=== PATIENT | male | born 1980 | race Caucasian/White ===

== ENCOUNTER 2016-03-01 11:26 | Emergency (ER) | payer OTHER ==
[~2016-03-01] VITALS: Ht 170.2 cm; Wt 68.0 kg
--- NOTE | 2016-03-01 11:38 | ED GI ---
General Chief Complaint: Abdominal/GI Problems Stated Complaint: VOMITING/HEART BURN/HEADACHE Source of Information: Patient Exam Limitations: No Limitations History of Present Illness Time Seen By Provider: 11:37 Initial Comments To ER with a one-week history of nausea vomiting heartburn headache and diarrhea. No fevers or chills. History of migraines and this feels similar. All symptoms present x1 week except cough which has been present x3 weeks. Timing/Duration: 1 Week Severity/Quality: Moderate Location: Generalized Abdomen Radiation: No Radiation Activities at Onset: None Associated Symptoms: Nausea/Vomiting Allergies and Home Medications Allergies Coded Allergies: prochlorperazine (Verified Allergy, Intermediate, 03/01/16) Home Medications Azithromycin 250 Mg Tablet #6 250 MG PO UD TAKE 2 TABLETS ON DAY ONE THEN TAKE 1 TABLET DAILY FOR FOUR MORE DAYS Prescribed by: JUAN MANUEL HAN on 03/01/16 1229 Omeprazole 40 Mg Capsule.dr #30 40 MG PO DAILY Prescribed by: JUAN MANUEL HAN on 03/01/16 1219 Sucralfate 1 Gm Tablet #40 1 GM PO QID Prescribed by: JUAN MANUEL HAN on 03/01/16 1219 Review of Systems Constitutional: see HPI EENTM: No Symptoms Reported Respiratory: No Symptoms Reported Cardiovascular: No Symptoms Reported Gastrointestinal: See HPI Abdominal Pain Genitourinary: No Symptoms Reported Musculoskeletal: no symptoms reported Skin: no symptoms reported Psychiatric/Neurological: No Symptoms Reported Endocrine: No Symptoms Reported Hematologic/Lymphatic: No Symptoms Reported Past Pcdhozi-Bycfwr-Hvfvbd Hx Patient Social History Alcohol Use: Denies Use Recreational Drug Use: Yes (WEED) Smoking Status: Current Everyday Smoker Type Used: Cigarettes Recent Foreign Travel: No Contact w/Someone Who Travel: No Recent Hopitalizations: No Physical Abuse Screen: No Sexual Abuse: No Immunizations Up To Date Date of Pneumonia Vaccine: Nov 10, 2015 Seasonal Allergies Seasonal Allergies: No Respiratory Hx Respiratory Disorders: Yes Respiratory Disorders: Asthma, COPD Cardiovascular Hx Cardiac Disorders: No Neurological Hx Neurological Disorders: Yes Neurological Disorders: Headaches /Migraines Reproductive System Hx Reproductive Disorders: No Sexually Transmitted Disease: No HIV/AIDS: No Genitourinary Hx Genitourinary Disorders: No Gastrointestinal Hx Gastrointestinal Disorders: Yes Gastrointestinal Disorders: Ulcer Musculoskeletal Hx Musculoskeletal Disorders: No Endocrine Hx Endocrine Disorders: No HEENT HX ENT Disorders: No Cancer Hx Cancer: No Psychosocial Behavioral Health Disorders: ADD/ADHD, Anxiety, PTSD, Depression Integumentary HX Skin/Integumentary Disorder: No Blood Transfusions Hx Blood Disorders: No Adverse Reaction to a Blood Tr: No Physical Exam Vital Signs VS - Last 72 Hours, by Label 03/01/16 03/01/16 11:29 12:56 Temp 98.9 Pulse 90 97 Resp 18 18 B/P 143/116 Pulse Ox 96 98 O2 Delivery Room Air Room Air Capillary Refill : General Appearance: WD/WN no apparent distress HEENT: PERRL/EOMI normal ENT inspection TMs normal Neck: non-tender full range of motion Respiratory: lungs clear normal breath sounds no respiratory distress no accessory muscle use Cardiovascular: regular rate, rhythm no murmur Gastrointestinal: normal bowel sounds soft tenderness (epigastric) Extremities: normal range of motion non-tender normal inspection Neurologic/Psychiatric: alert normal mood/affect oriented x 3 Skin: normal color warm/dry Progress/Results/Core Measures Results/Orders Lab Results Laboratory Tests Test 03/01/16 11:44 03/01/16 11:45 Range/Units Alanine Aminotransferase (ALT/SGPT) 17 0-55 U/L Albumin 4.2 3.2-4.5 G/DL Alkaline Phosphatase 86 40-136 U/L Anion Gap 12 5-14 MMOL/L Aspartate Amino Transf (AST/SGOT) 16 5-34 U/L BUN/Creatinine Ratio 19 Basophils # (Auto) 0.0 0.0-0.1 10^3/uL Basophils (%) (Auto) 0 0-10 % Blood Urea Nitrogen 19 H 7-18 MG/DL Calcium Level 10.2 H 8.5-10.1 MG/DL Carbon Dioxide Level 26 21-32 MMOL/L Chloride Level 103 98-107 MMOL/L Creatinine 0.99 0.60-1.30 MG/DL Eosinophils # (Auto) 0.4 H 0.0-0.3 10^3/uL Eosinophils (%) (Auto) 4 0-10 % Estimat Glomerular Filtration Rate > 60 Glucose Level 102 70-105 MG/DL Hematocrit 43 40-54 % Hemoglobin 15.2 13.3-17.7 G/DL Lipase 24 8-78 U/L Lymphocytes # (Auto) 1.9 1.0-4.0 X 10^3 Lymphocytes (%) (Auto) 22 12-44 % Mean Corpuscular Hemoglobin 33 25-34 PG Mean Corpuscular Hemoglobin Concent 35 32-36 G/DL Mean Corpuscular Volume 93 80-99 FL Mean Platelet Volume 9.7 7.4-10.4 FL Monocytes # (Auto) 0.8 0.0-1.0 X 10^3 Monocytes (%) (Auto) 9 0-12 % Neutrophils # (Auto) 5.6 1.8-7.8 X 10^3 Neutrophils (%) (Auto) 65 42-75 % Platelet Count 288 130-400 10^3/uL Potassium Level 4.0 3.6-5.0 MMOL/L Red Blood Count 4.68 4.35-5.85 10^6/uL Red Cell Distribution Width 12.5 10.0-14.5 % Sodium Level 141 135-145 MMOL/L Total Bilirubin 0.3 0.1-1.0 MG/DL Total Protein 6.9 6.4-8.2 G/DL White Blood Count 8.7 4.3-11.0 10^3/uL Urine Bacteria NEGATIVE /HPF Urine Bilirubin NEGATIVE NEGATIVE Urine Casts NONE /LPF Urine Clarity CLEAR Urine Color YELLOW Urine Crystals NONE /LPF Urine Culture Indicated NO Urine Glucose (UA) NEGATIVE NEGATIVE Urine Ketones NEGATIVE NEGATIVE Urine Leukocyte Esterase 1+ H NEGATIVE Urine Mucus NEGATIVE /LPF Urine Nitrite NEGATIVE NEGATIVE Urine Protein NEGATIVE NEGATIVE Urine RBC NONE /HPF Urine RBC (Auto) 1+ H NEGATIVE Urine Specific [place] 1.010 L 1.016-1.022 Urine Urobilinogen NORMAL NORMAL MG/DL Urine WBC NONE /HPF Urine pH 8 5-9 JUAN MANUEL Ng PIPELINES SUPERINTENDENT Cbc With Automated Diff (03/01/16 11:36) Comprehensive Metabolic Panel (03/01/16 11:36) Lipase (03/01/16 11:36) Ua Culture If Indicated (03/01/16 11:36) Ondansetron Injection (Zofran Injectio (03/01/16 11:45) Antacid Suspension (Mylanta Suspension (03/01/16 11:45) Lidocaine 2% Viscous 15 Ml (Xylocaine Vi (03/01/16 11:45) Ns Iv 1000 Ml (Sodium Chloride 0.9%) (03/01/16 12:15) Fentanyl Injection (Sublimaze Injection (03/01/16 12:15) Ketorolac Injection (Toradol Injection) (03/01/16 12:15) Medications Given in ED Current Medications Medications Dose Ordered Sig/Catracho Route Start Time Stop Time Status Last Admin Dose Admin Al Hydrox/Mg Hydrox/Simethicone 30 ml ONCE ONCE PO 03/01/16 11:45 03/01/16 11:46 DC 03/01/16 11:49 30 ML Fentanyl Citrate 75 mcg ONCE ONCE IVP 03/01/16 12:15 03/01/16 12:16 DC 03/01/16 12:25 75 MCG Ketorolac Tromethamine 30 mg ONCE ONCE IVP 03/01/16 12:15 03/01/16 12:16 DC 03/01/16 12:25 30 MG Lidocaine HCl 15 ml ONCE ONCE PO 03/01/16 11:45 03/01/16 11:46 DC 03/01/16 11:49 15 ML Ondansetron HCl 8 mg ONCE ONCE IVP 03/01/16 11:45 03/01/16 11:46 DC 03/01/16 11:49 8 MG Vital Signs/I&O Vital Sign - Last 12Hours 03/01/16 03/01/16 11:29 12:56 Temp 98.9 Pulse 90 97 Resp 18 18 B/P 143/116 Pulse Ox 96 98 O2 Delivery Room Air Room Air Departure Impression Impression: Primary Impression: GERD (gastroesophageal reflux disease) Qualified Code: K21.0 - Gastro-esophageal reflux disease with esophagitis Additional Impression: Viral syndrome Disposition: 01 HOME, SELF-CARE Condition: Stable Departure-Patient Inst. Decision time for Depature: 12:18 Referrals: NO,LOCAL PHYSICIAN (PCP/Family) Primary Care Physician Patient Instructions: Acid Reflux (Gastroesophageal Reflux Disease), Adult (DC) Add. Discharge Instructions: 1. Acid reducers as directed 2. Follow up with your regular doctor next week All discharge instructions reviewed with patient and/or family. Voiced understanding. Scripts Azithromycin 250 Mg [id number] Mg PO UD #6 TAB TAKE 2 TABLETS ON DAY ONE THEN TAKE 1 TABLET DAILY FOR FOUR MORE DAYS Prov:JUAN MANUEL HAN APRN 03/01/16 Sucralfate (Carafate)1 Gm Tablet1 Gm PO QID #40 TAB Prov:JUAN MANUEL HAN PIPELINES SUPERINTENDENT 03/01/16 Omeprazole 40 Mg Capsule.dr40 Mg PO DAILY #30 CAP Prov:JUAN MANUEL HAN APRN 03/01/16 Work/School Note: Work Release Form Date Seen in the Emergency Department: Mar 02, 2016 Return to Work: Mar 01, 2016 JUAN MANUEL HAN APRN Mar 01, 2016 11:37
[2016-03-01] MEDS ORDERED: ANTACID SUSP 30 ML UDC (MYLANTA) PO ONE (11:45)
[2016-03-01] MEDS ORDERED: ONDANSETRON 4 MG/2 ML (SDV) Z0FRAN IVP ONE (11:45)
[2016-03-01] MEDS ORDERED: LIDOCAINE 2% VISCOUS 15 ML UDC PO ONE (11:45)
[2016-03-01 11:51] LABS: BASOPHILS % (AUTO) 0 % (0-10); EOSINOPHILS # (AUTO) 0.4 10^3/uL (0.0-0.3); EOSINOPHILS % (AUTO) 4 % (0-10); LYMPHOCYTES # (AUTO) 1.9 X 10^3 (1.0-4.0); LYMPHOCYTES % (AUTO) 22 % (12-44); MEAN CORPUSCULAR HEMOGLOBIN 33 PG (25-34); MEAN CORPUSCULAR HGB CONC 35 G/DL (32-36); MEAN CORPUSCULAR VOLUME 93 FL (80-99); MEAN PLATELET VOLUME 9.7 FL (7.4-10.4); MONOCYTES # (AUTO) 0.8 X 10^3 (0.0-1.0); MONOCYTES % (AUTO) 9 % (0-12); NEUTROPHILS # (AUTO) 5.6 X 10^3 (1.8-7.8); NEUTROPHILS % (AUTO) 65 % (42-75); PLATELET COUNT 288 10^3/uL (130-400); RED BLOOD COUNT 4.68 10^6/uL (4.35-5.85); RED CELL DISTRIBUTION WIDTH 12.5 % (10.0-14.5); WHITE BLOOD COUNT 8.7 10^3/uL (4.3-11.0)
[2016-03-01 11:52] LABS: BILIRUBIN,URINE NEGATIVE (NEGATIVE); KETONES,URINE NEGATIVE (NEGATIVE); LEUKOCYTE ESTERASE ,URINE 1+ (NEGATIVE); NITRITE,URINE NEGATIVE (NEGATIVE); PH,URINE 8 (5-9); PROTEIN,URINE NEGATIVE (NEGATIVE); UROBILINOGEN,URINE NORMAL (NORMAL)
[2016-03-01 12:10] LABS: ALANINE AMINOTRANSFERASE 17 U/L (0-55); ALBUMIN 4.2 G/DL (3.2-4.5); ANION GAP 12 MMOL/L (5-14); ASPARTATE AMINO TRANSFERASE 16 U/L (5-34); BILIRUBIN,TOTAL 0.3 MG/DL (0.1-1.0); BLOOD UREA NITROGEN 19 MG/DL (7-18); BUN/CREATININE RATIO 19; CALCIUM 10.2 MG/DL (8.5-10.1); CARBON DIOXIDE 26 MMOL/L (21-32); CHLORIDE 103 MMOL/L (98-107); CREATININE SERUM 0.99 MG/DL (0.60-1.30); GFR ESTIMATED > 60; GLUCOSE 102 MG/DL (70-105); LIPASE 24 U/L (8-78); SODIUM 141 MMOL/L (135-145); TOTAL PROTEIN 6.9 G/DL (6.4-8.2)
[2016-03-01] MEDS ORDERED: KETOROLAC 30 MG/ML VIAL IVP ONE (12:15)
[2016-03-01] MEDS ORDERED: fentaNYL INJECTION 100 MCG/2 ML AMP IVP ONE (12:15)
[2016-03-01] MEDS ORDERED: NS IV 1000 ML 1,000 ML IV SCH (12:15)
[2016-03-01] MEDS ORDERED: SUCR1TAB36 PO (12:19)
[2016-03-01] MEDS ORDERED: OMEP40CA36 PO (12:19)
[2016-03-01] MEDS ORDERED: AZIT250T5 PO (12:29)
[2016-03-01 12:56] VITALS: BP 121/57
== END 2016-03-01 12:56 | disposition home or self-care (01) ==
LOC: ER 11:29
DX: K21.9 Gastro-esophageal reflux disease without esophagitis (principal); B34.9 Viral infection, unspecified; J44.9 Chronic obstructive pulmonary disease, unspecified; R19.7 Diarrhea, unspecified; F17.210 Nicotine dependence, cigarettes, uncomplicated
CPT/HCPCS: 36415; 80053; 81000; 83690; 85025; 96374; 96375

== ENCOUNTER 2016-10-14 13:59 | Emergency (ER) | payer MEDICAID, OTHER ==
[~2016-10-14] VITALS: Ht 170.2 cm; Wt 68.0 kg
[~2016-10-14 13:59] MED LIST: AZIT250T12 PO; OMEP40CA36 PO; SUCR1TAB36 PO
[2016-10-14] MEDS ORDERED: HYDR-757 PO (14:18)
[2016-10-14] MEDS ORDERED: AMOX500C2 PO (14:18)
[2016-10-14] MEDS ORDERED: NAPR500T PO (14:18)
--- NOTE | 2016-10-14 14:18 | ED EENT ---
History of Present Illness General Chief Complaint: Dental Problems/Pain Stated Complaint: BROKEN TOOTH/FACE SWELLING Nursing Triage Note: patient reports dental pain on R upper side. patient reports tooth broke off yesterday. states isn't able to get into dentist until next month Source: patient Exam Limitations: no limitations History of Present Illness Time seen by provider: 14:15 Initial Comments Patient has pain to his only remaining maxillary tooth. This began last night when he was eating a steak that broke off. Timing/Duration: abrupt Severity: moderate Location: mouth Associated Symptoms: denies symptoms Allergies and Home Medications Allergies Coded Allergies: prochlorperazine (Verified Allergy, Intermediate, 03/01/16) Home Medications Azithromycin 250 Mg Tablet, 250 MG PO UD, #6 TAKE 2 TABLETS ON DAY ONE THEN TAKE 1 TABLET DAILY FOR FOUR MORE DAYS Prescribed by: JUAN MANUEL HAN on 03/01/16 1229 Omeprazole 40 Mg Capsule.dr, 40 MG PO DAILY, #30 Prescribed by: JUAN MANUEL HAN on 03/01/16 1219 Sucralfate 1 Gm Tablet, 1 GM PO QID, #40 Prescribed by: JUAN MANUEL HAN on 03/01/16 1219 Review of Systems Constitutional: see HPI Eyes: No Symptoms Reported Ears: No Symptoms Reported Nose: no symptoms reported Mouth: see HPI Throat: no symptoms reported Respiratory: no symptoms reported Cardiovascular: no symptoms reported Musculoskeletal: no symptoms reported Past Zxjgdim-Lgnxbk-Ftcfmf Hx Patient Social History Alcohol Use: Denies Use Recreational Drug Use: No Smoking Status: Current Everyday Smoker Type Used: Cigarettes Recent Foreign Travel: No Contact w/Someone Who Travel: No Recent Infectious Disease Expo: No Recent Hopitalizations: No Immunizations Up To Date Date of Pneumonia Vaccine: Nov 10, 2015 Seasonal Allergies Seasonal Allergies: No Surgeries History of Surgeries: No Respiratory History of Respiratory Disorde: Yes Respiratory Disorders: Asthma, COPD Cardiovascular History of Cardiac Disorders: No Neurological History of Neurological Disord: Yes Neurological Disorders: Headaches /Migraines Reproductive System Hx Reproductive Disorders: No Sexually Transmitted Disease: No HIV/AIDS: No Gastrointestinal History of Gastrointestinal Di: Yes Gastrointestinal Disorders: Ulcer Musculoskeletal History of Musculoskeletal Dis: No Endocrine History of Endocrine Disorders: No Cancer History of Cancer: No Psychosocial Behavioral Health Disorders: ADD/ADHD, Anxiety, PTSD, Depression Integumentary History of Skin or Integumenta: No Blood Transfusions History of Blood Disorders: No Adverse Reaction to a Blood Tr: No Physical Exam Vital Signs Vital Sign - Last 12Hours 10/14/16 14:10 Temp 98.2 Pulse 68 Resp 18 B/P (MAP) 101/54 Pulse Ox 96 General Appearance: WD/WN, no apparent distress Eyes: bilateral eye normal inspection, bilateral eye PERRL, bilateral eye EOMI Ears: bilateral ear auricle normal, bilateral ear canal normal, bilateral ear TM normal Nose: normal inspection, active bleeding Mouth/Throat: normal mouth inspection, pharynx normal, other (patient has had all teeth removed except for this particular tooth which is now carious and broken but there is no fluctuance to the buccal mucosa or the hard palate to suggest a drainable abscess.) Respiratory: normal breath sounds, no respiratory distress, no accessory muscle use Gastrointestinal: normal bowel sounds, non tender, soft Neurologic/Psychiatric: alert, normal mood/affect, oriented x 3 Skin: normal color, warm/dry Progress/Results/Core Measures Results/Orders Vital Signs/I&O Vital Sign - Last 12Hours 10/14/16 14:10 Temp 98.2 Pulse 68 Resp 18 B/P (MAP) 101/54 Pulse Ox 96 Blood Pressure Mean: 70 Departure Impression Impression: Primary Impression: Dental caries Disposition: 01 HOME, SELF-CARE Condition: Stable Departure-Patient Inst. Decision time for Depature: 14:17 Referrals: SHELBIE YEAGER MD (PCP/Family) Primary Care Physician Patient Instructions: Fractured Tooth (DC) Add. Discharge Instructions: 1. Return to ER for any concerns 2. See your doctor next week 3. All discharge instructions reviewed with patient and/or family. Voiced understanding. Scripts Naproxen (Naprosyn) 500 Mg Tablet 500 MG PO BID Y for PAIN-MILD TO MODERATE, #30 TAB Prov: JUAN MANUEL HAN APRN 10/14/16 Hydrocodone/Acetaminophen ([place] 5-325 Tablet) 1 Each Tablet 1 EACH PO Q4H, #10 TAB Do not fill unless the amoxicillin was also filled Prov: JUAN MANUEL HAN APRN 10/14/16 Amoxicillin (Amoxicillin) 500 Mg Capsule 500 MG PO TID, #21 CAP Prov: JUAN MANUEL HAN APRN 10/14/16 JUAN MANUEL HAN APRN Oct 14, 2016 14:18
[2016-10-14 14:23] VITALS: BP 101/54
[2016-12-08] MEDS ORDERED: HYDR-757 PO (18:06)
== END 2016-10-14 14:21 | disposition home or self-care (01) ==
LOC: EDUNIT# 13:59 → ER 14:01
DX: K02.9 Dental caries, unspecified (principal); J44.9 Chronic obstructive pulmonary disease, unspecified; G43.909 Migraine, unspecified, not intractable, without status migrainosus; F90.9 Attention-deficit hyperactivity disorder, unspecified type; F41.9 Anxiety disorder, unspecified; F32.9 Major depressive disorder, single episode, unspecified; F43.10 Post-traumatic stress disorder, unspecified; F17.210 Nicotine dependence, cigarettes, uncomplicated
CPT/HCPCS: 99282

== ENCOUNTER 2016-10-27 22:48 | Emergency (ER) | payer MEDICAID, OTHER ==
[~2016-10-27] VITALS: Ht 170.2 cm; Wt 68.0 kg
[~2016-10-27 22:48] MED LIST changes: +AMOX500C2 PO; -AZIT250T12 PO; +AZIT250T5 PO; +HYDR-757 PO; +NAPR500T PO
--- OUTSIDE RECORDS SUMMARY | 2016-10-27 22:53 | XMS REPORT ---
Author Author MARIAH ANDERSEN [facility] Address [address] [place] [address] Care Team Providers Care Community Integration Specialist Name Role Phone MARIAH ANDERSEN Unavailable PROBLEMS Type Condition ICD9-CM Code [id number] Code Onset Dates Condition Status SNOMED Code Problem Migraine without aura and without status migrainosus, not intractable G43.009 Active 399124682 Problem Dental examination Z01.20 Active 512125651 Problem Fibromyalgia M79.7 Active 326141176 Problem Major depressive disorder, single episode, unspecified F32.9 Active 94383244 Problem Essential hypertension I10 Active 09218656 Problem Anxiety F41.9 Active 47396466 Problem Primary insomnia F51.01 Active 3224906 ALLERGIES Substance Reaction Event Type Date Status Compazine hives Drug Allergy Mar, Active sea food anaphylaxis Non Drug Allergy Mar, Active SOCIAL HISTORY No smoking Hx information available PLAN OF CARE VITAL SIGNS MEDICATIONS Unknown Medications RESULTS No Results PROCEDURES No Known procedures IMMUNIZATIONS No Known Immunizations
[2016-10-27] MEDS ORDERED: PROP60TA17 (23:12)
[2016-10-27] MEDS ORDERED: PARO20TA5 (23:12)
[2016-10-27] MEDS ORDERED: CYCL10TA9 (23:12)
[2016-10-27] MEDS ORDERED: QUET200T57 (23:12)
[2016-10-27] MEDS ORDERED: KETOROLAC 60 MG/2 ML VIAL IM ONE ×2 (23:14→23:30)
[2016-10-27] MEDS ORDERED: MELO15TA14 PO (23:26)
--- NOTE | 2016-10-27 23:27 | ED Back Pain ---
General Chief Complaint: Back Problems Stated Complaint: BACK PAIN Nursing Triage Note: PT TO ED 6 W/ C/O MIDDLE BACK PAIN ET "STINGING" ONSET THIS AFTERNOON WHILE PULLING ON THE CORD TO HIS LAWNMOWER. DENIES ANY RADIATION OF PAIN DOWN EITHER LEG, NO LOSS OF BOWEL OR BLADDER. DOES REPORT HE IS ON DISABILITY FOR ANXIETY Nursing Sepsis Screen: No Definite Risk Source of Information: Patient, Old Records History of Present Illness Time Seen by Provider: 23:05 Initial Comments PT STATES HE WAS PULLING THE CORD ON A LAWNMOWER TODAY AND FELT A "STINGING" IN HIS LOWER BACK--NO FALL OR DIRECT TRAUMA. OCCURRED AT HOME AROUND 1400 STATES HE "CAN'T GET COMFORTABLE" TOOK IBUPROFEN X 1 TONIGHT-NO RELIEF. NO RADIATION OF PAIN NO PARESTHESIAS OR MOTOR DEFICITS NO BOWEL OR BLADDER FUNCTION ABNORMALITIES CLAIMS NO PRIOR PROBLEMS OR INJURIES TO HIS BACK PT ALSO CLAIMS NO CHRONIC PAIN ISSUES CLAIMS HE HAS NOT SEEN ANY ONE AT ANY FACILITY SINCE HE LAST SAW DR. YEAGER OVER A MONTH AGO FOR ROUTINE EXAM--STATES HE SEES HER EVERY 2 MONTHS PT WAS SEEN HERE 10/14/16 FOR C/O DENTAL PAIN TO LITERALLY THE ONLY TOOTH HE STILL HAS --ALL OTHER TEETH ARE GONE PT RECEIVED RX FOR HYDROCODONE #10 AND NAPROXEN, IN ADDITION TO AMOXIL PER MED RECONCILIATION, PT ALSO ROUTINELY FILLS RX'S FOR FLEXERIL 10 MG #60 EVERY MONTH--LAST FILLED 10/20/16 PT HAS ALSO BEEN PRESCRIBED GABAPENTIN--LAST FILLED #120 ON 08/04/16 ADDITIONALLY, PT FILLED RX FOR IBUPROFEN 800 MG #90 ON 10/16/16 BY LEAH MATHEWS AT [facility] STATES HE IS ON DISABILITY FOR ANXIETY AND THE ONLY MEDICATIONS HE TAKES ARE FOR THIS Other Comments PCP: [facility], DR. YEAGER Allergies and Home Medications Allergies Coded Allergies: prochlorperazine (Verified Allergy, Intermediate, 03/01/16) Home Medications Cyclobenzaprine HCl 10 Mg Tablet, (Reported) Hydrocodone/Acetaminophen 1 Each Tablet, 1 EACH PO Q4H, #10 Do not fill unless the amoxicillin was also filled Prescribed by: JUAN MANUEL HAN on 10/14/16 1418 Meloxicam 15 Mg Tablet, 15 MG PO DAILY, #10 Prescribed by: SAURABH MARTIN on 10/27/16 2326 Naproxen 500 Mg Tablet, 500 MG PO BID PRN for PAIN-MILD TO MODERATE, #30 Prescribed by: JUAN MANUEL HAN on 10/14/16 1418 Omeprazole 40 Mg Capsule.dr, 40 MG PO DAILY, #30 Prescribed by: JUAN MANUEL HAN on 03/01/16 1219 Paroxetine HCl 20 Mg Tablet, (Reported) Propranolol HCl 60 Mg Tablet, (Reported) Quetiapine Fumarate 200 Mg Tablet, (Reported) Sucralfate 1 Gm Tablet, 1 GM PO QID, #40 Prescribed by: JUAN MANUEL HAN on 03/01/16 1219 Constitutional: no symptoms reported Respiratory: no symptoms reported Cardiovascular: no symptoms reported Gastrointestinal: no symptoms reported Musculoskeletal: see HPI, back pain Skin: no symptoms reported Psychiatric/Neurological: No Symptoms Reported Past Zbopnbq-Demkuf-Jnazuj Hx Patient Social History Alcohol Use: Past History (STATES HE USED TO DRINK "WHEN YOUNGER" BUT NO LONGER DRINKS) Recreational Drug Use: Yes (THC) Smoking Status: Current Everyday Smoker (2 PPD) Type Used: Cigarettes Recent Foreign Travel: No Contact w/Someone Who Travel: No Recent Infectious Disease Expo: No Recent Hopitalizations: No Physical Abuse: No Sexual Abuse: No Mistreated: No Fear: No Immunizations Up To Date Date of Pneumonia Vaccine: Nov 10, 2015 Seasonal Allergies Seasonal Allergies: No Surgeries History of Surgeries: No Respiratory History of Respiratory Disorde: Yes Respiratory Disorders: Asthma, COPD Cardiovascular History of Cardiac Disorders: No Neurological History of Neurological Disord: Yes Neurological Disorders: Headaches /Migraines Reproductive System Hx Reproductive Disorders: No Sexually Transmitted Disease: No HIV/AIDS: No Genitourinary History of Genitourinary Disor: No Gastrointestinal History of Gastrointestinal Di: Yes Gastrointestinal Disorders: Ulcer Musculoskeletal History of Musculoskeletal Dis: No Endocrine History of Endocrine Disorders: No HEENT History of HEENT Disorders: Yes (MULTIPLE MISSING TEETH, DENTAL ISSUES) Cancer History of Cancer: No Psychosocial History of Psychiatric Problem: Yes Behavioral Health Disorders: ADD/ADHD, Anxiety, PTSD, Bipolar, Depression Suicide Risk Score: 0 Integumentary History of Skin or Integumenta: No Blood Transfusions History of Blood Disorders: No Adverse Reaction to a Blood Tr: No Physical Exam Vital Signs Vital Sign - Last 12Hours 10/27/16 22:52 Temp 98.1 Pulse 85 Resp 18 B/P (MAP) 126/72 Pulse Ox 99 O2 Delivery Room Air Capillary Refill : Less Than 3 Seconds General Appearance: No Apparent Distress, Thin, Other (PT LAYING FLAT AND COMPLETELY OUTSTRETCHED, WITH LEGS CROSSED AT ANKLES AND HANDS FOLDED ON ABDOMEN. EYES CLOSED AND SMILING. DOES NOT APPEAR TO BE IN ANY DISCOMFORT WHATSOEVER. ) Neck: Full Range of Motion, Normal Inspection, Non Tender, Supple Cardiovascular: Regular Rate, Rhythm, No Edema, No JVD, No Murmur, Normal Peripheral Pulses Respiratory: Normal Breath Sounds, No Accessory Muscle Use, No Respiratory Distress Peripheral Pulses: 2+ Dorsalis Pedis (R), 2+ Left Dors-Pedis (L) Gastrointestinal: Normal Bowel Sounds, No Organomegaly, No Pulsatile Mass, Non Tender, Soft Back: No CVA Tenderness, No Vertebral Tenderness, Other (MOVES VERY SLOWLY AND DRAMATICALLY ON EXAM, POINTS TO MID AND LOWER LUMBAR AREA SITE OF PAIN BUT IS NON-TENDER TO PALPATION. DTR'S INTACT. NEGATIVE STRAIGHT LEG RAISING BILATERALLY. ) Extremity: Normal Capillary Refill, Normal Inspection, Normal Range of Motion, Non Tender, No Calf Tenderness, No Pedal Edema Neurologic/Psychiatric: Alert, Oriented x3, No Motor/Sensory Deficits, Normal Mood/Affect, communications administrator II-XII Norm as Tested Skin: Normal Color, Warm/Dry, Tattoos/Piercings (TATTOOS) Progress/Results/Core Measures Results/Orders My Orders Orders - SAURABH MARTIN DO Ketorolac Injection (Toradol Injection) (10/27/16 23:30) Ketorolac Injection (Toradol Injection) (10/27/16 23:14) Medications Given in ED Current Medications Medications Dose Ordered Sig/Catracho Route Start Time Stop Time Status Last Admin Dose Admin Ketorolac Tromethamine 60 mg ONCE ONCE IM 10/27/16 23:30 10/27/16 23:31 DC 10/27/16 23:27 60 MG Vital Signs/I&O Vital Sign - Last 12Hours 10/27/16 22:52 Temp 98.1 Pulse 85 Resp 18 B/P (MAP) 126/72 Pulse Ox 99 O2 Delivery Room Air Blood Pressure Mean: 90 Progress Note : Progress Note AT DISMISSAL, PT WALKS AND MOVES QUICKLY AND UPRIGHT WITHOUT ANY DIFFICULTY Departure Impression Impression: Primary Impression: Low back pain Disposition: 01 HOME, SELF-CARE Condition: Stable Departure-Patient Inst. Referrals: SHELBIE YEAGER MD (PCP/Family) Primary Care Physician Patient Instructions: Low Back Pain (DC) Add. Discharge Instructions: ALTERNATE ICE AND HEAT TO SORE AREA AT 20 MINUTE INTERVALS FOLLOW UP WITH [facility] IN 3-4 DAYS IF NO BETTER All discharge instructions reviewed with patient and/or family. Voiced understanding. SAURABH MARTIN DO Oct 27, 2016 23:27
[2016-10-27 23:35] VITALS: BP 128/71
== END 2016-10-27 23:35 | disposition home or self-care (01) ==
LOC: EDUNIT# 22:48 → ER 22:49
DX: M54.5 Low back pain (principal); J44.9 Chronic obstructive pulmonary disease, unspecified; G43.909 Migraine, unspecified, not intractable, without status migrainosus; F90.9 Attention-deficit hyperactivity disorder, unspecified type; F41.9 Anxiety disorder, unspecified; F31.9 Bipolar disorder, unspecified; F43.10 Post-traumatic stress disorder, unspecified; F12.10 Cannabis abuse, uncomplicated; F17.210 Nicotine dependence, cigarettes, uncomplicated; Z87.19 Personal history of other diseases of the digestive system; X50.0XXA Overexertion from strenuous movement or load, initial encounter
CPT/HCPCS: 99284

== ENCOUNTER 2016-11-12 15:16 | Emergency (ER) | payer MEDICAID ==
[~2016-11-12] VITALS: Ht 170.2 cm; Wt 68.0 kg
[~2016-11-12 15:16] MED LIST changes: +CYCL10TA9; +MELO15TA14 PO; +PARO20TA5; +PROP60TA17; +QUET200T57
[2016-11-12] MEDS ORDERED: IBUP-1780 (16:50)
--- NOTE | 2016-11-12 16:59 | ED Back Pain ---
General Chief Complaint: Back Problems Stated Complaint: LOWER BACK PAIN Nursing Triage Note: ARRIVED VIA AMB WITH COMPLAINTS OF MIDDLE LOW BACK PAIN X3 DAYS AFTER LIFTING AN DISABLED PT. Nursing Sepsis Screen: No Definite Risk Source of Information: Patient Exam Limitations: No Limitations History of Present Illness Time Seen by Provider: 16:59 Initial Comments 35-year-old male patient presents to the emergency department complains of low to middle back pain beginning 3 days ago. States he was lifting a disabled friend and felt sudden onset low back pain. Patient was seen here in the emergency department by Dr. Armendariz on 10/27/16 for similar complaints after pulling on a cord of a lawnmower. Patient reports taking his Flexeril and 800 mg ibuprofen without improvement in symptoms. Reports using ice and heat without improvement in symptoms. Patient is scheduled to see Dr. Yeager on December 06 for routine follow-up. Denies any bowel or bladder incontinence. Timing/Duration: 2-3 Days, Constant Pain/Injury Location: Back Radiation: Other (denies radiation down the lower extremities) Modifying Factors: Worse With Movement, Worse With Pain Medication (no improvement with Flexeril and ibuprofen) Associated Symptoms: muscle spasms, No fever, No weakness, No numbness in legs/ feet, No tingling in legs/feet, No sensory/motor loss, lower back pain, No loss of bladder control, No loss of bowel control Allergies and Home Medications Allergies Coded Allergies: prochlorperazine (Verified Allergy, Intermediate, 03/01/16) Home Medications Cyclobenzaprine HCl 10 Mg Tablet, (Reported) Ibuprofen 800 Mg Tablet, (Reported) Omeprazole 40 Mg Capsule., 40 MG PO DAILY, #30 Prescribed by: JUAN MANUEL HAN on 03/01/16 1219 Paroxetine HCl 20 Mg Tablet, (Reported) Prednisone 20 Mg Tab, 40 MG PO DAILY, #10 Ref 0 Prescribed by: YONIS BURNETT on 11/12/161816 Propranolol HCl 60 Mg Tablet, (Reported) Tramadol HCl 50 Mg Tablet, 50 MG PO Q6H PRN for pain, #6 Ref 0 Prescribed by: YONIS BURNETT on 11/12/161816 Constitutional: No chills, No dizziness, No fever, No malaise EENTM: no symptoms reported Respiratory: No cough, No short of breath Cardiovascular: No chest pain, No palpitations Gastrointestinal: No abdominal pain, No constipation, No diarrhea, No melena, No nausea, No vomiting Genitourinary: No decreased output, No discharge, No dysuria, No frequency, No hematuria, No pain Musculoskeletal: see HPI, back pain, No joint pain, No neck pain Skin: no symptoms reported Psychiatric/Neurological: Denies Headache, Denies Numbness, Denies Paresthesia , Denies Tingling, Denies Weakness All Other Systems Reviewed Negative Unless Noted: Yes (Negative excepted noted.) Past Gdfpliy-Nmdnyj-Tphywv Hx Patient Social History Alcohol Use: Denies Use Recreational Drug Use: No Smoking Status: Current Everyday Smoker Type Used: Cigarettes Recent Foreign Travel: No Contact w/Someone Who Travel: No Recent Infectious Disease Expo: No Recent Hopitalizations: No Physical Abuse: No Sexual Abuse: No Immunizations Up To Date Date of Pneumonia Vaccine: Nov 10, 2015 Seasonal Allergies Seasonal Allergies: No Surgeries History of Surgeries: No Respiratory History of Respiratory Disorde: Yes Respiratory Disorders: Asthma, COPD Cardiovascular History of Cardiac Disorders: No Neurological History of Neurological Disord: Yes Neurological Disorders: Headaches /Migraines Reproductive System Hx Reproductive Disorders: No Sexually Transmitted Disease: No HIV/AIDS: No Genitourinary History of Genitourinary Disor: No Gastrointestinal History of Gastrointestinal Di: Yes Gastrointestinal Disorders: Ulcer Musculoskeletal History of Musculoskeletal Dis: No Endocrine History of Endocrine Disorders: No HEENT History of HEENT Disorders: Yes (MULTIPLE MISSING TEETH, DENTAL ISSUES) Cancer History of Cancer: No Did You Recieve Any Treatments: No Psychosocial History of Psychiatric Problem: Yes Behavioral Health Disorders: ADD/ADHD, Anxiety, PTSD, Bipolar, Depression Suicide Risk Score: 0 Integumentary History of Skin or Integumenta: No Blood Transfusions History of Blood Disorders: No Adverse Reaction to a Blood Tr: No Reviewed Nursing Assessment Reviewed/Agree w Nursing PMH: Yes Family Medical History Significant Family History: No Pertinent Family Hx Physical Exam Vital Signs Vital Sign - Last 12Hours 11/12/16 16:35 Temp 98.0 Pulse 66 Resp 18 B/P (MAP) 133/87 Pulse Ox 98 Capillary Refill : Less Than 3 Seconds General Appearance: No Apparent Distress, WD/WN HEENT: PERRL/EOMI, Pharynx Normal Neck: Full Range of Motion, Normal Inspection, Non Tender, Supple Cardiovascular: Regular Rate, Rhythm, No Edema, No Murmur, Normal Peripheral Pulses Respiratory: Lungs Clear, Normal Breath Sounds, No Accessory Muscle Use, No Respiratory Distress Peripheral Pulses: 2+ Dorsalis Pedis (R), 2+ Left Dors-Pedis (L), 2+ Radial Pulses (R), 2+ Radial Pulses (L) Gastrointestinal: Normal Bowel Sounds, No Organomegaly, Non Tender, Soft, No Distended Back: Normal Inspection, No Vertebral Tenderness, No Decreased Range of Motion , Other (very mild bilateral lower paraspinous muscle tenderness noted. Patient is noted to sit up from the lying position without difficulty. ) Extremity: Normal Capillary Refill, Normal Inspection, Normal Range of Motion, Non Tender, No Calf Tenderness, No Pedal Edema, Pelvis Stable Neurologic/Psychiatric: Alert, Oriented x3, No Motor/Sensory Deficits, Normal Mood/Affect Skin: Normal Color, Warm/Dry Progress/Results/Core Measures Results/Orders My Orders Orders - YONIS BURNETT Lumbar Spine - 2-3 Views (11/12/16 17:19) Hydrocodone/Apap 5/325 Tablet (Lortab 5 (11/12/16 17:19) Vital Signs/I&O Vital Sign - Last 12Hours 11/12/16 11/12/16 16:35 18:32 Temp 98.0 Pulse 66 66 Resp 18 18 B/P (MAP) 133/87 Pulse Ox 98 98 Blood Pressure Mean: 102 Diagnostic Imaging Diagonstic Imaging: Xray Plain Films/CT/US/NM/MRI: other (lumbar spine) Comments FINDINGS: Lumbar spinal curvature and alignment are within normal limits. 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 There is no evidence of an acute fracture. No malalignment is seen. IMPRESSION: No radiographic evidence of acute lumbar spinal abnormality. Dictated on workstation # [id number] Reviewed: Reviewed by Me (radiology report reviewed by me) Departure Communication (Admissions) Progress Notes Diagnostic findings discussed with the patient. Patient reports feeling better with medications given in the emergency department. Plan for discharge to home. Patient was noted to ambulate from the emergency department without difficulty. Impression Impression: Primary Impression: Strain of lumbar paraspinous muscle Qualified Codes: S39.012A - Strain of muscle, fascia and tendon of lower back , initial encounter Disposition: HOME, SELF-CARE Condition: Improved Departure-Patient Inst. Decision time for Depature: 18:12 Referrals: SHELBIE YEAGER MD (PCP/Family) Primary Care Physician Patient Instructions: Lumbar Muscle Strain (DC) Add. Discharge Instructions: All discharge instructions reviewed with patient and/or family. Voiced understanding. Medications as instructed. Continue cyclobenzaprine as instructed by your primary care provider. No lifting, pushing, pulling, twisting, bending, or climbing for 7 days. Increase activity as tolerated. Heating pads or packs as needed for pain. Consider seeing a massage therapist or chiropractor. Follow-up with Dr. Yeager as previously scheduled December 06 or sooner if needed. Return to the emergency department for worsened symptoms, bowel incontinence, bladder incontinence, numbness of the genitals, or any other concerns. Scripts Tramadol HCl (Tramadol HCl) 50 Mg Tablet 50 MG PO Q6H Y for pain, #6 TAB 0 Refills Prov: YONIS BURNETT 11/12/16 Prednisone (Prednisone) 20 Mg Tab 40 MG PO DAILY, #10 TAB 0 Refills Prov: YONIS BURNETT 11/12/16 YONIS BURNETT Nov 12, 2016 16:59
[2016-11-12] MEDS ORDERED: HYDROcodone/APAP 5 MG/325 MG (LORTAB) TAB PO STA (17:19)
--- NOTE | 2016-11-12 17:55 | Diagnostic Imaging Report ---
INDICATION: Back pain. AP and lateral views of the lumbar spine are obtained. There is no previous study available at this time for comparison. FINDINGS: Lumbar spinal curvature and alignment are within normal limits. 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 There is no evidence of an acute fracture. No malalignment is seen. IMPRESSION: No radiographic evidence of acute lumbar spinal abnormality. Dictated by: Dictated on workstation # [id number]
[2016-11-12] MEDS ORDERED: TRAM50TA2 PO (18:17)
[2016-11-12] MEDS ORDERED: PRD20T PO (18:17)
[2016-11-12 18:32] VITALS: BP 133/98
== END 2016-11-12 18:32 | disposition home or self-care (01) ==
LOC: EDUNIT# 15:16 → ER 15:18
DX: S39.012A Strain of muscle, fascia and tendon of lower back, initial encounter (principal); J44.9 Chronic obstructive pulmonary disease, unspecified; G43.909 Migraine, unspecified, not intractable, without status migrainosus; F90.9 Attention-deficit hyperactivity disorder, unspecified type; F41.9 Anxiety disorder, unspecified; F31.9 Bipolar disorder, unspecified; F43.10 Post-traumatic stress disorder, unspecified; F17.210 Nicotine dependence, cigarettes, uncomplicated; Z87.19 Personal history of other diseases of the digestive system; X50.0XXA Overexertion from strenuous movement or load, initial encounter
CPT/HCPCS: 72100; 99283

== ENCOUNTER 2016-11-15 01:14 | Emergency (ER) | payer MEDICAID ==
[~2016-11-15] VITALS: Ht 170.2 cm; Wt 68.0 kg
[~2016-11-15 01:14] MED LIST changes: +IBUP-1780; +PRD20T PO; +TRAM50TA2 PO
[2016-11-15] MEDS ORDERED: SUMA25TA4 (01:32)
[2016-11-15] MEDS ORDERED: HYDROcodone/APAP 7.5 MG/325 MG (LORTAB, LORCET PLUS) TABLET PO STA (02:00)
--- NOTE | 2016-11-15 02:06 | ED Back Pain ---
General Chief Complaint: Back Problems Stated Complaint: BACK PAIN-INJURY 6 DAYS AGO Nursing Triage Note: continued chronic back pain, no new injury Nursing Sepsis Screen: No Definite Risk Source of Information: Patient Exam Limitations: No Limitations History of Present Illness Time Seen by Provider: 01:53 Initial Comments Here with report of persistent back pain. Patient was seen the other day for the same and prescribed medications which she is taken. He is out of the tramadol. States that didn't really work. Denies reinjury. Denies numbness or tingling between his legs. Denies bowel or bladder incontinence. Denies weakness of the legs. Pain mostly on the left and radiates to the right. Timing/Duration: 1 Week Severity: Moderate Pain/Injury Location: Back Radiation: Buttocks Method of Injury: Other (lifting) Modifying Factors: Improves With Movement Associated Symptoms: muscle spasms, No weakness, No numbness in legs/feet, No tingling in legs/feet, No sensory/motor loss, lower back pain, No loss of bladder control, No loss of bowel control Allergies and Home Medications Allergies Coded Allergies: prochlorperazine (Verified Allergy, Intermediate, 03/01/16) Home Medications Cyclobenzaprine HCl 10 Mg Tablet, (Reported) Ibuprofen 800 Mg Tablet, (Reported) Omeprazole 40 Mg Capsule.dr, 40 MG PO DAILY, #30 Prescribed by: JUAN MANUEL HAN on 03/01/16 1219 Prednisone 20 Mg Tab, 40 MG PO DAILY, #10 Ref 0 Prescribed by: YONIS BURNETT on 11/12/161816 Propranolol HCl 60 Mg Tablet, (Reported) Sumatriptan Succinate 25 Mg Tablet, (Reported) Tramadol HCl 50 Mg Tablet, 50 MG PO Q6H PRN for pain, #6 Ref 0 Prescribed by: YONIS BURNETT on 11/12/161816 Constitutional: see HPI, No chills, No fever Respiratory: no symptoms reported Cardiovascular: no symptoms reported Gastrointestinal: no symptoms reported Musculoskeletal: see HPI Psychiatric/Neurological: See HPI Past Ispfsus-Sqpirg-Mzgcjz Hx Patient Social History Alcohol Use: Denies Use Recreational Drug Use: No Smoking Status: Current Everyday Smoker Type Used: Cigarettes 2nd Hand Smoke Exposure: Yes Recent Foreign Travel: No Contact w/Someone Who Travel: No Recent Infectious Disease Expo: No Recent Hopitalizations: No Immunizations Up To Date Date of Pneumonia Vaccine: Nov 10, 2015 Seasonal Allergies Seasonal Allergies: No Surgeries History of Surgeries: No Respiratory History of Respiratory Disorde: Yes Respiratory Disorders: Asthma, COPD Cardiovascular History of Cardiac Disorders: No Neurological History of Neurological Disord: Yes Neurological Disorders: Headaches /Migraines Reproductive System Hx Reproductive Disorders: No Sexually Transmitted Disease: No HIV/AIDS: No Genitourinary History of Genitourinary Disor: No Gastrointestinal History of Gastrointestinal Di: Yes Gastrointestinal Disorders: Ulcer Musculoskeletal History of Musculoskeletal Dis: No Endocrine History of Endocrine Disorders: No HEENT History of HEENT Disorders: Yes (MULTIPLE MISSING TEETH, DENTAL ISSUES) Cancer History of Cancer: No Did You Recieve Any Treatments: No Psychosocial History of Psychiatric Problem: Yes Behavioral Health Disorders: ADD/ADHD, Anxiety, PTSD, Bipolar, Depression Integumentary History of Skin or Integumenta: No Blood Transfusions History of Blood Disorders: No Adverse Reaction to a Blood Tr: No Reviewed Nursing Assessment Reviewed/Agree w Nursing PMH: Yes Family Medical History Significant Family History: No Pertinent Family Hx Physical Exam Vital Signs Vital Sign - Last 12Hours 11/15/16 01:32 Temp 97.2 Pulse 76 Resp 16 B/P (MAP) 133/72 Pulse Ox 96 O2 Delivery Room Air Capillary Refill : Less Than 3 Seconds General Appearance: WD/WN, Mild Distress Cardiovascular: Regular Rate, Rhythm, No Murmur Gastrointestinal: Non Tender, Soft Back: Muscle Spasm, No Vertebral Tenderness, Other (paraspinous tenderness of the low lumbar area left greater than right) Neurologic/Psychiatric: Alert, Oriented x3, No Motor/Sensory Deficits, Other ( able to walk to the bathroom without difficulty.) Skin: Normal Color, Warm/Dry Progress/Results/Core Measures Results/Orders My Orders Orders - INDIA GUY MD Hydrocodone/Apap 7.5/325 Tab (Lortab 7. (11/15/16 02:00) Vital Signs/I&O Vital Sign - Last 12Hours 11/15/16 01:32 Temp 97.2 Pulse 76 Resp 16 B/P (MAP) 133/72 Pulse Ox 96 O2 Delivery Room Air Blood Pressure Mean: 92 Progress Note : Progress Note Seen and evaluated. Reviewed previous visit and CT results. Hydrocodone 7.5 one tab by mouth given. Discharged home with return precautions. Patient verbalize understanding instructions and agreement with plan. Given small prescription for hydrocodone. Instructed that he needs to follow up with his doctor. Departure Impression Impression: Primary Impression: Lumbar radiculopathy Additional Impression: Back strain Qualified Codes: S39.012D - Strain of muscle, fascia and tendon of lower back , subsequent encounter Disposition: HOME, SELF-CARE Condition: Stable Departure-Patient Inst. Decision time for Depature: 02:05 Referrals: SHELBIE YEAGER MD (PCP/Family) Primary Care Physician Patient Instructions: Low Back Pain (DC), Muscle Strain (DC) Add. Discharge Instructions: All discharge instructions reviewed with patient and/or family. Voiced understanding. Take medications as directed. Follow up with your Dr. in one to 2 days for recheck. Return for worse pain, weakness, numbness between her legs, difficulty with walking or going to the bathroom or other concerns as needed. Scripts Hydrocodone/Acetaminophen (Hydrocodon -Acetaminophen 5-325) 1 Each Tablet 1 EACH PO Q4H Y for PAIN-MODERATE, #5 TAB 0 Refills Prov: INDIA GUY MD 11/15/16 INDIA GUY MD Nov 15, 2016 02:06
[2016-11-15] MEDS ORDERED: HYDR-3812 PO (02:07)
[2016-11-15 02:13] VITALS: BP 133/72
== END 2016-11-15 02:12 | disposition home or self-care (01) ==
LOC: EDUNIT# 01:14 → ER 01:16
DX: S39.012D Strain of muscle, fascia and tendon of lower back, subsequent encounter (principal); M54.16 Radiculopathy, lumbar region; J44.9 Chronic obstructive pulmonary disease, unspecified; G43.909 Migraine, unspecified, not intractable, without status migrainosus; F90.9 Attention-deficit hyperactivity disorder, unspecified type; F41.9 Anxiety disorder, unspecified; F31.9 Bipolar disorder, unspecified; F43.10 Post-traumatic stress disorder, unspecified; F17.210 Nicotine dependence, cigarettes, uncomplicated; Z87.19 Personal history of other diseases of the digestive system; X50.0XXD Overexertion from strenuous movement or load, subsequent encounter
CPT/HCPCS: 99283

== ENCOUNTER 2017-04-13 04:24 | Emergency (ER) | payer MEDICAID ==
[~2017-04-13] VITALS: Ht 170.2 cm; Wt 68.0 kg
[~2017-04-13 04:24] MED LIST changes: +ACHD5005 PO; +AZIT250T12 PO; -AZIT250T5 PO; +NAPR-1071 PO; -NAPR500T PO; +SUMA25TA4
[2017-04-13] MEDS ORDERED: AMOXICILLIN 500 MG (POLYMOX) CAP PO STA (05:16)
[2017-04-13] MEDS ORDERED: HYDROcodone/APAP 7.5 MG/325 MG (LORTAB, LORCET PLUS) TABLET PO STA (05:16)
[2017-04-13] MEDS ORDERED: TRAM50TA2 PO (05:22)
[2017-04-13] MEDS ORDERED: AMOX500C2 PO (05:22)
--- NOTE | 2017-04-13 05:22 | ED EENT ---
History of Present Illness General Chief Complaint: Dental Problems/Pain Stated Complaint: PAIN FROM BROKE TOOTH Nursing Triage Note: PT TO ED 10 W/ C/O DENTAL PAIN R/T BROKEN TOOTH. STATES HE "NEEDS TO GET INTO THE DENTIST" Source: patient Exam Limitations: no limitations History of Present Illness Date Seen by Provider: Apr 13, 2017 Time Seen by Provider: 05:08 Initial Comments Here with complaint of broken tooth in the top front right maxillary region. Working on trying to get into the dentist. Tried ibuprofen and that has not helped. Concerned about infection around that tooth which is reasonable. Has very poor dentition overall. Similar complaint for the same October 2016. Timing/Duration: abrupt Severity: moderate Location: dental Prearrival Treatment: over the counter meds Associated Symptoms: No cough, No facial pain/swelling, No fever, No sore throat, tooth pain Allergies and Home Medications Allergies Coded Allergies: prochlorperazine (Verified Allergy, Intermediate, 03/01/16) Home Medications Hydrocodone Bit/Acetaminophen 1 Each Tablet, 1 EACH PO Q4H PRN for PAIN-MODERATE Prescribed by: INDIA GUY on 11/15/16 0207 Hydrocodone/Acetaminophen 1 Each Tablet, 1 EACH PO Q4H Prescribed by: JUAN MANUEL HAN on 12/08/16 180 Omeprazole 40 Mg Capsule.dr, 40 MG PO DAILY Prescribed by: JUAN MANUEL HAN on 03/01/16 1219 Prednisone 20 Mg Tab, 40 MG PO DAILY Prescribed by: YONIS BURNETT on 11/12/161816 Tramadol HCl 50 Mg Tablet, 50 MG PO Q6H PRN for pain Prescribed by: YONIS BURNETT on 11/12/161816 Patient Home Medication List Home Medication List Reviewed: Yes Review of Systems Constitutional: see HPI, No chills, No fever Ears: No Symptoms Reported Nose: no symptoms reported Mouth: see HPI, pain, denies swelling Throat: no symptoms reported Respiratory: no symptoms reported Cardiovascular: no symptoms reported Skin: no symptoms reported Past Kalbrrn-Vkenvn-Guhrhm Hx Patient Social History Alcohol Use: Denies Use Recreational Drug Use: Yes Drug of Choice: MARIJUANA Smoking Status: Current Everyday Smoker Type Used: Cigarettes 2nd Hand Smoke Exposure: Yes Recent Foreign Travel: No Contact w/Someone Who Travel: No Recent Infectious Disease Expo: No Recent Hopitalizations: No Physical Abuse: No Sexual Abuse: No Mistreated: No Fear: No Immunizations Up To Date Date of Pneumonia Vaccine: Nov 10, 2015 Seasonal Allergies Seasonal Allergies: No Surgeries History of Surgeries: No Respiratory History of Respiratory Disorde: Yes Respiratory Disorders: Asthma, COPD Cardiovascular History of Cardiac Disorders: No Neurological History of Neurological Disord: Yes Neurological Disorders: Headaches /Migraines Reproductive System Hx Reproductive Disorders: No Sexually Transmitted Disease: No HIV/AIDS: No Genitourinary History of Genitourinary Disor: No Gastrointestinal History of Gastrointestinal Di: Yes Gastrointestinal Disorders: Ulcer Musculoskeletal History of Musculoskeletal Dis: No Endocrine History of Endocrine Disorders: No HEENT History of HEENT Disorders: Yes (MULTIPLE MISSING TEETH, DENTAL ISSUES) Cancer History of Cancer: No Did You Recieve Any Treatments: No Psychosocial History of Psychiatric Problem: Yes Behavioral Health Disorders: ADD/ADHD, Anxiety, PTSD, Bipolar, Depression Suicide Risk Score: 0 Integumentary History of Skin or Integumenta: No Blood Transfusions History of Blood Disorders: No Adverse Reaction to a Blood Tr: No Reviewed Nursing Assessment Reviewed/Agree w Nursing PMH: Yes Family Medical History Significant Family History: No Pertinent Family Hx Physical Exam Vital Signs Vital Signs - First Documented 04/13/17 04:34 Temp 97.4 Pulse 120 Resp 20 B/P (MAP) 124/83 (97) Pulse Ox 97 O2 Delivery Room Air General Appearance: WD/WN, no apparent distress Mouth/Throat: pharynx normal, dental tenderness (top frontal right only remaining tooth with significant Dental carry. No significant surrounding erythema to suggest abscess.) Neck: full range of motion, supple Cardiovascular: regular rate, rhythm, no murmur Respiratory: lungs clear, normal breath sounds Neurologic/Psychiatric: alert, oriented x 3 Skin: normal color, warm/dry Progress/Results/Core Measures Results/Orders Vital Signs/I&O Vital Sign - Last 12Hours 04/13/17 04:34 Temp 97.4 Pulse 120 Resp 20 B/P (MAP) 124/83 (97) Pulse Ox 97 O2 Delivery Room Air Blood Pressure Mean: 97 Progress Note : Progress Note Seen and evaluated. We did discuss that this is similar complaints in October and he really needs to follow up with a dentist. Patient verbalize understanding and intent to comply. We will give hydrocodone 7.5 325 one tab by mouth now as well as amoxicillin 1000 mg by mouth and prescribed tramadol outpatient. He'll continue outpatient ibuprofen. Discharged home with return precautions. Patient and family verbalize understanding instructions and agreement with plan. Departure Impression Impression: Primary Impression: Dental caries Disposition: 01 HOME, SELF-CARE Condition: Improved Departure-Patient Inst. Decision time for Depature: 05:21 Referrals: SHELBIE YEAGER MD (PCP/Family) Primary Care Physician Patient Instructions: Dental Pain (DC) Add. Discharge Instructions: All discharge instructions reviewed with patient and/or family. Voiced understanding. Take medications as directed. You may continue ibuprofen 800 mg every 8 hours as needed for pain as well. You may take Tylenol 1000 mg every 8 hours as needed for pain. Continue to brush teeth and you may rinse mouth with salt water 2 or 3 times daily. Follow-up with a dentist GABY. Return for worse pain , swelling, weakness, breathing problems or other concerns as needed. Scripts Tramadol HCl (Tramadol HCl) 50 Mg Tablet 50 MG PO Q6H Y for PAIN, #20 TAB 0 Refills Prov: INDIA GUY MD 04/13/17 Amoxicillin (Amoxicillin) 500 Mg Capsule 500 MG PO TID, #21 CAP 0 Refills Prov: INDIA GUY MD 04/13/17 INDIA GUY MD Apr 13, 2017 05:22
[2017-04-13 05:29] VITALS: BP 125/79
== END 2017-04-13 05:29 | disposition home or self-care (01) ==
LOC: EDUNIT# 04:24 → ER 04:26
DX: K02.9 Dental caries, unspecified (principal); K03.81 Cracked tooth; J44.9 Chronic obstructive pulmonary disease, unspecified; G43.909 Migraine, unspecified, not intractable, without status migrainosus; F90.9 Attention-deficit hyperactivity disorder, unspecified type; F41.9 Anxiety disorder, unspecified; F31.9 Bipolar disorder, unspecified; F03.90 Unspecified dementia, unspecified severity, without behavioral disturbance, psychotic disturbance, mood disturbance, and anxiety; F12.10 Cannabis abuse, uncomplicated; F17.210 Nicotine dependence, cigarettes, uncomplicated; Z79.52 Long term (current) use of systemic steroids; Z87.19 Personal history of other diseases of the digestive system; Z88.8 Allergy status to other drugs, medicaments and biological substances
CPT/HCPCS: 99283

== ENCOUNTER 2017-07-29 04:18 | Emergency (ER) | payer MEDICAID ==
[~2017-07-29] VITALS: Ht 170.2 cm; Wt 68.0 kg
[~2017-07-29 04:18] MED LIST changes: +ALBU2.5V4; +BUSP15TA60; +CLON0.5T3; +CYCL5TAB PO; +GABA-486; +QUET400T12
[2017-07-29] MEDS ORDERED: LACTATED RINGERS 1,000 ML IV ONE (04:35)
[2017-07-29] MEDS ORDERED: KETOROLAC 30 MG/ML VIAL IVP STA (04:35)
--- OUTSIDE RECORDS SUMMARY | 2017-07-29 04:46 | XMS REPORT ---
Author Author FREIDA ROBISON [facility] Address [address] [place] [address] Care Team Providers Care De Icer Finisher Name Role Phone FREIDA ROBISON Unavailable PROBLEMS Type Condition ICD9-CM Code LQS15-YV Code Onset Dates Condition Status SNOMED Code Problem Essential hypertension I10 Active 17750304 Problem Primary insomnia F51.01 Active 6335590 Problem Major depressive disorder, single episode, unspecified F32.9 Active 40884076 Problem Migraine without aura and without status migrainosus, not intractable G43.009 Active 160119988 Problem Chronic post-traumatic stress disorder (PTSD) after combat F43.12 Active 260769176 Problem Asthma without acute exacerbation J45.909 Active 299565796 Problem Fibromyalgia M79.7 Active 553630701 Problem Anxiety F41.9 Active 76501090 Problem COPD with exacerbation J44.1 Active 418206046 Problem Other chronic pain G89.29 Active 82849281 ALLERGIES Substance Reaction Event Type Date Status Compazine hives Drug Allergy Oct, Active sea food anaphylaxis Non Drug Allergy Oct, Active ENCOUNTERS Encounter Location Date Diagnosis [facility] [id number], [place] [address] May, [facility] [id number] [address] May, Anxiety F41.9 [facility] [id number], [place] [address] May, [facility] [id number] [address] May, Acute pain of right shoulder M25.511 and Muscle strain of right shoulder, initial encounter S46.911A [facility] [address], [place] [address] May, [facility] [address] [place] [address] May, [facility] [id number] [place] [address] 30[address] Apr, Anxiety F41.9 and Asthma without acute exacerbation J45.909 [facility] [id number] [place] [address]057[address] 8783 Apr, [facility] [id number] [place] [address]183[address] 1706 Mar, Anxiety F41.9 and Major depressive disorder, single episode , unspecified F32.9 [facility] [id number] [place] [address]1826- 2377 Mar, Anxiety F41.9 [place] [id number] [place] [address] 71497- 2750 Mar, [facility] [id number] [place] [address] 09867- 7155 Mar, [facility] [id number] [place] [address] 67231- 5784 Mar, Chronic post-traumatic stress disorder (PTSD) after combat F43.12 ; Major depressive disorder, single episode, unspecified F32.9 ; Anxiety F41.9 and Primary insomnia F51.01 [facility] [id number] [place] [address] 15289- 9276 Feb, Anxiety F41.9 and Major depressive disorder, single episode , unspecified F32.9 [place] [id number] [place] [address] 84055- 1423 Feb, Primary insomnia F51.01 and Anxiety F41.9 [facility] [address] [place] [address] 6[address]12- 2010 Feb, [facility] [address] [place] [address] Feb, Wheezes R06.2 and COPD with exacerbation J44.1 [place] [address] [address] Feb, [facility] [address] [address] Jan, [place] [address] [address] Dec, [place] [address] [address] Dec, [place] [address] [address] 9435 Dec, Dislocation of right shoulder joint, subsequent encounter S43.004D [place] [address] [address]59 Nov, [place] [address] [address] 6656 Nov, Lumbosacral neuritis M54.17 [facility] [address] [address] 28 Oct, 2016 Other chronic pain G89.29 and Pain in right shoulder M25.511 [place] [address] [address] 18 Oct, 2016 Essential hypertension I10 [place] [address] 9[address]05- 8188 11 Oct, 2016 [place] [address] [address]47- [address] 07 Oct, 2016 Closed fracture of tooth, initial encounter S02.5XXA and Dental caries K02.9 [place] [address] 81583- 8094 07 Oct, 2016 Dental examination Z01.20 [place] [address] 20658- 58[address] Oct, Migraine with aura and without status migrainosus, not intractable G43.109 [facility] [id number] [place] [address] 34386- 0880 Oct, [facility] [id number] [place] [address] 99718- 8411 Sep, Fibromyalgia M79.7 [facility] [id number] [place] [address] 87355- 5436 Sep, Essential hypertension I10 and Anxiety disorder, unspecified F41.9 [place] [id number] [place] [address] 49899[address] 78[address] Aug, Anxiety disorder, unspecified F41.9 [place] [id number] [place] [address] 86436- 7914 Aug, Anxiety disorder, unspecified F41.9 and Essential hypertension I10 [place] [id number] [place] [address] 51475- 6304 Jul, Fibromyalgia M79.7 [place] [id number] [place] [address] 72951- 2889 Jul, Fibromyalgia M79.7 [place] [id number] [place] [address] 17858- 0085 June, Fibromyalgia M79.7 and Anxiety F41.9 [place] [id number] [place] [address] 86742- 2629 June, [place] [id number] [place] [address] 18169- 7933 June, Primary insomnia F51.01 [place] [id number] [place] [address] 23015- 6399 May, Migraine without aura and without status migrainosus, not intractable G43.009 ; Primary insomnia F51.01 ; Bronchitis J40 ; Anxiety disorder, unspecified F41.9 and Major depressive disorder, single episode, unspecified F32.9 [facility] [id number], [place] [address] May, [facility] [address] [place] [address]46 [address]39 May, Migraine with aura and without status migrainosus, not intractable G43.109 [facility] [address] [place] [address] 70415- 4669 May, Essential hypertension I10 [facility] [id number] [place] [address] 11968- 9138 Apr, Essential hypertension I10 ; Migraine without aura and without status migrainosus, not intractable G43.009 ; Anxiety disorder, unspecified F41.9 and Major depressive disorder, single episode, unspecified F32.9 [facility] [address], [place] [address] Mar, [facility] [address] [place] [id number] Feb, Dental examination Z01.20 IMMUNIZATIONS No Known Immunizations SOCIAL HISTORY Never Assessed REASON FOR VISIT Right shoulder pain is popping out at night, numbness down to fingers- has an old injury JStrasserRN PLAN OF CARE Activity Details Follow Up prn Reason: VITAL SIGNS Height 66.5 in 2016-11-06 Weight 128.6 lbs 2016-11-06 Temperature 98.2 degrees Fahrenheit 2016-11-06 Heart Rate 72 bpm 2016-11-06 Respiratory Rate 18 2016-11-06 BMI 20.44 kg/m2 2016-11-06 Blood pressure systolic 120 mmHg 2016-11-06 Blood pressure diastolic 80 mmHg 2016-11-06 MEDICATIONS Medication Instructions Dosage Frequency Start Date End Date Duration Status Ibuprofen 800 MG Orally Three times a day 1 tablet with food or milk 8h Oct, Nov, 30 day(s) Active Propranolol HCl 60 mg Orally Twice a day 1 tablet 12h Active BusPIRone HCl 10 MG Orally TID PRN 1.5 tablets May, Active Paxil 20 mg Orally 2 times a day 1 tablet 12h 30 Active Albuterol Sulfate (2.5 MG/3ML) 0.083% Inhalation every 6 hrs 3 ml 6h May Active Gabapentin 100 mg Orally twice daily 2 capsules June, Active Ventolin HFA 108 (90 Base) MCG/ACT Inhalation 4 times a day 2 puffs as needed 6h Active Omeprazole 40 mg Orally 2 times a day 1 capsule 12h Active Seroquel 200 mg Orally Once a day 1 tablet 24h 30 days Active Imitrex 25 MG Orally Twice a day (MAX 2 DAILY) 1 tablet as needed at onset of headache and then 1 more tab 2 hours later if no improvement Apr, Active Cyclobenzaprine HCl 10 mg Orally 2 times a day 1 tablet as needed 12h 30 Active RESULTS Name Result Date Reference Range Xray : Shoulder, Right 2 view (IN HOUSE) 2016-11-06 PROCEDURES Procedure Date Ordered Result Body Site X-RAY EXAM OF SHOULDER Nov 06, 2016 INSTRUCTIONS MEDICATIONS ADMINISTERED No Known Medications MEDICAL (GENERAL) HISTORY Type Description Date Medical History Hypertension Medical History Asthma Medical History depression Medical History anxiety Medical History Migraines Medical History insomnia Surgical History right shoulder surgery 2017 Hospitalization History migraines 2016 Hospitalization History ulcer 2010
--- OUTSIDE RECORDS SUMMARY | 2017-07-29 04:46 | XMS REPORT ---
Author Author SHELBIE YEAGER Organization [facility] Address [address] [place] [address] Care Team Providers Care Seo Coordinator Name Role Phone SHELBIE YEAGER Unavailable PROBLEMS Type Condition ICD9-CM Code NMM00-QG Code Onset Dates Condition Status SNOMED Code Problem Essential hypertension I10 Active 80139322 Problem Primary insomnia F51.01 Active 1477109 Problem Major depressive disorder, single episode, unspecified F32.9 Active 54665392 Problem Migraine without aura and without status migrainosus, not intractable G43.009 Active 230937465 Problem Chronic post-traumatic stress disorder (PTSD) after combat F43.12 Active 678706955 Problem Asthma without acute exacerbation J45.909 Active 004297950 Problem Fibromyalgia M79.7 Active 850528186 Problem Anxiety F41.9 Active 57120882 Problem COPD with exacerbation J44.1 Active 127311333 Problem Other chronic pain G89.29 Active 70684797 ALLERGIES No Information ENCOUNTERS Encounter Location Date Diagnosis [facility] [id number] [place] [address] 13593- 1424 June, [facility] [id number] [place] [address] 33509- 9367 June, [facility] [id number] [place] [address] 80605- 3518 June, Anxiety F41.9 [facility] [id number] [place] [address] 17106- 4386 May, [facility] [id number] [place] [address] 48174- 0357 May, Anxiety F41.9 [facility] [id number] [place] [address] 32159- 2495 May, [facility] [address] [place] [address] 77805 [address] May, Acute pain of right shoulder M25.511 and Muscle strain of right shoulder, initial encounter S46.911A [facility] [id number] [place] [address] 26262- 3581 May, [facility] [id number] [place] [address] 99094- 6967 May, [facility] [id number] [place] [address] 87356- 5439 Apr, Anxiety F41.9 and Asthma without acute exacerbation J45.909 [place] [id number] [place] [address] 31281- 7507 Apr, [facility] [id number] [place] [address] 69370- 4092 Mar, Anxiety F41.9 and Major depressive disorder, single episode , unspecified F32.9 [place] [id number] [place] [address] 72941- 6998 Mar, Anxiety F41.9 [place] [id number] [place] [address] 80928- 4241 Mar, [place] [id number] [place] [address] 51650- 6353 Mar, [place] [id number] [place] [address] 73773- 0581 Mar, Chronic post-traumatic stress disorder (PTSD) after combat F43.12 ; Major depressive disorder, single episode, unspecified F32.9 ; Anxiety F41.9 and Primary insomnia F51.01 [facility] [address] [place] [address] 58988- 9057 Feb, Anxiety F41.9 and Major depressive disorder, single episode , unspecified F32.9 [place] [id number] [place] [address] 14842- 0802 Feb, Primary insomnia F51.01 and Anxiety F41.9 [place] [address] [address]84- 6742 Feb, [facility] [address] [address] Feb, Wheezes R06.2 and COPD with exacerbation J44.1 [place] [address] 63966- 5373 Feb, [facility] [address] [address]253- 3022 Jan, [place] [address] [address]1940- 2412 Dec, [place] [address] 67434- 4545 Dec, [place] [address] [address] Dec, Dislocation of right shoulder joint, subsequent encounter S43.004D [place] [address] 12564- 7901 Nov, [place] [address] 30698- 3548 Nov, Lumbosacral neuritis M54.17 [facility] [id number] [place] [address] 28969 -4183 28 Oct, 2016 Other chronic pain G89.29 and Pain in right shoulder M25.511 [place] [address] 95716- 8243 18 Oct, 2016 Essential hypertension I10 [place] [address] 71093- 6418 11 Oct, 2016 [facility] [address] 75221- 5174 07 Oct, 2016 Closed fracture of tooth, initial encounter S02.5XXA and Dental caries K02.9 [facility] [address] 58668- 5420 07 Oct, 2016 Dental examination Z01.20 [place] [address] 9[address]22- 3800 Oct, Migraine with aura and without status migrainosus, not intractable G43.109 [place] [address] 36772- 3643 Oct, [place] [address] 22565- 4858 Sep, Fibromyalgia M79.7 [place] [address] 08703- 7503 Sep, Essential hypertension I10 and Anxiety disorder, unspecified F41.9 [place] [address] 18284- 1180 Aug, Anxiety disorder, unspecified F41.9 [place] [address] 28350- 6662 Aug, Anxiety disorder, unspecified F41.9 and Essential hypertension I10 [place] [address] 67854- 5450 Jul, Fibromyalgia M79.7 [place] [address] 88063- 3211 Jul, Fibromyalgia M79.7 [place] [address] 18466- 4183 June, Fibromyalgia M79.7 and Anxiety F41.9 [place] [address] 17332- 9621 June, [place] [address] 65815- 3430 June, Primary insomnia F51.01 [place] [address] [address] 14 May, 2016 Migraine without aura and without status migrainosus, not intractable G43.009 ; Primary insomnia F51.01 ; Bronchitis J40 ; Anxiety disorder, unspecified F41.9 and Major depressive disorder, single episode, unspecified F32.9 [facility] [id number] [place] [address] 08466- 1524 13 May, 2016 [facility] [id number] [place] [address] 93884 -7164 12 May, 2016 Migraine with aura and without status migrainosus, not intractable G43.109 [facility] [id number] [place] [address] 58891- 6336 05 May, 2016 Essential hypertension I10 [facility] [id number] [place] [address] 83594- 5972 Apr, Essential hypertension I10 ; Migraine without aura and without status migrainosus, not intractable G43.009 ; Anxiety disorder, unspecified F41.9 and Major depressive disorder, single episode, unspecified F32.9 [facility] [id number] [place] [address] 16238- 2659 07 Mar, 2016 [facility] [address] [place] [id number] Feb, Dental examination Z01.20 IMMUNIZATIONS No Known Immunizations SOCIAL HISTORY Never Assessed REASON FOR VISIT Requests return call PLAN OF CARE VITAL SIGNS MEDICATIONS Unknown Medications RESULTS No Results PROCEDURES No Known procedures INSTRUCTIONS MEDICATIONS ADMINISTERED No Known Medications MEDICAL (GENERAL) HISTORY Type Description Date Medical History Hypertension Medical History Asthma Medical History depression Medical History anxiety Medical History Migraines Medical History insomnia Surgical History right shoulder surgery 2017 Hospitalization History migraines 2016 Hospitalization History ulcer 2010
--- OUTSIDE RECORDS SUMMARY | 2017-07-29 04:46 | XMS REPORT ---
Author Author SHELBIE YEAGER Organization [facility] Address [address] [place] [address] Care Team Providers Care Truss Maker Name Role Phone SHELBIE YEAGER Unavailable PROBLEMS Type Condition ICD9-CM Code BHN27-TE Code Onset Dates Condition Status SNOMED Code Problem Essential hypertension I10 Active 18981919 Problem Primary insomnia F51.01 Active 2587415 Problem Major depressive disorder, single episode, unspecified F32.9 Active 83064284 Problem Migraine without aura and without status migrainosus, not intractable G43.009 Active 895497223 Problem Chronic post-traumatic stress disorder (PTSD) after combat F43.12 Active 417816557 Problem Asthma without acute exacerbation J45.909 Active 596589108 Problem Fibromyalgia M79.7 Active 589661695 Problem Anxiety F41.9 Active 22249942 Problem COPD with exacerbation J44.1 Active 591502584 Problem Other chronic pain G89.29 Active 62949800 ALLERGIES Substance Reaction Event Type Date Status Compazine hives Drug Allergy Dec, Active sea food anaphylaxis Non Drug Allergy Dec, Active ENCOUNTERS Encounter Location Date Diagnosis [facility] [address] [address] June, [facility] [address] [place] [address] 97813- 0774 June, Anxiety F41.9 [facility] [address] [address] May, [facility] [id number] [place] [address]31- 1993 May, Anxiety F41.9 [facility] [address], [place] [address] May, [facility] [id number] [place] [address] 22753 -5913 May, Acute pain of right shoulder M25.511 and Muscle strain of right shoulder, initial encounter S46.911A [facility] [id number] [place] [address] 45683- 6528 May, [facility] [id number] [place] [address] 32594- 7974 May, [facility] [id number] [place] [address] 98516- 1361 Apr, Anxiety F41.9 and Asthma without acute exacerbation J45.909 [facility] [id number] [place] [address] 96314- 1345 Apr, [facility] [id number] [place] [address] 12115- 7021 Mar, Anxiety F41.9 and Major depressive disorder, single episode , unspecified F32.9 [facility] [id number] [place] [address] 21950- 5522 Mar, Anxiety F41.9 [facility] [id number] [place] [address] 04727- 0133 Mar, [facility] [id number] [place] [address] 10117- 0682 Mar, [facility] [facility] [id number] [place] [address] 88571- 9383 Mar, Chronic post-traumatic stress disorder (PTSD) after combat F43.12 ; Major depressive disorder, single episode, unspecified F32.9 ; Anxiety F41.9 and Primary insomnia F51.01 [facility] [facility] [id number] [place] [address] 54300- 4425 Feb, Anxiety F41.9 and Major depressive disorder, single episode , unspecified F32.9 [facility] [id number] [place] [address] 36891- 2329 Feb, Primary insomnia F51.01 and Anxiety F41.9 [facility] [address] [address] Feb, [facility] [address] [address] Feb, Wheezes R06.2 and COPD with exacerbation J44.1 [place] [address] 19543- 0[address] Feb, [facility] [address] [address]- 86[address] Jan, [place] [address] 33727- 3660 Dec, [facility] [address] 26224- 5547 Dec, [facility] [address] 55035- 3964 Dec, Dislocation of right shoulder joint, subsequent encounter S43.004D [facility] [address] 02625- 5836 Nov, [facility] [address] 24359- 8999 Nov, Lumbosacral neuritis M54.[address] [facility] [address] 12058 [address] 28 Oct, 2016 Other chronic pain G89.29 and Pain in right shoulder M25.511 [facility] [address] 73572- 7037 18 Oct, 2016 Essential hypertension I10 [facility] [facility] [address] 83964- 7256 11 Oct, 2016 [facility] [address] 58740- 1433 07 Oct, 2016 Closed fracture of tooth, initial encounter S02.5XXA and Dental caries K02.9 [facility] [id number] [place] [address] 00452- 8183 07 Oct, 2016 Dental examination Z01.20 [facility] [id number] [place] [address] 10077- 0021 Oct, Migraine with aura and without status migrainosus, not intractable G43.109 [facility] [address] 80594- 2057 Oct, [facility] [address] 39082- 2643 Sep, Fibromyalgia M79.7 [facility] [facility] [address] 30127- 1795 Sep, Essential hypertension I10 and Anxiety disorder, unspecified F41.9 [facility] [address] 64877- 0572 Aug, Anxiety disorder, unspecified F41.9 [facility] [place] [id number] [place] [address] 74652- 8561 Aug, Anxiety disorder, unspecified F41.9 and Essential hypertension I10 [facility] [place] [id number] [place] [address] 94101- 7230 Jul, Fibromyalgia M79.7 [facility] [place] [id number] [place] [address] 79273- 5169 Jul, Fibromyalgia M79.7 [facility] [place] [id number] [place] [address] 03903- 8969 June, Fibromyalgia M79.7 and Anxiety F41.9 [facility] [address] 67163- 8185 June, [facility] [place] [id number] [place] [address] 86267- 1637 June, Primary insomnia F51.01 [facility] [address] [place] [address] 14 May, 2016 Migraine without aura and without status migrainosus, not intractable G43.009 ; Primary insomnia F51.01 ; Bronchitis J40 ; Anxiety disorder, unspecified F41.9 and Major depressive disorder, single episode, unspecified F32.9 [facility] [id number] [place] [address] 58164- 7533 13 May, [address] [facility] [id number] [place] [address] 48806 -5941 12 May, 2016 Migraine with aura and without status migrainosus, not intractable G43.109 [facility] [address] 76733- 1723 05 May, 2016 Essential hypertension I10 [facility] [address] 95489- 7664 Apr, Essential hypertension I10 ; Migraine without aura and without status migrainosus, not intractable G43.009 ; Anxiety disorder, unspecified F41.9 and Major depressive disorder, single episode, unspecified F32.9 [facility] [id number] [place] [address] 62193- 1827 Mar, [facility] [address] [id number] Feb, Dental examination Z01.20 IMMUNIZATIONS No Known Immunizations SOCIAL HISTORY Never Assessed REASON FOR VISIT ER--[facility], -Right shoulder dislocation. Needing referral to ortho, - Needing MRI PLAN OF CARE Activity Details Follow Up prn Reason: VITAL SIGNS Height 66.5 in 2016-12-11 Weight 129.9 lbs 2016-12-11 Temperature 98.1 degrees Fahrenheit 2016-12-11 Heart Rate 84 bpm 2016-12-11 Respiratory Rate 20 2016-12-11 BMI 20.65 kg/m2 2016-12-11 Blood pressure systolic 100 mmHg 2016-12-11 Blood pressure diastolic 70 mmHg 2016-12-11 MEDICATIONS Medication Instructions Dosage Frequency Start Date End Date Duration Status Cyclobenzaprine HCl 10 mg Orally 2 times a day 1 tablet as needed 12h 30 Active Seroquel 200 mg Orally Once a day 1 tablet 24h 30 days Active Propranolol HCl 60 mg Orally Twice a day 1 tablet 12h Active [place] 5-325 MG Orally every 8 hrs 1 tablet as needed 8h Dec, Dec, 14 days Active ibuprofen Active Ventolin HFA 108 (90 Base) MCG/ACT Inhalation 4 times a day 2 puffs as needed 6h Active BusPIRone HCl 10 MG Orally TID PRN 1.5 tablets May, Active Gabapentin 100 mg Orally twice daily 2 capsules 30 Active Omeprazole 40 mg Orally 2 times a day 1 capsule 12h Active Albuterol Sulfate (2.5 MG/3ML) 0.083% Inhalation every 6 hrs 3 ml 6h May Active [place] 5-325 MG Orally every 6 hrs 1 tablet as needed 6h Nov, Active Paxil 20 mg Orally 2 times a day 1 tablet 12h 30 Active RESULTS No Results PROCEDURES No Known procedures INSTRUCTIONS MEDICATIONS ADMINISTERED No Known Medications MEDICAL (GENERAL) HISTORY Type Description Date Medical History Hypertension Medical History Asthma Medical History depression Medical History anxiety Medical History Migraines Medical History insomnia Surgical History right shoulder surgery 2017 Hospitalization History migraines 2016 Hospitalization History ulcer 2010
--- OUTSIDE RECORDS SUMMARY | 2017-07-29 04:47 | XMS REPORT ---
Author Author SHELBIE YEAGER Organization [facility] Address [address] [place] [address] Care Team Providers Care Fire Claims Adjuster Name Role Phone SHELBIE YEAGER Unavailable PROBLEMS Type Condition ICD9-CM Code [id number] Code Onset Dates Condition Status SNOMED Code Problem Essential hypertension I10 Active 19527412 Problem Primary insomnia F51.01 Active 5941760 Problem Major depressive disorder, single episode, unspecified F32.9 Active 88891174 Problem Migraine without aura and without status migrainosus, not intractable G43.009 Active 152205744 Problem Chronic post-traumatic stress disorder (PTSD) after combat F43.12 Active 191417354 Problem Asthma without acute exacerbation J45.909 Active 692519994 Problem Fibromyalgia M79.7 Active 737748839 Problem Anxiety F41.9 Active 92240123 Problem COPD with exacerbation J44.1 Active 375491709 Problem Other chronic pain G89.29 Active 10775766 ALLERGIES No Information ENCOUNTERS Encounter Location Date Diagnosis [facility] [address] [address] Jul, [facility] [address] 8[address]- 9552 Jul, [facility] [id number] [place] [address] 34586- 8004 Jul, [facility] [address] 88821- 7142 Jul, Anxiety F41.9 [facility] [address] 48750 -7[address] 05 Jul, 2017 Chest congestion R09.89 ; Coughing R05 and Wheezes R06.2 [facility] [address] 24175- 1902 Jul, Major depressive disorder, single episode, unspecified F32.9 and Anxiety F41.9 [facility] [id number] [place] [address] 37962- 2796 June, Neuropathic pain M79.2 and Right elbow pain M25.521 [facility] [id number] [place] [address] 92255- 6994 June, [facility] [id number] [place] [address] 62229- 4617 June, Anxiety F41.9 [facility] [address] 23684- 5085 June, [facility] [id number] [place] [address] 37769- 1954 May, [facility] [id number] [place] [address] 12725- 3884 May, Anxiety F41.9 [facility] [id number] [place] [address] 94424- 8560 May, [facility] [id number] [place] [address] 01897 -9283 May, Acute pain of right shoulder M25.511 and Muscle strain of right shoulder, initial encounter S46.911A [facility] [id number] [place] [address] 44985- 1333 May, [facility] [id number] [place] [address] 06189- 3001 May, [facility] [id number] [place] [address] 41842- 5017 Apr, Anxiety F41.9 and Asthma without acute exacerbation J45.909 [facility] [id number] [place] [address] 71005- 9108 Apr, [facility] [id number] [place] [address] 17654- 8548 Mar, Anxiety F41.9 and Major depressive disorder, single episode , unspecified F32.9 [facility] [id number] [place] [address] 48674- 8094 27 Mar, 2017 Anxiety F41.9 [facility] [id number] [place] [address] 22954- 1563 16 Mar, 2017 [facility] [id number] [place] [address] 55508- 5938 14 Mar, 2017 Major depressive disorder, single episode, unspecified F32.9 ; Anxiety F41.9 and Chronic post-traumatic stress disorder (PTSD) after combat F43.12 [facility] [id number] [place] [address] 25872- 4117 06 Mar, 2017 Chronic post-traumatic stress disorder (PTSD) after combat F43.12 ; Major depressive disorder, single episode, unspecified F32.9 ; Anxiety F41.9 and Primary insomnia F51.01 [facility] [id number] [place] [address] 95421- 6001 Feb, Anxiety F41.9 and Major depressive disorder, single episode , unspecified F32.9 [facility] [id number] [place] [address] 37598- 5438 Feb, Primary insomnia F51.01 and Anxiety F41.9 [facility] [id number] [place] [address] 20445- 8412 Feb, [facility] [address] [place] [address] 74169 -6370 Feb, Wheezes R06.2 and COPD with exacerbation J44.1 [facility] [id number] [place] [address] 65554- 5900 Feb, [facility] [id number] [place] [address] 21922- 2796 Jan, [facility] [address] [place] [address]- 8348 Dec, [facility] [address] 34864- 4737 Dec, [facility] [address] 50686- 1136 Dec, Dislocation of right shoulder joint, subsequent encounter S43.004D [facility] [address] 99614- 1717 Nov, [facility] [address] 56672- 5489 Nov, Lumbosacral neuritis M54.17 [facility] [address] 61239 -0840 Oct, Other chronic pain G89.29 and Pain in right shoulder M25.511 [place] [address] 98996- 9351 18 Oct, 2016 Essential hypertension I10 [facility] [address] 96433- 3411 Oct, [facility] [address] 47714- 1199 Oct, Closed fracture of tooth, initial encounter S02.5XXA and Dental caries K02.9 [facility] [place] [address] 41372- 4682 07 Oct, 2016 Dental examination Z01.20 [facility] [place] [address] 62733- 3941 Oct, Migraine with aura and without status migrainosus, not intractable G43.109 [facility] [place] [address] 61041- 1606 Oct, [place] [address] 54166- 6078 Sep, Fibromyalgia M79.7 [facility] [place] [id number] [place] [address] 98693- 1114 Sep, Essential hypertension I10 and Anxiety disorder, unspecified F41.9 [facility] [place] [id number] [place] [address] 60558- 9331 Aug, Anxiety disorder, unspecified F41.9 [facility] [address] 09848- 9186 Aug, Anxiety disorder, unspecified F41.9 and Essential hypertension I10 [place] [place] [id number] [place] [address] 89725- 8112 Jul, Fibromyalgia M79.7 [facility] [address] 07998- 2726 Jul, Fibromyalgia M79.7 [place] [address] 58520- 8355 June, Fibromyalgia M79.7 and Anxiety F41.9 [place] [id number] [place] [address] 00951- 8749 June, [facility] [place] [address] 18758- 3425 June, Primary insomnia F51.01 [place] [id number] [place] [address] 96175- 9405 May, Migraine without aura and without status migrainosus, not intractable G43.009 ; Primary insomnia F51.01 ; Bronchitis J40 ; Anxiety disorder, unspecified F41.9 and Major depressive disorder, single episode, unspecified F32.9 [facility] [id number] [place] [address] 33992- 3208 May, [facility] [id number] [place] [address] 26235 -6237 May, Migraine with aura and without status migrainosus, not intractable G43.109 [facility] [address] 74979- 6847 May, Essential hypertension I10 [facility] [address] [facility] [id number] [place] [address]- 2546 Apr, Essential hypertension I10 ; Migraine without aura and without status migrainosus, not intractable G43.009 ; Anxiety disorder, unspecified F41.9 and Major depressive disorder, single episode, unspecified F32.9 [facility] [address] [facility] [id number] [place] [address]- 2546 Mar, [facility] [address] [facility] [id number] [place] [id number] Feb, Dental examination Z01.20 IMMUNIZATIONS No Known Immunizations SOCIAL HISTORY Never Assessed REASON FOR VISIT Rx PLAN OF CARE VITAL SIGNS MEDICATIONS Medication Instructions Dosage Frequency Start Date End Date Duration Status Gabapentin 100 mg Orally twice daily 2 capsules 90 days Active RESULTS No Results PROCEDURES No Known procedures INSTRUCTIONS MEDICATIONS ADMINISTERED No Known Medications MEDICAL (GENERAL) HISTORY Type Description Date Medical History Hypertension Medical History Asthma Medical History depression Medical History anxiety Medical History Migraines Medical History insomnia Surgical History right shoulder surgery 2017 Hospitalization History migraines 2016 Hospitalization History ulcer 2010
--- OUTSIDE RECORDS SUMMARY | 2017-07-29 04:47 | XMS REPORT ---
Author Author MIKIE BARAJAS [facility] Address [address] [place] [address] Care Team Providers Care Spice Miller Name Role Phone MIKIE BARAJAS Unavailable PROBLEMS Type Condition ICD9-CM Code [id number] Code Onset Dates Condition Status SNOMED Code Problem Migraine without aura and without status migrainosus, not intractable G43.009 Active 491971042 Problem Major depressive disorder, single episode, unspecified F32.9 Active 59316770 Problem Essential hypertension I10 Active 00409129 Problem Asthma without acute exacerbation J45.909 Active 790333875 Problem COPD with exacerbation J44.1 Active 269059880 Problem Anxiety F41.9 Active 51277405 Problem Primary insomnia F51.01 Active 5150196 Problem Other chronic pain G89.29 Active 21874601 Problem Fibromyalgia M79.7 Active 216235060 ALLERGIES No Information ENCOUNTERS Encounter Location Date Diagnosis [facility] [id number] [place] [address] 06562- 1895 May, [facility] [id number] [place] [address] 19102- 0905 May, [facility] [id number] [place] [address] 77648- 9778 May, Anxiety F41.9 [facility] [id number] [place] [address] 86210- 7529 May, [facility] [id number] [place] [address] 65244 -3241 May, Acute pain of right shoulder M25.511 and Muscle strain of right shoulder, initial encounter S46.911A [facility] [id number] [place] [address] 80734- 9245 May, [facility] [id number] [place] [address] 41736- 5433 May, [facility] [address] 13389- 7688 Apr, Anxiety F41.9 and Asthma without acute exacerbation J45.909 [facility] [address] 51593- 9320 Apr, [facility] [address] 39399- 5016 Mar, Anxiety F41.9 and Major depressive disorder, single episode , unspecified F32.9 [place] [address] 81593- 4416 Mar, Anxiety F41.9 [place] [address] 15453- 3407 Mar, [facility] [address] 17788- 3257 Mar, [facility] [id number] [place] [address] 76553- 4562 Mar, [facility] [id number] [place] [address] 66115- 4468 Feb, Anxiety F41.9 and Major depressive disorder, single episode , unspecified F32.9 [place] [id number] [place] [address] 57322- 8198 Feb, Primary insomnia F51.01 and Anxiety F41.9 [facility] [id number] [place] [address] 72019- 3351 Feb, [facility] [id number] [place] [address] 55305 -1187 Feb, Wheezes R06.2 and COPD with exacerbation J44.1 [facility] [address] 50518- 9650 Feb, [facility] [id number] [place] [address] 96761- 2905 Jan, [facility] [address] 46106- 6086 Dec, [facility] [address] 98107- 5536 Dec, [facility] [address] 20849- 0109 Dec, Dislocation of right shoulder joint, subsequent encounter S43.004D [place] [address] 92478- 3792 Nov, [place] [address] 85641- 0441 Nov, Lumbosacral neuritis M54.17 [facility] [address] 45581 -8190 Oct, Other chronic pain G89.29 and Pain in right shoulder M25.511 [place] [address] 10594- 7770 18 Oct, 2016 Essential hypertension I10 [place] [address] 13933- 3085 11 Oct, 2016 [place] [address] 87445- 3646 Oct, Closed fracture of tooth, initial encounter S02.5XXA and Dental caries K02.9 [place] [address] 11964- 9881 Oct, Dental examination Z01.20 [place] [address] 50895- 9877 Oct, Migraine with aura and without status migrainosus, not intractable G43.109 [place] [address] 79500- 8658 Oct, [facility] [id number] [place] [address] 87214- 3034 Sep, Fibromyalgia M79.7 [facility] [id number] [place] [address] 17784- 7217 Sep, Essential hypertension I10 and Anxiety disorder, unspecified F41.9 [place] [address] 42952- 2811 Aug, Anxiety disorder, unspecified F41.9 [place] [id number] [place] [address] 36954- 9835 Aug, Anxiety disorder, unspecified F41.9 and Essential hypertension I10 [place] [id number] [place] [address] 68963- 5593 Jul, Fibromyalgia M79.7 [place] [address] 16146- 7178 Jul, Fibromyalgia M79.7 [place] [address] 50608- 1540 June, Fibromyalgia M79.7 and Anxiety F41.9 [place] [id number] [place] [address] 17827- 2617 June, [place] [id number] [place] [address] 81643- 7519 June, Primary insomnia F51.01 [facility] [id number] [place] [address] 73895- 5646 14 May, 2016 Migraine without aura and without status migrainosus, not intractable G43.009 ; Primary insomnia F51.01 ; Bronchitis J40 ; Anxiety disorder, unspecified F41.9 and Major depressive disorder, single episode, unspecified F32.9 [facility] [id number] [place] [address] 97171- 0318 May, [facility] [id number] [place] [address] 63091 -2546 May, Migraine with aura and without status migrainosus, not intractable G43.109 [facility] [id number] [address]46 05 May, 2016 Essential hypertension I10 [facility] [id number] [address] 2546 Apr, Essential hypertension I10 ; Migraine without aura and without status migrainosus, not intractable G43.009 ; Anxiety disorder, unspecified F41.9 and Major depressive disorder, single episode, unspecified F32.9 [facility] [id number] [address]246 Mar, [facility] [id number] [id number] Feb, Dental examination Z01.20 IMMUNIZATIONS No Known Immunizations SOCIAL HISTORY Never Assessed REASON FOR VISIT referal from fam. mitchell. PLAN OF CARE Activity Details Follow Up 2 - 3 Days Reason:TE maxillary VITAL SIGNS MEDICATIONS Unknown Medications RESULTS No Results PROCEDURES Procedure Date Ordered Result Body Site SCREENING OF A PATIENT Oct 16, 2016 Billing Notes on claim Oct 16, 2016 INSTRUCTIONS MEDICATIONS ADMINISTERED No Known Medications MEDICAL (GENERAL) HISTORY Type Description Date Medical History Hypertension Medical History Asthma Medical History depression Medical History anxiety Medical History Migraines Medical History insomnia Surgical History right shoulder surgery 2017 Hospitalization History migraines 2016 Hospitalization History ulcer 2010
--- OUTSIDE RECORDS SUMMARY | 2017-07-29 04:48 | XMS REPORT ---
Author Author SHELBIE YEAGER Organization [facility] Address [address] [place] [address] Care Team Providers Care Grips Name Role Phone SHELBIE YEAGER Unavailable PROBLEMS Type Condition ICD9-CM Code [id number] Code Onset Dates Condition Status SNOMED Code Problem Essential hypertension I10 Active 32504534 Problem Primary insomnia F51.01 Active 5395853 Problem Major depressive disorder, single episode, unspecified F32.9 Active 23675299 Problem Migraine without aura and without status migrainosus, not intractable G43.009 Active 068174978 Problem Chronic post-traumatic stress disorder (PTSD) after combat F43.12 Active 415588588 Problem Asthma without acute exacerbation J45.909 Active 805867102 Problem Fibromyalgia M79.7 Active 288931689 Problem Anxiety F41.9 Active 57897514 Problem COPD with exacerbation J44.1 Active 518206644 Problem Other chronic pain G89.29 Active 40542084 ALLERGIES No Information ENCOUNTERS Encounter Location Date Diagnosis [facility] [id number] [place] [address] 33553- 8944 June, [facility] [id number] [place] [address] 82176- 0219 June, Anxiety F41.9 [facility] [id number] [place] [address] 36060- 1080 23 May, 2017 [facility] [id number] [place] [address] 00641- 2448 May, Anxiety F41.9 [facility] [id number] [place] [address] 11865- 0785 16 May, 2017 [facility] [id number] [place] [address] 54938 -9253 11 May, 2017 Acute pain of right shoulder M25.511 and Muscle strain of right shoulder, initial encounter S46.911A [facility] [address], [place] [address]- 3179 May, [facility] [id number] [place] [address] 85078- 6566 May, [facility] [id number] [place] [address] 39567- 9771 Apr, Anxiety F41.9 and Asthma without acute exacerbation J45.909 [facility] [address] [place] [address] 29710- 1805 Apr, [facility] [id number] [place] [address] 08255- 0142 Mar, Anxiety F41.9 and Major depressive disorder, single episode , unspecified F32.9 [facility] [id number] [place] [address] 40128- 9472 Mar, Anxiety F41.9 [facility] [id number] [place] [address] 40475- 1312 Mar, [facility] [id number] [place] [address] 30693- 7925 Mar, [facility] [address] [place] [address] 67949- 1607 Mar, Chronic post-traumatic stress disorder (PTSD) after combat F43.12 ; Major depressive disorder, single episode, unspecified F32.9 ; Anxiety F41.9 and Primary insomnia F51.01 [facility] [address] [place] [address] 93402- 0230 Feb, Anxiety F41.9 and Major depressive disorder, single episode , unspecified F32.9 [facility] [address] [place] [address] 36783- 9228 Feb, Primary insomnia F51.01 and Anxiety F41.9 [facility] [id number] [place] [address] 03863- 3245 Feb, [facility] [id number] [place] [address] 19598 -4510 Feb, Wheezes R06.2 and COPD with exacerbation J44.1 [facility] [address] 98374- 4423 Feb, [facility] [address] 57641- 3853 Jan, [facility] [address] 37440- 3241 Dec, [place] [address] 25649- 8886 Dec, [place] [address] 10544- 2058 Dec, Dislocation of right shoulder joint, subsequent encounter S43.004D [facility] [id number] [place] [address] 43744- 4729 Nov, [place] [address] 83264- 8902 Nov, Lumbosacral neuritis M54.17 [facility] [id number] [place] [address] 28780 -9368 28 Oct, 2016 Other chronic pain G89.29 and Pain in right shoulder M25.511 [facility] [id number] [place] [address] 60620- 3674 18 Oct, 2016 Essential hypertension I10 [place] [address] 02502- 0878 11 Oct, 2016 [facility] [id number] [place] [address] 21285- 0091 07 Oct, 2016 Closed fracture of tooth, initial encounter S02.5XXA and Dental caries K02.9 [place] [address] [place] [address]- 8215 07 Oct, 2016 Dental examination Z01.20 [facility] [address] 53988- 6445 Oct, Migraine with aura and without status migrainosus, not intractable G43.109 [facility] [address] 19122- 2306 Oct, [facility] [address] 07991- 6418 Sep, Fibromyalgia M79.7 [facility] [address] 67638- 2917 Sep, Essential hypertension I10 and Anxiety disorder, unspecified F41.9 [address] [address] 36386- 3764 Aug, Anxiety disorder, unspecified F41.9 [address] [address] 54065- 4196 Aug, Anxiety disorder, unspecified F41.9 and Essential hypertension I10 [address] [address] 48800- 6403 Jul, Fibromyalgia M79.7 [facility] [address] 92352- 2530 Jul, Fibromyalgia M79.7 [facility] [address] 92660- 5607 June, Fibromyalgia M79.7 and Anxiety F41.9 [facility] [address] 11766- 1981 June, [facility] [address] 12627- 3283 June, Primary insomnia F51.01 [facility] [id number] [place] [address] 01502- 8363 May, Migraine without aura and without status migrainosus, not intractable G43.009 ; Primary insomnia F51.01 ; Bronchitis J40 ; Anxiety disorder, unspecified F41.9 and Major depressive disorder, single episode, unspecified F32.9 [facility] [address] [address]- 7913 May, [facility] [address] [place] [address] 54100 -4608 May, Migraine with aura and without status migrainosus, not intractable G43.109 [facility] [id number] [place] [address] 57528- 7696 May, Essential hypertension I10 [facility] [id number] [place] [address] 40256- 7380 Apr, Essential hypertension I10 ; Migraine without aura and without status migrainosus, not intractable G43.009 ; Anxiety disorder, unspecified F41.9 and Major depressive disorder, single episode, unspecified F32.9 [facility] [address] [address]- 9190 Mar, [facility] [address] [place] [address] [phone] Feb, Dental examination Z01.20 IMMUNIZATIONS No Known [...]
--- NOTE | 2017-07-29 04:49 | ED GU-Male ---
General Chief Complaint: Back Problems Stated Complaint: POSS KIDNEY STONE,RT SIDE Nursing Triage Note: RIGHT FLANK PAIN Source: patient Exam Limitations: no limitations History of Present Illness Date Seen by Provider: Jul 29, 2017 Time Seen by Provider: 04:30 Initial Comments PT ARRIVES VIA POV C/O SEVERE RIGHT FLANK PAIN, RADIATING TO RIGHT MID ABDOMEN, SINCE YESTERDAY AFTERNOON HAS HISTORY OF KIDNEY STONES AND THIS FEELS THE SAME NO NAUSEA/VOMITING NO PROBLEMS URINATING, BUT URINE HAS BEEN DARK NO FEVER TOOK IBUPROFEN 800 MG EARLIER TONIGHT, NO RELIEF. PCP: DR. YEAGER Allergies and Home Medications Allergies Coded Allergies: prochlorperazine (Verified Allergy, Intermediate, 03/01/16) Home Medications Quetiapine Fumarate 400 Mg Tablet, HS, (Reported) Patient Home Medication List Home Medication List Reviewed: Yes Review of Systems Constitutional: no symptoms reported Respiratory: no symptoms reported Cardiovascular: no symptoms reported Gastrointestinal: see HPI, abdominal pain; No nausea, No vomiting Genitourinary: see HPI Musculoskeletal: see HPI, back pain Skin: no symptoms reported Psychiatric/Neurological: No Symptoms Reported Endocrine: No Symptoms Reported Hematologic/Lymphatic: No Symptoms Reported Past Hutsceu-Ionksm-Kdrjha Hx Patient Social History Alcohol Use: Past History (HISTORY OF ABUSE, NONE X 15 YEARS, PER PT ON ) Recreational Drug Use: Yes (THC) Drug of Choice: CANNIBUS Smoking Status: Current Everyday Smoker (2 PPD) Type Used: Cigarettes (2 PPD) 2nd Hand Smoke Exposure: Yes Recent Foreign Travel: No Contact w/Someone Who Travel: No Recent Infectious Disease Expo: No Recent Hopitalizations: No Immunizations Up To Date Date of Pneumonia Vaccine: Nov 10, 2015 Seasonal Allergies Seasonal Allergies: No Past Medical History Surgeries: Yes (RIGHT SHOULDER SCOPE) Orthopedic Respiratory: Yes Asthma, Pneumonia, COPD Cardiac: No Neurological: Yes Headaches /Migraines Reproductive Disorders: No Sexually Transmitted Disease: No HIV/AIDS: No Genitourinary: Yes Kidney Stones Gastrointestinal: Yes Gastroesophageal Reflux, Ulcer Musculoskeletal: No Endocrine: No HEENT: Yes Cancer: No Did You Recieve Any Treatments: No Psychosocial: Yes ADD/ADHD, Anxiety, PTSD, Bipolar, Depression Integumentary: No Blood Disorders: No Adverse Reaction/Blood Tranf: No Family Medical History No Pertinent Family Hx Physical Exam Vital Signs Vital Signs - First Documented 07/29/17 04:25 Temp 96.1 Pulse 93 Resp 20 B/P (MAP) 102/75 (84) Pulse Ox 96 O2 Delivery Room Air Capillary Refill : Less Than 3 Seconds General Appearance: WD/WN, no apparent distress, other (DIRTY, MALODOROUS, COVERED IN ANIMAL HAIR. HOLDING RIGHT FLANK) HEENT: PERRL/EOMI, other (POOR DENTITION, MULTPLE MISSING TEETH, EXTENSIVE DECAY) Cardiovascular: regular rate, rhythm, no murmur Respiratory: normal breath sounds, no respiratory distress Gastrointestinal: normal bowel sounds, soft, no organomegaly, no pulsatile mass Back: CVA tenderness (R) Extremities: normal inspection, no pedal edema, no calf tenderness Neurologic/Psychiatric: [employer] II-XII nml as tested, no motor/sensory deficits, alert, normal mood/affect, oriented x 3 Skin: normal color, warm/dry Progress/Results/Core Measures Suspected Sepsis Recent Fever Within 48 Hours: No Infection Criteria Present: None New/Unexplained Altered Menta: No Sepsis Screen: No Definite Risk SIRS Temperature:96.1 Pulse: 93 Respiratory Rate: 20 Laboratory Tests 07/29/17 04:46: White Blood Count 7.6 Blood Pressure 102 /75 Mean: 84 Laboratory Tests 07/29/17 04:46: Creatinine 0.85, Platelet Count 265, Total Bilirubin 0.3 Results/Orders Lab Results Laboratory Tests Test 07/29/17 04:30 07/29/17 04:46 Range/Units Urine Color ELISABETH H Urine Clarity VERY CLOUDY H Urine pH 7 5-9 Urine Specific [place] 1.010 L 1.016-1.022 Urine Protein 1+ H NEGATIVE Urine Glucose (UA) NEGATIVE NEGATIVE Urine Ketones NEGATIVE NEGATIVE Urine Nitrite NEGATIVE NEGATIVE Urine Bilirubin NEGATIVE NEGATIVE Urine Urobilinogen 1 NORMAL MG/DL Urine Leukocyte Esterase 1+ H NEGATIVE Urine RBC (Auto) NEGATIVE NEGATIVE Urine RBC NONE /HPF Urine WBC NONE /HPF Urine Squamous Epithelial Cells RARE /HPF Urine Crystals PRESENT H /LPF Urine Amorphous Sediment LARGE JOSH URATES H /LPF Urine Bacteria NEGATIVE /HPF Urine Casts NONE /LPF Urine Mucus SMALL H /LPF Urine Culture Indicated NO Urine Opiates Screen NEGATIVE NEGATIVE Urine Oxycodone Screen NEGATIVE NEGATIVE Urine Methadone Screen NEGATIVE NEGATIVE Urine Propoxyphene Screen NEGATIVE NEGATIVE Urine Barbiturates Screen NEGATIVE NEGATIVE Ur Tricyclic Antidepressants Screen POSITIVE H NEGATIVE Urine Phencyclidine Screen NEGATIVE NEGATIVE Urine Amphetamines Screen NEGATIVE NEGATIVE Urine Methamphetamines Screen NEGATIVE NEGATIVE Urine Benzodiazepines Screen NEGATIVE NEGATIVE Urine Cocaine Screen NEGATIVE NEGATIVE Urine Cannabinoids Screen POSITIVE H NEGATIVE White Blood Count 7.6 4.3-11.0 10^3/uL Red Blood Count 4.34 L 4.35-5.85 10^6/uL Hemoglobin 14.5 13.3-17.7 G/DL Hematocrit 41 40-54 % Mean Corpuscular Volume 94 80-99 FL Mean Corpuscular Hemoglobin 33 25-34 PG Mean Corpuscular Hemoglobin Concent 36 32-36 G/DL Red Cell Distribution Width 12.2 10.0-14.5 % Platelet Count 265 130-400 10^3/uL Mean Platelet Volume 9.0 7.4-10.4 FL Neutrophils (%) (Auto) 53 42-75 % Lymphocytes (%) (Auto) 31 12-44 % Monocytes (%) (Auto) 10 0-12 % Eosinophils (%) (Auto) 6 0-10 % Basophils (%) (Auto) 0 0-10 % Neutrophils # (Auto) 4.0 1.8-7.8 X 10^3 Lymphocytes # (Auto) 2.4 1.0-4.0 X 10^3 Monocytes # (Auto) 0.7 0.0-1.0 X 10^3 Eosinophils # (Auto) 0.5 H 0.0-0.3 10^3/uL Basophils # (Auto) 0.0 0.0-0.1 10^3/uL Sodium Level 141 135-145 MMOL/L Potassium Level 4.0 3.6-5.0 MMOL/L Chloride Level 105 98-107 MMOL/L Carbon Dioxide Level 25 21-32 MMOL/L Anion Gap 11 5-14 MMOL/L Blood Urea Nitrogen 12 7-18 MG/DL Creatinine 0.85 0.60-1.30 MG/DL Estimat Glomerular Filtration Rate > 60 BUN/Creatinine Ratio 14 Glucose Level 103 70-105 MG/DL Calcium Level 9.0 8.5-10.1 MG/DL Total Bilirubin 0.3 0.1-1.0 MG/DL Aspartate Amino Transf (AST/SGOT) 13 5-34 U/L Alanine Aminotransferase (ALT/SGPT) 11 0-55 U/L Alkaline Phosphatase 73 40-136 U/L Total Protein 6.3 L 6.4-8.2 GM/DL Albumin 3.9 3.2-4.5 GM/DL Amylase Level 52 25-125 U/L Lipase 22 8-78 U/L My Orders Orders - SAURABH MARTIN DO Ct Abd/Pelvis Wo(Kidney Stone) (07/29/17 04:35) Amylase (07/29/17 04:35) Cbc With Automated Diff (07/29/17 04:35) Comprehensive Metabolic Panel (07/29/17 04:35) Lipase (07/29/17 04:35) Ua Culture If Indicated (07/29/17 04:35) Acute Abd Series (07/29/17 04:35) Saline Lock/Iv-Start (07/29/17 04:35) Ketorolac Injection (Toradol Injection) (07/29/17 04:35) Saline Lock/Iv-Start (07/29/17 04:35) Lactated Ringers (Lr 1000 Ml Iv Solution (07/29/17 04:35) Drug Screen Stat (Urine) (07/29/17 05:27) Medications Given in ED Current Medications Medications Dose Ordered Sig/Catracho Route Start Time Stop Time Status Last Admin Dose Admin Lactated Ringer's 1,000 ml @ 0 mls/hr Q0M ONCE IV 07/29/17 04:35 07/29/17 04:38 DC 07/29/17 04:46 0 MLS/HR Vital Signs/I&O 07/29/17 07/29/17 04:25 04:46 Temp 96.1 96.1 Pulse 93 Resp 20 B/P (MAP) 102/75 (84) Pulse Ox 96 O2 Delivery Room Air Capillary Refill : Less Than 3 Seconds Blood Pressure Mean: 84 Progress Note : Progress Note PAIN EASED AT DISMISSAL Diagnostic Imaging Comments ACUTE ABDOMEN XRAYS--CONSTIPATION/FECAL LOADING, PENDING RADIOLOGIST REVIEW CT ABDOMEN/PELVIS--NO ACUTE PROCESS, PER [facility] VIA FAX @ [id number] Reviewed: Reviewed by Me Departure Impression Primary Impression: Right flank pain Additional Impression: Constipation Disposition: 01 HOME, SELF-CARE Condition: Stable Departure-Patient Inst. Referrals: SHELBIE YEAGER MD (PCP/Family) Primary Care Physician Patient Instructions: Constipation, Adult (DC), Flank Pain (DC), High Fiber Diet Add. Discharge Instructions: INCREASE YOUR WATER AND FIBER INTAKE TAKE [place] DAILY FOLLOW UP WITH YOUR DR IN 2-3 DAYS IF NO BETTER All discharge instructions reviewed with patient and/or family. Voiced understanding. SAURABH MARTIN DO Jul 29, 2017 04:49
--- OUTSIDE RECORDS SUMMARY | 2017-07-29 04:49 | XMS REPORT ---
Author Author BISI KILO Organization [facility] Address [address] [place] [address] Care Team Providers Care Automobile Upholsterer Name Role Phone MATHEWSKILO Gee Unavailable PROBLEMS Type Condition ICD9-CM Code OLP24-QV Code Onset Dates Condition Status SNOMED Code Problem Essential hypertension I10 Active 30604191 Problem Primary insomnia F51.01 Active 5385507 Problem Major depressive disorder, single episode, unspecified F32.9 Active 60745971 Problem Migraine without aura and without status migrainosus, not intractable G43.009 Active 465503325 Problem Chronic post-traumatic stress disorder (PTSD) after combat F43.12 Active 570362951 Problem Asthma without acute exacerbation J45.909 Active 517701558 Problem Fibromyalgia M79.7 Active 288824444 Problem Anxiety F41.9 Active 20007779 Problem COPD with exacerbation J44.1 Active 805217759 Problem Other chronic pain G89.29 Active 97832777 ALLERGIES Substance Reaction Event Type Date Status Compazine hives Drug Allergy Oct, Active sea food anaphylaxis Non Drug Allergy Oct, Active ENCOUNTERS Encounter Location Date Diagnosis [facility] [address] [id number], [place] [address] June, [facility] [id number] [place] [address] 97646- 2241 May, [facility] [address] [facility] [id number] [address] May, Anxiety F41.9 [facility] [id number], [place] [address] May, [facility] [id number], [place] [address] May, Acute pain of right shoulder M25.511 and Muscle strain of right shoulder, initial encounter S46.911A [facility] [address], [place] [address] May, [facility] [id number] [place] [address] 36676- 8191 May, [facility] [address] [place] [address] 02789- 2295 Apr, Anxiety F41.9 and Asthma without acute exacerbation J45.909 [facility] [id number] [place] [address] 60546- 8972 Apr, [facility] [id number] [place] [address] 22725- 3013 Mar, Anxiety F41.9 and Major depressive disorder, single episode , unspecified F32.9 [place] [id number] [place] [address] 93661- 5282 Mar, Anxiety F41.9 [facility] [address] [place] [address] 89530- 4793 Mar, [facility] [id number] [place] [address] 66061- 3276 Mar, [facility] [address] [place] [address] 86183- 2917 Mar, Chronic post-traumatic stress disorder (PTSD) after combat F43.12 ; Major depressive disorder, single episode, unspecified F32.9 ; Anxiety F41.9 and Primary insomnia F51.01 [facility] [address] [place] [address] 41162- 7138 Feb, Anxiety F41.9 and Major depressive disorder, single episode , unspecified F32.9 [facility] [address] [place] [address] 16627- 8931 Feb, Primary insomnia F51.01 and Anxiety F41.9 [facility] [id number] [place] [address] 12790- 7131 Feb, [facility] [address] [place] [address] 07111 -2804 Feb, Wheezes R06.2 and COPD with exacerbation J44.1 [facility] [id number] [place] [address] 32992- 6207 Feb, [facility] [id number] [place] [address] 82371- 6015 Jan, [facility] [id number] [place] [address] 94918- 8524 Dec, [place] [id number] [place] [address] 78991- 4069 Dec, [place] [id number] [place] [address] 57742- 1909 Dec, Dislocation of right shoulder joint, subsequent encounter S43.004D [facility] [id number] [place] [address] 07080- 4078 Nov, [facility] [id number] [place] [address] 25913- 8383 Nov, Lumbosacral neuritis M54.17 [facility] [id number] [place] [address] 39778 -3486 28 Oct, 2016 Other chronic pain G89.29 and Pain in right shoulder M25.511 [place] [id number] [place] [address] 33825- 9184 18 Oct, 2016 Essential hypertension I10 [facility] [id number] [place] [address] 14308- 8713 11 Oct, 2016 [place] [address] 14024- 0478 07 Oct, 2016 Closed fracture of tooth, initial encounter S02.5XXA and Dental caries K02.9 [facility] [id number] [place] [address] 53741- 0516 07 Oct, 2016 Dental examination Z01.20 [facility] [id number] [place] [address] 01661- 1166 Oct, Migraine with aura and without status migrainosus, not intractable G43.109 [facility] [id number] [place] [address] 09524- 2036 Oct, [facility] [address] 05402- 5362 Sep, Fibromyalgia M79.7 [facility] [id number] [place] [address] 93817- 3537 Sep, Essential hypertension I10 and Anxiety disorder, unspecified F41.9 [facility] [id number] [place] [address] 87511- 5665 Aug, Anxiety disorder, unspecified F41.9 [place] [address] 71172- 6193 Aug, Anxiety disorder, unspecified F41.9 and Essential hypertension I10 [place] [id number] [place] [address] 88505- 2704 Jul, Fibromyalgia M79.7 [facility] [id number] [place] [address] 22342- 0991 Jul, Fibromyalgia M79.7 [facility] [id number] [place] [address] 99119- 7064 June, Fibromyalgia M79.7 and Anxiety F41.9 [facility] [id number] [place] [address] 42259- 9050 June, [facility] [id number] [place] [address] 96433- 2231 June, Primary insomnia F51.01 [facility] [id number] [place] [address] 39812- 9735 May, Migraine without aura and without status migrainosus, not intractable G43.009 ; Primary insomnia F51.01 ; Bronchitis J40 ; Anxiety disorder, unspecified F41.9 and Major depressive disorder, single episode, unspecified F32.9 [facility] [address] [place] [address] 61142- 1853 May, [facility] [address] [place] [address] 29460 -3083 May, Migraine with aura and without status migrainosus, not intractable G43.109 [facility] [id number] [place] [address] 98082- 9182 May, Essential hypertension I10 [facility] [address] 31412- 4794 Apr, Essential hypertension I10 ; Migraine without aura and without status migrainosus, not intractable G43.009 ; Anxiety disorder, unspecified F41.9 and Major depressive disorder, single episode, unspecified F32.9 [facility] [address] [place] [address] 68814- 0324 Mar, [facility] [id number] [place] [address] [id number] Feb, Dental examination Z01.20 IMMUNIZATIONS No Known Immunizations SOCIAL HISTORY Never Assessed REASON FOR VISIT mouth pain on right side x3 days-, pt. states a tooth broke off, pt. states he called dentist but they cannot get him in till end of month---CRymatt,TORIE PLAN OF CARE Activity Details Follow Up prn Reason: VITAL SIGNS Height 66.5 in 2016-10-16 Weight 128.0 lbs 2016-10-16 Temperature 99.7 degrees Fahrenheit 2016-10-16 Heart Rate 94 bpm 2016-10-16 Respiratory Rate 20 2016-10-16 BMI 20.35 kg/m2 2016-10-16 Blood pressure systolic 131 mmHg 2016-10-16 Blood pressure diastolic 80 mmHg 2016-10-16 MEDICATIONS Medication Instructions Dosage Frequency Start Date End Date Duration Status Skkcuxaqdv-NQTA-Wgsajeop 50-325-40 MG Orally every 4 hrs 1 tablet as needed 4h May, Active Ibuprofen 800 MG Orally Three times a day 1 tablet with food or milk 8h Oct, Nov, 30 day(s) Active Imitrex 25 MG Orally Twice a day 2 tablet as needed 12h 15 Apr, 2016 Active Albuterol Sulfate (2.5 MG/3ML) 0.083% Inhalation every 6 hrs 3 ml 6h May Active Gabapentin 100 mg Orally twice daily 2 capsules June, Active Paxil 20 mg Orally 2 times a day 1 tablet 12h Active Omeprazole 40 mg Orally 2 times a day 1 capsule 12h Active Cyclobenzaprine HCl 10 mg Orally 2 times a day 1 tablet as needed 12h 30 Active Seroquel 200 mg Orally Once a day 1 tablet 24h 30 days Active BusPIRone HCl 10 MG Orally TID PRN 1.5 tablets May, Active Clindamycin HCl 300 MG Orally every 8 hrs 1 capsule 8h Oct,Oct 07 days Active Ventolin HFA 108 (90 Base) MCG/ACT Inhalation 4 times a day 2 puffs as needed 6h Active Propranolol HCl 60 mg Orally Twice a day 1 tablet 12h Active RESULTS No Results PROCEDURES No Known procedures INSTRUCTIONS MEDICATIONS ADMINISTERED No Known Medications MEDICAL (GENERAL) HISTORY Type Description Date Medical History Hypertension Medical History Asthma Medical History depression Medical History anxiety Medical History Migraines Medical History insomnia Surgical History right shoulder surgery 2017 Hospitalization History migraines 2016 Hospitalization History ulcer 2010
--- OUTSIDE RECORDS SUMMARY | 2017-07-29 04:49 | XMS REPORT ---
Author Author SHELBIE YEAGER Organization [facility] Address [address] [place] [address] Care Team Providers Care Saddle And Side Wire Stitcher Name Role Phone SHELBIE YEAGER Unavailable PROBLEMS Type Condition ICD9-CM Code LYE47-NG Code Onset Dates Condition Status SNOMED Code Problem Essential hypertension I10 Active 03413113 Problem Primary insomnia F51.01 Active 4717893 Problem Major depressive disorder, single episode, unspecified F32.9 Active 84332909 Problem Migraine without aura and without status migrainosus, not intractable G43.009 Active 497792753 Problem Chronic post-traumatic stress disorder (PTSD) after combat F43.12 Active 678971598 Problem Asthma without acute exacerbation J45.909 Active 479861332 Problem Fibromyalgia M79.7 Active 755151479 Problem Anxiety F41.9 Active 08722107 Problem COPD with exacerbation J44.1 Active 791339201 Problem Other chronic pain G89.29 Active 03874021 ALLERGIES No Information ENCOUNTERS Encounter Location Date Diagnosis [facility] [address] [address] Jul, [facility] [id number] [place] [address] 21500- 1697 Jul, [facility] [id number] [place] [address] 66944- 2210 Jul, [facility] [id number] [place] [address] 68498- 5156 Jul, [facility] [address] [address] 05 Jul, 2017 Chest congestion R09.89 ; Coughing R05 and Wheezes R06.2 [facility] [address] 24034- 6159 Jul, Major depressive disorder, single episode, unspecified F32.9 and Anxiety F41.9 [facility] [id number] [place] [address] 65462- 1209 June, Neuropathic pain M79.2 and Right elbow pain M25.521 [facility] [id number] [place] [address] 29062- 0513 June, [facility] [address] 94505- 9451 June, Anxiety F41.9 [facility] [id number] [place] [address] 77321- 3782 June, [facility] [id number] [place] [address] 58825- 7095 May, [facility] [id number] [place] [address] 14581- 7652 May, Anxiety F41.9 [facility] [id number] [place] [address] 61624- 4692 May, [facility] [id number] [place] [address] 24447 -5451 May, Acute pain of right shoulder M25.511 and Muscle strain of right shoulder, initial encounter S46.911A [facility] [id number] [place] [address] 30624- 3782 May, [facility] [id number] [place] [address] 02407- 7765 May, [facility] [id number] [place] [address] 53695- 0794 Apr, Anxiety F41.9 and Asthma without acute exacerbation J45.909 [facility] [id number] [place] [address] 05270- 5315 Apr, [facility] [id number] [place] [address] 88636- 6783 Mar, Anxiety F41.9 and Major depressive disorder, single episode , unspecified F32.9 [place] [id number] [place] [address] 94865- 0288 Mar, Anxiety F41.9 [facility] [id number] [place] [address] 25090- 5959 16 Mar, 2017 [facility] [address] 63650- 8717 14 Mar, 2017 Major depressive disorder, single episode, unspecified F32.9 ; Anxiety F41.9 and Chronic post-traumatic stress disorder (PTSD) after combat F43.12 [place] [address] 10562- 6276 06 Mar, 2017 Chronic post-traumatic stress disorder (PTSD) after combat F43.12 ; Major depressive disorder, single episode, unspecified F32.9 ; Anxiety F41.9 and Primary insomnia F51.01 [place] [id number] [place] [address] 72496- 3114 Feb, Anxiety F41.9 and Major depressive disorder, single episode , unspecified F32.9 [place] [id number] [place] [address] 48811- 0670 Feb, Primary insomnia F51.01 and Anxiety F41.9 [facility] [address] 16718- 3118 Feb, [facility] [id number] [place] [address] 17657 -0209 Feb, Wheezes R06.2 and COPD with exacerbation J44.1 [facility] [address] 73018- 7634 Feb, [facility] [address] 32156- 9161 Jan, [facility] [address] 12779- 7161 Dec, [facility] [id number] [place] [address] 08733- 7862 Dec, [place] [address] 91825- 5949 Dec, Dislocation of right shoulder joint, subsequent encounter S43.004D [place] [address] 87279- 9793 Nov, [place] [address] 73724- 1521 Nov, Lumbosacral neuritis M54.17 [facility] [address] 66299 -8327 28 Oct, 2016 Other chronic pain G89.29 and Pain in right shoulder M25.511 [place] [address] 17060- 4868 18 Oct, 2016 Essential hypertension I10 [place] [address] 14586- 5301 11 Oct, 2016 [place] [address] 02094- 5210 07 Oct, 2016 Closed fracture of tooth, initial encounter S02.5XXA and Dental caries K02.9 [place] [address] 29188- 3832 07 Oct, 2016 Dental examination Z01.20 [place] [id number] [place] [address] 59806- 2459 Oct, Migraine with aura and without status migrainosus, not intractable G43.109 [place] [address] 62699- 1121 Oct, [place] [address] 60061- 7587 Sep, Fibromyalgia M79.7 [place] [address] [place] [address]- 2359 Sep, Essential hypertension I10 and Anxiety disorder, unspecified F41.9 [place] [address] 23877- 6789 Aug, Anxiety disorder, unspecified F41.9 [place] [address] 68352- 9129 Aug, Anxiety disorder, unspecified F41.9 and Essential hypertension I10 [place] [id number] [place] [address] 57325- 4083 Jul, Fibromyalgia M79.7 [place] [address] 27637- 6502 Jul, Fibromyalgia M79.7 [place] [address] 76420- 1425 June, Fibromyalgia M79.7 and Anxiety F41.9 [place] [id number] [place] [address] 63191- 2438 June, [place] [address] 36972- 6346 June, Primary insomnia F51.01 [place] [id number] [place] [address] 53255- 3154 May, Migraine without aura and without status migrainosus, not intractable G43.009 ; Primary insomnia F51.01 ; Bronchitis J40 ; Anxiety disorder, unspecified F41.9 and Major depressive disorder, single episode, unspecified F32.9 [facility] [id number] [place] [address] 64217- 8510 May, [facility] [id number] [place] [address] 31527 -5672 May, Migraine with aura and without status migrainosus, not intractable G43.109 [place] [id number] [place] [address] 64880- 7469 May, Essential hypertension I10 [facility] [address] [facility] [id number] [place] [address]- 25[address] Apr, Essential hypertension I10 ; Migraine without aura and without status migrainosus, not intractable G43.009 ; Anxiety disorder, unspecified F41.9 and Major depressive disorder, single episode, unspecified F32.9 [facility] [address] [facility] [id number] [address] Mar, [facility] [address] [facility] [id number] [id number] Feb, Dental examination Z01.20 IMMUNIZATIONS No Known Immunizations SOCIAL HISTORY Never Assessed REASON FOR VISIT MTM (Medication Therapy Management) PLAN OF CARE VITAL SIGNS MEDICATIONS Medication Instructions Dosage Frequency Start Date End Date Duration Status Budesonide 180 MCG/ACT Inhalation Twice a day 1 puff 12h Jan, 30 days Active RESULTS No Results PROCEDURES No Known procedures INSTRUCTIONS MEDICATIONS ADMINISTERED No Known Medications MEDICAL (GENERAL) HISTORY Type Description Date Medical History Hypertension Medical History Asthma Medical History depression Medical History anxiety Medical History Migraines Medical History insomnia Surgical History right shoulder surgery 2017 Hospitalization History migraines 2016 Hospitalization History ulcer 2010
[2017-07-29 04:54] LABS: BILIRUBIN,URINE NEGATIVE (NEGATIVE); CLARITY,URINE VERY CLOUDY; COLOR,URINE AMBER; GLUCOSE, URINE (UA) NEGATIVE (NEGATIVE); KETONES,URINE NEGATIVE (NEGATIVE); LEUKOCYTE ESTERASE ,URINE 1+ (NEGATIVE); NITRITE,URINE NEGATIVE (NEGATIVE); PH,URINE 7 (5-9); PROTEIN,URINE 1+ (NEGATIVE); UROBILINOGEN,URINE 1 MG/DL (NORMAL)
[2017-07-29 04:55] LABS: BASOPHILS % (AUTO) 0 % (0-10); EOSINOPHILS # (AUTO) 0.5 10^3/uL (0.0-0.3); EOSINOPHILS % (AUTO) 6 % (0-10); HEMATOCRIT 41 % (40-54); HEMOGLOBIN 14.5 G/DL (13.3-17.7); LYMPHOCYTES # (AUTO) 2.4 X 10^3 (1.0-4.0); LYMPHOCYTES % (AUTO) 31 % (12-44); MEAN CORPUSCULAR HEMOGLOBIN 33 PG (25-34); MEAN CORPUSCULAR HGB CONC 36 G/DL (32-36); MEAN CORPUSCULAR VOLUME 94 FL (80-99); MONOCYTES # (AUTO) 0.7 X 10^3 (0.0-1.0); MONOCYTES % (AUTO) 10 % (0-12); NEUTROPHILS % (AUTO) 53 % (42-75); PLATELET COUNT 265 10^3/uL (130-400); RED BLOOD COUNT 4.34 10^6/uL (4.35-5.85); RED CELL DISTRIBUTION WIDTH 12.2 % (10.0-14.5); WHITE BLOOD COUNT 7.6 10^3/uL (4.3-11.0)
[2017-07-29 05:01] LABS: AMORPHOUS SEDIMENT,UR LARGE AMOR URATES /LPF; BACTERIA,URINE NEGATIVE /HPF; SQUAMOUS EPITHELIAL CELL,UR RARE /HPF
[2017-07-29 05:13] LABS: ALANINE AMINOTRANSFERASE 11 U/L (0-55); ALBUMIN 3.9 GM/DL (3.2-4.5); ALKALINE PHOSPHATASE 73 U/L (40-136); AMYLASE 52 U/L (25-125); BILIRUBIN,TOTAL 0.3 MG/DL (0.1-1.0); BUN/CREATININE RATIO 14; CARBON DIOXIDE 25 MMOL/L (21-32); CHLORIDE 105 MMOL/L (98-107); CREATININE SERUM 0.85 MG/DL (0.60-1.30); GFR ESTIMATED > 60; GLUCOSE 103 MG/DL (70-105); LIPASE 22 U/L (8-78); SODIUM 141 MMOL/L (135-145); TOTAL PROTEIN 6.3 GM/DL (6.4-8.2)
--- NOTE | 2017-07-29 05:36 | Diagnostic Imaging Report ---
INDICATION: Right flank pain COMPARISON: None FINDINGS: Supine and upright views of the abdomen show a nondistended bowel gas pattern. Large amount of air and stool noted scattered throughout the colon. No abnormal air fluid levels or free intraperitoneal air is seen. No abnormal extraosseous calcifications are seen. Bony and soft tissue structures are within normal limits. No organomegaly is identified. Accompanying upright chest shows normal heart size and pulmonary vascularity. The lungs are well aerated and clear. The mediastinum is normal in appearance. IMPRESSION: 1. No bowel obstruction or free air. 2. No acute cardiopulmonary process. 3. Large amount of air and stool scattered throughout the colon. Dictated by: Dictated on workstation # [id number]
[2017-07-29 05:48] LABS: AMPHETAMINE SCREEN, URINE NEGATIVE (NEGATIVE); BARBITURATE SCREEN URINE NEGATIVE (NEGATIVE); BENZODIAZEPINES SCREEN URINE NEGATIVE (NEGATIVE); CANNABINOID SCREEN, URINE POSITIVE (NEGATIVE); COCAINE SCREEN URINE NEGATIVE (NEGATIVE); METHADONE STAT NEGATIVE (NEGATIVE); METHAMPHETAMINE SCREEN URINE S NEGATIVE (NEGATIVE); OPIATE SCREEN URINE NEGATIVE (NEGATIVE); OXYCODONE STAT NEGATIVE (NEGATIVE); PROPOXYPHENE STAT NEGATIVE (NEGATIVE); TRICYCLIC ANTIDEPRESSANTS SCRE POSITIVE (NEGATIVE)
[2017-07-29 06:20] VITALS: BP 121/71
--- NOTE | 2017-07-29 07:16 | Diagnostic Imaging Report ---
PROCEDURE: CT urinary tract, rule out kidney stone. TECHNIQUE: Multiple contiguous axial images were obtained through the abdomen and pelvis without the use of intravenous contrast. INDICATION: Right flank pain COMPARISON: None FINDINGS: Included portions of the lung bases show 6 mm juxtapleural micronodule within the lateral left lower lobe (image 14, series 2). CT abdomen: Large amount of air and stool is identified scattered throughout the colon. Normal appendix is identified. Small bowel loops are nondistended. Kidneys have an unremarkable noncontrast CT appearance. No renal or ureteral calculi identified on either side. Additionally, there is no hydroureteronephrosis or other evidence of obstruction. The adrenal glands, spleen, pancreas, and liver have an unremarkable noncontrast CT appearance as well. There is no loculated fluid collection, free fluid, nor free air within the abdomen. No abnormal mesenteric or retroperitoneal adenopathy is seen. Bony structures show no acute abnormalities. CT pelvis: Urinary bladder is unopacified. No calculi are seen within the urinary bladder. There is no loculated fluid collection, free fluid, nor free air within the pelvis. No abnormal adenopathy is seen. Bony structures show no acute abnormalities. IMPRESSION: 1. Unremarkable noncontrast CT of the kidneys and renal collecting systems. No calculi or evidence of obstruction is identified. 2. Large amount of colonic air and stool. Please correlate for constipation. 3. A 6 mm micronodule within the included portions of the left lower lobe. Please see below for followup recommendations. PULMONARY NODULE FOLLOW-UP Single nodule: <6 mm: * Low risk patient - no routine follow up * High risk patient - optional at 12 months 6-8 mm in size: * Low risk patient - Ct at 6-12 months, then consider at 18-24 months * High risk patient - Ct at 6-12 months, then at 18-24 months >8 mm * Low risk patient - consider CT at 3 months, PET/CT or tissue sampling * High risk patient - consider CT at 3 months, PET/CT, or tissue sampling (Certain patients at high risk with suspicious nodule morphology, upper lobe location, or both may warrant 12-month follow-up) Dictated by: Dictated on workstation # [id number]
== END 2017-07-29 06:22 | disposition home or self-care (01) ==
LOC: EDUNIT# 04:18 → ER 04:20
DX: K59.00 Constipation, unspecified (principal); R10.9 Unspecified abdominal pain; F90.9 Attention-deficit hyperactivity disorder, unspecified type; F41.9 Anxiety disorder, unspecified; F31.0 Bipolar disorder, current episode hypomanic; F43.10 Post-traumatic stress disorder, unspecified; K21.9 Gastro-esophageal reflux disease without esophagitis; G43.909 Migraine, unspecified, not intractable, without status migrainosus; J44.9 Chronic obstructive pulmonary disease, unspecified; F12.90 Cannabis use, unspecified, uncomplicated; F17.210 Nicotine dependence, cigarettes, uncomplicated; Z87.01 Personal history of pneumonia (recurrent); Z87.442 Personal history of urinary calculi; Z88.8 Allergy status to other drugs, medicaments and biological substances
CPT/HCPCS: 36415; 74022; 74176; 80053; 80306; 81000; 82150; 83690; 85025; 96361; 96374

== ENCOUNTER 2018-06-01 11:24 | Outpatient (RCR) | payer MEDICAID ==
[~2018-06-01 11:24] MED LIST changes: +CLON0.5T13; -CLON0.5T3; +HYDR-4226 PO; -HYDR-757 PO
[2018-06-02] MEDS ORDERED: GABA-486 (18:11)
[2018-06-02] MEDS ORDERED: OMEP40CA36 (18:11)
[2018-06-02] MEDS ORDERED: TRAM50TA2 (18:11)
[2018-06-02] MEDS ORDERED: HYDR-4226 PO (18:54)
== END 2018-07-12 13:52 | disposition home or self-care (01) ==
PROVIDERS: ATTEND Family Medicine
DX: M25.511 Pain in right shoulder (principal)

== ENCOUNTER 2018-06-02 17:54 | Emergency (ER) | payer MEDICAID ==
[~2018-06-02] VITALS: Ht 170.2 cm; Wt 68.0 kg
[2018-06-02] MEDS ORDERED: TRAM50TA2 (18:11)
[2018-06-02] MEDS ORDERED: GABA-486 (18:11)
[2018-06-02] MEDS ORDERED: OMEP40CA36 (18:11)
[2018-06-02] MEDS ORDERED: KETOROLAC 60 MG/2 ML VIAL IM ONE (18:45)
--- NOTE | 2018-06-02 18:49 | ED Upper Extremity ---
General Chief Complaint: Upper Extremity Stated Complaint: R SHOULDER PAIN Nursing Triage Note: PT AMB TO TRIAGE WITH COMPLAINT OF RIGHT SHOULDER PAIN. PT STATES HE HAS PAIN SHOOTING FROM ARMPIT TO ELBOW. PT STATES HE HAD TORN LABRUM ON RIGHT SHOULDER A YEAR AGO. Nursing Sepsis Screen: No Definite Risk Source: patient Exam Limitations: no limitations History of Present Illness Date Seen by Provider: Jun 02, 2018 Time Seen by Provider: 18:52 Initial Comments To ER with reports of right shoulder pain. He has a shooting pain from his armpit to his elbow. A torn labrum on the right shoulder with arthroscopy done by Dr. Pennington a year ago. No known injury since then just a recurrence of pain. Onset: just prior to arrival Severity: moderate Pain/Injury Location: right shoulder Method of Injury: unknown Modifying Factors: Worse With Movement Allergies and Home Medications Allergies Coded Allergies: prochlorperazine (Verified Allergy, Intermediate, 03/01/16) Home Medications Quetiapine Fumarate 400 Mg Tablet, HS, (Reported) Patient Home Medication List Home Medication List Reviewed: Yes Review of Systems Constitutional: see HPI EENTM: see HPI Respiratory: no symptoms reported Cardiovascular: no symptoms reported Genitourinary: no symptoms reported Musculoskeletal: no symptoms reported Skin: no symptoms reported Psychiatric/Neurological: No Symptoms Reported Past Xhghivv-Svmlyd-Zyytrs Hx Patient Social History Alcohol Use: Denies Use Recreational Drug Use: No Drug of Choice: CANNIBUS Type Used: Cigarettes 2nd Hand Smoke Exposure: Yes Recent Foreign Travel: No Contact w/Someone Who Travel: No Recent Infectious Disease Expo: No Recent Hopitalizations: No Immunizations Up To Date Date of Pneumonia Vaccine: Nov 10, 2015 Seasonal Allergies Seasonal Allergies: No Past Medical History Surgeries: Yes (RIGHT SHOULDER SCOPE) Orthopedic Respiratory: Yes Asthma, Pneumonia, COPD Cardiac: No Neurological: Yes Headaches /Migraines Reproductive Disorders: No Sexually Transmitted Disease: No HIV/AIDS: No Genitourinary: Yes Kidney Stones Gastrointestinal: Yes Gastroesophageal Reflux, Ulcer Musculoskeletal: No Endocrine: No HEENT: Yes Cancer: No Did You Recieve Any Treatments: No Psychosocial: Yes ADD/ADHD, Anxiety, PTSD, Bipolar, Depression Integumentary: No Blood Disorders: No Adverse Reaction/Blood Tranf: No Family Medical History No Pertinent Family Hx Physical Exam Vital Signs Vital Signs - First Documented 06/02/18 18:06 Pulse 86 Resp 20 B/P (MAP) 123/79 (94) Pulse Ox 96 O2 Delivery Room Air Capillary Refill : Less Than 3 Seconds Height, Weight, BMI Height: 5'7.00" Weight: 150lbs. oz. 68.454956xy; BMI Method:Stated General Appearance: WD/WN, no apparent distress HEENT: PERRL/EOMI, normal ENT inspection Respiratory: no respiratory distress, no accessory muscle use Shoulder: normal inspection, non-tender Elbow/Forearm: normal inspection, non-tender Wrist: Yes normal inspection, Yes non-tender Hand: normal inspection, non-tender Neurologic/Psychiatric: alert, normal mood/affect, oriented x 3 Skin: normal color, warm/dry Progress/Results/Core Measures Results/Orders My Orders Orders - JUAN MANUEL HAN APRN Ketorolac Injection (Toradol Injection) (06/02/18 18:45) Shoulder, Right, 3 Views (06/02/18 18:36) Vital Signs/I&O 06/02/18 18:06 Pulse 86 Resp 20 B/P (MAP) 123/79 (94) Pulse Ox 96 O2 Delivery Room Air Blood Pressure Mean: 94 Departure Impression Primary Impression: Right shoulder pain Qualified Codes: M25.511 - Pain in right shoulder; G89.29 - Other chronic pain Disposition: 01 HOME, SELF-CARE Condition: Stable Departure-Patient Inst. Decision time for Depature: 18:53 Referrals: SHELBIE YEAGER MD (PCP/Family) Primary Care Physician Patient Instructions: Shoulder Pain (DC) Add. Discharge Instructions: 1. Use anti-inflammatories, sling and follow-up with primary care to obtain an MRI of the shoulder. Once you have the MRI they may refer you to orthopedic surgeon. All discharge instructions reviewed with patient and/or family. Voiced understanding. Scripts Hydrocodone/Acetaminophen ([place] 5-325 Tablet) 1 Each Tablet 1 EACH PO Q6H PRN for PAIN-MODERATE MDD 10, #14 TAB Prov: JUAN MANUEL HAN APRN 06/02/18 JUAN MANUEL HAN APRN Jun 02, 2018 18:49
[2018-06-02] MEDS ORDERED: HYDR-4226 PO (18:54)
--- NOTE | 2018-06-02 19:07 | Diagnostic Imaging Report ---
INDICATION: Right shoulder pain. AP, oblique, and transscapular views of the right shoulder are obtained. FINDINGS: No fracture or dislocation is seen. There is no acute bony abnormality. IMPRESSION: Negative right shoulder. Dictated by: Dictated on workstation # [id number]
[2018-06-02 19:19] VITALS: BP 123/79
== END 2018-06-02 19:19 | disposition home or self-care (01) ==
LOC: EDUNIT# 17:54 → ER 17:55
DX: M25.511 Pain in right shoulder (principal); J44.9 Chronic obstructive pulmonary disease, unspecified; G43.909 Migraine, unspecified, not intractable, without status migrainosus; F41.9 Anxiety disorder, unspecified; F90.9 Attention-deficit hyperactivity disorder, unspecified type; F98.8 Other specified behavioral and emotional disorders with onset usually occurring in childhood and adolescence; F43.10 Post-traumatic stress disorder, unspecified; F31.9 Bipolar disorder, unspecified; Z87.19 Personal history of other diseases of the digestive system; Z88.8 Allergy status to other drugs, medicaments and biological substances; Z77.22 Contact with and (suspected) exposure to environmental tobacco smoke (acute) (chronic); Z87.01 Personal history of pneumonia (recurrent)
CPT/HCPCS: 73030

== ENCOUNTER 2018-06-15 14:49 | Emergency (ER) | payer MEDICAID ==
[~2018-06-15] VITALS: Ht 172.7 cm; Wt 71.7 kg
[~2018-06-15 14:49] MED LIST changes: +OMEP40CA36; +TRAM50TA2
--- NOTE | 2018-06-15 15:28 | ED Upper Extremity ---
General Chief Complaint: Upper Extremity Stated Complaint: SHOULDER PAIN Nursing Triage Note: ARRIVED VIA AMB TO TRIAGE WITH COMPLAINTS OF CONTINUING PAIN IN RIGHT SHOULDER DUE TO TORN LIGAMENTS. STATES HE IS SCHEDULED TO SEE THE SURGEON ON THURSDAY. PT STATES ORIGINAL INJURY 10 YEARS AGO BUT HAS GOTTEN WORSE. STATES HE IS OUT OF HIS HYDROCODONE. Nursing Sepsis Screen: No Definite Risk History of Present Illness Date Seen by Provider: June 15, 2018 Time Seen by Provider: 15:15 Initial Comments 37-year-old male presents for right shoulder pain. He had surgical labral repair by Dr. Pennington approximately one year ago, 3 months ago he began having increased right shoulder pain without injury. He was sent to PT per Dr. Yeager and is continuing to attend. He was evaluated here approx 2 weeks ago and placed in a sling. Per [facility], he has been getting Hydrocodone/APAP 7/325 mg since 03/23/18. He is requesting more Hydrocodone. He has appt with Dr. Zuniga on . Pain/Injury Location: right shoulder Method of Injury: unknown Allergies and Home Medications Allergies Coded Allergies: prochlorperazine (Verified Allergy, Intermediate, 03/01/16) Patient Home Medication List Home Medication List Reviewed: Yes Review of Systems Constitutional: no symptoms reported, see HPI Musculoskeletal: see HPI, joint pain (right shoulder pain) All Other Systems Reviewed Negative Unless Noted: Yes Past Orrpbsg-Lxepdk-Yoemjr Hx Past Med/Social Hx: Reviewed Nursing Past Med/Soc Hx Patient Social History Alcohol Use: Occasionally Uses Recreational Drug Use: No Drug of Choice: CANNIBUS Smoking Status: Current Everyday Smoker Type Used: Cigarettes 2nd Hand Smoke Exposure: Yes Recent Foreign Travel: No Contact w/Someone Who Travel: No Recent Infectious Disease Expo: No Recent Hopitalizations: No Immunizations Up To Date Date of Pneumonia Vaccine: Nov 10, 2015 Seasonal Allergies Seasonal Allergies: No Past Medical History Surgeries: Yes (RIGHT SHOULDER SCOPE) Orthopedic Respiratory: Yes Asthma, Pneumonia, COPD Cardiac: No Neurological: Yes Headaches /Migraines Reproductive Disorders: No Sexually Transmitted Disease: No HIV/AIDS: No Genitourinary: Yes Kidney Stones Gastrointestinal: Yes Gastroesophageal Reflux, Ulcer Musculoskeletal: No Endocrine: No HEENT: Yes Cancer: No Did You Recieve Any Treatments: No Psychosocial: Yes ADD/ADHD, Anxiety, PTSD, Bipolar, Depression Integumentary: No Blood Disorders: No Adverse Reaction/Blood Tranf: No Family Medical History No Pertinent Family Hx Physical Exam Vital Signs Vital Signs - First Documented 06/15/18 14:56 Temp 98.3 Pulse 90 Resp 16 B/P (MAP) 117/83 (94) Pulse Ox 96 O2 Delivery Room Air Capillary Refill : Less Than 3 Seconds Height, Weight, BMI Height: 5'8.00" Weight: 158lbs. oz. 71.384919md; BMI Method:Stated General Appearance: WD/WN, no apparent distress Cardiovascular: normal peripheral pulses, regular rate, rhythm Respiratory: chest non-tender, lungs clear Shoulder: normal inspection (planning in place right shoulder), limited ROM ( secondary to pain), soft tissue tenderness (generalized right shoulder) Neurologic/Psychiatric: no motor/sensory deficits, alert, normal mood/affect, oriented x 3 Skin: normal color, warm/dry Right shoulder limitation of motion, tenderness to bicep, tricpes and deltoid. Neg apprehension and Ware. Weakness with external rotators testing. Progress/Results/Core Measures Results/Orders Lab Results Laboratory Tests Test 06/15/18 15:10 Range/Units Urine Opiates Screen NEGATIVE NEGATIVE Urine Oxycodone Screen NEGATIVE NEGATIVE Urine Methadone Screen NEGATIVE NEGATIVE Urine Propoxyphene Screen NEGATIVE NEGATIVE Urine Barbiturates Screen NEGATIVE NEGATIVE Ur Tricyclic Antidepressants Screen POSITIVE H NEGATIVE Urine Phencyclidine Screen NEGATIVE NEGATIVE Urine Amphetamines Screen NEGATIVE NEGATIVE Urine Methamphetamines Screen NEGATIVE NEGATIVE Urine Benzodiazepines Screen NEGATIVE NEGATIVE Urine Cocaine Screen NEGATIVE NEGATIVE Urine Cannabinoids Screen POSITIVE H NEGATIVE My Orders Orders - TALON RODRÍGUEZ Drug Screen Stat (Urine) (06/15/18 15:00) Vital Signs/I&O 06/15/18 06/15/18 14:56 15:37 Temp 98.3 98.3 Pulse 90 90 Resp 16 16 B/P (MAP) 117/83 (94) 117/83 (94) Pulse Ox 96 96 O2 Delivery Room Air Blood Pressure Mean: 94 Progress Progress Note : Time: 15:15 Progress Note Patient seen and evaluated, discussed at length with patient the risk of adhesive capsulitis. Stressed the importance take an early range of motion. Discharge instructions and return precautions reviewed with the patient. Departure Impression Primary Impression: Right shoulder pain Qualified Codes: M25.511 - Pain in right shoulder; G89.29 - Other chronic pain Disposition: HOME, SELF-CARE Condition: Improved Departure-Patient Inst. Decision time for Depature: 15:25 Referrals: SHELBIE YEAGER MD (PCP/Family) Primary Care Physician Patient Instructions: Shoulder Pain (DC) Add. Discharge Instructions: Ice 20 minutes every 2 hours while awake to right shoulder. Wean herself from using the sling. Gentle range of motion to the right shoulder. Continue to see physical therapy. Keep your scheduled appointment with Dr. Zuniga Alternate between ibuprofen 600 mg and Tylenol 650 mg, every 4 hours Return to emergency department for new, urgent health care needs. All discharge instructions reviewed with patient and/or family. Voiced understanding. TALON RODRÍGUEZ June 15, 2018 15:28
[2018-06-15 15:34] LABS: AMPHETAMINE SCREEN, URINE NEGATIVE (NEGATIVE); BARBITURATE SCREEN URINE NEGATIVE (NEGATIVE); BENZODIAZEPINES SCREEN URINE NEGATIVE (NEGATIVE); CANNABINOID SCREEN, URINE POSITIVE (NEGATIVE); COCAINE SCREEN URINE NEGATIVE (NEGATIVE); METHADONE STAT NEGATIVE (NEGATIVE); METHAMPHETAMINE SCREEN URINE S NEGATIVE (NEGATIVE); OPIATE SCREEN URINE NEGATIVE (NEGATIVE); OXYCODONE STAT NEGATIVE (NEGATIVE); PROPOXYPHENE STAT NEGATIVE (NEGATIVE); TRICYCLIC ANTIDEPRESSANTS SCRE POSITIVE (NEGATIVE)
[2018-06-15 15:37] VITALS: BP 117/83
== END 2018-06-15 15:37 | disposition home or self-care (01) ==
LOC: ER 14:49 → EDUNIT# 14:49 → ER 15:37
DX: M25.511 Pain in right shoulder (principal); J44.9 Chronic obstructive pulmonary disease, unspecified; G43.909 Migraine, unspecified, not intractable, without status migrainosus; K21.9 Gastro-esophageal reflux disease without esophagitis; F98.8 Other specified behavioral and emotional disorders with onset usually occurring in childhood and adolescence; F90.9 Attention-deficit hyperactivity disorder, unspecified type; F41.9 Anxiety disorder, unspecified; F43.10 Post-traumatic stress disorder, unspecified; F31.9 Bipolar disorder, unspecified; F17.210 Nicotine dependence, cigarettes, uncomplicated; Z98.890 Other specified postprocedural states; Z88.8 Allergy status to other drugs, medicaments and biological substances; Z87.442 Personal history of urinary calculi; Z87.19 Personal history of other diseases of the digestive system; Z87.01 Personal history of pneumonia (recurrent)
CPT/HCPCS: 80306; 99282

== ENCOUNTER 2018-07-15 17:37 | Emergency (ER) | payer MEDICAID ==
[~2018-07-15] VITALS: Ht 171.4 cm; Wt 63.5 kg
[2018-07-15] MEDS ORDERED: LIDOCAINE/EPI 2% 1:100,00 (XYLOCAINE) 20 ML VIAL ONE (17:53)
[2018-07-15] MEDS ORDERED: NAPR-1071 PO (17:55)
[2018-07-15] MEDS ORDERED: AMOX500C2 PO (17:55)
--- NOTE | 2018-07-15 17:55 | ED EENT ---
History of Present Illness General Chief Complaint: Dental Problems/Pain Stated Complaint: DENTAL PAIN Source: patient Exam Limitations: no limitations History of Present Illness Date Seen by Provider: Jul 15, 2018 Time Seen by Provider: 17:53 Initial Comments To ER with reports of left lower dental pain for the past few days, has a dental clinic appointment next week. Timing/Duration: abrupt Severity: moderate Location: dental Associated Symptoms: facial pain/swelling (No swelling), tooth pain Allergies and Home Medications Allergies Coded Allergies: prochlorperazine (Verified Allergy, Intermediate, 03/01/16) Patient Home Medication List Home Medication List Reviewed: Yes Review of Systems Review of Systems Constitutional: see HPI Eyes: No Symptoms Reported Ears: No Symptoms Reported Nose: no symptoms reported Mouth: see HPI Throat: no symptoms reported Respiratory: no symptoms reported Cardiovascular: no symptoms reported Musculoskeletal: no symptoms reported Past Obyepiv-Iclgec-Rukekk Hx Patient Social History Drug of Choice: CANNIBUS Type Used: Cigarettes 2nd Hand Smoke Exposure: Yes Recent Foreign Travel: No Contact w/Someone Who Travel: No Recent Hopitalizations: No Immunizations Up To Date Date of Pneumonia Vaccine: Nov 10, 2015 Seasonal Allergies Seasonal Allergies: No Past Medical History Surgeries: Yes (RIGHT SHOULDER SCOPE) Orthopedic Respiratory: Yes Asthma, Pneumonia, COPD Cardiac: No Neurological: Yes Headaches /Migraines Reproductive Disorders: No Sexually Transmitted Disease: No HIV/AIDS: No Genitourinary: Yes Kidney Stones Gastrointestinal: Yes Gastroesophageal Reflux, Ulcer Musculoskeletal: No Endocrine: No HEENT: Yes Cancer: No Did You Recieve Any Treatments: No Psychosocial: Yes ADD/ADHD, Anxiety, PTSD, Bipolar, Depression Integumentary: No Blood Disorders: No Adverse Reaction/Blood Tranf: No Family Medical History No Pertinent Family Hx Physical Exam Height, Weight, BMI Height: 5'8.00" Weight: 158lbs. oz. 71.263103jw; BMI Method:Stated General Appearance: WD/WN, no apparent distress Eyes: bilateral eye normal inspection, bilateral eye PERRL, bilateral eye EOMI Ears: bilateral ear auricle normal, bilateral ear canal normal, bilateral ear TM normal Neck: non-tender, full range of motion Respiratory: no respiratory distress, no accessory muscle use Neurologic/Psychiatric: alert, normal mood/affect, oriented x 3 Skin: normal color, warm/dry Progress/Results/Core Measures Results/Orders My Orders Orders - JUAN MANUEL HAN APRN Lidocaine/Epi 1% 1:100,000 (Xylocaine /E (07/15/18 18:00) Bupivacaine 0.5% Injection (Sensorcaine (07/15/18 18:00) Departure Impression Primary Impression: Pain, dental Disposition: HOME, SELF-CARE Condition: Stable Departure-Patient Inst. Decision time for Depature: 17:54 Referrals: SHELBIE YEAGER MD (PCP/Family) Primary Care Physician Patient Instructions: Dental Pain (DC) Add. Discharge Instructions: 1. Return to ER for any concerns 2. Follow-up with your doctor next week 3. Antibiotics as directed. All discharge instructions reviewed with patient and/or family. Voiced understanding. Scripts Amoxicillin (Amoxicillin) 500 Mg Capsule 500 MG PO TID, #21 CAP 0 Refills Prov: JUAN MANUEL HAN APRN 07/15/18 Naproxen (Naprosyn) 500 Mg Tablet 500 MG PO BID PRN for PAIN-MODERATE TO SEVERE, #30 TAB 0 Refills Prov: JUAN MANUEL HAN APRN 07/15/18 JUAN MANUEL HAN APRN Jul 15, 2018 17:55
--- OUTSIDE RECORDS SUMMARY | 2018-07-15 17:56 | XMS REPORT ---
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 Name Role Phone SHELBIE YEAGER Unavailable PROBLEMS Type Condition ICD9-CM Code VQM22-VG Code Onset Dates Condition Status SNOMED Code Problem Primary insomnia F51.01 Active 7638198 Problem Fibromyalgia M79.7 Active 627100072 Problem Anxiety F41.9 Active 03127874 Problem Migraine without aura and without status migrainosus, not intractable G43.009 Active 749056606 Problem Essential hypertension I10 Active 21438190 Problem Major depressive disorder, single episode, unspecified F32.9 Active 63485904 Problem Tobacco use Z72.0 Active 051537127 Problem Moderate persistent asthma with exacerbation J45.41 Active 130677975 Problem COPD with exacerbation J44.1 Active 575897260 Problem Other chronic pain G89.29 Active 74748784 Problem Chronic post-traumatic stress disorder (PTSD) after combat F43.12 Active 492246228 Problem Asthma without acute exacerbation J45.909 Active 717775998 ALLERGIES No Information ENCOUNTERS Encounter Location Date Diagnosis [facility] [id number] [address] Jan, Anxiety F41.9 [facility] [id number] [place] [address] Jan, [facility] [address] [address] Dec, [facility] [id number] [place] [address] 13 Dec, 2017 Migraine with aura and without status migrainosus, not intractable G43.109 [facility] [id number] [place] [address] Dec, Anxiety F41.9 ; Moderate persistent asthma with exacerbation J45.41 ; Primary insomnia F51.01 ; Encounter for immunization Z23 ; Migraine without aura and without status migrainosus, not intractable G43.009 and Tobacco use Z72.0 [facility] [id number] [place] [address] Nov, Acute pain of right shoulder M25.511 [facility] [address] [address] Nov, [place] [address] [address] Nov, Dental examination Z01.20 and Pain, dental K08.89 [facility] [id number] [place] [address] Nov, Closed fracture of tooth, initial encounter S02.5XXA [place] [address] [address] Nov, Anxiety F41.9 [place] [address] [address] 18 Oct, 2017 [place] [id number] [place] [address] Oct, Anxiety F41.9 [place] [id number] [place] [address] 05 Oct, 2017 [facility] [address] [address] Sep, [place] [address] [address] Sep, Acute pain of right shoulder M25.511 [place] [id number] [place] [address] Sep, [facility] [address] [place] [address] Sep, [facility] [id number] [place] [address] Sep, Anxiety F41.9 [facility] [id number] [place] [address] Aug, [facility] [id number] [place] [address] Aug, Anxiety F41.9 [facility] [id number] [place] [address] Aug, Anxiety F41.9 [facility] [id number] [place] [address] Aug, Anxiety F41.9 [facility] [id number] [place] [address] Aug, Anxiety F41.9 [facility] [id number] [place] [address] Aug, [facility] [id number] [place] [address] Jul, [facility] [id number] [place] [address] Jul, Anxiety F41.9 [facility] [id number] [place] [address] Jul, Chest congestion R09.89 ; Coughing R05 and Wheezes R06.2 [facility] [id number] [place] [address] Jul, Major depressive disorder, single episode, unspecified F32.9 and Anxiety F41.9 [facility] [id number] [place] [address] June, Neuropathic pain M79.2 and Right elbow pain M25.521 [facility] [id number] [place] [address] June, [facility] [address] [place] [address] [place] [address] June, Anxiety F41.9 [facility] [id number] [place] [address] June, Chronic post-traumatic stress disorder (PTSD) after combat F43.12 ; Major depressive disorder, single episode, unspecified F32.9 and Anxiety F41.9 [facility] [id number] [place] [address] May, [facility] [id number] [place] [address] May, Anxiety F41.9 [place] [id number] [place] [address] May, [facility] [id number] [place] [address] May, Acute pain of right shoulder M25.511 and Muscle strain of right shoulder, initial encounter S46.911A [facility] [id number] [place] [address] May, [facility] [id number] [place] [address] May, Chronic post-traumatic stress disorder (PTSD) after combat F43.12 and Anxiety F41.9 [facility] [id number] [place] [address] Apr, Anxiety F41.9 and Asthma without acute exacerbation J45.909 [facility] [id number] [place] [address] Apr, [facility] [id number] [place] [address] Mar, Anxiety F41.9 and Major depressive disorder, single episode, unspecified F32.9 [facility] [id number] [place] [address] Mar, Anxiety F41.9 [facility] [id number] [place] [address] 16 Mar, 2017 [facility] [id number] [place] [address] 14 Mar, 2017 Major depressive disorder, single episode, unspecified F32.9 ; Anxiety F41.9 and Chronic post-traumatic stress disorder (PTSD) after combat F43.12 [facility] [id number] [place] [address] 06 Mar, 2017 Chronic post-traumatic stress disorder (PTSD) after combat F43.12 ; Major depressive disorder, single episode, unspecified F32.9 ; Anxiety F41.9 and Primary insomnia F51.01 [facility] [id number] [place] [address] Feb, Anxiety F41.9 and Major depressive disorder, single episode, unspecified F32.9 [facility] [id number] [place] [address] Feb, Primary insomnia F51.01 and Anxiety F41.9 [facility] [id number] [place] [address] Feb, [facility] [id number] [place] [address] Feb, Wheezes R06.2 and COPD with exacerbation J44.1 [facility] [id number] [place] [address] Feb, [facility] [id number] [place] [address] Jan, [facility] [id number] [place] [address] Dec, [facility] [id number] [place] [address] Dec, [facility] [address] [address] Dec, Dislocation of right shoulder joint, subsequent encounter S43.004D [place] [address] [address] Nov, [place] [address] [address] Nov, Lumbosacral neuritis M54.17 [facility] [address] [address] Oct, Other chronic pain G89.29 and Pain in right shoulder M25.511 [place] [address] [address] 18 Oct, 2016 Essential hypertension I10 [place] [address] [address] Oct, [place] [address] [address] Oct, Closed fracture of tooth, initial encounter S02.5XXA and Dental caries K02.9 [place] [address] [address] 07 Oct, 2016 Dental examination Z01.20 [place] [address] [address] Oct, Migraine with aura and without status migrainosus, not intractable G43.109 [place] [address] [address] Oct, [place] [address] [address] Sep, Fibromyalgia M79.7 [place] [address] [address] Sep, Essential hypertension I10 and Anxiety disorder, unspecified F41.9 [place] [address] [address] Aug, Anxiety disorder, unspecified F41.9 [facility] [id number] [place] [address] Aug, Anxiety disorder, unspecified F41.9 and Essential hypertension I10 [facility] [id number] [place] [address] Jul, Fibromyalgia M79.7 [facility] [id number] [place] [address] Jul, Fibromyalgia M79.7 [place] [id number] [place] [address] June, Fibromyalgia M79.7 and Anxiety F41.9 [place] [id number] [place] [address] June, [place] [id number] [place] [address] June, Primary insomnia F51.01 [place] [id number] [place] [address] May, Migraine without aura and without status migrainosus, not intractable G43.009 ; Primary insomnia F51.01 ; Bronchitis J40 ; Anxiety disorder, unspecified F41.9 and Major depressive disorder, single episode, unspecified F32.9 [facility] [id number] [place] [address] May, [facility] [id number] [place] [address] May, Migraine with aura and without status migrainosus, not intractable G43.109 [facility] [id number] [place] [address] May, Essential hypertension I10 [facility] [id number] [place] [address] Apr, Essential hypertension I10 ; Migraine without aura and without status migrainosus, not intractable G43.009 ; Anxiety disorder, unspecified F41.9 and Major depressive disorder, single episode, unspecified F32.9 [facility] [address] [facility] [id number] [place] [address] Mar, [facility] [address] [facility] [id number] [id number] Feb, Dental examination Z01.20 IMMUNIZATIONS No Known Immunizations SOCIAL HISTORY Never Assessed REASON FOR VISIT Controlled Medication Refill PLAN OF CARE VITAL SIGNS MEDICATIONS Medication Instructions Dosage Frequency Start Date End Date Duration Status Klonopin 0.5 MG Orally TID PRN 1 tablet Feb, 28 days Active RESULTS No Results PROCEDURES No Known procedures INSTRUCTIONS MEDICATIONS ADMINISTERED No Known Medications MEDICAL (GENERAL) HISTORY Type Description Date Medical History Hypertension Medical History Asthma Medical History depression Medical History anxiety Medical History Migraines Medical History insomnia Surgical History right shoulder surgery 2017 Hospitalization History migraines 2016 Hospitalization History ulcer 2010
--- OUTSIDE RECORDS SUMMARY | 2018-07-15 17:56 | XMS REPORT ---
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 Name Role Phone SHELBIE YEAGER Unavailable PROBLEMS Type Condition ICD9-CM Code [id number] Code Onset Dates Condition Status SNOMED Code Problem Primary insomnia F51.01 Active 7321725 Problem Fibromyalgia M79.7 Active 692159391 Problem Anxiety F41.9 Active 79779790 Problem Migraine without aura and without status migrainosus, not intractable G43.009 Active 333476147 Problem Essential hypertension I10 Active 62498978 Problem Major depressive disorder, single episode, unspecified F32.9 Active 42487286 Problem Tobacco use Z72.0 Active 210693125 Problem Moderate persistent asthma with exacerbation J45.41 Active 145479339 Problem COPD with exacerbation J44.1 Active 385914190 Problem Other chronic pain G89.29 Active 63083991 Problem Chronic post-traumatic stress disorder (PTSD) after combat F43.12 Active 118327808 Problem Asthma without acute exacerbation J45.909 Active 443626755 ALLERGIES No Information ENCOUNTERS Encounter Location Date Diagnosis [place] [address], [place] [address] Dec, [facility] [id number] [place] [address] Dec, Migraine with aura and without status migrainosus, not intractable G43.109 [facility] [id number] [place] [address] Dec, Anxiety F41.9 ; Moderate persistent asthma with exacerbation J45.41 ; Primary insomnia F51.01 ; Encounter for immunization Z23 ; Migraine without aura and without status migrainosus, not intractable G43.009 and Tobacco use Z72.0 [facility] [id number] [place] [address] Nov, Acute pain of right shoulder M25.511 [facility] [id number] [place] [address] Nov, [facility] [id number] [place] [address] Nov, Dental examination Z01.20 and Pain, dental K08.89 [facility] [id number] [place] [address] Nov, Closed fracture of tooth, initial encounter S02.5XXA [facility] [address] [address] Nov, Anxiety F41.9 [facility] [id number] [place] [address] Oct, [facility] [id number] [place] [address] Oct, Anxiety F41.9 [facility] [id number] [place] [address] 05 Oct, 2017 [facility] [id number] [place] [address] Sep, [facility] [id number] [place] [address] Sep, Acute pain of right shoulder M25.511 [facility] [id number] [place] [address] Sep, [facility] [address] [facility] [place] [address] Sep, [facility] [id number] [place] [address] Sep, Anxiety F41.9 [facility] [address] [place] [address] Aug, [facility] [id number] [address] Aug, Anxiety F41.9 [facility] [id number] [place] [address] Aug, Anxiety F41.9 [facility] [id number] [place] [address] Aug, Anxiety F41.9 [facility] [id number] [place] [address] Aug, Anxiety F41.9 [facility] [id number] [place] [address] Aug, [facility] [id number] [place] [address] Jul, [facility] [id number] [place] [address] Jul, Anxiety F41.9 [facility] [id number] [place] [address] Jul, Chest congestion R09.89 ; Coughing R05 and Wheezes R06.2 [facility] [id number] [place] [address] Jul, Major depressive disorder, single episode, unspecified F32.9 and Anxiety F41.9 [facility] [address] [place] [address] June, Neuropathic pain M79.2 and Right elbow pain M25.521 [facility] [id number] [place] [address] June, [facility] [id number] [place] [address] June, Anxiety F41.9 [facility] [address] [place] [address] June, Chronic post-traumatic stress disorder (PTSD) after combat F43.12 ; Major depressive disorder, single episode, unspecified F32.9 and Anxiety F41.9 [facility] [id number] [place] [address] May, [facility] [id number] [place] [address] May, Anxiety F41.9 [facility] [id number] [place] [address] May, [facility] [id number] [place] [address] May, Acute pain of right shoulder M25.511 and Muscle strain of right shoulder, initial encounter S46.911A [facility] [id number] [place] [address] May, [facility] [id number] [place] [address] May, Chronic post-traumatic stress disorder (PTSD) after combat F43.12 and Anxiety F41.9 [facility] [id number] [place] [address] Apr, Anxiety F41.9 and Asthma without acute exacerbation J45.909 [facility] [id number] [place] [address] Apr, [facility] [id number] [place] [address] Mar, Anxiety F41.9 and Major depressive disorder, single episode, unspecified F32.9 [facility] [id number] [place] [address] Mar, Anxiety F41.9 [facility] [id number] [place] [address] Mar, [facility] [id number] [place] [address] 14 Mar, 2017 Major depressive disorder, single episode, unspecified F32.9 ; Anxiety F41.9 and Chronic post-traumatic stress disorder (PTSD) after combat F43.12 [facility] [id number] [place] [address] 06 Mar, 2017 Chronic post-traumatic stress disorder (PTSD) after combat F43.12 ; Major depressive disorder, single episode, unspecified F32.9 ; Anxiety F41.9 and Primary insomnia F51.01 [place] [id number] [place] [address] Feb, Anxiety F41.9 and Major depressive disorder, single episode, unspecified F32.9 [place] [address] [address] Feb, Primary insomnia F51.01 and Anxiety F41.9 [place] [address] [address] Feb, [facility] [id number] [place] [address] Feb, Wheezes R06.2 and COPD with exacerbation J44.1 [place] [address] [address] Feb, [facility] [id number] [place] [address] Jan, [place] [address] [address] Dec, [facility] [id number] [place] [address] Dec, [facility] [address] [address] Dec, Dislocation of right shoulder joint, subsequent encounter S43.004D [facility] [address] [address] Nov, [place] [id number] [place] [address] Nov, Lumbosacral neuritis M54.17 [facility] [address] [address] Oct, Other chronic pain G89.29 and Pain in right shoulder M25.511 [place] [address] [address] Oct, Essential hypertension I10 [place] [address] [address] Oct, [place] [address] [address] Oct, Closed fracture of tooth, initial encounter S02.5XXA and Dental caries K02.9 [place] [address] [address] Oct, Dental examination Z01.20 [place] [address] [address] Oct, Migraine with aura and without status migrainosus, not intractable G43.109 [place] [address] [address] Oct, [place] [address] [address] Sep, Fibromyalgia M79.7 [place] [address] [address] Sep, Essential hypertension I10 and Anxiety disorder, unspecified F41.9 [place] [address] [address] Aug, Anxiety disorder, unspecified F41.9 [place] [address] [address] Aug, Anxiety disorder, unspecified F41.9 and Essential hypertension I10 [place] [id number] [place] [address] Jul, Fibromyalgia M79.7 [facility] [id number] [place] [address] Jul, Fibromyalgia M79.7 [facility] [id number] [place] [address] June, Fibromyalgia M79.7 and Anxiety F41.9 [facility] [id number] [place] [address] June, [facility] [id number] [place] [address] June, Primary insomnia F51.01 [facility] [id number] [place] [address] May, Migraine without aura and without status migrainosus, not intractable G43.009 ; Primary insomnia F51.01 ; Bronchitis J40 ; Anxiety disorder, unspecified F41.9 and Major depressive disorder, single episode, unspecified F32.9 [facility] [id number] [place] [address] May, [facility] [id number] [place] [address] May, Migraine with aura and without status migrainosus, not intractable G43.109 [facility] [id number] [place] [address] 05 May, 2016 Essential hypertension I10 [facility] [id number] [place] [address] Apr, Essential hypertension I10 ; Migraine without aura and without status migrainosus, not intractable G43.009 ; Anxiety disorder, unspecified F41.9 and Major depressive disorder, single episode, unspecified F32.9 [facility] [id number] [place] [address] 07 Mar, 2016 [facility] [id number] [id number] Feb, Dental examination Z01.20 IMMUNIZATIONS No Known [...]
--- OUTSIDE RECORDS SUMMARY | 2018-07-15 17:56 | XMS REPORT ---
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 Name Role Phone SHELBIE YEAGER Unavailable PROBLEMS Type Condition ICD9-CM Code TCK24-WK Code Onset Dates Condition Status SNOMED Code Problem Primary insomnia F51.01 Active 4931758 Problem Fibromyalgia M79.7 Active 501776868 Problem Anxiety F41.9 Active 10117027 Problem Migraine without aura and without status migrainosus, not intractable G43.009 Active 153665712 Problem Essential hypertension I10 Active 52166589 Problem Major depressive disorder, single episode, unspecified F32.9 Active 22516726 Problem Tobacco use Z72.0 Active 137142252 Problem Moderate persistent asthma with exacerbation J45.41 Active 855366523 Problem COPD with exacerbation J44.1 Active 712090588 Problem Other chronic pain G89.29 Active 37119121 Problem Chronic post-traumatic stress disorder (PTSD) after combat F43.12 Active 341162851 Problem Asthma without acute exacerbation J45.909 Active 608723147 ALLERGIES No Information ENCOUNTERS Encounter Location Date Diagnosis [facility] [address], [place] [address] Jan, Anxiety F41.9 [facility] [address] [place] [address] Jan, [facility] [address], [place] [address] Dec, [facility] [address] [place] [address] 13 Dec, 2017 Migraine with aura and without status migrainosus, not intractable G43.109 [facility] [id number] [place] [address] Dec, Anxiety F41.9 ; Moderate persistent asthma with exacerbation J45.41 ; Primary insomnia F51.01 ; Encounter for immunization Z23 ; Migraine without aura and without status migrainosus, not intractable G43.009 and Tobacco use Z72.0 [facility] [id number] [place] [address] Nov, Acute pain of right shoulder M25.511 [facility] [address] [address] Nov, [place] [address] [address] Nov, Dental examination Z01.20 and Pain, dental K08.89 [facility] [id number] [place] [address] Nov, Closed fracture of tooth, initial encounter S02.5XXA [place] [address] [address] Nov, Anxiety F41.9 [place] [address] [address] 18 Oct, 2017 [place] [id number] [place] [address] Oct, Anxiety F41.9 [place] [id number] [place] [address] 05 Oct, 2017 [facility] [address] [address] Sep, [place] [address] [address] Sep, Acute pain of right shoulder M25.511 [place] [id number] [place] [address] Sep, [facility] [address] [place] [address] Sep, [facility] [id number] [place] [address] Sep, Anxiety F41.9 [facility] [id number] [place] [address] Aug, [facility] [id number] [place] [address] Aug, Anxiety F41.9 [facility] [id number] [place] [address] Aug, Anxiety F41.9 [facility] [id number] [place] [address] Aug, Anxiety F41.9 [facility] [id number] [place] [address] Aug, Anxiety F41.9 [facility] [id number] [place] [address] Aug, [facility] [id number] [place] [address] Jul, [facility] [id number] [place] [address] Jul, Anxiety F41.9 [facility] [id number] [place] [address] Jul, Chest congestion R09.89 ; Coughing R05 and Wheezes R06.2 [facility] [id number] [place] [address] Jul, Major depressive disorder, single episode, unspecified F32.9 and Anxiety F41.9 [facility] [id number] [place] [address] June, Neuropathic pain M79.2 and Right elbow pain M25.521 [facility] [id number] [place] [address] June, [facility] [address] [place] [address] June, Anxiety F41.9 [facility] [id number] [place] [address] June, Chronic post-traumatic stress disorder (PTSD) after combat F43.12 ; Major depressive disorder, single episode, unspecified F32.9 and Anxiety F41.9 [facility] [id number] [place] [address] May, [facility] [id number] [place] [address] May, Anxiety F41.9 [place] [id number] [place] [address] May, [facility] [id number] [place] [address] May, Acute pain of right shoulder M25.511 and Muscle strain of right shoulder, initial encounter S46.911A [facility] [id number] [place] [address] May, [facility] [id number] [place] [address] May, Chronic post-traumatic stress disorder (PTSD) after combat F43.12 and Anxiety F41.9 [facility] [id number] [place] [address] Apr, Anxiety F41.9 and Asthma without acute exacerbation J45.909 [facility] [id number] [place] [address] Apr, [facility] [id number] [place] [address] Mar, Anxiety F41.9 and Major depressive disorder, single episode, unspecified F32.9 [facility] [id number] [place] [address] Mar, Anxiety F41.9 [facility] [address] [place] [address] 16 Mar, 2017 [facility] [id number] [place] [address] 14 Mar, 2017 Major depressive disorder, single episode, unspecified F32.9 ; Anxiety F41.9 and Chronic post-traumatic stress disorder (PTSD) after combat F43.12 [facility] [id number] [place] [address] 06 Mar, 2017 Chronic post-traumatic stress disorder (PTSD) after combat F43.12 ; Major depressive disorder, single episode, unspecified F32.9 ; Anxiety F41.9 and Primary insomnia F51.01 [facility] [id number] [place] [address] Feb, Anxiety F41.9 and Major depressive disorder, single episode, unspecified F32.9 [facility] [id number] [place] [address] Feb, Primary insomnia F51.01 and Anxiety F41.9 [facility] [id number] [place] [address] Feb, [facility] [id number] [place] [address] Feb, Wheezes R06.2 and COPD with exacerbation J44.1 [facility] [id number] [place] [address] Feb, [facility] [id number] [place] [address] Jan, [facility] [id number] [place] [address] Dec, [facility] [id number] [place] [address] Dec, [facility] [address] [address] Dec, Dislocation of right shoulder joint, subsequent encounter S43.004D [place] [address] [address] Nov, [place] [address] [address] Nov, Lumbosacral neuritis M54.17 [facility] [address] [address] Oct, Other chronic pain G89.29 and Pain in right shoulder M25.511 [place] [address] [address] 18 Oct, 2016 Essential hypertension I10 [place] [address] [address] Oct, [place] [address] [address] Oct, Closed fracture of tooth, initial encounter S02.5XXA and Dental caries K02.9 [place] [address] [address] 07 Oct, 2016 Dental examination Z01.20 [place] [address] [address] Oct, Migraine with aura and without status migrainosus, not intractable G43.109 [place] [address] [address] Oct, [place] [address] [address] Sep, Fibromyalgia M79.7 [place] [address] [address] Sep, Essential hypertension I10 and Anxiety disorder, unspecified F41.9 [place] [address] [address] Aug, Anxiety disorder, unspecified F41.9 [facility] [id number] [place] [address] Aug, Anxiety disorder, unspecified F41.9 and Essential hypertension I10 [facility] [id number] [place] [address] Jul, Fibromyalgia M79.7 [facility] [id number] [place] [address] Jul, Fibromyalgia M79.7 [place] [id number] [place] [address] June, Fibromyalgia M79.7 and Anxiety F41.9 [place] [id number] [place] [address] June, [place] [id number] [place] [address] June, Primary insomnia F51.01 [place] [id number] [place] [address] May, Migraine without aura and without status migrainosus, not intractable G43.009 ; Primary insomnia F51.01 ; Bronchitis J40 ; Anxiety disorder, unspecified F41.9 and Major depressive disorder, single episode, unspecified F32.9 [facility] [address] [place] [address] May, [facility] [address] [place] [address] May, Migraine with aura and without status migrainosus, not intractable G43.109 [facility] [id number] [place] [id number] May, Essential hypertension I10 [facility] [id number] [place] [id number] Apr, Essential hypertension I10 ; Migraine without aura and without status migrainosus, not intractable G43.009 ; Anxiety disorder, unspecified F41.9 and Major depressive disorder, single episode, unspecified F32.9 [facility] [address] [facility]NOTE 3] [id number] [place] [address] Mar, [facility] [address] [facility] [id number] [place], [place] [id number] Feb, Dental examination Z01.20 IMMUNIZATIONS No Known Immunizations SOCIAL HISTORY Never Assessed REASON FOR VISIT Refill request PLAN OF CARE VITAL SIGNS MEDICATIONS Medication Instructions Dosage Frequency Start Date End Date Duration Status Cyclobenzaprine HCl 10 mg Orally Three times a day 1 tablet as needed 8h Jan, 30 days Active RESULTS No Results PROCEDURES No Known procedures INSTRUCTIONS MEDICATIONS ADMINISTERED No Known Medications MEDICAL (GENERAL) HISTORY Type Description Date Medical History Hypertension Medical History Asthma Medical History depression Medical History anxiety Medical History Migraines Medical History insomnia Surgical History right shoulder surgery 2017 Hospitalization History migraines 2016 Hospitalization History ulcer 2010
--- OUTSIDE RECORDS SUMMARY | 2018-07-15 17:57 | XMS REPORT ---
Author Author SHELBIE YEAGER Organization [facility] Address [address] [place] [address] Care Team Providers Care Dental Prosthetist Name Role Phone SHELBIE YEAGER Unavailable PROBLEMS Type Condition ICD9-CM Code [id number] Code Onset Dates Condition Status SNOMED Code Problem Primary insomnia F51.01 Active 4991197 Problem Fibromyalgia M79.7 Active 020068325 Problem Anxiety F41.9 Active 92626973 Problem Migraine without aura and without status migrainosus, not intractable G43.009 Active 645460716 Problem Essential hypertension I10 Active 32796460 Problem Major depressive disorder, single episode, unspecified F32.9 Active 50173251 Problem Tobacco use Z72.0 Active 959419986 Problem Moderate persistent asthma with exacerbation J45.41 Active 002620060 Problem COPD with exacerbation J44.1 Active 757818496 Problem Other chronic pain G89.29 Active 64953541 Problem Chronic post-traumatic stress disorder (PTSD) after combat F43.12 Active 009318607 Problem Asthma without acute exacerbation J45.909 Active 779346139 ALLERGIES Substance Reaction Event Type Date Status Compazine hives Drug Allergy Dec, Active sea food anaphylaxis Non Drug Allergy Dec, Active ENCOUNTERS Encounter Location Date Diagnosis [facility] [id number] [address] Dec, Anxiety F41.9 ; Moderate persistent asthma with exacerbation J45.41 ; Primary insomnia F51.01 ; Encounter for immunization Z23 ; Migraine without aura and without status migrainosus, not intractable G43.009 and Tobacco use Z72.0 [facility] [id number] [address] Nov, Acute pain of right shoulder M25.511 [facility] [id number], [place] [address] Nov, [facility] [id number] [place] [address] Nov, Dental examination Z01.20 and Pain, dental K08.89 [facility] [id number] [place] [address] Nov, Closed fracture of tooth, initial encounter S02.5XXA [facility] [address] [address] Nov, Anxiety F41.9 [facility] [address] [address] Oct, [facility] [address] [address] Oct, Anxiety F41.9 [facility] [address] [address] Oct, [facility] [address] [address] Sep, [facility] [id number] [place] [address] Sep, Acute pain of right shoulder M25.511 [facility] [id number] [place] [address] Sep, [address] [place] [address] Sep, [facility] [id number] [place] [address] Sep, Anxiety F41.9 [facility] [id number] [place] [address] Aug, [facility] [id number] [place] [address] Aug, Anxiety F41.9 [facility] [address] [address] Aug, Anxiety F41.9 [facility] [address] [address] Aug, Anxiety F41.9 [facility] [id number] [place] [address] Aug, Anxiety F41.9 [facility] [id number] [place] [address] Aug, [facility] [id number] [place] [address] Jul, [facility] [id number] [place] [address] Jul, Anxiety F41.9 [facility] [id number] [place] [address] Jul, Chest congestion R09.89 ; Coughing R05 and Wheezes R06.2 [facility] [id number] [place] [address] Jul, Major depressive disorder, single episode, unspecified F32.9 and Anxiety F41.9 [facility] [facility] [id number] [place] [address] June, Neuropathic pain M79.2 and Right elbow pain M25.521 [facility] [id number] [place] [address] June, [facility] [id number] [place] [address] June, Anxiety F41.9 [facility] [id number] [place] [address] June, Chronic post-traumatic stress disorder (PTSD) after combat F43.12 ; Major depressive disorder, single episode, unspecified F32.9 and Anxiety F41.9 [facility] [id number] [place] [address] May, [facility] [id number], [place] [address] May, Anxiety F41.9 [facility] [id number] [place] [address] May, [facility] [id number] [place] [address] May, Acute pain of right shoulder M25.511 and Muscle strain of right shoulder, initial encounter S46.911A [facility] [id number] [place] [address] May, [facility] [id number] [place] [address] May, Chronic post-traumatic stress disorder (PTSD) after combat F43.12 and Anxiety F41.9 [facility] [id number] [place] [address] Apr, Anxiety F41.9 and Asthma without acute exacerbation J45.909 [facility] [id number] [place] [address] Apr, [facility] [id number] [place] [address] Mar, Anxiety F41.9 and Major depressive disorder, single episode, unspecified F32.9 [facility] [id number] [place] [address] Mar, Anxiety F41.9 [facility] [id number] [place] [address] Mar, [facility] [id number] [place] [address] Mar, Major depressive disorder, single episode, unspecified F32.9 ; Anxiety F41.9 and Chronic post-traumatic stress disorder (PTSD) after combat F43.12 [facility] [id number] [place] [address] Mar, Chronic post-traumatic stress disorder (PTSD) after combat F43.12 ; Major depressive disorder, single episode, unspecified F32.9 ; Anxiety F41.9 and Primary insomnia F51.01 [facility] [id number] [place] [address] Feb, Anxiety F41.9 and Major depressive disorder, single episode, unspecified F32.9 [place] [address] [address] Feb, Primary insomnia F51.01 and Anxiety F41.9 [place] [address] [address] Feb, [facility] [address] [address] Feb, Wheezes R06.2 and COPD with exacerbation J44.1 [place] [address] [address] Feb, [place] [address] [address] Jan, [facility] [address] [address] Dec, [place] [address] [address] Dec, [facility] [address] [address] Dec, Dislocation of right shoulder joint, subsequent encounter S43.004D [place] [address] [address] Nov, [place] [address] [address] Nov, Lumbosacral neuritis M54.17 [facility] [address] [address] Oct, Other chronic pain G89.29 and Pain in right shoulder M25.511 [place] [id number] [place] [address] Oct, Essential hypertension I10 [place] [id number] [place] [address] Oct, [address] [address] [address] Oct, Closed fracture of tooth, initial encounter S02.5XXA and Dental caries K02.9 [place] [address] [address] Oct, Dental examination Z01.20 [place] [address] [address] Oct, Migraine with aura and without status migrainosus, not intractable G43.109 [place] [address] [address] Oct, [place] [id number] [place] [address] Sep, Fibromyalgia M79.7 [place] [address] [address] Sep, Essential hypertension I10 and Anxiety disorder, unspecified F41.9 [place] [id number] [place] [address] Aug, Anxiety disorder, unspecified F41.9 [place] [id number] [place] [address] Aug, Anxiety disorder, unspecified F41.9 and Essential hypertension I10 [place] [id number] [place] [address] Jul, Fibromyalgia M79.7 [place] [id number] [place] [address] Jul, Fibromyalgia M79.7 [place] [id number] [place] [address] June, Fibromyalgia M79.7 and Anxiety F41.9 [facility] [id number] [place] [address] June, [place] [address] [address] June, Primary insomnia F51.01 [place] [address] [address] May, Migraine without aura and without status migrainosus, not intractable G43.009 ; Primary insomnia F51.01 ; Bronchitis J40 ; Anxiety disorder, unspecified F41.9 and Major depressive disorder, single episode, unspecified F32.9 [place] [id number] [place] [address] May, [facility] [id number] [place] [address] May, Migraine with aura and without status migrainosus, not intractable G43.109 [place] [id number] [place] [address] May, Essential hypertension I10 [place] [id number] [place] [address] Apr, Essential hypertension I10 ; Migraine without aura and without status migrainosus, not intractable G43.009 ; Anxiety disorder, unspecified F41.9 and Major depressive disorder, single episode, unspecified F32.9 [facility] [id number] [place] [address] Mar, [facility] [id number] [place] [id number] Feb, Dental examination Z01.20 IMMUNIZATIONS Vaccine Route Administration Date Status FLULAVAL QUAD 0.5ML (6 MO & UP) 2018 IM Intramuscular Dec 15, 2017 Administered SOCIAL HISTORY Never Assessed REASON FOR VISIT Pt states he is here because he feels like he has a cold x 1.5 weeks. Also here for f/u anxiety.-[facility] PLAN OF CARE Activity Details Follow Up 3 Months with Beatriz clark anxiety Reason: Pending Test PANEL (PROFILE 3) VITAL SIGNS Height 66.5 in 2017-12-15 Weight 143.3 lbs 2017-12-15 Temperature 98.2 degrees Fahrenheit 2017-12-15 Heart Rate 70 bpm 2017-12-15 Respiratory Rate 20 2017-12-15 BMI 22.78 kg/m2 2017-12-15 Blood pressure systolic 108 mmHg 2017-12-15 Blood pressure diastolic 82 mmHg 2017-12-15 MEDICATIONS Medication Instructions Dosage Frequency Start Date End Date Duration Status Propranolol HCl 60 mg Orally Twice a day TAKE ONE TABLET BY MOUTH TWICE DAILY 12h 90 days Active Klonopin 0.5 MG Orally TID PRN 1 tablet Feb, 28 days Active Azithromycin 250 MG Orally Once a day 2 tablets on the first day, then 1 tablet daily for 4 days 24h Dec, Dec, 5 day(s) Active Ventolin HFA 108 (90 Base) MCG/ACT Inhalation 4 times a day 2 puffs as needed 6h Active Seroquel 400 mg Orally Once a day 1 tablet 24h 30 Active Albuterol Sulfate (2.5 MG/3ML) 0.083% USE ONE VIAL IN NEBULIZER EVERY 6 HOURS 25 Active BusPIRone HCl 15 MG TAKE ONE TABLET BY MOUTH THREE TIMES DAILY NEEDED 30 Active Paxil 20 mg Orally 2 times a day 1 tablet 12h 30 Active Gabapentin 100 mg Orally 2 times a day 2 capsules 12h 90 days Active Multivitamin Men - Active PredniSONE 20 mg Orally Once a day 1 tablet 24h Dec, Dec, 5 days Active Omeprazole 40 mg TAKE ONE CAPSULE BY MOUTH TWICE DAILY 30 Active RESULTS No Results PROCEDURES Procedure Date Ordered Result Body Site LAB NOT BILLED BY [facility] Dec 15, 2017 SINGLE IMMUNIZATION ADMIN Dec 15, 2017 FLULAVAL QUAD 0.5ML (6 MO AND UP) 2017Dec 15, 2017 INSTRUCTIONS MEDICATIONS ADMINISTERED No Known Medications MEDICAL (GENERAL) HISTORY Type Description Date Medical History Hypertension Medical History Asthma Medical History depression Medical History anxiety Medical History Migraines Medical History insomnia Surgical History right shoulder surgery 2017 Hospitalization History migraines 2016 Hospitalization History ulcer 2010
--- OUTSIDE RECORDS SUMMARY | 2018-07-15 17:57 | XMS REPORT ---
Author Author SAURABH KIDD Organization [facility] Address [address] [place] [address] Care Team Providers Care Check Scaler Name Role Phone SAURABH KIDD Unavailable PROBLEMS Type Condition ICD9-CM Code [id number] Code Onset Dates Condition Status SNOMED Code Problem Essential hypertension I10 Active 49690982 Problem Primary insomnia F51.01 Active 1389955 Problem Major depressive disorder, single episode, unspecified F32.9 Active 81985284 Problem Migraine without aura and without status migrainosus, not intractable G43.009 Active 783842353 Problem Chronic post-traumatic stress disorder (PTSD) after combat F43.12 Active 629686171 Problem Asthma without acute exacerbation J45.909 Active 155047002 Problem Fibromyalgia M79.7 Active 407233466 Problem Anxiety F41.9 Active 68375049 Problem COPD with exacerbation J44.1 Active 293654222 Problem Other chronic pain G89.29 Active 76907018 ALLERGIES Substance Reaction Event Type Date Status Compazine hives Drug Allergy Nov, Active sea food anaphylaxis Non Drug Allergy Nov, Active ENCOUNTERS Encounter Location Date Diagnosis [facility] [id number] [place] [address] Dec, [facility] [id number] [place] [address] Nov, [facility] [id number] [place] [address] Nov, Dental examination Z01.20 and Pain, dental K08.89 [facility] [id number] [place] [address] Nov, Closed fracture of tooth, initial encounter S02.5XXA [facility] [id number] [place] [address] Nov, Anxiety F41.9 [facility] [id number] [place] [address] Oct, [facility] [id number] [place] [address] Oct, Anxiety F41.9 [facility] [id number] [place] [address] Oct, [facility] [id number] [place] [address] Sep, [facility] [id number] [place] [address] Sep, Acute pain of right shoulder M25.511 [facility] [id number] [place] [address] Sep, [place] [address] [facility] [place] [address] Sep, [facility] [id number] [place] [address] Sep, Anxiety F41.9 [facility] [id number] [place] [address] Aug, [facility] [id number] [place] [address] Aug, Anxiety F41.9 [facility] [id number] [place] [address] Aug, Anxiety F41.9 [facility] [address] [place] [address] Aug, Anxiety F41.9 [facility] [id number] [place] [address] Aug, Anxiety F41.9 [facility] [id number] [place] [address] Aug, [facility] [id number] [place] [address] 15 Jul, 2017 [place] [id number] [place] [address] Jul, Anxiety F41.9 [facility] [id number] [place] [address] 05 Jul, 2017 Chest congestion R09.89 ; Coughing R05 and Wheezes R06.2 [place] [id number] [place] [address] Jul, Major depressive disorder, single episode, unspecified F32.9 and Anxiety F41.9 [place] [id number] [place] [address] June, Neuropathic pain M79.2 and Right elbow pain M25.521 [place] [id number] [place] [address] June, [place] [id number] [place] [address] June, Anxiety F41.9 [place] [id number] [place] [address] June, Chronic post-traumatic stress disorder (PTSD) after combat F43.12 ; Major depressive disorder, single episode, unspecified F32.9 and Anxiety F41.9 [place] [id number] [place] [address] May, [place] [id number] [place] [address] May, Anxiety F41.9 [place] [id number] [place] [address] May, [facility] [address] [place] [address] May, Acute pain of right shoulder M25.511 and Muscle strain of right shoulder, initial encounter S46.911A [facility] [address] [address] May, [facility] [id number] [place] [address] May, Chronic post-traumatic stress disorder (PTSD) after combat F43.12 and Anxiety F41.9 [facility] [id number] [place] [address] Apr, Anxiety F41.9 and Asthma without acute exacerbation J45.909 [facility] [id number] [place] [address] Apr, [facility] [id number] [place] [address] Mar, Anxiety F41.9 and Major depressive disorder, single episode, unspecified F32.9 [place] [id number] [place] [address] Mar, Anxiety F41.9 [facility] [id number] [place] [address] Mar, [facility] [id number] [place] [address] Mar, Major depressive disorder, single episode, unspecified F32.9 ; Anxiety F41.9 and Chronic post-traumatic stress disorder (PTSD) after combat F43.12 [facility] [address] [place] [address] Mar, Chronic post-traumatic stress disorder (PTSD) after combat F43.12 ; Major depressive disorder, single episode, unspecified F32.9 ; Anxiety F41.9 and Primary insomnia F51.01 [facility] [address] [place] [address] Feb, Anxiety F41.9 and Major depressive disorder, single episode, unspecified F32.9 [facility] [id number] [place] [address] Feb, Primary insomnia F51.01 and Anxiety F41.9 [facility] [address] [address] Feb, [facility] [address] [address] Feb, Wheezes R06.2 and COPD with exacerbation J44.1 [facility] [address] [address] Feb, [place] [address] [address] Jan, [place] [address] [address] Dec, [place] [address] [address] Dec, [facility] [address] [address] Dec, Dislocation of right shoulder joint, subsequent encounter S43.004D [place] [address] [address] Nov, [place] [address] [address] Nov, Lumbosacral neuritis M54.17 [facility] [id number] [place] [address] 28 Oct, 2016 Other chronic pain G89.29 and Pain in right shoulder M25.511 [place] [address] [address] 18 Oct, 2016 Essential hypertension I10 [place] [id number] [place] [address] 11 Oct, 2016 [facility] [address] [address] Oct, Closed fracture of tooth, initial encounter S02.5XXA and Dental caries K02.9 [place] [address] [address] 07 Oct, 2016 Dental examination Z01.20 [place] [address] [address] Oct, Migraine with aura and without status migrainosus, not intractable G43.109 [place] [address] [address] Oct, [place] [address] [address] Sep, Fibromyalgia M79.7 [place] [address] [address] Sep, Essential hypertension I10 and Anxiety disorder, unspecified F41.9 [place] [address] [address] Aug, Anxiety disorder, unspecified F41.9 [place] [address] [address] Aug, Anxiety disorder, unspecified F41.9 and Essential hypertension I10 [place] [address] [address] Jul, Fibromyalgia M79.7 [place] [address] [address] Jul, Fibromyalgia M79.7 [place] [address] [address] June, Fibromyalgia M79.7 and Anxiety F41.9 [place] [address] [address] June, [place] [address] [address] 04 May, 2017 Primary insomnia F51.01 [facility] [address] [place] [address] 14 May, 2016 Migraine without aura and without status migrainosus, not intractable G43.009 ; Primary insomnia F51.01 ; Bronchitis J40 ; Anxiety disorder, unspecified F41.9 and Major depressive disorder, single episode, unspecified F32.9 [facility] [id number] [place] [address] 13 May, 2016 [facility] [id number] [place] [address] 12 May, 2016 Migraine with aura and without status migrainosus, not intractable G43.109 [facility] [id number] [place] [address] 05 May, 2016 Essential hypertension I10 [place] [id number] [place] [address] Apr, Essential hypertension I10 ; Migraine without aura and without status migrainosus, not intractable G43.009 ; Anxiety disorder, unspecified F41.9 and Major depressive disorder, single episode, unspecified F32.9 [place] [id number] [place] [address] 07 Mar, 2016 [facility] [id number] [place] [id number] Feb, Dental examination Z01.20 IMMUNIZATIONS No Known Immunizations SOCIAL HISTORY Never Assessed REASON FOR VISIT tooth pain PLAN OF CARE Activity Details Follow Up prn Reason:dental exam/tx VITAL SIGNS MEDICATIONS Medication Instructions Dosage Frequency Start Date End Date Duration Status Omeprazole 40 mg TAKE ONE CAPSULE BY MOUTH TWICE DAILY 30 Active Gabapentin 100 mg Orally 2 times a day 2 capsules 12h 90 days Active BusPIRone HCl 15 MG TAKE ONE TABLET BY MOUTH THREE TIMES DAILY NEEDED 30 Active Multivitamin Men - Active Seroquel 400 mg Orally Once a day 1 tablet 24h 30 Active Paxil 20 mg Orally 2 times a day 1 tablet 12h 30 Active Propranolol HCl 60 mg Orally Twice a day TAKE ONE TABLET BY MOUTH TWICE DAILY 12h 90 days Active Amoxicillin 875 MG Orally every 12 hrs 1 tablet 12h 15 Nov, 2017 25 Nov, 2017 10 day(s) Active BusPIRone HCl 10 MG Orally TID PRN 1.5 tablets May, Not-Taking Albuterol Sulfate (2.5 MG/3ML) 0.083% USE ONE VIAL IN NEBULIZER EVERY 6 HOURS 25 Active Ventolin HFA 108 (90 Base) MCG/ACT Inhalation 4 times a day 2 puffs as needed 6h Active Klonopin 0.5 MG Orally TID PRN 1 tablet Feb, 28 days Active RESULTS No Results PROCEDURES Procedure Date Ordered Result Body Site SCREENING OF A PATIENT Nov 23, 2017 Billing Notes on claim Nov 23, 2017 INSTRUCTIONS MEDICATIONS ADMINISTERED No Known Medications MEDICAL (GENERAL) HISTORY Type Description Date Medical History Hypertension Medical History Asthma Medical History depression Medical History anxiety Medical History Migraines Medical History insomnia Surgical History right shoulder surgery 2017 Hospitalization History migraines 2016 Hospitalization History ulcer 2010
--- OUTSIDE RECORDS SUMMARY | 2018-07-15 17:57 | XMS REPORT ---
Author Author SHELBIE YEAGER Organization [facility] [place] Address [address] [place] [address] Care Team Providers Care Supervisor Cabinetmaker Name Role Phone SHELBIE YEAGER Unavailable PROBLEMS Type Condition ICD9-CM Code GXP53-AH Code Onset Dates Condition Status SNOMED Code Problem Primary insomnia F51.01 Active 6481205 Problem Fibromyalgia M79.7 Active 154091462 Problem Anxiety F41.9 Active 90307811 Problem Migraine without aura and without status migrainosus, not intractable G43.009 Active 545295569 Problem Essential hypertension I10 Active 16238041 Problem Major depressive disorder, single episode, unspecified F32.9 Active 35427682 Problem Tobacco use Z72.0 Active 093639841 Problem Moderate persistent asthma with exacerbation J45.41 Active 017534434 Problem COPD with exacerbation J44.1 Active 084488899 Problem Other chronic pain G89.29 Active 12900168 Problem Chronic post-traumatic stress disorder (PTSD) after combat F43.12 Active 743602907 Problem Asthma without acute exacerbation J45.909 Active 182335121 ALLERGIES No Information ENCOUNTERS Encounter Location Date Diagnosis [place] [id number], [place] [address] 13 Dec, 2017 Migraine with aura and without status migrainosus, not intractable G43.109 [facility] [place] [id number], [place] [address] 06 Dec, 2017 Anxiety F41.9 ; Moderate persistent asthma with exacerbation J45.41 ; Primary insomnia F51.01 ; Encounter for immunization Z23 ; Migraine without aura and without status migrainosus, not intractable G43.009 and Tobacco use Z72.0 [facility] [place] [id number], [place] [address] Nov, Acute pain of right shoulder M25.511 [facility] [place] [id number] [place] [id number] Nov, [facility] [place] [id number] [place] [address] Nov, Dental examination Z01.20 and Pain, dental K08.89 [facility] [id number] [place] [id number] Nov, Closed fracture of tooth, initial encounter S02.5XXA [facility] [place] [id number] [place] [phone] Nov, Anxiety F41.9 [facility] [place] [address] [address] Oct, [facility] [place] [id number] [place] [id number] Oct, Anxiety F41.9 [facility] [place] [id number] [place] [phone] Oct, [facility] [place] [id number] [place] [id number] Sep, [facility] [place] [id number] [place] [id number] Sep, Acute pain of right shoulder M25.511 [facility] [place] [id number] [place] [phone] Sep, [facility] [address] [facility] [place] [address] Sep, [facility] [place] [id number] [place] [phone] Sep, Anxiety F41.9 [facility] [place] [id number] [place] [phone] Aug, [facility] [place] [id number] [place] [phone] Aug, Anxiety F41.9 [facility] [place] [id number] [address] Aug, Anxiety F41.9 [facility] [place] [id number] [place] [id number] Aug, Anxiety F41.9 [facility] [place] [id number] [place] [phone] Aug, Anxiety F41.9 [facility] [place] [id number] [place] [phone] Aug, [facility] [place] [id number] [place] [phone] Jul, [facility] [place] [id number] [place] [phone] Jul, Anxiety F41.9 [facility] [id number] [place] [phone] Jul, Chest congestion R09.89 ; Coughing R05 and Wheezes R06.2 [facility] [place] [id number] [place] [phone] Jul, Major depressive disorder, single episode, unspecified F32.9 and Anxiety F41.9 [facility] [place] [address] [place] [address] June, Neuropathic pain M79.2 and Right elbow pain M25.521 [facility] [place] [id number] [place] [address] June, [facility] [place] [id number] [place] [phone] June, Anxiety F41.9 [facility] [place] [id number] [place] [phone] June, Chronic post-traumatic stress disorder (PTSD) after combat F43.12 ; Major depressive disorder, single episode, unspecified F32.9 and Anxiety F41.9 [facility] [place] [address], [place] [address] May, [facility] [place] [id number] [place] [id number] May, Anxiety F41.9 [facility] [place] [address] [place] [phone] May, [facility] [id number] [place] [id number] May, Acute pain of right shoulder M25.511 and Muscle strain of right shoulder, initial encounter S46.911A [place] [id number] [place] [phone] May, [facility] [place] [id number] [place] [phone] May, Chronic post-traumatic stress disorder (PTSD) after combat F43.12 and Anxiety F41.9 [facility] [place] [id number] [place] [address] Apr, Anxiety F41.9 and Asthma without acute exacerbation J45.909 [facility] [place] [address] [place] [phone] Apr, [facility] [place] [address] [place] [phone] Mar, Anxiety F41.9 and Major depressive disorder, single episode, unspecified F32.9 [facility] [place] [address], [place] [address] Mar, Anxiety F41.9 [place] [id number] [place] [phone] Mar, [facility] [place] [address] [place] [id number] 14 Mar, 2017 Major depressive disorder, single episode, unspecified F32.9 ; Anxiety F41.9 and Chronic post-traumatic stress disorder (PTSD) after combat F43.12 [facility] [place] [address] [place] [address] 06 Mar, 2017 Chronic post-traumatic stress disorder (PTSD) after combat F43.12 ; Major depressive disorder, single episode, unspecified F32.9 ; Anxiety F41.9 and Primary insomnia F51.01 [facility] [place] [id number] [place] [id number] Feb, Anxiety F41.9 and Major depressive disorder, single episode, unspecified F32.9 [facility] [place] [id number] [place] [phone] Feb, Primary insomnia F51.01 and Anxiety F41.9 [facility] [place] [id number] [place] [phone] Feb, [facility] [id number] [place] [phone] Feb, Wheezes R06.2 and COPD with exacerbation J44.1 [facility] [place] [id number] [place] [id number] Feb, [facility] [place] [id number] [place] [phone] Jan, [facility] [place] [id number] [place] [phone] Dec, [facility] [place] [id number] [place] [address] Dec, [facility] [place] [id number] [place] [address] Dec, Dislocation of right shoulder joint, subsequent encounter S43.004D [facility] [place] [id number] [place] [address] Nov, [facility] [place] [id number] [place] [address] Nov, Lumbosacral neuritis M54.17 [facility] [id number] [place] [phone] 28 Oct, 2016 Other chronic pain G89.29 and Pain in right shoulder M25.511 [facility] [place] [id number] [place] [address] 18 Oct, 2016 Essential hypertension I10 [place] [address] [address] Oct, [place] [address] [address] Oct, Closed fracture of tooth, initial encounter S02.5XXA and Dental caries K02.9 [place] [address] [address] Oct, Dental examination Z01.20 [place] [address] [address] Oct, Migraine with aura and without status migrainosus, not intractable G43.109 [place] [address] [address] Oct, [place] [address] [address] Sep, Fibromyalgia M79.7 [place] [address] [address] Sep, Essential hypertension I10 and Anxiety disorder, unspecified F41.9 [place] [id number] [place] [phone] Aug, Anxiety disorder, unspecified F41.9 [place] [address] [address] Aug, Anxiety disorder, unspecified F41.9 and Essential hypertension I10 [place] [id number] [place] [address] Jul, Fibromyalgia M79.7 [place] [id number] [place] [address] Jul, Fibromyalgia M79.7 [place] [address] [address] June, Fibromyalgia M79.7 and Anxiety F41.9 [place] [address] [address] June, [facility] [place] [address] [address] June, Primary insomnia F51.01 [place] [address] [address] May, Migraine without aura and without status migrainosus, not intractable G43.009 ; Primary insomnia F51.01 ; Bronchitis J40 ; Anxiety disorder, unspecified F41.9 and Major depressive disorder, single episode, unspecified F32.9 [place] [id number] [place] [address] May, [facility] [id number] [place] [address] May, Migraine with aura and without status migrainosus, not intractable G43.109 [place] [id number] [place] [address] May, Essential hypertension I10 [place] [id number] [place] [address] Apr, Essential hypertension I10 ; Migraine without aura and without status migrainosus, not intractable G43.009 ; Anxiety disorder, unspecified F41.9 and Major depressive disorder, single episode, unspecified F32.9 [facility] [place] [id number] [place] [id number] Mar, [facility] [address] [place] [phone] Feb, Dental examination Z01.20 IMMUNIZATIONS No Known Immunizations SOCIAL HISTORY Never Assessed REASON FOR VISIT Refill request PLAN OF CARE VITAL SIGNS MEDICATIONS Medication Instructions Dosage Frequency Start Date End Date Duration Status Ventolin HFA 108 (90 Base) MCG/ACT Inhalation 4 times a day 2 puffs as needed 6h Active RESULTS No Results PROCEDURES No Known procedures INSTRUCTIONS MEDICATIONS ADMINISTERED No Known Medications MEDICAL (GENERAL) HISTORY Type Description Date Medical History Hypertension Medical History Asthma Medical History depression Medical History anxiety Medical History Migraines Medical History insomnia Surgical History right shoulder surgery 2017 Hospitalization History migraines 2016 Hospitalization History ulcer 2010
--- OUTSIDE RECORDS SUMMARY | 2018-07-15 17:57 | XMS REPORT ---
Author Author SHELBIE YEAGER Organization [facility] Address [address] [place] [address] Care Team Providers Care Mortgage Counselor Name Role Phone SHELBIE YEAGER Unavailable PROBLEMS Type Condition ICD9-CM Code LOW88-MI Code Onset Dates Condition Status SNOMED Code Problem Essential hypertension I10 Active 70861639 Problem Primary insomnia F51.01 Active 4459228 Problem Major depressive disorder, single episode, unspecified F32.9 Active 14772349 Problem Migraine without aura and without status migrainosus, not intractable G43.009 Active 244008224 Problem Chronic post-traumatic stress disorder (PTSD) after combat F43.12 Active 044099049 Problem Asthma without acute exacerbation J45.909 Active 839043854 Problem Fibromyalgia M79.7 Active 452482806 Problem Anxiety F41.9 Active 65083372 Problem COPD with exacerbation J44.1 Active 834906304 Problem Other chronic pain G89.29 Active 49279766 ALLERGIES No Information ENCOUNTERS Encounter Location Date Diagnosis [facility] [id number] [place] [address] Dec, [facility] [id number] [place] [address] Nov, Acute pain of right shoulder M25.511 [facility] [id number] [place] [address] Nov, [facility] [address] [address] Nov, Dental examination Z01.20 and Pain, dental K08.89 [facility] [id number] [place] [address] Nov, Closed fracture of tooth, initial encounter S02.5XXA [facility] [address] [address] Nov, Anxiety F41.9 [facility] [id number] [place] [address] Oct, [facility] [id number] [place] [address] Oct, Anxiety F41.9 [facility] [id number] [place] [address] Oct, [facility] [id number] [place] [address] Sep, [facility] [id number] [place] [address] Sep, Acute pain of right shoulder M25.511 [facility] [id number] [place] [address] Sep, [facility] [address] [facility] [place] [address] Sep, [facility] [id number] [place] [address] Sep, Anxiety F41.9 [facility] [id number] [place] [address] Aug, [facility] [id number] [place] [address] Aug, Anxiety F41.9 [facility] [address] [place] [address] Aug, Anxiety F41.9 [facility] [id number] [place] [address] Aug, Anxiety F41.9 [facility] [address], [place] [address] Aug, Anxiety F41.9 [facility] [id number] [place] [address] Aug, [facility] [address] [place] [address] Jul, [facility] [id number] [place] [address] Jul, Anxiety F41.9 [facility] [id number] [place] [address] Jul, Chest congestion R09.89 ; Coughing R05 and Wheezes R06.2 [facility] [id number] [place] [address] Jul, Major depressive disorder, single episode, unspecified F32.9 and Anxiety F41.9 [facility] [id number] [place] [address] June, Neuropathic pain M79.2 and Right elbow pain M25.521 [place] [id number] [place] [address] June, [facility] [id number] [place] [address] June, Anxiety F41.9 [facility] [id number] [place] [address] June, Chronic post-traumatic stress disorder (PTSD) after combat F43.12 ; Major depressive disorder, single episode, unspecified F32.9 and Anxiety F41.9 [facility] [id number] [place] [address] May, [facility] [id number] [place] [address] May, Anxiety F41.9 [facility] [id number] [place] [address] May, [facility] [address] [place] [address] May, Acute pain of right shoulder M25.511 and Muscle strain of right shoulder, initial encounter S46.911A [facility] [address] [place] [address] May, [facility] [id number] [place] [address] May, Chronic post-traumatic stress disorder (PTSD) after combat F43.12 and Anxiety F41.9 [facility] [id number] [place] [address] Apr, Anxiety F41.9 and Asthma without acute exacerbation J45.909 [place] [id number] [place] [address] Apr, [place] [id number] [place] [address] Mar, Anxiety F41.9 and Major depressive disorder, single episode, unspecified F32.9 [facility] [facility] [id number] [place] [address] Mar, Anxiety F41.9 [place] [id number] [place] [address] Mar, [facility] [address] [place] [address] Mar, Major depressive disorder, single episode, unspecified F32.9 ; Anxiety F41.9 and Chronic post-traumatic stress disorder (PTSD) after combat F43.12 [facility] [address] [place] [address] Mar, Chronic post-traumatic stress disorder (PTSD) after combat F43.12 ; Major depressive disorder, single episode, unspecified F32.9 ; Anxiety F41.9 and Primary insomnia F51.01 [facility] [address] [place] [address] Feb, Anxiety F41.9 and Major depressive disorder, single episode, unspecified F32.9 [facility] [id number] [place] [address] Feb, Primary insomnia F51.01 and Anxiety F41.9 [facility] [id number] [place] [address] Feb, [facility] [address] [address] Feb, Wheezes R06.2 and COPD with exacerbation J44.1 [facility] [address] [address] Feb, [place] [address] [address] Jan, [place] [address] [address] Dec, [place] [address] [address] Dec, [facility] [address] [address] Dec, Dislocation of right shoulder joint, subsequent encounter S43.004D [facility] [id number] [place] [address] Nov, [place] [id number] [place] [address] Nov, Lumbosacral neuritis M54.17 [facility] [id number] [place] [address] 28 Oct, 2016 Other chronic pain G89.29 and Pain in right shoulder M25.511 [facility] [address] [address] 18 Oct, 2016 Essential hypertension I10 [facility] [id number] [place] [address] 11 Oct, 2016 [facility] [id number] [place] [address] 07 Oct, 2016 Closed fracture of tooth, initial encounter S02.5XXA and Dental caries K02.9 [place] [id number] [place] [address] 07 Oct, 2016 Dental examination Z01.20 [place] [facility] [address] [address] Oct, Migraine with aura and without status migrainosus, not intractable G43.109 [place] [address] [address] Oct, [place] [address] [address] Sep, Fibromyalgia M79.7 [place] [address] [address] Sep, Essential hypertension I10 and Anxiety disorder, unspecified F41.9 [place] [address] [address] Aug, Anxiety disorder, unspecified F41.9 [place] [address] [address] Aug, Anxiety disorder, unspecified F41.9 and Essential hypertension I10 [place] [id number] [place] [address] Jul, Fibromyalgia M79.7 [place] [facility] [id number] [place] [address] Jul, Fibromyalgia M79.7 [place] [address] [address] June, Fibromyalgia M79.7 and Anxiety F41.9 [place] [address] [address] June, [place] [address] [address] June, Primary insomnia F51.01 [place] [address] [place] [address] May, Migraine without aura and without status migrainosus, not intractable G43.009 ; Primary insomnia F51.01 ; Bronchitis J40 ; Anxiety disorder, unspecified F41.9 and Major depressive disorder, single episode, unspecified F32.9 [place] [id number] [place] [address] May, [facility] [id number] [place] [address] May, Migraine with aura and without status migrainosus, not intractable G43.109 [place] [id number] [place] [address] May, Essential hypertension I10 [place] [id number] [place] [address] Apr, Essential hypertension I10 ; Migraine without aura and without status migrainosus, not intractable G43.009 ; Anxiety disorder, unspecified F41.9 and Major depressive disorder, single episode, unspecified F32.9 [place] [address] [place] [address] Mar, [facility] [id number] [place] [id number] Feb, Dental examination Z01.20 IMMUNIZATIONS No Known Immunizations SOCIAL HISTORY Never Assessed REASON FOR VISIT PLAN OF CARE VITAL SIGNS MEDICATIONS Medication Instructions Dosage Frequency Start Date End Date Duration Status Ibuprofen 800 MG Orally Three times a day 1 tablet with food or milk as needed Sep, 30 days Active RESULTS No Results PROCEDURES No Known procedures INSTRUCTIONS MEDICATIONS ADMINISTERED No Known Medications MEDICAL (GENERAL) HISTORY Type Description Date Medical History Hypertension Medical History Asthma Medical History depression Medical History anxiety Medical History Migraines Medical History insomnia Surgical History right shoulder surgery 2017 Hospitalization History migraines 2016 Hospitalization History ulcer 2010
--- OUTSIDE RECORDS SUMMARY | 2018-07-15 17:58 | XMS REPORT ---
Author Author SHELBIE YEAGER Organization [facility] Address [address] [place] [address] Care Team Providers Care Anode Builder Name Role Phone SHELBIE YEAGER Unavailable PROBLEMS Type Condition ICD9-CM Code PON93-HF Code Onset Dates Condition Status SNOMED Code Problem Essential hypertension I10 Active 77457476 Problem Primary insomnia F51.01 Active 3928927 Problem Major depressive disorder, single episode, unspecified F32.9 Active 76621695 Problem Migraine without aura and without status migrainosus, not intractable G43.009 Active 765055083 Problem Chronic post-traumatic stress disorder (PTSD) after combat F43.12 Active 471142312 Problem Asthma without acute exacerbation J45.909 Active 708295676 Problem Fibromyalgia M79.7 Active 564158264 Problem Anxiety F41.9 Active 26976786 Problem COPD with exacerbation J44.1 Active 471546048 Problem Other chronic pain G89.29 Active 97804552 ALLERGIES No Information ENCOUNTERS Encounter Location Date Diagnosis [facility] [address] [place] [address] Nov, [facility] [address] [place] [address] Oct, [facility] [id number] [place] [address] Oct, Anxiety F41.9 [facility] [address] [place] [address] 05 Oct, 2017 [facility] [id number] [place] [address] Sep, [facility] [address] [place] [address] Sep, Acute pain of right shoulder M25.511 [facility] [address] [place] [address] Sep, [facility] [address] [place] [address] Sep, [facility] [id number] [place] [address] Sep, Anxiety F41.9 [facility] [address] [address] Aug, [facility] [id number] [place] [address] Aug, Anxiety F41.9 [facility] [id number] [place] [address] Aug, Anxiety F41.9 [facility] [id number] [place] [address] Aug, Anxiety F41.9 [facility] [id number] [place] [address] Aug, Anxiety F41.9 [facility] [id number] [place] [address] Aug, [facility] [id number] [place] [address] Jul, [facility] [id number] [place] [address] Jul, Anxiety F41.[address] [facility] [id number] [place] [address] Jul, Chest congestion R09.89 ; Coughing R05 and Wheezes R06.2 [facility] [address] [place] [address] Jul, Major depressive disorder, single episode, unspecified F32.9 and Anxiety F41.9 [facility] [id number] [place] [address] June, Neuropathic pain M79.2 and Right elbow pain M25.521 [facility] [id number] [place] [address] June, [facility] [id number] [place] [address] June, Anxiety F41.9 [facility] [address] [address] June, Chronic post-traumatic stress disorder (PTSD) after combat F43.12 ; Major depressive disorder, single episode, unspecified F32.9 and Anxiety F41.9 [facility] [id number] [place] [address] May, [facility] [id number] [place] [address] May, Anxiety F41.9 [facility] [id number] [place] [address] May, [facility] [id number] [place] [address] May, Acute pain of right shoulder M25.511 and Muscle strain of right shoulder, initial encounter S46.911A [facility] [id number] [place] [address] May, [facility] [id number] [place] [address] May, Chronic post-traumatic stress disorder (PTSD) after combat F43.12 and Anxiety F41.9 [facility] [id number] [place] [address] Apr, Anxiety F41.9 and Asthma without acute exacerbation J45.909 [facility] [id number] [place] [address] Apr, [facility] [address] [place] [address] Mar, Anxiety F41.9 and Major depressive disorder, single episode, unspecified F32.9 [facility] [id number] [place] [address] Mar, Anxiety F41.9 [facility] [id number] [place] [address] 16 Mar, 2017 [facility] [address] [place] [address] 14 Mar, 2017 Major depressive disorder, single episode, unspecified F32.9 ; Anxiety F41.9 and Chronic post-traumatic stress disorder (PTSD) after combat F43.12 [place] [address] [place] [address] 06 Mar, 2017 Chronic post-traumatic stress disorder (PTSD) after combat F43.12 ; Major depressive disorder, single episode, unspecified F32.9 ; Anxiety F41.9 and Primary insomnia F51.01 [place] [address] [place] [address] Feb, Anxiety F41.9 and Major depressive disorder, single episode, unspecified F32.9 [place] [address] [place] [address] Feb, Primary insomnia F51.01 and Anxiety F41.9 [facility] [id number] [place] [address] Feb, [facility] [id number] [place] [address] Feb, Wheezes R06.2 and COPD with exacerbation J44.1 [facility] [id number] [place] [address] Feb, [facility] [address] [place] [address] Jan, [facility] [id number] [place] [address] Dec, [facility] [address] [address] Dec, [facility] [address] [address] Dec, Dislocation of right shoulder joint, subsequent encounter S43.004D [facility] [address] [address] Nov, [place] [address] [address] Nov, Lumbosacral neuritis M54.17 [facility] [address] [address] Oct, Other chronic pain G89.29 and Pain in right shoulder M25.511 [place] [address] [address] 18 Oct, 2016 Essential hypertension I10 [place] [address] [address] 11 Oct, 2016 [place] [address] [address] Oct, Closed fracture of tooth, initial encounter S02.5XXA and Dental caries K02.9 [place] [address] [address] 07 Oct, 2016 Dental examination Z01.20 [place] [address] [address] Oct, Migraine with aura and without status migrainosus, not intractable G43.109 [place] [address] [address] Oct, [facility] [address] [address] Sep, Fibromyalgia M79.7 [facility] [address] [place] [address] Sep, Essential hypertension I10 and Anxiety disorder, unspecified F41.9 [facility] [id number] [place] [address] Aug, Anxiety disorder, unspecified F41.9 [facility] [address] [address] Aug, Anxiety disorder, unspecified F41.9 and Essential hypertension I10 [facility] [id number] [place] [address] Jul, Fibromyalgia M79.7 [place] [address] [place] [address] Jul, Fibromyalgia M79.7 [place] [address] [place] [address] June, Fibromyalgia M79.7 and Anxiety F41.9 [facility] [id number] [place] [address] June, [facility] [id number] [place] [address] June, Primary insomnia F51.01 [place] [address] [place] [address] May, Migraine without aura and without status migrainosus, not intractable G43.009 ; Primary insomnia F51.01 ; Bronchitis J40 ; Anxiety disorder, unspecified F41.9 and Major depressive disorder, single episode, unspecified F32.9 [facility] [id number] [place] [address] May, [facility] [id number] [place] [address] May, Migraine with aura and without status migrainosus, not intractable G43.109 [facility] [address] [place] [address] May, Essential hypertension I10 [facility] [id number] [address] Apr, Essential hypertension I10 ; Migraine without aura and without status migrainosus, not intractable G43.009 ; Anxiety disorder, unspecified F41.9 and Major depressive disorder, single episode, unspecified F32.9 [place] [id number] [address] Mar, [facility] [address] [facility] [id number] [address] Feb, Dental examination Z01.20 IMMUNIZATIONS No Known [...]
--- OUTSIDE RECORDS SUMMARY | 2018-07-15 17:58 | XMS REPORT ---
Author Author SHELBIE YEAGER Organization [facility] Address [address] [place] [address] Care Team Providers Care Religious Education Teacher Name Role Phone SHELBIE YAEGER Unavailable PROBLEMS Type Condition ICD9-CM Code AHO91-DW Code Onset Dates Condition Status SNOMED Code Problem Essential hypertension I10 Active 91646050 Problem Primary insomnia F51.01 Active 8862693 Problem Major depressive disorder, single episode, unspecified F32.9 Active 68407330 Problem Migraine without aura and without status migrainosus, not intractable G43.009 Active 757060555 Problem Chronic post-traumatic stress disorder (PTSD) after combat F43.12 Active 596674689 Problem Asthma without acute exacerbation J45.909 Active 344144398 Problem Fibromyalgia M79.7 Active 744550077 Problem Anxiety F41.9 Active 15621263 Problem COPD with exacerbation J44.1 Active 272550981 Problem Other chronic pain G89.29 Active 09270398 ALLERGIES No Information ENCOUNTERS Encounter Location Date Diagnosis [facility] [address] [place] [id number] Nov, [facility] [address] [place] [id number] 18 Oct, 2017 [facility] [id number] [place] [address] Oct, Anxiety F41.9 [facility] [address] [place] [id number] 05 Oct, 2017 [facility] [id number] [place] [id number] Sep, [facility] [address] [place] [address] Sep, Acute pain of right shoulder M25.511 [facility] [address] [place] [id number] Sep, [facility] [address] [place] [address] Sep, [facility] [id number] [place] [address] Sep, Anxiety F41.9 [facility] [address] [address] Aug, [facility] [id number] [place] [id number] Aug, Anxiety F41.9 [facility] [id number] [place] [address] Aug, Anxiety F41.9 [facility] [id number] [place] [address] Aug, Anxiety F41.9 [facility] [id number] [place] [address] Aug, Anxiety F41.9 [facility] [id number] [place] [id number] Aug, [facility] [id number] [place] [address] Jul, [facility] [id number] [place] [address] Jul, Anxiety F41.9 [facility] [id number] [place] [address] Jul, Chest congestion R09.89 ; Coughing R05 and Wheezes R06.2 [facility] [address] [place] [address] Jul, Major depressive disorder, single episode, unspecified F32.9 and Anxiety F41.9 [facility] [id number] [place] [address] June, Neuropathic pain M79.2 and Right elbow pain M25.521 [facility] [id number] [place] [address] June, [facility] [id number] [place] [address] June, Anxiety F41.9 [facility] [address] [address] June, Chronic post-traumatic stress disorder (PTSD) after combat F43.12 ; Major depressive disorder, single episode, unspecified F32.9 and Anxiety F41.9 [facility] [id number] [place] [address] May, [facility] [id number] [place] [address] May, Anxiety F41.9 [facility] [id number] [place] [id number] May, [facility] [id number] [place] [address] May, Acute pain of right shoulder M25.511 and Muscle strain of right shoulder, initial encounter S46.911A [facility] [id number] [place] [address] May, [facility] [id number] [place] [id number] May, Chronic post-traumatic stress disorder (PTSD) after combat F43.12 and Anxiety F41.9 [facility] [id number] [place] [address] Apr, Anxiety F41.9 and Asthma without acute exacerbation J45.909 [facility] [id number] [place] [address] Apr, [facility] [address] [place] [address] Mar, Anxiety F41.9 and Major depressive disorder, single episode, unspecified F32.9 [facility] [id number] [place] [address] Mar, Anxiety F41.9 [facility] [id number] [place] [id number] 16 Mar, 2017 [facility] [id number] [place] [address] 14 Mar, 2017 Major depressive disorder, single episode, unspecified F32.9 ; Anxiety F41.9 and Chronic post-traumatic stress disorder (PTSD) after combat F43.12 [place] [id number] [place] [address] 06 Mar, 2017 Chronic post-traumatic stress disorder (PTSD) after combat F43.12 ; Major depressive disorder, single episode, unspecified F32.9 ; Anxiety F41.9 and Primary insomnia F51.01 [place] [id number] [place] [address] Feb, Anxiety F41.9 and Major depressive disorder, single episode, unspecified F32.9 [place] [id number] [place] [address] Feb, Primary insomnia F51.01 and Anxiety F41.9 [facility] [id number] [place] [address] Feb, [facility] [id number] [place] [address] Feb, Wheezes R06.2 and COPD with exacerbation J44.1 [facility] [id number] [place] [id number] Feb, [facility] [address] [place] [address] Jan, [facility] [id number] [place] [address] Dec, [facility] [address] [address] Dec, [facility] [address] [address] Dec, Dislocation of right shoulder joint, subsequent encounter S43.004D [facility] [address] [address] Nov, [place] [address] [address] Nov, Lumbosacral neuritis M54.17 [facility] [address] [address] Oct, Other chronic pain G89.29 and Pain in right shoulder M25.511 [place] [address] [address] 18 Oct, 2016 Essential hypertension I10 [place] [address] [address] 11 Oct, 2016 [place] [address] [address] Oct, Closed fracture of tooth, initial encounter S02.5XXA and Dental caries K02.9 [place] [address] [address] 07 Oct, 2016 Dental examination Z01.20 [place] [address] [address] Oct, Migraine with aura and without status migrainosus, not intractable G43.109 [place] [address] [address] Oct, [facility] [address] [address] Sep, Fibromyalgia M79.7 [facility] [address] [place] [address] Sep, Essential hypertension I10 and Anxiety disorder, unspecified F41.9 [facility] [id number] [place] [address] Aug, Anxiety disorder, unspecified F41.9 [facility] [address] [address] Aug, Anxiety disorder, unspecified F41.9 and Essential hypertension I10 [facility] [id number] [place] [address] Jul, Fibromyalgia M79.7 [place] [id number] [place] [address] Jul, Fibromyalgia M79.7 [place] [id number] [place] [address] June, Fibromyalgia M79.7 and Anxiety F41.9 [facility] [id number] [place] [address] June, [facility] [id number] [place] [address] June, Primary insomnia F51.01 [place] [id number] [place] [address] May, Migraine without aura and without status migrainosus, not intractable G43.009 ; Primary insomnia F51.01 ; Bronchitis J40 ; Anxiety disorder, unspecified F41.9 and Major depressive disorder, single episode, unspecified F32.9 [facility] [id number] [place] [address] May, [facility] [id number] [place] [address] May, Migraine with aura and without status migrainosus, not intractable G43.109 [facility] [address] [place] [address] May, Essential hypertension I10 [facility] [id number] [address] Apr, Essential hypertension I10 ; Migraine without aura and without status migrainosus, not intractable G43.009 ; Anxiety disorder, unspecified F41.9 and Major depressive disorder, single episode, unspecified F32.9 [place] [id number] [address] Mar, [facility] [address] [facility] [id number] [id number] Feb, Dental examination Z01.20 IMMUNIZATIONS No Known [...]
--- OUTSIDE RECORDS SUMMARY | 2018-07-15 17:58 | XMS REPORT ---
Author Author SHELBIE YEAGER Organization [facility] Address [address] [place] [address] Care Team Providers Care Green Plumber Name Role Phone SHELBIE YEAGER Unavailable PROBLEMS Type Condition ICD9-CM Code CAT10-LK Code Onset Dates Condition Status SNOMED Code Problem Essential hypertension I10 Active 69856108 Problem Primary insomnia F51.01 Active 2780734 Problem Major depressive disorder, single episode, unspecified F32.9 Active 70275555 Problem Migraine without aura and without status migrainosus, not intractable G43.009 Active 791088077 Problem Chronic post-traumatic stress disorder (PTSD) after combat F43.12 Active 823547013 Problem Asthma without acute exacerbation J45.909 Active 333200724 Problem Fibromyalgia M79.7 Active 815236340 Problem Anxiety F41.9 Active 81906680 Problem COPD with exacerbation J44.1 Active 555521084 Problem Other chronic pain G89.29 Active 13047209 ALLERGIES No Information ENCOUNTERS Encounter Location Date Diagnosis [facility] [address] [place] [address] Nov, [facility] [address] [place] [address] Oct, [facility] [id number] [place] [address] Oct, Anxiety F41.9 [facility] [address] [place] [address] 05 Oct, 2017 [facility] [id number] [place] [address] Sep, [facility] [address] [place] [address] Sep, Acute pain of right shoulder M25.511 [facility] [address] [place] [address] Sep, [facility] [address] [place] [address] Sep, [facility] [id number] [place] [address] Sep, Anxiety F41.9 [facility] [address] [address] Aug, [facility] [id number] [place] [address] Aug, Anxiety F41.9 [facility] [id number] [place] [address] Aug, Anxiety F41.9 [facility] [id number] [place] [address] Aug, Anxiety F41.9 [facility] [id number] [place] [address] Aug, Anxiety F41.9 [facility] [id number] [place] [address] Aug, [facility] [id number] [place] [address] Jul, [facility] [id number] [place] [address] Jul, Anxiety F41.9 [facility] [id number] [place] [address] Jul, Chest congestion R09.89 ; Coughing R05 and Wheezes R06.2 [facility] [address] [place] [address] Jul, Major depressive disorder, single episode, unspecified F32.9 and Anxiety F41.9 [facility] [id number] [place] [address] June, Neuropathic pain M79.2 and Right elbow pain M25.521 [facility] [id number] [place] [address] June, [facility] [id number] [place] [address] June, Anxiety F41.9 [facility] [address] [address] June, Chronic post-traumatic stress disorder (PTSD) after combat F43.12 ; Major depressive disorder, single episode, unspecified F32.9 and Anxiety F41.9 [facility] [id number] [place] [address] May, [facility] [id number] [place] [address] May, Anxiety F41.9 [facility] [id number] [place] [address] May, [facility] [id number] [place] [address] May, Acute pain of right shoulder M25.511 and Muscle strain of right shoulder, initial encounter S46.911A [facility] [id number] [place] [address] May, [facility] [id number] [place] [address] May, Chronic post-traumatic stress disorder (PTSD) after combat F43.12 and Anxiety F41.9 [facility] [id number] [place] [address] Apr, Anxiety F41.9 and Asthma without acute exacerbation J45.909 [facility] [id number] [place] [address] Apr, [facility] [address] [place] [address] Mar, Anxiety F41.9 and Major depressive disorder, single episode, unspecified F32.9 [facility] [id number] [place] [address] Mar, Anxiety F41.9 [facility] [id number] [place] [address] 16 Mar, 2017 [facility] [id number] [place] [address] 14 Mar, 2017 Major depressive disorder, single episode, unspecified F32.9 ; Anxiety F41.9 and Chronic post-traumatic stress disorder (PTSD) after combat F43.12 [place] [id number] [place] [address] 06 Mar, 2017 Chronic post-traumatic stress disorder (PTSD) after combat F43.12 ; Major depressive disorder, single episode, unspecified F32.9 ; Anxiety F41.9 and Primary insomnia F51.01 [place] [id number] [place] [address] Feb, Anxiety F41.9 and Major depressive disorder, single episode, unspecified F32.9 [place] [id number] [place] [address] Feb, Primary insomnia F51.01 and Anxiety F41.9 [facility] [id number] [place] [address] Feb, [facility] [id number] [place] [address] Feb, Wheezes R06.2 and COPD with exacerbation J44.1 [facility] [id number] [place] [address] Feb, [facility] [address] [place] [address] Jan, [facility] [id number] [place] [address] Dec, [facility] [address] [address] Dec, [facility] [address] [address] Dec, Dislocation of right shoulder joint, subsequent encounter S43.004D [facility] [address] [address] Nov, [place] [address] [address] Nov, Lumbosacral neuritis M54.17 [facility] [address] [address] Oct, Other chronic pain G89.29 and Pain in right shoulder M25.511 [place] [address] [address] 18 Oct, 2016 Essential hypertension I10 [place] [address] [address] 11 Oct, 2016 [place] [address] [address] Oct, Closed fracture of tooth, initial encounter S02.5XXA and Dental caries K02.9 [place] [address] [address] 07 Oct, 2016 Dental examination Z01.20 [place] [address] [address] Oct, Migraine with aura and without status migrainosus, not intractable G43.109 [place] [address] [address] Oct, [facility] [address] [address] Sep, Fibromyalgia M79.7 [facility] [address] [place] [address] Sep, Essential hypertension I10 and Anxiety disorder, unspecified F41.9 [facility] [id number] [place] [address] Aug, Anxiety disorder, unspecified F41.9 [facility] [address] [address] Aug, Anxiety disorder, unspecified F41.9 and Essential hypertension I10 [facility] [id number] [place] [address] Jul, Fibromyalgia M79.7 [place] [id number] [place] [address] Jul, Fibromyalgia M79.7 [place] [id number] [place] [address] June, Fibromyalgia M79.7 and Anxiety F41.9 [facility] [id number] [place] [address] June, [facility] [id number] [place] [address] June, Primary insomnia F51.01 [place] [id number] [place] [address] May, Migraine without aura and without status migrainosus, not intractable G43.009 ; Primary insomnia F51.01 ; Bronchitis J40 ; Anxiety disorder, unspecified F41.9 and Major depressive disorder, single episode, unspecified F32.9 [facility] [id number] [place] [address] May, [facility] [id number] [place] [address] May, Migraine with aura and without status migrainosus, not intractable G43.109 [facility] [address] [place] [address] May, Essential hypertension I10 [facility] [id number] [address] Apr, Essential hypertension I10 ; Migraine without aura and without status migrainosus, not intractable G43.009 ; Anxiety disorder, unspecified F41.9 and Major depressive disorder, single episode, unspecified F32.9 [place] [address] [id number], [place] [address] Mar, [facility] [address] [facility] [id number] [id number] Feb, Dental examination Z01.20 IMMUNIZATIONS No Known Immunizations SOCIAL HISTORY Never Assessed REASON FOR VISIT Refill request PLAN OF CARE VITAL SIGNS MEDICATIONS Medication Instructions Dosage Frequency Start Date End Date Duration Status Gabapentin 100 mg Orally 2 times a day 2 capsules 12h 90 days Active RESULTS No Results PROCEDURES No Known procedures INSTRUCTIONS MEDICATIONS ADMINISTERED No Known Medications MEDICAL (GENERAL) HISTORY Type Description Date Medical History Hypertension Medical History Asthma Medical History depression Medical History anxiety Medical History Migraines Medical History insomnia Surgical History right shoulder surgery 2017 Hospitalization History migraines 2016 Hospitalization History ulcer 2010
--- OUTSIDE RECORDS SUMMARY | 2018-07-15 17:58 | XMS REPORT ---
Author Author SHELBIE YEAGER Organization [facility] Address [address] [place] [address] Care Team Providers Care Integrated Circuit Ic Layout Designer Name Role Phone SHELBIE YEAGER Unavailable PROBLEMS Type Condition ICD9-CM Code CLY52-KS Code Onset Dates Condition Status SNOMED Code Problem Essential hypertension I10 Active 58256380 Problem Primary insomnia F51.01 Active 7201704 Problem Major depressive disorder, single episode, unspecified F32.9 Active 48285920 Problem Migraine without aura and without status migrainosus, not intractable G43.009 Active 029152524 Problem Chronic post-traumatic stress disorder (PTSD) after combat F43.12 Active 532024942 Problem Asthma without acute exacerbation J45.909 Active 296446700 Problem Fibromyalgia M79.7 Active 182922838 Problem Anxiety F41.9 Active 64909150 Problem COPD with exacerbation J44.1 Active 372886621 Problem Other chronic pain G89.29 Active [id number] ALLERGIES No Information ENCOUNTERS Encounter Location Date Diagnosis [facility] [id number] [place] [id number] Dec, [facility] [id number] [place] [address] Nov, Anxiety F41.9 [facility] [id number] [place] [phone] Oct, [facility] [id number] [place] [address] Oct, Anxiety F41.9 [facility] [id number] [place] [address] Oct, [facility] [id number] [place] [address] Sep, [place] [id number] [place] [address] Sep, Acute pain of right shoulder M25.511 [facility] [id number] [place] [address] Sep, [facility] [address] [place] [address] [facility] [place] [address] Sep, [facility] [address] [address] Sep, Anxiety F41.9 [facility] [id number] [place] [address] Aug, [facility] [id number] [place] [address] Aug, Anxiety F41.9 [facility] [id number] [place] [address] Aug, Anxiety F41.9 [facility] [id number] [place] [address] Aug, Anxiety F41.9 [facility] [id number] [place] [address] Aug, Anxiety F41.9 [facility] [id number] [place] [phone] Aug, [facility] [id number] [place] [address] Jul, [facility] [id number] [place] [address] Jul, Anxiety F41.9 [facility] [id number] [place] [address] Jul, Chest congestion R09.89 ; Coughing R05 and Wheezes R06.2 [facility] [id number] [place] [address] Jul, Major depressive disorder, single episode, unspecified F32.9 and Anxiety F41.9 [facility] [id number] [place] [address] June, Neuropathic pain M79.2 and Right elbow pain M25.521 [facility] [id number] [place] [address] June, [facility] [id number] [place] [phone] June, Anxiety F41.9 [facility] [id number] [place] [address] June, Chronic post-traumatic stress disorder (PTSD) after combat F43.12 ; Major depressive disorder, single episode, unspecified F32.9 and Anxiety F41.9 [facility] [id number] [place] [address] May, [facility] [id number] [place] [address] May, Anxiety F41.9 [facility] [id number] [place] [address] May, [facility] [id number] [place] [address] May, Acute pain of right shoulder M25.511 and Muscle strain of right shoulder, initial encounter S46.911A [facility] [id number] [place] [address] May, [facility] [id number] [place] [address] May, Chronic post-traumatic stress disorder (PTSD) after combat F43.12 and Anxiety F41.9 [facility] [address] [place] [address] Apr, Anxiety F41.9 and Asthma without acute exacerbation J45.909 [facility] [id number] [address] Apr, [facility] [id number] [place] [address] Mar, Anxiety F41.9 and Major depressive disorder, single episode, unspecified F32.9 [place] [id number] [place] [address] Mar, Anxiety F41.9 [place] [id number] [place] [address] 16 Mar, 2017 [place] [id number] [place] [address] 14 Mar, 2017 Major depressive disorder, single episode, unspecified F32.9 ; Anxiety F41.9 and Chronic post-traumatic stress disorder (PTSD) after combat F43.12 [place] [id number] [place] [address] 06 Mar, 2017 Chronic post-traumatic stress disorder (PTSD) after combat F43.12 ; Major depressive disorder, single episode, unspecified F32.9 ; Anxiety F41.9 and Primary insomnia F51.01 [place] [address] [place] [address] Feb, Anxiety F41.9 and Major depressive disorder, single episode, unspecified F32.9 [place] [address] [place] [address] Feb, Primary insomnia F51.01 and Anxiety F41.9 [place] [id number] [place] [address] Feb, [facility] [id number] [place] [address] Feb, Wheezes R06.2 and COPD with exacerbation J44.1 [place] [id number] [place] [address] Feb, [place] [id number] [place] [address] Jan, [facility] [address] [address] Dec, [facility] [id number] [place] [address] Dec, [facility] [address] [address] Dec, Dislocation of right shoulder joint, subsequent encounter S43.004D [facility] [address] [address] Nov, [place] [address] [address] Nov, Lumbosacral neuritis M54.17 [facility] [address] [address] 28 Oct, 2016 Other chronic pain G89.29 and Pain in right shoulder M25.511 [place] [address] [address] 18 Oct, 2016 Essential hypertension I10 [place] [address] [address] 11 Oct, 2016 [place] [address] [address] Oct, Closed fracture of tooth, initial encounter S02.5XXA and Dental caries K02.9 [place] [address] [address] 07 Oct, 2016 Dental examination Z01.20 [place] [address] [address] Oct, Migraine with aura and without status migrainosus, not intractable G43.109 [place] [address] [address] Oct, [facility] [address] [place] [address] Sep, Fibromyalgia M79.7 [facility] [id number] [place] [address] Sep, Essential hypertension I10 and Anxiety disorder, unspecified F41.9 [facility] [id number] [place] [address] Aug, Anxiety disorder, unspecified F41.9 [facility] [id number] [place] [address] Aug, Anxiety disorder, unspecified F41.9 and Essential hypertension I10 [place] [id number] [place] [address] Jul, Fibromyalgia M79.7 [place] [id number] [place] [address] Jul, Fibromyalgia M79.7 [facility] [id number] [place] [address] June, Fibromyalgia M79.7 and Anxiety F41.9 [place] [id number] [place] [address] June, [place] [id number] [place] [address] June, Primary insomnia F51.01 [facility] [id number] [place] [address] May, Migraine without aura and without status migrainosus, not intractable G43.009 ; Primary insomnia F51.01 ; Bronchitis J40 ; Anxiety disorder, unspecified F41.9 and Major depressive disorder, single episode, unspecified F32.9 [facility] [address] [place] [address] May, [facility] [id number] [place] [address] May, Migraine with aura and without status migrainosus, not intractable G43.109 [facility] [address] [facility] [id number] [address] May, Essential hypertension I10 [facility] [id number] [address] Apr, Essential hypertension I10 ; Migraine without aura and without status migrainosus, not intractable G43.009 ; Anxiety disorder, unspecified F41.9 and Major depressive disorder, single episode, unspecified F32.9 [facility] [address] [facility] [id number] [address] Mar, [facility] [address] [facility] [id number] [id number] Feb, Dental examination Z01.20 IMMUNIZATIONS No Known [...]
--- OUTSIDE RECORDS SUMMARY | 2018-07-15 17:58 | XMS REPORT ---
Author Author SHELBIE YEAGER Organization [facility] [place] Address [address] [place] [address] Care Team Providers Care Aboriginal Community Council Member Name Role Phone SHELBIE YEAGER Unavailable PROBLEMS Type Condition ICD9-CM Code DZI91-CH Code Onset Dates Condition Status SNOMED Code Problem Essential hypertension I10 Active 21340690 Problem Primary insomnia F51.01 Active 1156728 Problem Major depressive disorder, single episode, unspecified F32.9 Active 84509325 Problem Migraine without aura and without status migrainosus, not intractable G43.009 Active 799873789 Problem Chronic post-traumatic stress disorder (PTSD) after combat F43.12 Active 438497981 Problem Asthma without acute exacerbation J45.909 Active 329634789 Problem Fibromyalgia M79.7 Active 737227438 Problem Anxiety F41.9 Active 78761209 Problem COPD with exacerbation J44.1 Active 964584033 Problem Other chronic pain G89.29 Active 80909035 ALLERGIES No Information ENCOUNTERS Encounter Location Date Diagnosis [facility] [place] [id number] [place] [address] Nov, [facility] [place] [id number] [place] [address] 18 Oct, 2017 [facility] [place] [id number] [place] [address] Oct, Anxiety F41.9 [facility] [place] [id number] [place] [address] 05 Oct, 2017 [facility] [place] [id number] [place] [address] Sep, [facility] [place] [id number] [place] [address] Sep, Acute pain of right shoulder M25.511 [facility] [place] [id number] [place] [address] Sep, [facility] [address] [place] [address] Sep, [facility] [place] [id number] [place] [address] Sep, Anxiety F41.9 [facility] [place] [address] [address] Aug, [facility] [place] [id number] [place] [address] Aug, Anxiety F41.9 [facility] [place] [id number] [place] [address] Aug, Anxiety F41.9 [facility] [place] [id number] [place] [address] Aug, Anxiety F41.9 [facility] [place] [id number] [place] [address] Aug, Anxiety F41.9 [facility] [place] [id number] [place] [address] Aug, [facility] [place] [id number] [place] [address] Jul, [facility] [place] [id number] [place] [address] Jul, Anxiety F41.9 [facility] [id number] [place] [address] Jul, Chest congestion R09.89 ; Coughing R05 and Wheezes R06.2 [facility] [place] [id number] [place] [address] Jul, Major depressive disorder, single episode, unspecified F32.9 and Anxiety F41.9 [facility] [place] [id number] [place] [address] June, Neuropathic pain M79.2 and Right elbow pain M25.521 [facility] [place] [id number] [place] [address] June, [facility] [place] [id number] [place] [address] June, Anxiety F41.9 [facility] [place] [address] [address] June, Chronic post-traumatic stress disorder (PTSD) after combat F43.12 ; Major depressive disorder, single episode, unspecified F32.9 and Anxiety F41.9 [facility] [place] [id number] [place] [address] May, [facility] [place] [id number] [place] [address] May, Anxiety F41.9 [facility] [place] [id number] [place] [address] May, [facility] [id number] [place] [address] May, Acute pain of right shoulder M25.511 and Muscle strain of right shoulder, initial encounter S46.911A [facility] [place] [id number] [place] [address] May, [facility] [place] [id number] [place] [address] May, Chronic post-traumatic stress disorder (PTSD) after combat F43.12 and Anxiety F41.9 [facility] [place] [id number] [place] [address] Apr, Anxiety F41.9 and Asthma without acute exacerbation J45.909 [facility] [place] [id number] [place] [address] Apr, [facility] [place] [address] [place] [address] Mar, Anxiety F41.9 and Major depressive disorder, single episode, unspecified F32.9 [facility] [place] [id number] [place] [address] Mar, Anxiety F41.9 [facility] [place] [id number] [place] [address] 16 Mar, 2017 [facility] [place] [id number] [place] [address] 14 Mar, 2017 Major depressive disorder, single episode, unspecified F32.9 ; Anxiety F41.9 and Chronic post-traumatic stress disorder (PTSD) after combat F43.12 [place] [id number] [place] [address] 06 Mar, 2017 Chronic post-traumatic stress disorder (PTSD) after combat F43.12 ; Major depressive disorder, single episode, unspecified F32.9 ; Anxiety F41.9 and Primary insomnia F51.01 [place] [id number] [place] [address] Feb, Anxiety F41.9 and Major depressive disorder, single episode, unspecified F32.9 [place] [id number] [place] [address] Feb, Primary insomnia F51.01 and Anxiety F41.9 [facility] [place] [id number] [place] [address] Feb, [facility] [id number] [place] [address] Feb, Wheezes R06.2 and COPD with exacerbation J44.1 [facility] [place] [id number] [place] [address] Feb, [facility] [place] [id number] [place] [address] Jan, [facility] [place] [id number] [place] [address] Dec, [facility] [place] [address] [address] Dec, [facility] [place] [address] [address] Dec, Dislocation of right shoulder joint, subsequent encounter S43.004D [facility] [place] [address] [address] Nov, [place] [address] [address] Nov, Lumbosacral neuritis M54.17 [facility] [address] [address] Oct, Other chronic pain G89.29 and Pain in right shoulder M25.511 [place] [address] [address] 18 Oct, 2016 Essential hypertension I10 [place] [address] [address] 11 Oct, 2016 [place] [address] [address] Oct, Closed fracture of tooth, initial encounter S02.5XXA and Dental caries K02.9 [place] [address] [address] 07 Oct, 2016 Dental examination Z01.20 [place] [address] [address] Oct, Migraine with aura and without status migrainosus, not intractable G43.109 [place] [address] [address] Oct, [facility] [place] [address] [address] Sep, Fibromyalgia M79.7 [facility] [place] [address] [place] [address] Sep, Essential hypertension I10 and Anxiety disorder, unspecified F41.9 [facility] [place] [id number] [place] [address] Aug, Anxiety disorder, unspecified F41.9 [facility] [place] [address] [address] Aug, Anxiety disorder, unspecified F41.9 and Essential hypertension I10 [facility] [place] [id number] [place] [address] Jul, Fibromyalgia M79.7 [place] [id number] [place] [address] Jul, Fibromyalgia M79.7 [place] [id number] [place] [address] June, Fibromyalgia M79.7 and Anxiety F41.9 [facility] [place] [id number] [place] [address] June, [facility] [place] [id number] [place] [address] June, Primary insomnia F51.01 [place] [id number] [place] [address] May, Migraine without aura and without status migrainosus, not intractable G43.009 ; Primary insomnia F51.01 ; Bronchitis J40 ; Anxiety disorder, unspecified F41.9 and Major depressive disorder, single episode, unspecified F32.9 [facility] [place] [id number] [place] [address] May, [facility] [id number] [place] [address] May, Migraine with aura and without status migrainosus, not intractable G43.109 [facility] [place] [address] [place] [address] May, Essential hypertension I10 [facility] [place] [id number], [place] [address] Apr, Essential hypertension I10 ; Migraine without aura and without status migrainosus, not intractable G43.009 ; Anxiety disorder, unspecified F41.9 and Major depressive disorder, single episode, unspecified F32.9 [place] [id number], [place] [address] Mar, [facility] [address] [facility] [id number] [id number] Feb, Dental examination Z01.20 IMMUNIZATIONS No Known Immunizations SOCIAL HISTORY Never Assessed REASON FOR VISIT rx resend PLAN OF CARE VITAL SIGNS MEDICATIONS Medication Instructions Dosage Frequency Start Date End Date Duration Status Propranolol HCl 60 mg Orally Twice a day TAKE ONE TABLET BY MOUTH TWICE DAILY 12h 90 days Active RESULTS No Results PROCEDURES No Known procedures INSTRUCTIONS MEDICATIONS ADMINISTERED No Known Medications MEDICAL (GENERAL) HISTORY Type Description Date Medical History Hypertension Medical History Asthma Medical History depression Medical History anxiety Medical History Migraines Medical History insomnia Surgical History right shoulder surgery 2017 Hospitalization History migraines 2016 Hospitalization History ulcer 2010
--- OUTSIDE RECORDS SUMMARY | 2018-07-15 17:59 | XMS REPORT ---
Author Author SHELBIE YEAGER Organization [facility] Address [address] [place] [address] Care Team Providers Care Warranty Coordinator Name Role Phone SHELBIE YEAGER Unavailable PROBLEMS Type Condition ICD9-CM Code NKY87-VT Code Onset Dates Condition Status SNOMED Code Problem Essential hypertension I10 Active 14934800 Problem Primary insomnia F51.01 Active 7817167 Problem Major depressive disorder, single episode, unspecified F32.9 Active 16991845 Problem Migraine without aura and without status migrainosus, not intractable G43.009 Active 090722112 Problem Chronic post-traumatic stress disorder (PTSD) after combat F43.12 Active 285870969 Problem Asthma without acute exacerbation J45.909 Active 834290230 Problem Fibromyalgia M79.7 Active 911054687 Problem Anxiety F41.9 Active 17958284 Problem COPD with exacerbation J44.1 Active 473953205 Problem Other chronic pain G89.29 Active 60791507 ALLERGIES No Information ENCOUNTERS Encounter Location Date Diagnosis [place] [id number] [place] [address] Nov, [facility] [id number] [place] [address] 10 Oct, 2017 Anxiety F41.9 [facility] [id number] [place] [address] 05 Oct, 2017 [facility] [id number] [place] [address] Sep, [place] [id number] [place] [address] Sep, Acute pain of right shoulder M25.511 [facility] [id number] [place] [address] Sep, [facility] [address] [place] [address] Sep, [facility] [address] [address] Sep, Anxiety F41.9 [facility] [id number] [place] [address] Aug, [facility] [address] [address] Aug, Anxiety F41.9 [facility] [address] [address] Aug, Anxiety F41.9 [facility] [id number] [place] [address] Aug, Anxiety F41.9 [facility] [address] [address] Aug, Anxiety F41.9 [facility] [id number] [place] [address] Aug, [facility] [address] [address] Jul, [facility] [id number] [place] [address] Jul, Anxiety F41.9 [facility] [id number] [place] [address] Jul, Chest congestion R09.89 ; Coughing R05 and Wheezes R06.2 [facility] [id number] [place] [address] Jul, Major depressive disorder, single episode, unspecified F32.9 and Anxiety F41.9 [facility] [id number] [place] [address] June, Neuropathic pain M79.2 and Right elbow pain M25.521 [facility] [address] [address] June, [facility] [id number] [place] [address] June, Anxiety F41.9 [facility] [address] [place] [address] June, Chronic post-traumatic stress disorder (PTSD) after combat F43.12 ; Major depressive disorder, single episode, unspecified F32.9 and Anxiety F41.9 [facility] [address] [place] [address] May, [facility] [id number] [place] [address] May, Anxiety F41.9 [place] [id number] [place] [address] May, [facility] [address] [place] [address] May, Acute pain of right shoulder M25.511 and Muscle strain of right shoulder, initial encounter S46.911A [place] [id number] [place] [address] May, [facility] [address] [place] [address] May, Chronic post-traumatic stress disorder (PTSD) after combat F43.12 and Anxiety F41.9 [facility] [address] [place] [address] Apr, Anxiety F41.9 and Asthma without acute exacerbation J45.909 [facility] [id number] [place] [address] Apr, [facility] [address] [place] [address] Mar, Anxiety F41.9 and Major depressive disorder, single episode, unspecified F32.9 [facility] [address] [address] 27 Mar, 2017 Anxiety F41.9 [facility] [id number] [place] [address] 16 Mar, 2017 [facility] [id number] [place] [address] 14 Mar, 2017 Major depressive disorder, single episode, unspecified F32.9 ; Anxiety F41.9 and Chronic post-traumatic stress disorder (PTSD) after combat F43.12 [place] [id number] [place] [address] 06 Mar, 2017 Chronic post-traumatic stress disorder (PTSD) after combat F43.12 ; Major depressive disorder, single episode, unspecified F32.9 ; Anxiety F41.9 and Primary insomnia F51.01 [place] [id number] [place] [address] Feb, Anxiety F41.9 and Major depressive disorder, single episode, unspecified F32.9 [place] [id number] [place] [address] Feb, Primary insomnia F51.01 and Anxiety F41.9 [facility] [id number] [place] [address] Feb, [facility] [address] [place] [address] Feb, Wheezes R06.2 and COPD with exacerbation J44.1 [facility] [id number] [place] [address] Feb, [facility] [id number] [place] [address] Jan, [facility] [id number] [place] [address] Dec, [place] [address] [address] Dec, [place] [address] [address] Dec, Dislocation of right shoulder joint, subsequent encounter S43.004D [place] [address] [address] Nov, [place] [address] [address] Nov, Lumbosacral neuritis M54.17 [facility] [address] [address] 28 Oct, 2016 Other chronic pain G89.29 and Pain in right shoulder M25.511 [place] [address] [address] 18 Oct, 2016 Essential hypertension I10 [place] [address] [address] Oct, [place] [address] [address] 07 Oct, 2016 Closed fracture of tooth, initial encounter S02.5XXA and Dental caries K02.9 [place] [address] [address] 07 Oct, 2016 Dental examination Z01.20 [place] [address] [address] Oct, Migraine with aura and without status migrainosus, not intractable G43.109 [place] [address] [address] Oct, [place] [address] [address] Sep, Fibromyalgia M79.7 [place] [address] [address] 08 Sep, 2016 Essential hypertension I10 and Anxiety disorder, unspecified F41.9 [facility] [id number] [place] [address] Aug, Anxiety disorder, unspecified F41.9 [facility] [id number] [place] [address] Aug, Anxiety disorder, unspecified F41.9 and Essential hypertension I10 [place] [id number] [place] [address] Jul, Fibromyalgia M79.7 [place] [address] [address] Jul, Fibromyalgia M79.7 [place] [id number] [place] [address] June, Fibromyalgia M79.7 and Anxiety F41.9 [place] [id number] [place] [address] June, [place] [id number] [place] [address] June, Primary insomnia F51.01 [place] [id number] [place] [address] May, Migraine without aura and without status migrainosus, not intractable G43.009 ; Primary insomnia F51.01 ; Bronchitis J40 ; Anxiety disorder, unspecified F41.9 and Major depressive disorder, single episode, unspecified F32.9 [facility] [id number] [place] [address] May, [facility] [id number] [place] [address] May, Migraine with aura and without status migrainosus, not intractable G43.109 [facility] [id number] [place] [address] May, Essential hypertension I10 [place] [address] [place] [address] Apr, Essential hypertension I10 ; Migraine without aura and without status migrainosus, not intractable G43.009 ; Anxiety disorder, unspecified F41.9 and Major depressive disorder, single episode, unspecified F32.9 [facility] [address] [facility] [id number] [address] Mar, [facility] [address] [facility] [id number] [id number] Feb, Dental examination Z01.20 IMMUNIZATIONS No Known Immunizations SOCIAL HISTORY Never Assessed REASON FOR VISIT Controlled Med Refill PLAN OF CARE VITAL SIGNS MEDICATIONS Medication Instructions Dosage Frequency Start Date End Date Duration Status Omeprazole 40 mg TAKE ONE CAPSULE BY MOUTH TWICE DAILY 30 Active Klonopin 0.5 MG Orally TID PRN [...]
--- OUTSIDE RECORDS SUMMARY | 2018-07-15 17:59 | XMS REPORT ---
Author Author SHELBIE YEAGER Organization [facility] Address [address] [place] [address] Care Team Providers Care Television Operator Name Role Phone SHELBIE YEAGER Unavailable PROBLEMS Type Condition ICD9-CM Code NNV98-OC Code Onset Dates Condition Status SNOMED Code Problem Essential hypertension I10 Active 86318929 Problem Primary insomnia F51.01 Active 0305581 Problem Major depressive disorder, single episode, unspecified F32.9 Active 77275021 Problem Migraine without aura and without status migrainosus, not intractable G43.009 Active 763199450 Problem Chronic post-traumatic stress disorder (PTSD) after combat F43.12 Active 919113593 Problem Asthma without acute exacerbation J45.909 Active 032140164 Problem Fibromyalgia M79.7 Active 814132148 Problem Anxiety F41.9 Active 01988582 Problem COPD with exacerbation J44.1 Active 030450004 Problem Other chronic pain G89.29 Active 74440095 ALLERGIES No Information ENCOUNTERS Encounter Location Date Diagnosis [facility] [id number] [place] [address] Nov, [facility] [address] [place] [address] Oct, [facility] [id number] [place] [address] Oct, Anxiety F41.9 [facility] [id number] [place] [address] 05 Oct, 2017 [facility] [id number] [place] [address] Sep, [facility] [address] [address] Sep, Acute pain of right shoulder M25.511 [facility] [address] [place] [address] Sep, [facility] [address] [place] [address] Sep, [facility] [id number] [place] [address] Sep, Anxiety F41.9 [facility] [address] [address] Aug, [facility] [id number] [place] [address] Aug, Anxiety F41.9 [facility] [id number] [place] [address] Aug, Anxiety F41.9 [facility] [id number] [place] [address] Aug, Anxiety F41.9 [facility] [id number] [place] [address] Aug, Anxiety F41.9 [facility] [id number] [place] [address] Aug, [facility] [id number] [place] [address] Jul, [facility] [id number] [place] [address] Jul, Anxiety F41.9 [facility] [id number] [place] [address] Jul, Chest congestion R09.89 ; Coughing R05 and Wheezes R06.2 [facility] [address] [place] [address] Jul, Major depressive disorder, single episode, unspecified F32.9 and Anxiety F41.9 [facility] [id number] [place] [address] June, Neuropathic pain M79.2 and Right elbow pain M25.521 [facility] [id number] [place] [address] June, [facility] [id number] [place] [address] June, Anxiety F41.9 [facility] [address] [address] June, Chronic post-traumatic stress disorder (PTSD) after combat F43.12 ; Major depressive disorder, single episode, unspecified F32.9 and Anxiety F41.9 [facility] [id number] [place] [address] May, [facility] [id number] [place] [address] May, Anxiety F41.9 [facility] [id number] [place] [address] May, [facility] [id number] [place] [address] May, Acute pain of right shoulder M25.511 and Muscle strain of right shoulder, initial encounter S46.911A [facility] [id number] [place] [address] May, [facility] [id number] [place] [address] May, Chronic post-traumatic stress disorder (PTSD) after combat F43.12 and Anxiety F41.9 [facility] [id number] [place] [address] Apr, Anxiety F41.9 and Asthma without acute exacerbation J45.909 [facility] [id number] [place] [address] Apr, [facility] [address] [place] [address] Mar, Anxiety F41.9 and Major depressive disorder, single episode, unspecified F32.9 [facility] [id number] [place] [address] Mar, Anxiety F41.9 [facility] [id number] [place] [address] 16 Mar, 2017 [facility] [id number] [place] [address] 14 Mar, 2017 Major depressive disorder, single episode, unspecified F32.9 ; Anxiety F41.9 and Chronic post-traumatic stress disorder (PTSD) after combat F43.12 [place] [id number] [place] [address] 06 Mar, 2017 Chronic post-traumatic stress disorder (PTSD) after combat F43.12 ; Major depressive disorder, single episode, unspecified F32.9 ; Anxiety F41.9 and Primary insomnia F51.01 [place] [id number] [place] [address] Feb, Anxiety F41.9 and Major depressive disorder, single episode, unspecified F32.9 [place] [address] [place] [address] Feb, Primary insomnia F51.01 and Anxiety F41.9 [facility] [id number] [place] [address] Feb, [facility] [id number] [place] [address] Feb, Wheezes R06.2 and COPD with exacerbation J44.1 [facility] [id number] [place] [address] Feb, [facility] [address] [place] [address] Jan, [facility] [id number] [place] [address] Dec, [facility] [address] [address] Dec, [facility] [address] [address] Dec, Dislocation of right shoulder joint, subsequent encounter S43.004D [facility] [address] [address] Nov, [place] [address] [address] Nov, Lumbosacral neuritis M54.17 [facility] [address] [address] Oct, Other chronic pain G89.29 and Pain in right shoulder M25.511 [place] [address] [address] 18 Oct, 2016 Essential hypertension I10 [place] [address] [address] 11 Oct, 2016 [place] [address] [address] Oct, Closed fracture of tooth, initial encounter S02.5XXA and Dental caries K02.9 [place] [address] [address] 07 Oct, 2016 Dental examination Z01.20 [place] [address] [address] Oct, Migraine with aura and without status migrainosus, not intractable G43.109 [place] [address] [address] Oct, [facility] [address] [address] Sep, Fibromyalgia M79.7 [facility] [address] [place] [address] Sep, Essential hypertension I10 and Anxiety disorder, unspecified F41.9 [facility] [id number] [place] [address] Aug, Anxiety disorder, unspecified F41.9 [facility] [address] [address] Aug, Anxiety disorder, unspecified F41.9 and Essential hypertension I10 [facility] [id number] [place] [address] Jul, Fibromyalgia M79.7 [place] [id number] [place] [address] Jul, Fibromyalgia M79.7 [place] [id number] [place] [address] June, Fibromyalgia M79.7 and Anxiety F41.9 [facility] [id number] [place] [address] June, [facility] [id number] [place] [address] June, Primary insomnia F51.01 [place] [address] [place] [address] May, Migraine without aura and without status migrainosus, not intractable G43.009 ; Primary insomnia F51.01 ; Bronchitis J40 ; Anxiety disorder, unspecified F41.9 and Major depressive disorder, single episode, unspecified F32.9 [facility] [id number] [place] [address] May, [facility] [id number] [place] [address] May, Migraine with aura and without status migrainosus, not intractable G43.109 [facility] [address] [place] [address] May, Essential hypertension I10 [facility] [id number] [address] Apr, Essential hypertension I10 ; Migraine without aura and without status migrainosus, not intractable G43.009 ; Anxiety disorder, unspecified F41.9 and Major depressive disorder, single episode, unspecified F32.9 [place] [id number] [address] Mar, [facility] [address] [facility] [id number] [id number] Feb, Dental examination Z01.20 IMMUNIZATIONS No Known Immunizations SOCIAL HISTORY Never Assessed REASON FOR VISIT PLAN OF CARE VITAL SIGNS MEDICATIONS Unknown [...]
--- OUTSIDE RECORDS SUMMARY | 2018-07-15 17:59 | XMS REPORT ---
Author Author SAPNA TIWARI [facility] Address [address] [place] [address] Care Team Providers Care School Commissioner Name Role Phone SAPNA TIWARI Unavailable PROBLEMS Type Condition ICD9-CM Code NGB26-ED Code Onset Dates Condition Status SNOMED Code Problem Essential hypertension I10 Active 26462247 Problem Primary insomnia F51.01 Active 9200841 Problem Major depressive disorder, single episode, unspecified F32.9 Active 19945193 Problem Migraine without aura and without status migrainosus, not intractable G43.009 Active 338011207 Problem Chronic post-traumatic stress disorder (PTSD) after combat F43.12 Active 343514710 Problem Asthma without acute exacerbation J45.909 Active 441729122 Problem Fibromyalgia M79.7 Active 292760451 Problem Anxiety F41.9 Active 10922388 Problem COPD with exacerbation J44.1 Active 559251666 Problem Other chronic pain G89.29 Active 64323327 ALLERGIES No Information ENCOUNTERS Encounter Location Date Diagnosis [place] [id number] [place] [address] Nov, [place] [address] [place] [address] 10 Oct, 2017 Anxiety F41.9 [facility] [address] [place] [address] Oct, [facility] [id number] [place] [address] Sep, [place] [id number] [place] [address] Sep, Acute pain of right shoulder M25.511 [facility] [id number] [place] [address] Sep, [facility] [address] [place] [address] Sep, [facility] [id number] [place] [address] Sep, Anxiety F41.9 [facility] [id number] [place] [address] Aug, [facility] [address] [address] Aug, Anxiety F41.9 [facility] [address] [address] Aug, Anxiety F41.9 [facility] [id number] [place] [address] Aug, Anxiety F41.9 [facility] [address] [address] Aug, Anxiety F41.9 [facility] [id number] [place] [address] Aug, [facility] [address] [address] Jul, [facility] [id number] [place] [address] Jul, Anxiety F41.9 [facility] [id number] [place] [address] Jul, Chest congestion R09.89 ; Coughing R05 and Wheezes R06.2 [facility] [id number] [place] [address] Jul, Major depressive disorder, single episode, unspecified F32.9 and Anxiety F41.9 [facility] [id number] [place] [address] June, Neuropathic pain M79.2 and Right elbow pain M25.521 [facility] [address], [place] [address] June, [facility] [id number] [place] [address] June, Anxiety F41.9 [facility] [address] [place] [address] June, Chronic post-traumatic stress disorder (PTSD) after combat F43.12 ; Major depressive disorder, single episode, unspecified F32.9 and Anxiety F41.9 [facility] [address] [place] [address] May, [facility] [id number] [place] [address] May, Anxiety F41.9 [place] [id number] [place] [address] May, [facility] [id number] [place] [address] May, Acute pain of right shoulder M25.511 and Muscle strain of right shoulder, initial encounter S46.911A [facility] [id number] [place] [address] May, [facility] [address] [place] [address] May, Chronic post-traumatic stress disorder (PTSD) after combat F43.12 and Anxiety F41.9 [facility] [address] [place] [address] Apr, Anxiety F41.9 and Asthma without acute exacerbation J45.909 [facility] [id number] [place] [address] Apr, [facility] [address] [place] [address] Mar, Anxiety F41.9 and Major depressive disorder, single episode, unspecified F32.9 [facility] [address] [place] [address] 27 Mar, 2017 Anxiety F41.9 [facility] [id number] [place] [address] 16 Mar, 2017 [facility] [id number] [place] [address] 14 Mar, 2017 Major depressive disorder, single episode, unspecified F32.9 ; Anxiety F41.9 and Chronic post-traumatic stress disorder (PTSD) after combat F43.12 [place] [id number] [place] [address] 06 Mar, 2017 Chronic post-traumatic stress disorder (PTSD) after combat F43.12 ; Major depressive disorder, single episode, unspecified F32.9 ; Anxiety F41.9 and Primary insomnia F51.01 [place] [id number] [place] [address] Feb, Anxiety F41.9 and Major depressive disorder, single episode, unspecified F32.9 [place] [id number] [place] [address] Feb, Primary insomnia F51.01 and Anxiety F41.9 [place] [id number] [place] [address] Feb, [facility] [id number] [place] [address] Feb, Wheezes R06.2 and COPD with exacerbation J44.1 [facility] [id number] [place] [address] Feb, [facility] [address] [address] Jan, [facility] [address] [address] Dec, [place] [address] [address] Dec, [place] [address] [address] Dec, Dislocation of right shoulder joint, subsequent encounter S43.004D [place] [address] [address] Nov, [place] [address] [address] Nov, Lumbosacral neuritis M54.17 [facility] [address] [address] Oct, Other chronic pain G89.29 and Pain in right shoulder M25.511 [place] [address] [address] 18 Oct, 2016 Essential hypertension I10 [place] [address] [address] Oct, [place] [address] [address] 07 Oct, 2016 Closed fracture of tooth, initial encounter S02.5XXA and Dental caries K02.9 [place] [address] [address] 07 Oct, 2016 Dental examination Z01.20 [place] [address] [address] Oct, Migraine with aura and without status migrainosus, not intractable G43.109 [place] [address] [address] Oct, [place] [address] [address] Sep, Fibromyalgia M79.7 [place] [address] [address] Sep, Essential hypertension I10 and Anxiety disorder, unspecified F41.9 [facility] [id number] [place] [address] Aug, Anxiety disorder, unspecified F41.9 [facility] [id number] [place] [address] Aug, Anxiety disorder, unspecified F41.9 and Essential hypertension I10 [place] [id number] [place] [address] Jul, Fibromyalgia M79.7 [place] [id number] [place] [address] Jul, Fibromyalgia M79.7 [place] [id number] [place] [address] June, Fibromyalgia M79.7 and Anxiety F41.9 [place] [id number] [place] [address] June, [place] [id number] [place] [address] June, Primary insomnia F51.01 [place] [id number] [place] [address] May, Migraine without aura and without status migrainosus, not intractable G43.009 ; Primary insomnia F51.01 ; Bronchitis J40 ; Anxiety disorder, unspecified F41.9 and Major depressive disorder, single episode, unspecified F32.9 [facility] [address] [place] [address] May, [facility] [id number] [place] [address] May, Migraine with aura and without status migrainosus, not intractable G43.109 [facility] [address] [place] [address] May, Essential hypertension I10 [place] [id number] [address] Apr, Essential hypertension I10 ; Migraine without aura and without status migrainosus, not intractable G43.009 ; Anxiety disorder, unspecified F41.9 and Major depressive disorder, single episode, unspecified F32.9 [facility] [address] [facility] [id number] [address] Mar, [facility] [address] [facility] [id number] [id number] Feb, Dental examination Z01.20 IMMUNIZATIONS No Known Immunizations SOCIAL HISTORY Never Assessed REASON FOR VISIT f/u PLAN OF CARE Activity Details Follow Up 2-4 W Reason: F/U VITAL SIGNS MEDICATIONS Unknown Medications RESULTS No Results PROCEDURES Procedure Date Ordered Result Body Site Psychotherapy, patient &/family, 45 minutes, established patient June 09, 2017 INSTRUCTIONS MEDICATIONS ADMINISTERED No Known Medications MEDICAL (GENERAL) HISTORY Type Description Date Medical History Hypertension Medical History Asthma Medical History depression Medical History anxiety Medical History Migraines Medical History insomnia Surgical History right shoulder surgery 2017 Hospitalization History migraines 2016 Hospitalization History ulcer 2010
--- OUTSIDE RECORDS SUMMARY | 2018-07-15 17:59 | XMS REPORT ---
Author Author KRAIG OLMSTEAD [facility] Address [address] [place] [address] Care Team Providers Care Technical Project Lead Name Role Phone KING KRAIG Unavailable PROBLEMS Type Condition ICD9-CM Code XGX46-JV Code Onset Dates Condition Status SNOMED Code Problem Essential hypertension I10 Active 91404970 Problem Primary insomnia F51.01 Active 0841230 Problem Major depressive disorder, single episode, unspecified F32.9 Active 64149821 Problem Migraine without aura and without status migrainosus, not intractable G43.009 Active 498264029 Problem Chronic post-traumatic stress disorder (PTSD) after combat F43.12 Active 870234328 Problem Asthma without acute exacerbation J45.909 Active 579956438 Problem Fibromyalgia M79.7 Active 360770445 Problem Anxiety F41.9 Active 69653485 Problem COPD with exacerbation J44.1 Active 476448110 Problem Other chronic pain G89.29 Active 72655202 ALLERGIES Substance Reaction Event Type Date Status Compazine hives Drug Allergy Sep, Active sea food anaphylaxis Non Drug Allergy Sep, Active ENCOUNTERS Encounter Location Date Diagnosis [facility] [id number] [address] Nov, [facility] [address] [address] Oct, [facility] [id number] [address] Oct, Anxiety F41.9 [facility] [address] [place] [address] 05 Oct, 2017 [facility] [address] [address] Sep, [facility] [id number] [place] [address] Sep, Acute pain of right shoulder M25.511 [facility] [id number] [place] [address] Sep, [facility] [address] [place] [address] Sep, [facility] [address] [address] Sep, Anxiety F41.9 [facility] [id number] [place] [address] Aug, [facility] [address] [address] Aug, Anxiety F41.9 [facility] [id number] [place] [address] Aug, Anxiety F41.9 [facility] [address] [address] Aug, Anxiety F41.9 [facility] [id number] [place] [address] Aug, Anxiety F41.9 [facility] [id number] [place] [address] Aug, [facility] [id number] [place] [address] Jul, [facility] [id number] [place] [address] Jul, Anxiety F41.9 [facility] [id number] [place] [address] Jul, Chest congestion R09.89 ; Coughing R05 and Wheezes R06.2 [facility] [id number] [place] [address] Jul, Major depressive disorder, single episode, unspecified F32.9 and Anxiety F41.9 [facility] [id number] [place] [address] June, Neuropathic pain M79.2 and Right elbow pain M25.521 [facility] [id number] [place] [address] June, [facility] [id number] [place] [address] June, Anxiety F41.9 [facility] [id number] [place] [address] June, Chronic post-traumatic stress disorder (PTSD) after combat F43.12 ; Major depressive disorder, single episode, unspecified F32.9 and Anxiety F41.9 [facility] [id number] [place] [address] May, [facility] [id number] [place] [address] May, Anxiety F41.9 [place] [id number] [place] [address] May, [facility] [id number] [place] [address] May, Acute pain of right shoulder M25.511 and Muscle strain of right shoulder, initial encounter S46.911A [facility] [id number] [place] [address] May, [facility] [id number] [place] [address] May, Chronic post-traumatic stress disorder (PTSD) after combat F43.12 and Anxiety F41.9 [facility] [id number] [place] [address] Apr, Anxiety F41.9 and Asthma without acute exacerbation J45.909 [facility] [id number] [place] [address] Apr, [facility] [id number] [place] [address] Mar, Anxiety F41.9 and Major depressive disorder, single episode, unspecified F32.9 [facility] [id number] [place] [address] Mar, Anxiety F41.9 [facility] [address] [address] 16 Mar, 2017 [facility] [id number] [place] [address] 14 Mar, 2017 Major depressive disorder, single episode, unspecified F32.9 ; Anxiety F41.9 and Chronic post-traumatic stress disorder (PTSD) after combat F43.12 [place] [id number] [place] [address] 06 Mar, 2017 Chronic post-traumatic stress disorder (PTSD) after combat F43.12 ; Major depressive disorder, single episode, unspecified F32.9 ; Anxiety F41.9 and Primary insomnia F51.01 [address] [address] [address] Feb, Anxiety F41.9 and Major depressive disorder, single episode, unspecified F32.9 [facility] [id number] [place] [address] Feb, Primary insomnia F51.01 and Anxiety F41.9 [facility] [id number] [place] [address] Feb, [facility] [address] [address] Feb, Wheezes R06.2 and COPD with exacerbation J44.1 [facility] [id number] [place] [address] Feb, [facility] [address] [place] [address] Jan, [facility] [address] [address] Dec, [facility] [address] [address] Dec, [facility] [address] [address] Dec, Dislocation of right shoulder joint, subsequent encounter S43.004D [place] [address] [address] Nov, [place] [address] [address] Nov, Lumbosacral neuritis M54.17 [facility] [address] [address] 28 Oct, 2016 Other chronic pain G89.29 and Pain in right shoulder M25.511 [place] [address] [address] 18 Oct, 2016 Essential hypertension I10 [place] [address] [address] 11 Oct, 2016 [place] [address] [address] Oct, Closed fracture of tooth, initial encounter S02.5XXA and Dental caries K02.9 [place] [address] [address] 07 Oct, 2016 Dental examination Z01.20 [place] [address] [address] Oct, Migraine with aura and without status migrainosus, not intractable G43.109 [place] [address] [address] Oct, [place] [address] [place] [address] Sep, Fibromyalgia M79.7 [facility] [address] [address] Sep, Essential hypertension I10 and Anxiety disorder, unspecified F41.9 [facility] [address] [address] Aug, Anxiety disorder, unspecified F41.9 [facility] [address] [address] Aug, Anxiety disorder, unspecified F41.9 and Essential hypertension I10 [address] [address] Jul, Fibromyalgia M79.7 [place] [address] [address] Jul, Fibromyalgia M79.7 [facility] [address] [address] June, Fibromyalgia M79.7 and Anxiety F41.9 [place] [id number] [place] [address] June, [facility] [id number] [place] [address] June, Primary insomnia F51.01 [facility] [place] [id number] [place] [address] May, Migraine without aura and without status migrainosus, not intractable G43.009 ; Primary insomnia F51.01 ; Bronchitis J40 ; Anxiety disorder, unspecified F41.9 and Major depressive disorder, single episode, unspecified F32.9 [facility] [id number] [place] [address] May, [facility] [id number] [place] [address] May, Migraine with aura and without status migrainosus, not intractable G43.109 [facility] [address] [facility] [id number] [address] May, Essential hypertension I10 [address] [address] [facility] [id number] [address] Apr, Essential hypertension I10 ; Migraine without aura and without status migrainosus, not intractable G43.009 ; Anxiety disorder, unspecified F41.9 and Major depressive disorder, single episode, unspecified F32.9 [place] [facility] [id number] [address] Mar, [facility] [address] [facility] [id number] [id number] Feb, Dental examination Z01.20 IMMUNIZATIONS No Known Immunizations SOCIAL HISTORY Never Assessed REASON FOR VISIT rt shoulder pain / pain x since last thursday -- zoë wagner PLAN OF CARE Activity Details Follow Up 2-4 weeks if not better Reason:Rt shoulder pain VITAL SIGNS Height 66.5 in 2017-09-29 Weight 146.0 lbs 2017-09-29 Temperature 97.6 degrees Fahrenheit 2017-09-29 Heart Rate 80 bpm 2017-09-29 Respiratory Rate 20 2017-09-29 BMI 23.21 kg/m2 2017-09-29 Blood pressure systolic 110 mmHg 2017-09-29 Blood pressure diastolic 76 mmHg 2017-09-29 MEDICATIONS Medication Instructions Dosage Frequency Start Date End Date Duration Status BusPIRone HCl 10 MG Orally TID PRN 1.5 tablets May, Active Gabapentin 100 mg Orally twice daily 2 capsules 90 Active Multivitamin Men - Active Ventolin HFA 108 (90 Base) MCG/ACT Inhalation 4 times a day 2 puffs as needed 6h Active Albuterol Sulfate (2.5 MG/3ML) 0.083% USE ONE VIAL IN NEBULIZER EVERY 6 HOURS 25 Active Cyclobenzaprine HCl 10 mg Orally 3 times a day 1 tablet as needed 8h Oct, 28 days Active Ibuprofen 800 MG Orally Three times a day 1 tablet with food or milk as needed 8h Sep, Oct, 30 days Active Paxil 20 mg Orally 2 times a day 1 tablet 12h 30 Active Klonopin 0.5 MG Orally TID PRN 1 tablet Feb, 28 days Active Omeprazole 40 mg TAKE ONE CAPSULE BY MOUTH TWICE DAILY 30 Active BusPIRone HCl 15 MG TAKE ONE TABLET BY MOUTH THREE TIMES DAILY NEEDED 30 Active Propranolol HCl 60 MG TAKE ONE TABLET BY MOUTH TWICE DAILY 30 Active Seroquel 400 mg Orally Once a day 1 tablet 24h 30 days Active Flagyl 500 mg Orally 2 times a day 1 tablet 12h 14 Sep, 2017 Sep, 07 days Active RESULTS No Results PROCEDURES No Known procedures INSTRUCTIONS MEDICATIONS ADMINISTERED No Known Medications MEDICAL (GENERAL) HISTORY Type Description Date Medical History Hypertension Medical History Asthma Medical History depression Medical History anxiety Medical History Migraines Medical History insomnia Surgical History right shoulder surgery 2017 Hospitalization History migraines 2016 Hospitalization History ulcer 2010
--- OUTSIDE RECORDS SUMMARY | 2018-07-15 17:59 | XMS REPORT ---
Author Author SHELBIE YEAGER Organization [facility] Address [address] [place] [address] Care Team Providers Care Solid Waste Landfill Technician Name Role Phone SHELBIE YEAGER Unavailable PROBLEMS Type Condition ICD9-CM Code EHZ60-EM Code Onset Dates Condition Status SNOMED Code Problem Essential hypertension I10 Active 31663818 Problem Primary insomnia F51.01 Active 0701588 Problem Major depressive disorder, single episode, unspecified F32.9 Active 43006305 Problem Migraine without aura and without status migrainosus, not intractable G43.009 Active 973473824 Problem Chronic post-traumatic stress disorder (PTSD) after combat F43.12 Active 495551009 Problem Asthma without acute exacerbation J45.909 Active 551765154 Problem Fibromyalgia M79.7 Active 841355703 Problem Anxiety F41.9 Active 57562609 Problem COPD with exacerbation J44.1 Active 672217700 Problem Other chronic pain G89.29 Active 55374961 ALLERGIES No Information ENCOUNTERS Encounter Location Date Diagnosis [facility] [address] [place] [address] Nov, [facility] [address] [place] [address] Oct, [facility] [id number] [place] [address] Oct, Anxiety F41.9 [facility] [address] [place] [address] 05 Oct, 2017 [facility] [id number] [place] [address] Sep, [facility] [address], [place] [address] Sep, Acute pain of right shoulder M25.511 [facility] [address] [place] [address] Sep, [facility] [address] [place] [address] Sep, [facility] [id number] [place] [address] Sep, Anxiety F41.9 [facility] [address] [address] Aug, [facility] [id number] [place] [address] Aug, Anxiety F41.9 [facility] [id number] [place] [address] Aug, Anxiety F41.9 [facility] [id number] [place] [address] Aug, Anxiety F41.9 [facility] [id number] [place] [address] Aug, Anxiety F41.9 [facility] [id number] [place] [address] Aug, [facility] [id number] [place] [address] Jul, [facility] [id number] [place] [address] Jul, Anxiety F41.9 [facility] [id number] [place] [address] Jul, Chest congestion R09.89 ; Coughing R05 and Wheezes R06.2 [facility] [address] [place] [address] Jul, Major depressive disorder, single episode, unspecified F32.9 and Anxiety F41.9 [facility] [id number] [place] [address] June, Neuropathic pain M79.2 and Right elbow pain M25.521 [facility] [id number] [place] [address] June, [facility] [id number] [place] [address] June, Anxiety F41.9 [facility] [address] [address] June, Chronic post-traumatic stress disorder (PTSD) after combat F43.12 ; Major depressive disorder, single episode, unspecified F32.9 and Anxiety F41.9 [facility] [id number] [place] [address] May, [facility] [id number] [place] [address] May, Anxiety F41.9 [facility] [id number] [place] [address] May, [facility] [id number] [place] [address] May, Acute pain of right shoulder M25.511 and Muscle strain of right shoulder, initial encounter S46.911A [facility] [id number] [place] [address] May, [facility] [id number] [place] [address] May, Chronic post-traumatic stress disorder (PTSD) after combat F43.12 and Anxiety F41.9 [facility] [id number] [place] [address] Apr, Anxiety F41.9 and Asthma without acute exacerbation J45.909 [facility] [id number] [place] [address] Apr, [facility] [address] [place] [address] Mar, Anxiety F41.9 and Major depressive disorder, single episode, unspecified F32.9 [facility] [id number] [place] [address] Mar, Anxiety F41.9 [facility] [id number] [place] [address] 16 Mar, 2017 [facility] [id number] [place] [address] 14 Mar, 2017 Major depressive disorder, single episode, unspecified F32.9 ; Anxiety F41.9 and Chronic post-traumatic stress disorder (PTSD) after combat F43.12 [place] [id number] [place] [address] 06 Mar, 2017 Chronic post-traumatic stress disorder (PTSD) after combat F43.12 ; Major depressive disorder, single episode, unspecified F32.9 ; Anxiety F41.9 and Primary insomnia F51.01 [place] [id number] [place] [address] Feb, Anxiety F41.9 and Major depressive disorder, single episode, unspecified F32.9 [place] [id number] [place] [address] Feb, Primary insomnia F51.01 and Anxiety F41.9 [facility] [id number] [place] [address] Feb, [facility] [id number] [place] [address] Feb, Wheezes R06.2 and COPD with exacerbation J44.1 [facility] [id number] [place] [address] Feb, [facility] [address] [place] [address] Jan, [facility] [id number] [place] [address] Dec, [facility] [address] [address] Dec, [facility] [address] [address] Dec, Dislocation of right shoulder joint, subsequent encounter S43.004D [facility] [address] [address] Nov, [place] [address] [address] Nov, Lumbosacral neuritis M54.17 [facility] [address] [address] Oct, Other chronic pain G89.29 and Pain in right shoulder M25.511 [place] [address] [address] 18 Oct, 2016 Essential hypertension I10 [place] [address] [address] 11 Oct, 2016 [place] [address] [address] Oct, Closed fracture of tooth, initial encounter S02.5XXA and Dental caries K02.9 [place] [address] [address] 07 Oct, 2016 Dental examination Z01.20 [place] [address] [address] Oct, Migraine with aura and without status migrainosus, not intractable G43.109 [place] [address] [address] Oct, [facility] [address] [address] Sep, Fibromyalgia M79.7 [facility] [address] [place] [address] Sep, Essential hypertension I10 and Anxiety disorder, unspecified F41.9 [facility] [id number] [place] [address] Aug, Anxiety disorder, unspecified F41.9 [facility] [address] [address] Aug, Anxiety disorder, unspecified F41.9 and Essential hypertension I10 [facility] [id number] [place] [address] Jul, Fibromyalgia M79.7 [place] [id number] [place] [address] Jul, Fibromyalgia M79.7 [place] [id number] [place] [address] June, Fibromyalgia M79.7 and Anxiety F41.9 [facility] [id number] [place] [address] June, [facility] [id number] [place] [address] June, Primary insomnia F51.01 [place] [id number] [place] [address] May, Migraine without aura and without status migrainosus, not intractable G43.009 ; Primary insomnia F51.01 ; Bronchitis J40 ; Anxiety disorder, unspecified F41.9 and Major depressive disorder, single episode, unspecified F32.9 [facility] [id number] [place] [address] May, [facility] [id number] [place] [address] May, Migraine with aura and without status migrainosus, not intractable G43.109 [facility] [address] [place] [address] May, Essential hypertension I10 [facility] [id number] [address] Apr, Essential hypertension I10 ; Migraine without aura and without status migrainosus, not intractable G43.009 ; Anxiety disorder, unspecified F41.9 and Major depressive disorder, single episode, unspecified F32.9 [place] [address] [place] [id number] [address] Mar, [facility] [address] [facility] [id number] [id number] Feb, Dental examination Z01.20 IMMUNIZATIONS No Known Immunizations SOCIAL HISTORY Never Assessed REASON FOR VISIT request appt PLAN OF CARE VITAL SIGNS MEDICATIONS Unknown [...]
[2018-07-15 18:00] VITALS: BP 147/111
[2018-07-15] MEDS ORDERED: BUPIVACAINE 0.5% 30 ML (SENSORCAINE) VIAL INJ ONE (18:00)
[2018-07-15] MEDS ORDERED: LIDOCAINE/EPI 1%-1:100,000 (XYLOCAINE) 20ML INJ ONE (18:00)
--- OUTSIDE RECORDS SUMMARY | 2018-07-15 18:00 | XMS REPORT ---
Author Author SHELBIE YEAGER Organization [facility] Address [address] [place] [address] Care Team Providers Care Poultry Dresser Name Role Phone SHELBIE YEAGER Unavailable PROBLEMS Type Condition ICD9-CM Code HEO56-OS Code Onset Dates Condition Status SNOMED Code Problem Essential hypertension I10 Active 10714900 Problem Primary insomnia F51.01 Active 2811497 Problem Major depressive disorder, single episode, unspecified F32.9 Active 41784498 Problem Migraine without aura and without status migrainosus, not intractable G43.009 Active 267599251 Problem Chronic post-traumatic stress disorder (PTSD) after combat F43.12 Active 843093465 Problem Asthma without acute exacerbation J45.909 Active 179912454 Problem Fibromyalgia M79.7 Active 510705744 Problem Anxiety F41.9 Active 34029738 Problem COPD with exacerbation J44.1 Active 930368369 Problem Other chronic pain G89.29 Active 44814785 ALLERGIES No Information ENCOUNTERS Encounter Location Date Diagnosis [facility] [id number] [place] [address] Nov, [facility] [id number] [place] [address] Oct, [facility] [id number] [place] [address] Sep, [facility] [id number] [place] [address] Sep, Acute pain of right shoulder M25.511 [facility] [id number] [place] [address] Sep, [facility] [address] [place] [address] Sep, [facility] [id number] [place] [address] Sep, Anxiety F41.9 [facility] [id number] [place] [address] Aug, [facility] [id number] [place] [address] Aug, Anxiety F41.9 [facility] [id number] [place] [address] Aug, Anxiety F41.9 [facility] [id number] [place] [address] Aug, Anxiety F41.9 [facility] [id number] [place] [address] Aug, Anxiety F41.9 [facility] [id number] [place] [address] Aug, [facility] [id number] [place] [address] Jul, [facility] [id number] [place] [address] Jul, Anxiety F41.9 [facility] [id number] [place] [address] Jul, Chest congestion R09.89 ; Coughing R05 and Wheezes R06.2 [facility] [address] [place] [address] Jul, Major depressive disorder, single episode, unspecified F32.9 and Anxiety F41.9 [facility] [id number] [place] [address] June, Neuropathic pain M79.2 and Right elbow pain M25.521 [facility] [id number] [place] [address] June, [facility] [id number] [place] [address] June, Anxiety F41.9 [facility] [id number] [place] [address] June, Chronic post-traumatic stress disorder (PTSD) after combat F43.12 ; Major depressive disorder, single episode, unspecified F32.9 and Anxiety F41.9 [facility] [id number] [place] [address] May, [facility] [id number] [place] [address] May, Anxiety F41.9 [place] [id number] [place] [address] May, [facility] [id number] [place] [address] May, Acute pain of right shoulder M25.511 and Muscle strain of right shoulder, initial encounter S46.911A [facility] [id number] [place] [address] May, [place] [id number] [place] [address] May, Chronic post-traumatic stress disorder (PTSD) after combat F43.12 and Anxiety F41.9 [place] [id number] [place] [address] Apr, Anxiety F41.9 and Asthma without acute exacerbation J45.909 [facility] [address] [place] [address] Apr, [facility] [id number] [place] [address] Mar, Anxiety F41.9 and Major depressive disorder, single episode, unspecified F32.9 [facility] [id number] [place] [address] Mar, Anxiety F41.9 [facility] [address] [place] [address] 16 Mar, 2017 [facility] [id number] [place] [address] 14 Mar, 2017 Major depressive disorder, single episode, unspecified F32.9 ; Anxiety F41.9 and Chronic post-traumatic stress disorder (PTSD) after combat F43.12 [facility] [id number] [place] [address] 06 Mar, 2017 Chronic post-traumatic stress disorder (PTSD) after combat F43.12 ; Major depressive disorder, single episode, unspecified F32.9 ; Anxiety F41.9 and Primary insomnia F51.01 [facility] [id number] [place] [address] Feb, Anxiety F41.9 and Major depressive disorder, single episode, unspecified F32.9 [facility] [id number] [place] [address] Feb, Primary insomnia F51.01 and Anxiety F41.9 [facility] [id number] [place] [address] Feb, [facility] [id number] [place] [address] Feb, Wheezes R06.2 and COPD with exacerbation J44.1 [facility] [id number] [place] [address] Feb, [facility] [id number] [place] [address] Jan, [facility] [id number] [place] [address] Dec, [facility] [id number] [place] [address] Dec, [facility] [address] [address] Dec, Dislocation of right shoulder joint, subsequent encounter S43.004D [place] [address] [address] Nov, [place] [address] [address] Nov, Lumbosacral neuritis M54.17 [facility] [address] [address] 28 Oct, 2016 Other chronic pain G89.29 and Pain in right shoulder M25.511 [place] [address] [address] 18 Oct, 2016 Essential hypertension I10 [place] [address] [address] Oct, [place] [address] [address] 07 Oct, 2016 Closed fracture of tooth, initial encounter S02.5XXA and Dental caries K02.9 [place] [address] [address] 07 Oct, 2016 Dental examination Z01.20 [place] [address] [address] Oct, Migraine with aura and without status migrainosus, not intractable G43.109 [place] [address] [address] Oct, [place] [address] [address] Sep, Fibromyalgia M79.7 [place] [address] [address] 08 Sep, 2016 Essential hypertension I10 and Anxiety disorder, unspecified F41.9 [place] [address] [address] Aug, Anxiety disorder, unspecified F41.9 [facility] [id number] [place] [address] Aug, Anxiety disorder, unspecified F41.9 and Essential hypertension I10 [facility] [id number] [place] [address] Jul, Fibromyalgia M79.7 [facility] [id number] [place] [address] Jul, Fibromyalgia M79.7 [place] [id number] [place] [address] June, Fibromyalgia M79.7 and Anxiety F41.9 [place] [id number] [place] [address] June, [place] [id number] [place] [address] June, Primary insomnia F51.01 [place] [id number] [place] [address] May, Migraine without aura and without status migrainosus, not intractable G43.009 ; Primary insomnia F51.01 ; Bronchitis J40 ; Anxiety disorder, unspecified F41.9 and Major depressive disorder, single episode, unspecified F32.9 [facility] [address] [place] [address] May, [facility] [address] [place] [address] May, Migraine with aura and without status migrainosus, not intractable G43.109 [facility] [id number] [place] [address] May, Essential hypertension I10 [facility] [address] [place] [address] Apr, Essential hypertension I10 ; Migraine without aura and without status migrainosus, not intractable G43.009 ; Anxiety disorder, unspecified F41.9 and Major depressive disorder, single episode, unspecified F32.9 [facility] [address] [facility] [id number] [place] [address] Mar, [facility] [address] [facility] [id number] [place] [id number] Feb, Dental examination Z01.20 IMMUNIZATIONS No Known [...]
--- OUTSIDE RECORDS SUMMARY | 2018-07-15 18:00 | XMS REPORT ---
Author Author SAPNA TIWARI Organization [facility] Address [address] [place] [address] Care Team Providers Care Systems Architecture Analyst Name Role Phone SAPNA TIWARI Unavailable PROBLEMS Type Condition ICD9-CM Code DLX26-DN Code Onset Dates Condition Status SNOMED Code Problem Essential hypertension I10 Active 32815568 Problem Primary insomnia F51.01 Active 5080308 Problem Major depressive disorder, single episode, unspecified F32.9 Active 06130047 Problem Migraine without aura and without status migrainosus, not intractable G43.009 Active 934115974 Problem Chronic post-traumatic stress disorder (PTSD) after combat F43.12 Active 256928427 Problem Asthma without acute exacerbation J45.909 Active 504674594 Problem Fibromyalgia M79.7 Active 158449434 Problem Anxiety F41.9 Active 46749745 Problem COPD with exacerbation J44.1 Active 197985201 Problem Other chronic pain G89.29 Active 51702195 ALLERGIES No Information ENCOUNTERS Encounter Location Date Diagnosis [facility] [id number] [place] [address] Nov, [facility] [id number] [place] [address] Oct, [facility] [address] [place] [address] Sep, [facility] [id number] [place] [address] Sep, Acute pain of right shoulder M25.511 [facility] [address] [place] [address] Sep, [facility] [address] [place] [address] Sep, [facility] [id number] [place] [address] Sep, Anxiety F41.9 [facility] [id number] [place] [address] Aug, [facility] [id number] [place] [address] Aug, Anxiety F41.9 [facility] [id number] [place] [address] Aug, Anxiety F41.9 [facility] [id number] [place] [address] Aug, Anxiety F41.9 [facility] [id number] [place] [address] Aug, Anxiety F41.9 [facility] [id number] [place] [address] Aug, [facility] [id number] [place] [address] Jul, [facility] [id number] [place] [address] Jul, Anxiety F41.9 [facility] [id number] [place] [address] Jul, Chest congestion R09.89 ; Coughing R05 and Wheezes R06.2 [facility] [id number] [place] [address] Jul, Major depressive disorder, single episode, unspecified F32.9 and Anxiety F41.9 [facility] [id number] [place] [address] June, Neuropathic pain M79.2 and Right elbow pain M25.521 [facility] [id number] [place] [address] June, [facility] [id number] [place] [address] June, Anxiety F41.9 [facility] [id number] [place] [address] June, Chronic post-traumatic stress disorder (PTSD) after combat F43.12 ; Major depressive disorder, single episode, unspecified F32.9 and Anxiety F41.9 [facility] [id number] [place] [address] May, [facility] [id number] [place] [address] May, Anxiety F41.9 [place] [id number] [place] [address] May, [facility] [id number] [place] [address] May, Acute pain of right shoulder M25.511 and Muscle strain of right shoulder, initial encounter S46.911A [facility] [id number] [place] [address] May, [place] [id number] [place] [address] May, Chronic post-traumatic stress disorder (PTSD) after combat F43.12 and Anxiety F41.9 [place] [address] [place] [address] Apr, Anxiety F41.9 and Asthma without acute exacerbation J45.909 [facility] [address] [place] [address] Apr, [facility] [id number] [place] [address] Mar, Anxiety F41.9 and Major depressive disorder, single episode, unspecified F32.9 [facility] [id number] [place] [address] Mar, Anxiety F41.9 [facility] [address] [place] [address] 16 Mar, 2017 [facility] [id number] [place] [address] 14 Mar, 2017 Major depressive disorder, single episode, unspecified F32.9 ; Anxiety F41.9 and Chronic post-traumatic stress disorder (PTSD) after combat F43.12 [facility] [id number] [place] [address] 06 Mar, 2017 Chronic post-traumatic stress disorder (PTSD) after combat F43.12 ; Major depressive disorder, single episode, unspecified F32.9 ; Anxiety F41.9 and Primary insomnia F51.01 [place] [id number] [place] [address] Feb, Anxiety F41.9 and Major depressive disorder, single episode, unspecified F32.9 [facility] [id number] [place] [address] Feb, Primary insomnia F51.01 and Anxiety F41.9 [facility] [id number] [place] [address] Feb, [facility] [address] [place] [address] Feb, Wheezes R06.2 and COPD with exacerbation J44.1 [facility] [id number] [place] [address] Feb, [facility] [id number] [place] [address] Jan, [facility] [id number] [place] [address] Dec, [facility] [id number] [place] [address] Dec, [facility] [address] [address] Dec, Dislocation of right shoulder joint, subsequent encounter S43.004D [place] [address] [address] Nov, [place] [address] [address] Nov, Lumbosacral neuritis M54.17 [facility] [address] [address] 28 Oct, 2016 Other chronic pain G89.29 and Pain in right shoulder M25.511 [place] [address] [address] 18 Oct, 2016 Essential hypertension I10 [place] [address] [address] Oct, [place] [address] [address] 07 Oct, 2016 Closed fracture of tooth, initial encounter S02.5XXA and Dental caries K02.9 [place] [address] [address] 07 Oct, 2016 Dental examination Z01.20 [place] [address] [address] Oct, Migraine with aura and without status migrainosus, not intractable G43.109 [place] [address] [address] Oct, [place] [address] [address] Sep, Fibromyalgia M79.7 [place] [address] [address] 08 Sep, 2016 Essential hypertension I10 and Anxiety disorder, unspecified F41.9 [place] [address] [address] Aug, Anxiety disorder, unspecified F41.9 [facility] [id number] [place] [address] Aug, Anxiety disorder, unspecified F41.9 and Essential hypertension I10 [facility] [id number] [place] [address] Jul, Fibromyalgia M79.7 [facility] [address] [address] Jul, Fibromyalgia M79.7 [place] [id number] [place] [address] June, Fibromyalgia M79.7 and Anxiety F41.9 [place] [id number] [place] [address] June, [facility] [id number] [place] [address] June, Primary insomnia F51.01 [facility] [id number] [place] [address] May, Migraine without aura and without status migrainosus, not intractable G43.009 ; Primary insomnia F51.01 ; Bronchitis J40 ; Anxiety disorder, unspecified F41.9 and Major depressive disorder, single episode, unspecified F32.9 [facility] [address] [place] [address] May, [facility] [id number] [place] [address] May, Migraine with aura and without status migrainosus, not intractable G43.109 [facility] [id number] [place] [address] May, Essential hypertension I10 [facility] [id number] [place] [address] Apr, Essential hypertension I10 ; Migraine without aura and without status migrainosus, not intractable G43.009 ; Anxiety disorder, unspecified F41.9 and Major depressive disorder, single episode, unspecified F32.9 [facility] [address] [facility] [id number] [address] Mar, [facility] [address] [facility] [id number] [place] [id number] Feb, Dental examination Z01.20 IMMUNIZATIONS No Known Immunizations SOCIAL HISTORY Never Assessed REASON FOR VISIT f/u PLAN OF CARE Activity Details Follow Up 2 Weeks Reason: F/U VITAL SIGNS MEDICATIONS Unknown Medications RESULTS No Results PROCEDURES Procedure Date Ordered Result Body Site Psychotherapy, patient &/family, 60 minutes, established patient May 11, 2017 INSTRUCTIONS MEDICATIONS ADMINISTERED No Known Medications MEDICAL (GENERAL) HISTORY Type Description Date Medical History Hypertension Medical History Asthma Medical History depression Medical History anxiety Medical History Migraines Medical History insomnia Surgical History right shoulder surgery 2017 Hospitalization History migraines 2016 Hospitalization History ulcer 2010
--- OUTSIDE RECORDS SUMMARY | 2018-07-15 18:00 | XMS REPORT ---
Author Author SHELBIE YEAGER Organization [facility] Address [address] [place] [address] Care Team Providers Care Operations Controller Name Role Phone SHELBIE YEAGER Unavailable PROBLEMS Type Condition ICD9-CM Code [id number] Code Onset Dates Condition Status SNOMED Code Problem Essential hypertension I10 Active 73915686 Problem Primary insomnia F51.01 Active 3069214 Problem Major depressive disorder, single episode, unspecified F32.9 Active 23832762 Problem Migraine without aura and without status migrainosus, not intractable G43.009 Active 107665812 Problem Chronic post-traumatic stress disorder (PTSD) after combat F43.12 Active 791704567 Problem Asthma without acute exacerbation J45.909 Active 059707733 Problem Fibromyalgia M79.7 Active 497322549 Problem Anxiety F41.9 Active 36359354 Problem COPD with exacerbation J44.1 Active 638038540 Problem Other chronic pain G89.29 Active 50839642 ALLERGIES Substance Reaction Event Type Date Status Compazine hives Drug Allergy June, Active sea food anaphylaxis Non Drug Allergy June, Active ENCOUNTERS Encounter Location Date Diagnosis [facility] [id number] [address] Nov, [facility] [id number] [address] Oct, Anxiety F41.9 [facility] [id number] [address] Oct, [facility] [address] [place] [address] Sep, [facility] [id number] [address] Sep, Acute pain of right shoulder M25.511 [facility] [address] [place] [address] Sep, [address] [address] [address] [place] [address] Sep, [facility] [id number] [place] [address] Sep, Anxiety F41.9 [facility] [id number] [place] [address] Aug, [facility] [id number] [place] [address] Aug, Anxiety F41.9 [facility] [id number] [place] [address] Aug, Anxiety F41.9 [facility] [id number] [place] [address] Aug, Anxiety F41.9 [facility] [id number] [place] [address] Aug, Anxiety F41.9 [facility] [id number] [place] [address] Aug, [facility] [id number] [place] [address] Jul, [facility] [id number] [place] [address] Jul, Anxiety F41.9 [facility] [id number] [place] [address] Jul, Chest congestion R09.89 ; Coughing R05 and Wheezes R06.2 [facility] [id number] [place] [address] Jul, Major depressive disorder, single episode, unspecified F32.9 and Anxiety F41.9 [facility] [id number] [place] [address] June, Neuropathic pain M79.2 and Right elbow pain M25.521 [facility] [id number] [place] [address] June, [facility] [id number] [place] [address] June, Anxiety F41.9 [facility] [id number] [place] [address] June, Chronic post-traumatic stress disorder (PTSD) after combat F43.12 ; Major depressive disorder, single episode, unspecified F32.9 and Anxiety F41.9 [place] [id number] [place] [address] May, [facility] [id number] [place] [address] May, Anxiety F41.9 [place] [address] [address] May, [facility] [id number] [place] [address] May, Acute pain of right shoulder M25.511 and Muscle strain of right shoulder, initial encounter S46.911A [facility] [id number] [place] [address] May, [facility] [id number] [place] [address] May, Chronic post-traumatic stress disorder (PTSD) after combat F43.12 and Anxiety F41.9 [facility] [id number] [place] [address] Apr, Anxiety F41.9 and Asthma without acute exacerbation J45.909 [facility] [id number] [place] [address] Apr, [facility] [id number] [place] [address] Mar, Anxiety F41.9 and Major depressive disorder, single episode, unspecified F32.9 [facility] [id number] [place] [address] 27 Mar, 2017 Anxiety F41.9 [facility] [id number] [place] [address] 16 Mar, 2017 [facility] [id number] [place] [address] 14 Mar, 2017 Major depressive disorder, single episode, unspecified F32.9 ; Anxiety F41.9 and Chronic post-traumatic stress disorder (PTSD) after combat F43.12 [place] [id number] [place] [address] 06 Mar, 2017 Chronic post-traumatic stress disorder (PTSD) after combat F43.12 ; Major depressive disorder, single episode, unspecified F32.9 ; Anxiety F41.9 and Primary insomnia F51.01 [place] [id number] [place] [address] Feb, Anxiety F41.9 and Major depressive disorder, single episode, unspecified F32.9 [place] [id number] [place] [address] Feb, Primary insomnia F51.01 and Anxiety F41.9 [facility] [id number] [place] [address] Feb, [facility] [id number] [place] [address] Feb, Wheezes R06.2 and COPD with exacerbation J44.1 [facility] [id number] [place] [address] Feb, [facility] [id number] [place] [address] Jan, [facility] [address] [address] Dec, [facility] [address] [address] Dec, [place] [address] [address] Dec, Dislocation of right shoulder joint, subsequent encounter S43.004D [place] [address] [address] Nov, [place] [address] [address] Nov, Lumbosacral neuritis M54.17 [facility] [address] [address] Oct, Other chronic pain G89.29 and Pain in right shoulder M25.511 [place] [address] [address] 18 Oct, 2016 Essential hypertension I10 [place] [address] [address] 11 Oct, 2016 [place] [address] [address] 07 Oct, 2016 Closed fracture of tooth, initial encounter S02.5XXA and Dental caries K02.9 [place] [address] [address] 07 Oct, 2016 Dental examination Z01.20 [place] [address] [address] Oct, Migraine with aura and without status migrainosus, not intractable G43.109 [place] [address] [address] Oct, [place] [address] [address] Sep, Fibromyalgia M79.7 [place] [id number] [place] [address] Sep, Essential hypertension I10 and Anxiety disorder, unspecified F41.9 [place] [address] [address] Aug, Anxiety disorder, unspecified F41.9 [place] [address] [address] Aug, Anxiety disorder, unspecified F41.9 and Essential hypertension I10 [place] [id number] [place] [address] Jul, Fibromyalgia M79.7 [place] [address] [address] Jul, Fibromyalgia M79.7 [place] [address] [address] June, Fibromyalgia M79.7 and Anxiety F41.9 [place] [id number] [place] [address] June, [place] [address] [address] June, Primary insomnia F51.01 [place] [id number] [place] [address] May, Migraine without aura and without status migrainosus, not intractable G43.009 ; Primary insomnia F51.01 ; Bronchitis J40 ; Anxiety disorder, unspecified F41.9 and Major depressive disorder, single episode, unspecified F32.9 [facility] [id number] [place] [address] May, [facility] [id number] [place] [address] May, Migraine with aura and without status migrainosus, not intractable G43.109 [facility] [address] [address] May, Essential hypertension I10 [facility] [address] [facility] [id number] [address] Apr, Essential hypertension I10 ; Migraine without aura and without status migrainosus, not intractable G43.009 ; Anxiety disorder, unspecified F41.9 and Major depressive disorder, single episode, unspecified F32.9 [facility] [address] [facility] [id number] [address] Mar, [facility] [address] [facility] [id number] [id number] Feb, Dental examination Z01.20 IMMUNIZATIONS No Known Immunizations SOCIAL HISTORY Never Assessed REASON FOR VISIT Shoulder pain --tcHua, Pt re-injured right shoulder since having surgery in December. reinjured about [address] Pennington a month ago and was told had possibly injured elbow. Having nerve conduction study done next month PLAN OF CARE Activity Details Follow Up prn Reason: VITAL SIGNS Height 66.5 in 2017-07-09 Weight 138.9 lbs 2017-07-09 Temperature 98.3 degrees Fahrenheit 2017-07-09 Heart Rate 88 bpm 2017-07-09 Respiratory Rate 20 2017-07-09 BMI 22.08 kg/m2 2017-07-09 Blood pressure systolic 124 mmHg 2017-07-09 Blood pressure diastolic 82 mmHg 2017-07-09 MEDICATIONS Medication Instructions Dosage Frequency Start Date End Date Duration Status Omeprazole 40 MG TAKE ONE CAPSULE BY MOUTH TWICE DAILY 30 Active Propranolol HCl 60 MG TAKE ONE TABLET BY MOUTH TWICE DAILY 30 Active BusPIRone HCl 10 MG Orally TID PRN 1.5 tablets May, Active Ibuprofen 800 MG TAKE ONE TABLET BY MOUTH THREE TIMES DAILY 30 Not-Taking Imitrex 25 MG Orally Twice a day (MAX 2 DAILY) 1 tablet as needed at onset of headache and then 1 more tab 2 hours later if no improvement Apr, Not-Taking Seroquel 200 mg TAKE ONE-HALF TABLET BY MOUTH ONCE DAILY FOR 7 DAYS THEN INCREASE TO ONE TABLET DAILY THEREAFTER 30 Not-Taking Ensure - Orally 2 times a day 12h Not-Taking Multivitamin Men - Active Seroquel 400 MG Orally Once a day 1 tablet 24h 30 days Active Budesonide 180 MCG/ACT Inhalation Twice a day 1 puff 12h 15 Jan, 2017 30 days Not-Taking Ojcqvcmhqd-QVAX-Ohnggnit 50-325-40 MG Orally every 4 hrs 1 tablet as needed 4h 13 May, 2016 Not-Taking Zocor Not-Taking Klonopin 0.5 MG Orally TID PRN 1 tablet Feb, 28 days Active Paxil 20 mg Orally 2 times a day 1 tablet 12h 30 Active ibuprofen Not-Taking Cyclobenzaprine HCl 10 mg Orally 2 times a day 1 tablet as needed 12h 30 Active Ventolin HFA 108 (90 Base) MCG/ACT Inhalation 4 times a day 2 puffs as needed 6h Active Gabapentin 100 MG Orally 3 times a day 3 capsules 8h Active Albuterol Sulfate (2.5 MG/3ML) 0.083% USE ONE VIAL IN NEBULIZER EVERY 6 HOURS 25 Active [place] 5-325 MG Orally 2 times a day 1 tablet as needed 12h June, 14 Jul, 2017 14 days Active RESULTS No Results PROCEDURES No Known procedures INSTRUCTIONS MEDICATIONS ADMINISTERED No Known Medications MEDICAL (GENERAL) HISTORY Type Description Date Medical History Hypertension Medical History Asthma Medical History depression Medical History anxiety Medical History Migraines Medical History insomnia Surgical History right shoulder surgery 2017 Hospitalization History migraines 2016 Hospitalization History ulcer 2010
--- OUTSIDE RECORDS SUMMARY | 2018-07-15 18:01 | XMS REPORT ---
Author Author SHELBIE YEAGER Organization [facility] Address [address] [place] [address] Care Team Providers Care Network Administrator Name Role Phone SHELBIE YEAGER Unavailable PROBLEMS Type Condition ICD9-CM Code [id number] Code Onset Dates Condition Status SNOMED Code Problem Essential hypertension I10 Active 64411591 Problem Primary insomnia F51.01 Active 2454043 Problem Major depressive disorder, single episode, unspecified F32.9 Active 94359869 Problem Migraine without aura and without status migrainosus, not intractable G43.009 Active 864669742 Problem Chronic post-traumatic stress disorder (PTSD) after combat F43.12 Active 260842830 Problem Asthma without acute exacerbation J45.909 Active 657114323 Problem Fibromyalgia M79.7 Active 490905888 Problem Anxiety F41.9 Active 18778222 Problem COPD with exacerbation J44.1 Active 876478655 Problem Other chronic pain G89.29 Active 58498212 ALLERGIES No Information ENCOUNTERS Encounter Location Date Diagnosis [facility] [address] [place] [address] Oct, [facility] [address] [place] [address] Oct, [facility] [address] [address] Sep, [facility] [id number] [place] [address] Sep, Acute pain of right shoulder M25.511 [facility] [address] [address] Sep, [facility] [address] [place] [address] Sep, [facility] [id number] [place] [address] Sep, Anxiety F41.9 [facility] [id number] [address] Aug, [facility] [id number] [address] Aug, Anxiety F41.9 [facility] [id number] [place] [address] Aug, Anxiety F41.9 [facility] [id number] [address] Aug, Anxiety F41.9 [facility] [id number] [address] Aug, Anxiety F41.9 [facility] [id number] [address] Aug, [facility] [id number] [address] Jul, [facility] [id number] [address] Jul, Anxiety F41.9 [facility] [id number] [address] Jul, Chest congestion R09.89 ; Coughing R05 and Wheezes R06.2 [facility] [address] [address] Jul, Major depressive disorder, single episode, unspecified F32.9 and Anxiety F41.9 [facility] [id number] [address] June, Neuropathic pain M79.2 and Right elbow pain M25.521 [facility] [id number] [address] June, [facility] [id number] [address] June, Anxiety F41.9 [facility] [id number] [address] June, Chronic post-traumatic stress disorder (PTSD) after combat F43.12 ; Major depressive disorder, single episode, unspecified F32.9 and Anxiety F41.9 [facility] [id number] [place] [address] May, [facility] [id number] [address] May, Anxiety F41.9 [place] [id number] [address] May, [facility] [id number] [address] May, Acute pain of right shoulder M25.511 and Muscle strain of right shoulder, initial encounter S46.911A [facility] [id number] [address] May, [place] [id number] [address] May, Chronic post-traumatic stress disorder (PTSD) after combat F43.12 and Anxiety F41.9 [place] [id number] [address] Apr, Anxiety F41.9 and Asthma without acute exacerbation J45.909 [facility] [address] [address] Apr, [facility] [id number] [address] Mar, Anxiety F41.9 and Major depressive disorder, single episode, unspecified F32.9 [facility] [id number] [address] Mar, Anxiety F41.9 [facility] [address] [address] 16 Mar, 2017 [facility] [id number] [address] 14 Mar, 2017 Major depressive disorder, single episode, unspecified F32.9 ; Anxiety F41.9 and Chronic post-traumatic stress disorder (PTSD) after combat F43.12 [facility] [id number] [address] 06 Mar, 2017 Chronic post-traumatic stress disorder (PTSD) after combat F43.12 ; Major depressive disorder, single episode, unspecified F32.9 ; Anxiety F41.9 and Primary insomnia F51.01 [facility] [id number] [address] Feb, Anxiety F41.9 and Major depressive disorder, single episode, unspecified F32.9 [facility] [id number] [address] Feb, Primary insomnia F51.01 and Anxiety F41.9 [facility] [id number] [address] Feb, [facility] [id number] [address] Feb, Wheezes R06.2 and COPD with exacerbation J44.1 [facility] [id number] [address] Feb, [facility] [id number] [address] Jan, [facility] [id number] [address] Dec, [facility] [id number] [address] Dec, [facility] [address] [address] Dec, Dislocation of right shoulder joint, subsequent encounter S43.004D [place] [address] [address] Nov, [place] [address] [address] Nov, Lumbosacral neuritis M54.17 [facility] [address] [address] 28 Oct, 2016 Other chronic pain G89.29 and Pain in right shoulder M25.511 [place] [address] [address] 18 Oct, 2016 Essential hypertension I10 [place] [address] [address] Oct, [place] [address] [address] 07 Oct, 2016 Closed fracture of tooth, initial encounter S02.5XXA and Dental caries K02.9 [place] [address] [address] 07 Oct, 2016 Dental examination Z01.20 [place] [address] [address] Oct, Migraine with aura and without status migrainosus, not intractable G43.109 [place] [address] [address] Oct, [place] [address] [address] Sep, Fibromyalgia M79.7 [place] [address] [address] 08 Sep, 2016 Essential hypertension I10 and Anxiety disorder, unspecified F41.9 [place] [address] [address] Aug, Anxiety disorder, unspecified F41.9 [facility] [id number] [address] Aug, Anxiety disorder, unspecified F41.9 and Essential hypertension I10 [facility] [id number] [address] Jul, Fibromyalgia M79.7 [facility] [id number] [address] Jul, Fibromyalgia M79.7 [place] [id number] [address] June, Fibromyalgia M79.7 and Anxiety F41.9 [place] [id number] [address] June, [place] [id number] [address] June, Primary insomnia F51.01 [place] [id number] [address] May, Migraine without aura and without status migrainosus, not intractable G43.009 ; Primary insomnia F51.01 ; Bronchitis J40 ; Anxiety disorder, unspecified F41.9 and Major depressive disorder, single episode, unspecified F32.9 [facility] [id number] [place] [id number] May, [facility] [id number] [place] [phone] May, Migraine with aura and without status migrainosus, not intractable G43.109 [facility] [address] [place] [id number] [place] [id number] May, Essential hypertension I10 [facility] [id number] [place] [id number] Apr, Essential hypertension I10 ; Migraine without aura and without status migrainosus, not intractable G43.009 ; Anxiety disorder, unspecified F41.9 and Major depressive disorder, single episode, unspecified F32.9 [facility] [address] [facility] [id number] [place] [address] Mar, [facility] [address] [facility] [id number] [id number] Feb, Dental examination Z01.20 IMMUNIZATIONS No Known [...]
--- OUTSIDE RECORDS SUMMARY | 2018-07-15 18:01 | XMS REPORT ---
Author Author SHELBIE YEAGER Organization [facility] Address [address] [place] [address] Care Team Providers Care Chief Customer Officer Name Role Phone SHELBIE YEAGER Unavailable PROBLEMS Type Condition ICD9-CM Code UPG03-MM Code Onset Dates Condition Status SNOMED Code Problem Essential hypertension I10 Active 32039040 Problem Primary insomnia F51.01 Active 5089532 Problem Major depressive disorder, single episode, unspecified F32.9 Active 84046674 Problem Migraine without aura and without status migrainosus, not intractable G43.009 Active 369192842 Problem Chronic post-traumatic stress disorder (PTSD) after combat F43.12 Active 838772263 Problem Asthma without acute exacerbation J45.909 Active 523119221 Problem Fibromyalgia M79.7 Active 860334026 Problem Anxiety F41.9 Active 17520151 Problem COPD with exacerbation J44.1 Active 496849580 Problem Other chronic pain G89.29 Active 10386446 ALLERGIES No Information ENCOUNTERS Encounter Location Date Diagnosis [facility] [id number] [place] [address] Oct, [facility] [id number] [place] [address] Oct, [facility] [id number] [place] [address] Sep, [facility] [id number] [place] [address] Sep, Acute pain of right shoulder M25.511 [facility] [id number] [place] [address] Sep, [facility] [address] [place] [address] Sep, [facility] [id number] [place] [address] Sep, Anxiety F41.9 [facility] [id number] [place] [address] Aug, [facility] [id number] [place] [address] Aug, Anxiety F41.9 [facility] [id number] [place] [address] Aug, Anxiety F41.9 [facility] [id number] [place] [address] Aug, Anxiety F41.9 [facility] [id number] [place] [address] Aug, Anxiety F41.9 [facility] [id number] [place] [address] Aug, [facility] [id number] [place] [address] Jul, [facility] [id number] [place] [address] Jul, Anxiety F41.9 [facility] [id number] [place] [address] Jul, Chest congestion R09.89 ; Coughing R05 and Wheezes R06.2 [facility] [address] [place] [address] Jul, Major depressive disorder, single episode, unspecified F32.9 and Anxiety F41.9 [facility] [id number] [place] [address] June, Neuropathic pain M79.2 and Right elbow pain M25.521 [facility] [id number] [place] [address] June, [facility] [id number] [place] [address] June, Anxiety F41.9 [facility] [id number] [place] [address] June, Chronic post-traumatic stress disorder (PTSD) after combat F43.12 ; Major depressive disorder, single episode, unspecified F32.9 and Anxiety F41.9 [facility] [id number] [place] [address] May, [facility] [id number] [place] [address] May, Anxiety F41.9 [place] [id number] [place] [address] May, [facility] [id number] [place] [address] May, Acute pain of right shoulder M25.511 and Muscle strain of right shoulder, initial encounter S46.911A [facility] [id number] [place] [address] May, [place] [id number] [place] [address] May, Chronic post-traumatic stress disorder (PTSD) after combat F43.12 and Anxiety F41.9 [place] [id number] [place] [address] Apr, Anxiety F41.9 and Asthma without acute exacerbation J45.909 [facility] [address] [place] [address] Apr, [facility] [id number] [place] [address] Mar, Anxiety F41.9 and Major depressive disorder, single episode, unspecified F32.9 [facility] [id number] [place] [address] Mar, Anxiety F41.9 [facility] [address] [place] [address] 16 Mar, 2017 [facility] [id number] [place] [address] 14 Mar, 2017 Major depressive disorder, single episode, unspecified F32.9 ; Anxiety F41.9 and Chronic post-traumatic stress disorder (PTSD) after combat F43.12 [facility] [id number] [place] [address] 06 Mar, 2017 Chronic post-traumatic stress disorder (PTSD) after combat F43.12 ; Major depressive disorder, single episode, unspecified F32.9 ; Anxiety F41.9 and Primary insomnia F51.01 [facility] [id number] [place] [address] Feb, Anxiety F41.9 and Major depressive disorder, single episode, unspecified F32.9 [facility] [id number] [place] [address] Feb, Primary insomnia F51.01 and Anxiety F41.9 [facility] [id number] [place] [address] Feb, [facility] [id number] [place] [address] Feb, Wheezes R06.2 and COPD with exacerbation J44.1 [facility] [id number] [place] [address] Feb, [facility] [id number] [place] [address] Jan, [facility] [id number] [place] [address] Dec, [facility] [id number] [place] [address] Dec, [facility] [address] [address] Dec, Dislocation of right shoulder joint, subsequent encounter S43.004D [place] [address] [address] Nov, [place] [address] [address] Nov, Lumbosacral neuritis M54.17 [facility] [address] [address] 28 Oct, 2016 Other chronic pain G89.29 and Pain in right shoulder M25.511 [place] [address] [address] 18 Oct, 2016 Essential hypertension I10 [place] [address] [address] Oct, [place] [address] [address] 07 Oct, 2016 Closed fracture of tooth, initial encounter S02.5XXA and Dental caries K02.9 [place] [address] [address] 07 Oct, 2016 Dental examination Z01.20 [place] [address] [address] Oct, Migraine with aura and without status migrainosus, not intractable G43.109 [place] [address] [address] Oct, [place] [address] [address] Sep, Fibromyalgia M79.7 [place] [address] [address] 08 Sep, 2016 Essential hypertension I10 and Anxiety disorder, unspecified F41.9 [place] [address] [address] Aug, Anxiety disorder, unspecified F41.9 [facility] [id number] [place] [address] Aug, Anxiety disorder, unspecified F41.9 and Essential hypertension I10 [facility] [id number] [place] [address] Jul, Fibromyalgia M79.7 [facility] [id number] [place] [address] Jul, Fibromyalgia M79.7 [place] [id number] [place] [address] June, Fibromyalgia M79.7 and Anxiety F41.9 [place] [id number] [place] [address] June, [place] [id number] [place] [address] June, Primary insomnia F51.01 [place] [id number] [place] [address] May, Migraine without aura and without status migrainosus, not intractable G43.009 ; Primary insomnia F51.01 ; Bronchitis J40 ; Anxiety disorder, unspecified F41.9 and Major depressive disorder, single episode, unspecified F32.9 [facility] [id number] [place] [address] May, [facility] [address] [place] [address] May, Migraine with aura and without status migrainosus, not intractable G43.109 [facility] [id number] [place] [address] May, Essential hypertension I10 [facility] [address] [place] [address] Apr, Essential hypertension I10 ; Migraine without aura and without status migrainosus, not intractable G43.009 ; Anxiety disorder, unspecified F41.9 and Major depressive disorder, single episode, unspecified F32.9 [facility] [address] [facility] [id number] [address] Mar, [facility] [address] [facility] [id number] [id number] Feb, Dental examination Z01.20 IMMUNIZATIONS No Known [...]
--- OUTSIDE RECORDS SUMMARY | 2018-07-15 18:01 | XMS REPORT ---
Author Author SHELBIE YEAGER Organization [facility] Address [address] [place] [address] Care Team Providers Care Lead Bi Developer Name Role Phone SHELBIE YEAGER Unavailable PROBLEMS Type Condition ICD9-CM Code DIY47-GK Code Onset Dates Condition Status SNOMED Code Problem Essential hypertension I10 Active 38398239 Problem Primary insomnia F51.01 Active 6399595 Problem Major depressive disorder, single episode, unspecified F32.9 Active 63328778 Problem Migraine without aura and without status migrainosus, not intractable G43.009 Active 458766587 Problem Chronic post-traumatic stress disorder (PTSD) after combat F43.12 Active 463859948 Problem Asthma without acute exacerbation J45.909 Active 808525686 Problem Fibromyalgia M79.7 Active 661706140 Problem Anxiety F41.9 Active 98626021 Problem COPD with exacerbation J44.1 Active 343505264 Problem Other chronic pain G89.29 Active 97121136 ALLERGIES No Information ENCOUNTERS Encounter Location Date Diagnosis [facility] [id number] [place] [address] Oct, [facility] [address] [place] [address] Oct, [facility] [address] [place] [address] Sep, [facility] [id number] [place] [address] Sep, Acute pain of right shoulder M25.511 [facility] [address] [place] [address] Sep, [facility] [address] [place] [address] Sep, [facility] [id number] [place] [address] Sep, Anxiety F41.9 [facility] [id number] [place] [address] Aug, [facility] [id number] [place] [address] Aug, Anxiety F41.9 [facility] [id number] [place] [address] Aug, Anxiety F41.9 [facility] [id number] [place] [address] Aug, Anxiety F41.9 [facility] [id number] [place] [address] Aug, Anxiety F41.9 [facility] [id number] [place] [address] Aug, [facility] [id number] [place] [address] Jul, [facility] [id number] [place] [address] Jul, Anxiety F41.9 [facility] [id number] [place] [address] Jul, Chest congestion R09.89 ; Coughing R05 and Wheezes R06.2 [facility] [address] [place] [address] Jul, Major depressive disorder, single episode, unspecified F32.9 and Anxiety F41.9 [facility] [id number] [place] [address] June, Neuropathic pain M79.2 and Right elbow pain M25.521 [facility] [id number] [place] [address] June, [facility] [id number] [place] [address] June, Anxiety F41.9 [facility] [id number] [place] [address] June, Chronic post-traumatic stress disorder (PTSD) after combat F43.12 ; Major depressive disorder, single episode, unspecified F32.9 and Anxiety F41.9 [facility] [id number] [place] [address] May, [facility] [id number] [place] [address] May, Anxiety F41.9 [place] [id number] [place] [address] May, [facility] [id number] [place] [address] May, Acute pain of right shoulder M25.511 and Muscle strain of right shoulder, initial encounter S46.911A [facility] [id number] [place] [address] May, [place] [id number] [place] [address] May, Chronic post-traumatic stress disorder (PTSD) after combat F43.12 and Anxiety F41.9 [place] [id number] [place] [address] Apr, Anxiety F41.9 and Asthma without acute exacerbation J45.909 [facility] [address] [place] [address] Apr, [facility] [id number] [place] [address] Mar, Anxiety F41.9 and Major depressive disorder, single episode, unspecified F32.9 [facility] [id number] [place] [address] Mar, Anxiety F41.9 [facility] [address] [place] [address] 16 Mar, 2017 [facility] [id number] [place] [address] 14 Mar, 2017 Major depressive disorder, single episode, unspecified F32.9 ; Anxiety F41.9 and Chronic post-traumatic stress disorder (PTSD) after combat F43.12 [facility] [id number] [place] [address] 06 Mar, 2017 Chronic post-traumatic stress disorder (PTSD) after combat F43.12 ; Major depressive disorder, single episode, unspecified F32.9 ; Anxiety F41.9 and Primary insomnia F51.01 [facility] [id number] [place] [address] Feb, Anxiety F41.9 and Major depressive disorder, single episode, unspecified F32.9 [facility] [id number] [place] [address] Feb, Primary insomnia F51.01 and Anxiety F41.9 [facility] [id number] [place] [address] Feb, [facility] [id number] [place] [address] Feb, Wheezes R06.2 and COPD with exacerbation J44.1 [facility] [id number] [place] [address] Feb, [facility] [id number] [place] [address] Jan, [facility] [id number] [place] [address] Dec, [facility] [id number] [place] [address] Dec, [facility] [address] [address] Dec, Dislocation of right shoulder joint, subsequent encounter S43.004D [place] [address] [address] Nov, [place] [address] [address] Nov, Lumbosacral neuritis M54.17 [facility] [address] [address] 28 Oct, 2016 Other chronic pain G89.29 and Pain in right shoulder M25.511 [place] [address] [address] 18 Oct, 2016 Essential hypertension I10 [place] [address] [address] Oct, [place] [address] [address] 07 Oct, 2016 Closed fracture of tooth, initial encounter S02.5XXA and Dental caries K02.9 [place] [address] [address] 07 Oct, 2016 Dental examination Z01.20 [place] [address] [address] Oct, Migraine with aura and without status migrainosus, not intractable G43.109 [place] [address] [address] Oct, [place] [address] [address] Sep, Fibromyalgia M79.7 [place] [address] [address] 08 Sep, 2016 Essential hypertension I10 and Anxiety disorder, unspecified F41.9 [place] [address] [address] Aug, Anxiety disorder, unspecified F41.9 [facility] [id number] [place] [address] Aug, Anxiety disorder, unspecified F41.9 and Essential hypertension I10 [facility] [id number] [place] [address] Jul, Fibromyalgia M79.7 [facility] [id number] [place] [address] Jul, Fibromyalgia M79.7 [place] [id number] [place] [address] June, Fibromyalgia M79.7 and Anxiety F41.9 [place] [id number] [place] [address] June, [place] [id number] [place] [address] June, Primary insomnia F51.01 [place] [id number] [place] [address] May, Migraine without aura and without status migrainosus, not intractable G43.009 ; Primary insomnia F51.01 ; Bronchitis J40 ; Anxiety disorder, unspecified F41.9 and Major depressive disorder, single episode, unspecified F32.9 [facility] [address] [place] [address] May, [facility] [address] [place] [address] May, Migraine with aura and without status migrainosus, not intractable G43.109 [facility] [address] [id number] [place] [address] May, Essential hypertension I10 [facility] [address] [place] [address] Apr, Essential hypertension I10 ; Migraine without aura and without status migrainosus, not intractable G43.009 ; Anxiety disorder, unspecified F41.9 and Major depressive disorder, single episode, unspecified F32.9 [facility] [address] [facility] [id number] [place] [address] Mar, [facility] [address] [facility] [id number] [id number] Feb, Dental examination Z01.20 IMMUNIZATIONS No Known Immunizations SOCIAL HISTORY Never Assessed REASON FOR VISIT Controlled Medication Refill PLAN OF CARE VITAL SIGNS MEDICATIONS Medication Instructions Dosage Frequency Start Date End Date Duration Status Klonopin 1 MG Orally TID PRN 0.5 tabley Feb, 28 days Active RESULTS No Results PROCEDURES No Known procedures INSTRUCTIONS MEDICATIONS ADMINISTERED No Known Medications MEDICAL (GENERAL) HISTORY Type Description Date Medical History Hypertension Medical History Asthma Medical History depression Medical History anxiety Medical History Migraines Medical History insomnia Surgical History right shoulder surgery 2017 Hospitalization History migraines 2016 Hospitalization History ulcer 2010
--- OUTSIDE RECORDS SUMMARY | 2018-07-15 18:02 | XMS REPORT ---
Author Author SAPNA TIWARI Organization [facility] Address [address] [place] [address] Care Team Providers Care Supervisor Telephone Answering Service Name Role Phone SAPNA TIWARI Unavailable PROBLEMS Type Condition ICD9-CM Code [id number] Code Onset Dates Condition Status SNOMED Code Problem Essential hypertension I10 Active 25627744 Problem Primary insomnia F51.01 Active 4774101 Problem Major depressive disorder, single episode, unspecified F32.9 Active 83132647 Problem Migraine without aura and without status migrainosus, not intractable G43.009 Active 120078030 Problem Chronic post-traumatic stress disorder (PTSD) after combat F43.12 Active 800545245 Problem Asthma without acute exacerbation J45.909 Active 800917202 Problem Fibromyalgia M79.7 Active 408155658 Problem Anxiety F41.9 Active 98399124 Problem COPD with exacerbation J44.1 Active 993471984 Problem Other chronic pain G89.29 Active 99092875 ALLERGIES No Information ENCOUNTERS Encounter Location Date Diagnosis [facility] [address] [place] [address] Oct, [facility] [address] [place] [address] Oct, [facility] [address] [place] [address] Sep, [facility] [id number] [place] [address] Sep, Acute pain of right shoulder M25.511 [facility] [address] [place] [address] Sep, [facility] [address] [place] [address] Sep, [facility] [id number] [place] [address] Sep, Anxiety F41.9 [facility] [id number] [place] [address] Aug, [facility] [id number] [place] [address] Aug, Anxiety F41.9 [facility] [id number] [place] [address] Aug, Anxiety F41.9 [facility] [id number] [place] [address] Aug, Anxiety F41.9 [facility] [id number] [place] [address] Aug, Anxiety F41.9 [facility] [id number] [place] [address] Aug, [facility] [id number] [place] [address] Jul, [facility] [id number] [place] [address] Jul, Anxiety F41.9 [facility] [id number] [place] [address] Jul, Chest congestion R09.89 ; Coughing R05 and Wheezes R06.2 [facility] [id number] [place] [address] Jul, Major depressive disorder, single episode, unspecified F32.9 and Anxiety F41.9 [facility] [id number] [place] [address] June, Neuropathic pain M79.2 and Right elbow pain M25.521 [facility] [id number] [place] [address] June, [facility] [id number] [place] [address] June, Anxiety F41.9 [facility] [id number] [place] [address] June, Chronic post-traumatic stress disorder (PTSD) after combat F43.12 ; Major depressive disorder, single episode, unspecified F32.9 and Anxiety F41.9 [facility] [id number] [place] [address] May, [facility] [id number] [place] [address] May, Anxiety F41.9 [facility] [id number] [place] [address] May, [facility] [address] [place] [address] May, Acute pain of right shoulder M25.511 and Muscle strain of right shoulder, initial encounter S46.911A [facility] [id number] [place] [address] May, [facility] [id number] [place] [address] May, Chronic post-traumatic stress disorder (PTSD) after combat F43.12 and Anxiety F41.9 [facility] [address] [place] [address] Apr, Anxiety F41.9 and Asthma without acute exacerbation J45.909 [facility] [address] [place] [address] Apr, [facility] [id number] [place] [address] Mar, Anxiety F41.9 and Major depressive disorder, single episode, unspecified F32.9 [facility] [id number] [place] [address] Mar, Anxiety F41.9 [facility] [address] [place] [address] 16 Mar, 2017 [facility] [id number] [place] [address] 14 Mar, 2017 Major depressive disorder, single episode, unspecified F32.9 ; Anxiety F41.9 and Chronic post-traumatic stress disorder (PTSD) after combat F43.12 [facility] [id number] [place] [address] 06 Mar, 2017 Chronic post-traumatic stress disorder (PTSD) after combat F43.12 ; Major depressive disorder, single episode, unspecified F32.9 ; Anxiety F41.9 and Primary insomnia F51.01 [facility] [id number] [place] [address] Feb, Anxiety F41.9 and Major depressive disorder, single episode, unspecified F32.9 [facility] [id number] [place] [address] Feb, Primary insomnia F51.01 and Anxiety F41.9 [facility] [id number] [place] [address] Feb, [facility] [address] [place] [address] Feb, Wheezes R06.2 and COPD with exacerbation J44.1 [facility] [id number] [place] [address] Feb, [facility] [id number] [place] [address] Jan, [facility] [id number] [place] [address] Dec, [facility] [id number] [place] [address] Dec, [facility] [address] [address] Dec, Dislocation of right shoulder joint, subsequent encounter S43.004D [place] [address] [address] Nov, [place] [address] [address] Nov, Lumbosacral neuritis M54.17 [facility] [address] [address] 28 Oct, 2016 Other chronic pain G89.29 and Pain in right shoulder M25.511 [place] [address] [address] 18 Oct, 2016 Essential hypertension I10 [place] [address] [address] Oct, [place] [address] [address] 07 Oct, 2016 Closed fracture of tooth, initial encounter S02.5XXA and Dental caries K02.9 [place] [address] [address] 07 Oct, 2016 Dental examination Z01.20 [facility] [address] [address] Oct, Migraine with aura and without status migrainosus, not intractable G43.109 [facility] [address] [address] Oct, [place] [address] [address] Sep, Fibromyalgia M79.7 [place] [facility] [address] [address] 08 Sep, 2016 Essential hypertension I10 and Anxiety disorder, unspecified F41.9 [facility] [facility] [address] [address] Aug, Anxiety disorder, unspecified F41.9 [facility] [id number] [place] [address] Aug, Anxiety disorder, unspecified F41.9 and Essential hypertension I10 [facility] [id number] [place] [address] Jul, Fibromyalgia M79.7 [facility] [address] [address] Jul, Fibromyalgia M79.7 [facility] [id number] [place] [address] June, Fibromyalgia M79.7 and Anxiety F41.9 [facility] [id number] [place] [address] June, [facility] [id number] [place] [address] June, Primary insomnia F51.01 [facility] [id number] [place] [address] May, Migraine without aura and without status migrainosus, not intractable G43.009 ; Primary insomnia F51.01 ; Bronchitis J40 ; Anxiety disorder, unspecified F41.9 and Major depressive disorder, single episode, unspecified F32.9 [facility] [address] [place] [address] May, [facility] [address] [place] [address] May, Migraine with aura and without status migrainosus, not intractable G43.109 [facility] [id number] [place] [address] May, Essential hypertension I10 [facility] [id number] [place] [address] Apr, Essential hypertension I10 ; Migraine without aura and without status migrainosus, not intractable G43.009 ; Anxiety disorder, unspecified F41.9 and Major depressive disorder, single episode, unspecified F32.9 [facility] [address] [facility] [id number] [address] Mar, [facility] [address] [facility] [id number] [place] [id number] Feb, Dental examination Z01.20 IMMUNIZATIONS No Known Immunizations SOCIAL HISTORY Never Assessed REASON FOR VISIT f/u PLAN OF CARE Activity Details Follow Up 30 minutes in, 2 Weeks Reason: F/U VITAL SIGNS MEDICATIONS Unknown Medications RESULTS No Results PROCEDURES Procedure Date Ordered Result Body Site Psychotherapy, patient &/family, 30 minutes, established patient July 13, 2017 INSTRUCTIONS MEDICATIONS ADMINISTERED No Known Medications MEDICAL (GENERAL) HISTORY Type Description Date Medical History Hypertension Medical History Asthma Medical History depression Medical History anxiety Medical History Migraines Medical History insomnia Surgical History right shoulder surgery 2017 Hospitalization History migraines 2016 Hospitalization History ulcer 2010
--- OUTSIDE RECORDS SUMMARY | 2018-07-15 18:02 | XMS REPORT ---
Author Author SHELBIE YEAGER Organization [facility] Address [address] [place] [address] Care Team Providers Care Prescriptionist Name Role Phone SHELBIE YEAGER Unavailable PROBLEMS Type Condition ICD9-CM Code RVO59-FF Code Onset Dates Condition Status SNOMED Code Problem Essential hypertension I10 Active 92287107 Problem Primary insomnia F51.01 Active 6624994 Problem Major depressive disorder, single episode, unspecified F32.9 Active 52168314 Problem Migraine without aura and without status migrainosus, not intractable G43.009 Active 482228120 Problem Chronic post-traumatic stress disorder (PTSD) after combat F43.12 Active 410222333 Problem Asthma without acute exacerbation J45.909 Active 483506377 Problem Fibromyalgia M79.7 Active 132318359 Problem Anxiety F41.9 Active 70974956 Problem COPD with exacerbation J44.1 Active 132883373 Problem Other chronic pain G89.29 Active 63815160 ALLERGIES No Information ENCOUNTERS Encounter Location Date Diagnosis [facility] [address] [place] [address] Oct, [facility] [address] [place] [address] Oct, [facility] [address] [place] [address] Sep, [facility] [id number] [place] [address] Sep, Acute pain of right shoulder M25.511 [facility] [address] [place] [address] Sep, [facility] [address] [place] [address] Sep, [facility] [id number] [place] [address] Sep, Anxiety F41.9 [facility] [id number] [place] [address] Aug, [facility] [id number] [place] [address] Aug, Anxiety F41.9 [facility] [id number] [place] [address] Aug, Anxiety F41.9 [facility] [id number] [place] [address] Aug, Anxiety F41.9 [facility] [id number] [place] [address] Aug, Anxiety F41.9 [facility] [id number] [place] [address] Aug, [facility] [id number] [place] [address] Jul, [facility] [id number] [place] [address] Jul, Anxiety F41.9 [facility] [id number] [place] [address] Jul, Chest congestion R09.89 ; Coughing R05 and Wheezes R06.2 [facility] [address] [place] [address] Jul, Major depressive disorder, single episode, unspecified F32.9 and Anxiety F41.9 [facility] [id number] [place] [address] June, Neuropathic pain M79.2 and Right elbow pain M25.521 [facility] [id number] [place] [address] June, [facility] [id number] [place] [address] June, Anxiety F41.9 [facility] [id number] [place] [address] June, Chronic post-traumatic stress disorder (PTSD) after combat F43.12 ; Major depressive disorder, single episode, unspecified F32.9 and Anxiety F41.9 [facility] [id number] [place] [address] May, [facility] [id number] [place] [address] May, Anxiety F41.9 [facility] [place] [id number] [place] [address] May, [facility] [id number] [place] [address] May, Acute pain of right shoulder M25.511 and Muscle strain of right shoulder, initial encounter S46.911A [facility] [id number] [place] [address] May, [place] [id number] [place] [address] May, Chronic post-traumatic stress disorder (PTSD) after combat F43.12 and Anxiety F41.9 [place] [id number] [place] [address] Apr, Anxiety F41.9 and Asthma without acute exacerbation J45.909 [facility] [address] [place] [address] Apr, [facility] [id number] [place] [address] Mar, Anxiety F41.9 and Major depressive disorder, single episode, unspecified F32.9 [facility] [id number] [place] [address] Mar, Anxiety F41.9 [facility] [address] [place] [address] 16 Mar, 2017 [facility] [id number] [place] [address] 14 Mar, 2017 Major depressive disorder, single episode, unspecified F32.9 ; Anxiety F41.9 and Chronic post-traumatic stress disorder (PTSD) after combat F43.12 [facility] [id number] [place] [address] 06 Mar, 2017 Chronic post-traumatic stress disorder (PTSD) after combat F43.12 ; Major depressive disorder, single episode, unspecified F32.9 ; Anxiety F41.9 and Primary insomnia F51.01 [facility] [id number] [place] [address] Feb, Anxiety F41.9 and Major depressive disorder, single episode, unspecified F32.9 [facility] [id number] [place] [address] Feb, Primary insomnia F51.01 and Anxiety F41.9 [facility] [id number] [place] [address] Feb, [facility] [id number] [place] [address] Feb, Wheezes R06.2 and COPD with exacerbation J44.1 [facility] [id number] [place] [address] Feb, [facility] [id number] [place] [address] Jan, [facility] [id number] [place] [address] Dec, [facility] [id number] [place] [address] Dec, [facility] [address] [address] Dec, Dislocation of right shoulder joint, subsequent encounter S43.004D [place] [address] [address] Nov, [place] [address] [address] Nov, Lumbosacral neuritis M54.17 [facility] [address] [address] 28 Oct, 2016 Other chronic pain G89.29 and Pain in right shoulder M25.511 [place] [address] [address] 18 Oct, 2016 Essential hypertension I10 [place] [address] [address] Oct, [place] [address] [address] 07 Oct, 2016 Closed fracture of tooth, initial encounter S02.5XXA and Dental caries K02.9 [place] [address] [address] 07 Oct, 2016 Dental examination Z01.20 [place] [address] [address] Oct, Migraine with aura and without status migrainosus, not intractable G43.109 [place] [address] [address] Oct, [place] [address] [address] Sep, Fibromyalgia M79.7 [place] [address] [address] 08 Sep, 2016 Essential hypertension I10 and Anxiety disorder, unspecified F41.9 [place] [address] [address] Aug, Anxiety disorder, unspecified F41.9 [facility] [id number] [place] [address] Aug, Anxiety disorder, unspecified F41.9 and Essential hypertension I10 [facility] [id number] [place] [address] Jul, Fibromyalgia M79.7 [facility] [id number] [place] [address] Jul, Fibromyalgia M79.7 [place] [id number] [place] [address] June, Fibromyalgia M79.7 and Anxiety F41.9 [place] [id number] [place] [address] June, [place] [id number] [place] [address] June, Primary insomnia F51.01 [place] [id number] [place] [address] May, Migraine without aura and without status migrainosus, not intractable G43.009 ; Primary insomnia F51.01 ; Bronchitis J40 ; Anxiety disorder, unspecified F41.9 and Major depressive disorder, single episode, unspecified F32.9 [facility] [address] [place] [address] May, [facility] [address] [place] [address] May, Migraine with aura and without status migrainosus, not intractable G43.109 [facility] [id number] [place] [address] May, Essential hypertension I10 [facility] [address] [place] [address] Apr, Essential hypertension I10 ; Migraine without aura and without status migrainosus, not intractable G43.009 ; Anxiety disorder, unspecified F41.9 and Major depressive disorder, single episode, unspecified F32.9 [facility] [address] [facility] [id number] [place] [address] Mar, [facility] [address] [facility] [id number] [id number] Feb, Dental examination Z01.20 IMMUNIZATIONS No Known Immunizations SOCIAL HISTORY Never Assessed REASON FOR VISIT Refill Request PLAN OF CARE VITAL SIGNS MEDICATIONS Medication Instructions Dosage Frequency Start Date End Date Duration Status Seroquel 400 mg Orally Once a day 1 tablet 24h 30 days Active RESULTS No Results PROCEDURES No Known procedures INSTRUCTIONS MEDICATIONS ADMINISTERED No Known Medications MEDICAL (GENERAL) HISTORY Type Description Date Medical History Hypertension Medical History Asthma Medical History depression Medical History anxiety Medical History Migraines Medical History insomnia Surgical History right shoulder surgery 2017 Hospitalization History migraines 2016 Hospitalization History ulcer 2010
--- OUTSIDE RECORDS SUMMARY | 2018-07-15 18:02 | XMS REPORT ---
Author Author SHELBIE YEAGER Organization [facility] Address [address] [place] [address] Care Team Providers Care Horse Rider Name Role Phone SHELBIE YEAGER Unavailable PROBLEMS Type Condition ICD9-CM Code MFO78-ZB Code Onset Dates Condition Status SNOMED Code Problem Essential hypertension I10 Active 48588779 Problem Primary insomnia F51.01 Active 3979532 Problem Major depressive disorder, single episode, unspecified F32.9 Active 69324130 Problem Migraine without aura and without status migrainosus, not intractable G43.009 Active 754185624 Problem Chronic post-traumatic stress disorder (PTSD) after combat F43.12 Active 687834947 Problem Asthma without acute exacerbation J45.909 Active 899876529 Problem Fibromyalgia M79.7 Active 565408861 Problem Anxiety F41.9 Active 62243332 Problem COPD with exacerbation J44.1 Active 675516874 Problem Other chronic pain G89.29 Active 71031984 ALLERGIES No Information ENCOUNTERS Encounter Location Date Diagnosis [facility] [address] [place] [address] Oct, [facility] [address] [place] [address] Oct, [facility] [address] [place] [address] Sep, [facility] [id number] [place] [address] Sep, Acute pain of right shoulder M25.511 [facility] [address] [place] [address] Sep, [facility] [address] [place] [address] Sep, [facility] [id number] [place] [address] Sep, Anxiety F41.9 [facility] [id number] [place] [address] Aug, [facility] [id number] [place] [address] Aug, Anxiety F41.9 [facility] [id number] [place] [address] Aug, Anxiety F41.9 [facility] [id number] [place] [address] Aug, Anxiety F41.9 [facility] [id number] [place] [address] Aug, Anxiety F41.9 [facility] [id number] [place] [address] Aug, [facility] [id number] [place] [address] Jul, [facility] [id number] [place] [address] Jul, Anxiety F41.9 [facility] [id number] [place] [address] Jul, Chest congestion R09.89 ; Coughing R05 and Wheezes R06.2 [facility] [address] [place] [address] Jul, Major depressive disorder, single episode, unspecified F32.9 and Anxiety F41.9 [facility] [id number] [place] [address] June, Neuropathic pain M79.2 and Right elbow pain M25.521 [facility] [id number] [place] [address] June, [facility] [id number] [place] [address] June, Anxiety F41.9 [facility] [id number] [place] [address] June, Chronic post-traumatic stress disorder (PTSD) after combat F43.12 ; Major depressive disorder, single episode, unspecified F32.9 and Anxiety F41.9 [facility] [id number] [place] [address] May, [facility] [id number] [place] [address] May, Anxiety F41.9 [place] [id number] [place] [address] May, [facility] [id number] [place] [address] May, Acute pain of right shoulder M25.511 and Muscle strain of right shoulder, initial encounter S46.911A [facility] [id number] [place] [address] May, [place] [id number] [place] [address] May, Chronic post-traumatic stress disorder (PTSD) after combat F43.12 and Anxiety F41.9 [place] [id number] [place] [address] Apr, Anxiety F41.9 and Asthma without acute exacerbation J45.909 [facility] [address] [place] [address] Apr, [facility] [id number] [place] [address] Mar, Anxiety F41.9 and Major depressive disorder, single episode, unspecified F32.9 [facility] [id number] [place] [address] Mar, Anxiety F41.9 [facility] [address] [place] [address] 16 Mar, 2017 [facility] [id number] [place] [address] 14 Mar, 2017 Major depressive disorder, single episode, unspecified F32.9 ; Anxiety F41.9 and Chronic post-traumatic stress disorder (PTSD) after combat F43.12 [facility] [id number] [place] [address] 06 Mar, 2017 Chronic post-traumatic stress disorder (PTSD) after combat F43.12 ; Major depressive disorder, single episode, unspecified F32.9 ; Anxiety F41.9 and Primary insomnia F51.01 [facility] [id number] [place] [address] Feb, Anxiety F41.9 and Major depressive disorder, single episode, unspecified F32.9 [facility] [id number] [place] [address] Feb, Primary insomnia F51.01 and Anxiety F41.9 [facility] [id number] [place] [address] Feb, [facility] [id number] [place] [address] Feb, Wheezes R06.2 and COPD with exacerbation J44.1 [facility] [id number] [place] [address] Feb, [facility] [id number] [place] [address] Jan, [facility] [id number] [place] [address] Dec, [facility] [id number] [place] [address] Dec, [facility] [address] [address] Dec, Dislocation of right shoulder joint, subsequent encounter S43.004D [place] [address] [address] Nov, [place] [address] [address] Nov, Lumbosacral neuritis M54.17 [facility] [address] [address] 28 Oct, 2016 Other chronic pain G89.29 and Pain in right shoulder M25.511 [place] [address] [address] 18 Oct, 2016 Essential hypertension I10 [place] [address] [address] Oct, [place] [address] [address] 07 Oct, 2016 Closed fracture of tooth, initial encounter S02.5XXA and Dental caries K02.9 [place] [address] [address] 07 Oct, 2016 Dental examination Z01.20 [place] [address] [address] Oct, Migraine with aura and without status migrainosus, not intractable G43.109 [place] [address] [address] Oct, [place] [address] [address] Sep, Fibromyalgia M79.7 [place] [address] [address] 08 Sep, 2016 Essential hypertension I10 and Anxiety disorder, unspecified F41.9 [place] [address] [address] Aug, Anxiety disorder, unspecified F41.9 [facility] [id number] [place] [address] Aug, Anxiety disorder, unspecified F41.9 and Essential hypertension I10 [facility] [id number] [place] [address] Jul, Fibromyalgia M79.7 [facility] [id number] [place] [address] Jul, Fibromyalgia M79.7 [place] [id number] [place] [address] June, Fibromyalgia M79.7 and Anxiety F41.9 [place] [id number] [place] [address] June, [place] [id number] [place] [address] June, Primary insomnia F51.01 [place] [id number] [place] [address] May, Migraine without aura and without status migrainosus, not intractable G43.009 ; Primary insomnia F51.01 ; Bronchitis J40 ; Anxiety disorder, unspecified F41.9 and Major depressive disorder, single episode, unspecified F32.9 [facility] [address] [place] [address] May, [facility] [address] [place] [address] May, Migraine with aura and without status migrainosus, not intractable G43.109 [facility] [id number] [place] [address] May, Essential hypertension I10 [facility] [address] [place] [address] Apr, Essential hypertension I10 ; Migraine without aura and without status migrainosus, not intractable G43.009 ; Anxiety disorder, unspecified F41.9 and Major depressive disorder, single episode, unspecified F32.9 [facility] [address] [facility] [id number] [place] [address] Mar, [facility] [address] [facility] [id number] [place] [id number] Feb, Dental examination Z01.20 IMMUNIZATIONS No Known Immunizations SOCIAL HISTORY Never Assessed REASON FOR VISIT Controlled Med Refill PLAN OF CARE VITAL SIGNS MEDICATIONS Unknown [...]
--- OUTSIDE RECORDS SUMMARY | 2018-07-15 18:02 | XMS REPORT ---
Author Author SHELBIE YEAGER Organization [facility] Address [address] [place] [address] Care Team Providers Care Land Development Manager Name Role Phone SHELBIE YEAGER Unavailable PROBLEMS Type Condition ICD9-CM Code RBQ23-GF Code Onset Dates Condition Status SNOMED Code Problem Essential hypertension I10 Active 21653491 Problem Primary insomnia F51.01 Active 8242977 Problem Major depressive disorder, single episode, unspecified F32.9 Active 78315161 Problem Migraine without aura and without status migrainosus, not intractable G43.009 Active 333348540 Problem Chronic post-traumatic stress disorder (PTSD) after combat F43.12 Active 541139204 Problem Asthma without acute exacerbation J45.909 Active 447217192 Problem Fibromyalgia M79.7 Active 809220941 Problem Anxiety F41.9 Active 79716261 Problem COPD with exacerbation J44.1 Active 587085501 Problem Other chronic pain G89.29 Active 77057960 ALLERGIES No Information ENCOUNTERS Encounter Location Date Diagnosis [facility] [address] [place] [address] Oct, [facility] [address] [place] [address] Oct, [facility] [address] [place] [address] Sep, [facility] [id number] [place] [address] Sep, Acute pain of right shoulder M25.511 [facility] [address] [place] [address] Sep, [facility] [address] [place] [address] Sep, [facility] [id number] [place] [address] Sep, Anxiety F41.9 [facility] [id number] [place] [address] Aug, [facility] [id number] [place] [address] Aug, Anxiety F41.9 [facility] [id number] [place] [address] Aug, Anxiety F41.9 [facility] [id number] [place] [address] Aug, Anxiety F41.9 [facility] [id number] [place] [address] Aug, Anxiety F41.9 [facility] [id number] [place] [address] Aug, [facility] [id number] [place] [address] Jul, [facility] [id number] [place] [address] Jul, Anxiety F41.9 [facility] [id number] [place] [address] Jul, Chest congestion R09.89 ; Coughing R05 and Wheezes R06.2 [facility] [address] [place] [address] Jul, Major depressive disorder, single episode, unspecified F32.9 and Anxiety F41.9 [facility] [id number] [place] [address] June, Neuropathic pain M79.2 and Right elbow pain M25.521 [facility] [id number] [place] [address] June, [facility] [id number] [place] [address] June, Anxiety F41.9 [facility] [id number] [place] [address] June, Chronic post-traumatic stress disorder (PTSD) after combat F43.12 ; Major depressive disorder, single episode, unspecified F32.9 and Anxiety F41.9 [facility] [id number] [place] [address] May, [facility] [id number] [place] [address] May, Anxiety F41.9 [place] [id number] [place] [address] May, [facility] [id number] [place] [address] May, Acute pain of right shoulder M25.511 and Muscle strain of right shoulder, initial encounter S46.911A [facility] [id number] [place] [address] May, [place] [id number] [place] [address] May, Chronic post-traumatic stress disorder (PTSD) after combat F43.12 and Anxiety F41.9 [place] [id number] [place] [address] Apr, Anxiety F41.9 and Asthma without acute exacerbation J45.909 [facility] [address] [place] [address] Apr, [facility] [id number] [place] [address] Mar, Anxiety F41.9 and Major depressive disorder, single episode, unspecified F32.9 [facility] [id number] [place] [address] Mar, Anxiety F41.9 [facility] [address] [place] [address] 16 Mar, 2017 [facility] [id number] [place] [address] 14 Mar, 2017 Major depressive disorder, single episode, unspecified F32.9 ; Anxiety F41.9 and Chronic post-traumatic stress disorder (PTSD) after combat F43.12 [facility] [id number] [place] [address] 06 Mar, 2017 Chronic post-traumatic stress disorder (PTSD) after combat F43.12 ; Major depressive disorder, single episode, unspecified F32.9 ; Anxiety F41.9 and Primary insomnia F51.01 [facility] [id number] [place] [address] Feb, Anxiety F41.9 and Major depressive disorder, single episode, unspecified F32.9 [facility] [id number] [place] [address] Feb, Primary insomnia F51.01 and Anxiety F41.9 [facility] [id number] [place] [address] Feb, [facility] [id number] [place] [address] Feb, Wheezes R06.2 and COPD with exacerbation J44.1 [facility] [id number] [place] [address] Feb, [facility] [id number] [place] [address] Jan, [facility] [id number] [place] [address] Dec, [facility] [id number] [place] [address] Dec, [facility] [address] [address] Dec, Dislocation of right shoulder joint, subsequent encounter S43.004D [place] [address] [address] Nov, [place] [address] [address] Nov, Lumbosacral neuritis M54.17 [facility] [address] [address] 28 Oct, 2016 Other chronic pain G89.29 and Pain in right shoulder M25.511 [place] [address] [address] 18 Oct, 2016 Essential hypertension I10 [place] [address] [address] Oct, [place] [address] [address] 07 Oct, 2016 Closed fracture of tooth, initial encounter S02.5XXA and Dental caries K02.9 [place] [address] [address] 07 Oct, 2016 Dental examination Z01.20 [place] [address] [address] Oct, Migraine with aura and without status migrainosus, not intractable G43.109 [place] [address] [address] Oct, [place] [address] [address] Sep, Fibromyalgia M79.7 [place] [address] [address] 08 Sep, 2016 Essential hypertension I10 and Anxiety disorder, unspecified F41.9 [place] [address] [address] Aug, Anxiety disorder, unspecified F41.9 [facility] [id number] [place] [address] Aug, Anxiety disorder, unspecified F41.9 and Essential hypertension I10 [facility] [id number] [place] [address] Jul, Fibromyalgia M79.7 [facility] [id number] [place] [address] Jul, Fibromyalgia M79.7 [place] [id number] [place] [address] June, Fibromyalgia M79.7 and Anxiety F41.9 [place] [id number] [place] [address] June, [place] [id number] [place] [address] June, Primary insomnia F51.01 [place] [id number] [place] [address] May, Migraine without aura and without status migrainosus, not intractable G43.009 ; Primary insomnia F51.01 ; Bronchitis J40 ; Anxiety disorder, unspecified F41.9 and Major depressive disorder, single episode, unspecified F32.9 [facility] [address] [place] [address] May, [facility] [address] [place] [address] May, Migraine with aura and without status migrainosus, not intractable G43.109 [facility] [id number] [place] [address] May, Essential hypertension I10 [facility] [address] [place] [address] Apr, Essential hypertension I10 ; Migraine without aura and without status migrainosus, not intractable G43.009 ; Anxiety disorder, unspecified F41.9 and Major depressive disorder, single episode, unspecified F32.9 [facility] [address] [facility] [id number] [place] [address] Mar, [facility] [address] [facility] [id number] [place] [id number] Feb, Dental examination Z01.20 IMMUNIZATIONS No Known Immunizations SOCIAL HISTORY Never Assessed REASON FOR VISIT Phone call PLAN OF CARE VITAL SIGNS MEDICATIONS [...]
--- OUTSIDE RECORDS SUMMARY | 2018-07-15 18:03 | XMS REPORT ---
Author Author SHELBIE YEAGER Organization [facility] Address [address] [place] [address] Care Team Providers Care Environmental Services Director Name Role Phone SHELBIE YEAGER Unavailable PROBLEMS Type Condition ICD9-CM Code LMM24-FN Code Onset Dates Condition Status SNOMED Code Problem Essential hypertension I10 Active 97812639 Problem Primary insomnia F51.01 Active 8728143 Problem Major depressive disorder, single episode, unspecified F32.9 Active 75137257 Problem Migraine without aura and without status migrainosus, not intractable G43.009 Active 213870102 Problem Chronic post-traumatic stress disorder (PTSD) after combat F43.12 Active 686865276 Problem Asthma without acute exacerbation J45.909 Active 745791803 Problem Fibromyalgia M79.7 Active 611603261 Problem Anxiety F41.9 Active 93151085 Problem COPD with exacerbation J44.1 Active 515662343 Problem Other chronic pain G89.29 Active 90202142 ALLERGIES No Information ENCOUNTERS Encounter Location Date Diagnosis [facility] [id number] [place] [phone] Oct, [facility] [id number] [place] [id number] Oct, [facility] [id number] [place] [id number] Sep, [facility] [id number] [place] [phone] Sep, Acute pain of right shoulder M25.511 [facility] [id number] [place] [id number] Sep, [facility] [address] [place] [address] Sep, [facility] [id number] [place] [phone] Sep, Anxiety F41.9 [facility] [id number] [place] [phone] Aug, [facility] [id number] [place] [phone] Aug, Anxiety F41.9 [facility] [id number] [place] [address] Aug, Anxiety F41.9 [facility] [id number] [place] [phone] Aug, Anxiety F41.9 [facility] [id number] [place] [id number] Aug, Anxiety F41.9 [facility] [id number] [place] [phone] Aug, [facility] [id number] [place] [id number] Jul, [facility] [id number] [place] [id number] Jul, Anxiety F41.9 [facility] [id number] [place] [id number] Jul, Chest congestion R09.89 ; Coughing R05 and Wheezes R06.2 [facility] [id number] [place] [phone] Jul, Major depressive disorder, single episode, unspecified F32.9 and Anxiety F41.9 [facility] [id number] [place] [phone] June, Neuropathic pain M79.2 and Right elbow pain M25.521 [facility] [id number] [place] [id number] June, [facility] [id number] [place] [id number] June, Anxiety F41.9 [facility] [id number] [place] [address] June, Chronic post-traumatic stress disorder (PTSD) after combat F43.12 ; Major depressive disorder, single episode, unspecified F32.9 and Anxiety F41.9 [facility] [id number] [place] [id number] May, [facility] [id number] [place] [phone] May, Anxiety F41.9 [facility] [id number] [place] [phone] May, [facility] [id number] [place] [phone] May, Acute pain of right shoulder M25.511 and Muscle strain of right shoulder, initial encounter S46.911A [facility] [id number] [place] [phone] May, [place] [id number] [place] [id number] May, Chronic post-traumatic stress disorder (PTSD) after combat F43.12 and Anxiety F41.9 [facility] [id number] [place] [id number] Apr, Anxiety F41.9 and Asthma without acute exacerbation J45.909 [facility] [id number] [place] [phone] Apr, [facility] [id number] [place] [phone] Mar, Anxiety F41.9 and Major depressive disorder, single episode, unspecified F32.9 [facility] [id number] [place] [phone] Mar, Anxiety F41.9 [facility] [id number] [place] [id number] 16 Mar, 2017 [facility] [id number] [place] [id number] 14 Mar, 2017 Major depressive disorder, single episode, unspecified F32.9 ; Anxiety F41.9 and Chronic post-traumatic stress disorder (PTSD) after combat F43.12 [facility] [id number] [place] [id number] 06 Mar, 2017 Chronic post-traumatic stress disorder (PTSD) after combat F43.12 ; Major depressive disorder, single episode, unspecified F32.9 ; Anxiety F41.9 and Primary insomnia F51.01 [facility] [id number] [place] [phone] Feb, Anxiety F41.9 and Major depressive disorder, single episode, unspecified F32.9 [facility] [id number] [place] [address] Feb, Primary insomnia F51.01 and Anxiety F41.9 [facility] [id number] [place] [id number] Feb, [facility] [id number] [place] [phone] Feb, Wheezes R06.2 and COPD with exacerbation J44.1 [facility] [id number] [place] [id number] Feb, [facility] [id number] [place] [phone] Jan, [facility] [id number] [place] [phone] Dec, [facility] [id number] [place] [address] Dec, [facility] [address] [address] Dec, Dislocation of right shoulder joint, subsequent encounter S43.004D [place] [address] [address] Nov, [place] [address] [address] Nov, Lumbosacral neuritis M54.17 [facility] [address] [address] 28 Oct, 2016 Other chronic pain G89.29 and Pain in right shoulder M25.511 [place] [address] [address] 18 Oct, 2016 Essential hypertension I10 [place] [address] [address] Oct, [place] [address] [address] 07 Oct, 2016 Closed fracture of tooth, initial encounter S02.5XXA and Dental caries K02.9 [place] [address] [address] 07 Oct, 2016 Dental examination Z01.20 [place] [address] [address] Oct, Migraine with aura and without status migrainosus, not intractable G43.109 [place] [address] [address] Oct, [place] [address] [address] Sep, Fibromyalgia M79.7 [place] [address] [address] 08 Sep, 2016 Essential hypertension I10 and Anxiety disorder, unspecified F41.9 [place] [address] [address] Aug, Anxiety disorder, unspecified F41.9 [facility] [id number] [place] [phone] Aug, Anxiety disorder, unspecified F41.9 and Essential hypertension I10 [facility] [id number] [place] [address] Jul, Fibromyalgia M79.7 [facility] [id number] [place] [id number] Jul, Fibromyalgia M79.7 [place] [id number] [place] [address] June, Fibromyalgia M79.7 and Anxiety F41.9 [place] [id number] [place] [address] June, [place] [id number] [place] [id number] June, Primary insomnia F51.01 [place] [id number] [place] [address] May, Migraine without aura and without status migrainosus, not intractable G43.009 ; Primary insomnia F51.01 ; Bronchitis J40 ; Anxiety disorder, unspecified F41.9 and Major depressive disorder, single episode, unspecified F32.9 [facility] [id number] [place] [id number] May, [facility] [id number] [place] [id number] May, Migraine with aura and without status migrainosus, not intractable G43.109 [facility] [id number] [place] [address] May, Essential hypertension I10 [facility] [id number] [place] [address] Apr, Essential hypertension I10 ; Migraine without aura and without status migrainosus, not intractable G43.009 ; Anxiety disorder, unspecified F41.9 and Major depressive disorder, single episode, unspecified F32.9 [facility] [address] [facility] [id number] [place] [address] Mar, [facility] [address] [facility] [id number] [id number] Feb, Dental examination Z01.20 IMMUNIZATIONS No Known Immunizations SOCIAL HISTORY Never Assessed REASON FOR VISIT Controlled Med Refill 07/21/17 PLAN OF CARE VITAL SIGNS MEDICATIONS Medication [...]
--- OUTSIDE RECORDS SUMMARY | 2018-07-15 18:03 | XMS REPORT ---
Author Author DESIRAE DALE Organization [facility] Address [address] [place] [address] Care Team Providers Care Doughnut Machine Operator Name Role Phone CHEEK DESIRAE HOYOS Unavailable PROBLEMS Type Condition ICD9-CM Code GAQ49-KU Code Onset Dates Condition Status SNOMED Code Problem Essential hypertension I10 Active 62240281 Problem Primary insomnia F51.01 Active 4572527 Problem Major depressive disorder, single episode, unspecified F32.9 Active 05542753 Problem Migraine without aura and without status migrainosus, not intractable G43.009 Active 949590992 Problem Chronic post-traumatic stress disorder (PTSD) after combat F43.12 Active 251745017 Problem Asthma without acute exacerbation J45.909 Active 414187435 Problem Fibromyalgia M79.7 Active 359768460 Problem Anxiety F41.9 Active 26998479 Problem COPD with exacerbation J44.1 Active 744956633 Problem Other chronic pain G89.29 Active 81489068 ALLERGIES Substance Reaction Event Type Date Status Compazine hives Drug Allergy Jul, Active sea food anaphylaxis Non Drug Allergy Jul, Active ENCOUNTERS Encounter Location Date Diagnosis [facility] [id number] [address] Oct, [facility] [address] [address] Oct, [facility] [id number] [address] Sep, Acute pain of right shoulder M25.511 [facility] [id number] [address] Sep, [facility] [address] [place] [address] Sep, [facility] [id number] [place] [address] Sep, Anxiety F41.9 [facility] [id number] [place] [address] Aug, [facility] [id number] [place] [address] Aug, Anxiety F41.9 [facility] [address] [address] Aug, Anxiety [address] [facility] [id number] [place] [address] Aug, Anxiety F41.9 [facility] [id number] [place] [address] Aug, Anxiety F41.9 [facility] [id number] [place] [address] Aug, [facility] [id number] [place] [address] Jul, [facility] [id number] [place] [address] Jul, Anxiety F41.[address] [facility] [id number] [place] [address] Jul, Chest congestion R09.89 ; Coughing R[address]06[address]2 [facility] [id number] [place] [address] Jul, Major depressive disorder, single episode, unspecified F32.[address] [facility] [id number] [place] [address] June, Neuropathic pain M79.2 and Right elbow pain M25.521 [facility] [id number] [place] [address] June, [facility] [address] [place] [address] June, Anxiety [address]9 [facility] [id number] [place] [address] June, Chronic post-traumatic stress disorder (PTSD) after combat F43.12 ; Major depressive disorder, single episode, unspecified F32.[address] [facility] [id number] [place] [address] May, [facility] [id number] [place] [address] May, Anxiety F41.9 [place] [id number] [place] [address] May, [facility] [id number] [place] [address] May, Acute pain of right shoulder M25.511 and Muscle strain of right shoulder, initial encounter S46.911A [facility] [id number] [place] [address] May, [facility] [id number] [place] [address] May, Chronic post-traumatic stress disorder (PTSD) after combat F43.[address] [facility] [id number] [place] [address] Apr, Anxiety F41.9 and Asthma without acute exacerbation J45.909 [facility] [id number] [place] [address] Apr, [facility] [id number] [place] [address] Mar, Anxiety F41.9 and Major depressive disorder, single episode, unspecified F32.9 [facility] [id number] [place] [address] Mar, Anxiety F41.9 [facility] [address] [place] [address] 16 Mar, 2017 [facility] [id number] [place] [address] 14 Mar, 2017 Major depressive disorder, single episode, unspecified F32.9 ; Anxiety F41.9 and Chronic post-traumatic stress disorder (PTSD) after combat F43.12 [facility] [id number] [place] [address] 06 Mar, 2017 Chronic post-traumatic stress disorder (PTSD) after combat F43.12 ; Major depressive disorder, single episode, unspecified F32.9 ; Anxiety F41.9 and Primary insomnia F51.01 [place] [id number] [place] [address] Feb, Anxiety F41.9 and Major depressive disorder, single episode, unspecified F32.9 [facility] [id number] [place] [address] Feb, Primary insomnia F51.01 and Anxiety F41.9 [place] [id number] [place] [address] Feb, [facility] [address] [place] [address] Feb, Wheezes R06.2 and COPD with exacerbation J44.1 [facility] [id number] [place] [address] Feb, [facility] [id number] [place] [address] Jan, [facility] [id number] [place] [address] Dec, [facility] [id number] [place] [address] Dec, [facility] [address] [address] Dec, Dislocation of right shoulder joint, subsequent encounter S43.004D [place] [address] [address] Nov, [place] [address] [address] Nov, Lumbosacral neuritis M54.17 [facility] [address] [address] Oct, Other chronic pain G89.29 and Pain in right shoulder M25.511 [place] [address] [address] 18 Oct, 2016 Essential hypertension I10 [place] [address] [address] Oct, [place] [address] [address] Oct, Closed fracture of tooth, initial encounter S02.5XXA and Dental caries K02.9 [place] [address] [address] 07 Oct, 2016 Dental examination Z01.20 [place] [address] [address] Oct, Migraine with aura and without status migrainosus, not intractable G43.109 [place] [address] [address] Oct, [place] [address] [address] Sep, Fibromyalgia M79.7 [place] [address] [address] Sep, Essential hypertension I10 and Anxiety disorder, unspecified F41.9 [place] [address] [address] Aug, Anxiety disorder, unspecified F41.9 [facility] [address] [place] [address] Aug, Anxiety disorder, unspecified F41.9 and Essential hypertension I10 [facility] [id number] [place] [address] Jul, Fibromyalgia M79.7 [facility] [id number] [place] [address] Jul, Fibromyalgia M79.7 [place] [id number] [place] [address] June, Fibromyalgia M79.7 and Anxiety F41.9 [place] [id number] [place] [address] June, [place] [id number] [place] [address] June, Primary insomnia F51.01 [place] [id number] [place] [address] May, Migraine without aura and without status migrainosus, not intractable G43.009 ; Primary insomnia F51.01 ; Bronchitis J40 ; Anxiety disorder, unspecified F41.9 and Major depressive disorder, single episode, unspecified F32.9 [facility] [address], [place] [address] May, [facility] [address] [place] [address] May, Migraine with aura and without status migrainosus, not intractable G43.109 [facility] [id number] [place] [address] 05 May, [address] [facility] [address], [place] [address] Apr, Essential hypertension I10 ; Migraine without aura and without status migrainosus, not intractable G43.009 ; Anxiety disorder, unspecified F41.9 and Major depressive disorder, single episode, unspecified F32.9 [facility] [address] [facility] [id number] [address] 07 Mar, 2016 [facility] [address] [facility] [id number] [place] [id number] Feb, Dental examination Z01.20 IMMUNIZATIONS Vaccine Route Administration Date Status SOLUMEDROL (UP TO 125 MG) IM Intramuscular July 14, 2017 Administered SOCIAL HISTORY Never Assessed REASON FOR VISIT chest congestion Pt states he is having a hard time breathing feels his chest i s raspy, has a cough, feels he may have pneumonia GANESH Mcfarlane PLAN OF CARE Activity Details Follow Up prn Reason: VITAL SIGNS Height 66.5 in 2017-07-14 Weight 142.2 lbs 2017-07-14 Temperature 98.4 degrees Fahrenheit 2017-07-14 Heart Rate 94 bpm 2017-07-14 Respiratory Rate 22 2017-07-14 Oximetry 97 % 2017-07-14 BMI 22.61 kg/m2 2017-07-14 Blood pressure systolic 104 mmHg 2017-07-14 Blood pressure diastolic 76 mmHg 2017-07-14 MEDICATIONS Medication Instructions Dosage Frequency Start Date End Date Duration Status Propranolol HCl 60 MG TAKE ONE TABLET BY MOUTH TWICE DAILY 30 Active BusPIRone HCl 10 MG Orally TID PRN 1.5 tablets May, Active Klonopin 0.5 MG Orally TID PRN 1 tablet Feb, 28 days Active Albuterol Sulfate (2.5 MG/3ML) 0.083% USE ONE VIAL IN NEBULIZER EVERY 6 HOURS 25 Active Zithromax Z-Keshav 250 MG Orally Once a day 2 tablets on the first day, then 1 tablet daily for 4 days 24h Jul, Jul, 5 day(s) Active Cyclobenzaprine HCl 10 mg Orally 2 times a day 1 tablet as needed 12h 30 Active [place] 5-325 MG Orally 2 times a day 1 tablet as needed 12h June, Jul, 14 days Active Multivitamin Men - Active Imitrex 25 MG Orally Twice a day (MAX 2 DAILY) 1 tablet as needed at onset of headache and then 1 more tab 2 hours later if no improvement Apr, Not-Taking Zocor Not-Taking Ensure - Orally 2 times a day 12h Not-Taking Ibuprofen 800 MG TAKE ONE TABLET BY MOUTH THREE TIMES DAILY 30 Not-Taking ibuprofen Not-Taking Paxil 20 mg Orally 2 times a day 1 tablet 12h 30 Active Budesonide 180 MCG/ACT Inhalation Twice a day 1 puff 12h 15 Jan, 2017 30 days Not-Taking Gabapentin 100 MG Orally 3 times a day 3 capsules 8h Active Omeprazole 40 MG TAKE ONE CAPSULE BY MOUTH TWICE DAILY 30 Active Xkhmbikdic-GHHF-Uagzgjar 50-325-40 MG Orally every 4 hrs 1 tablet as needed 4h 13 May, 2016 Not-Taking Ventolin HFA 108 (90 Base) MCG/ACT Inhalation 4 times a day 2 puffs as needed 6h Active Seroquel 400 MG Orally Once a day 1 tablet 24h 30 days Active Seroquel 200 mg TAKE ONE-HALF TABLET BY MOUTH ONCE DAILY FOR 7 DAYS THEN INCREASE TO ONE TABLET DAILY THEREAFTER 30 Not-Taking RESULTS No Results PROCEDURES Procedure Date Ordered Result Body Site SOLUMEDROL (UP TO 125 MG) July 14, 2017 THER/PROPH/DIAG INJ, SC/IM July 14, 2017 INSTRUCTIONS MEDICATIONS ADMINISTERED No Known Medications MEDICAL (GENERAL) HISTORY Type Description Date Medical History Hypertension Medical History Asthma Medical History depression Medical History anxiety Medical History Migraines Medical History insomnia Surgical History right shoulder surgery 2017 Hospitalization History migraines 2016 Hospitalization History ulcer 2010
--- OUTSIDE RECORDS SUMMARY | 2018-07-15 18:03 | XMS REPORT ---
Author Author SAPNA TIWARI Organization [facility] Address [address] [place] [address] Care Team Providers Care Precipitation Equipment Tender Name Role Phone SAPNA TIWARI Unavailable PROBLEMS Type Condition ICD9-CM Code [id number] Code Onset Dates Condition Status SNOMED Code Problem Essential hypertension I10 Active 33421487 Problem Primary insomnia F51.01 Active 9707534 Problem Major depressive disorder, single episode, unspecified F32.9 Active 06140709 Problem Migraine without aura and without status migrainosus, not intractable G43.009 Active 778112664 Problem Chronic post-traumatic stress disorder (PTSD) after combat F43.12 Active 998891904 Problem Asthma without acute exacerbation J45.909 Active 952448313 Problem Fibromyalgia M79.7 Active 481384189 Problem Anxiety F41.9 Active 90565073 Problem COPD with exacerbation J44.1 Active 779694154 Problem Other chronic pain G89.29 Active 40607695 ALLERGIES No Information ENCOUNTERS Encounter Location Date Diagnosis [facility] [id number] [place] [address] Oct, [facility] [id number] [place] [address] Oct, [facility] [id number] [place] [address] Sep, Acute pain of right shoulder M25.511 [facility] [id number] [place] [address] Sep, [facility] [address] [place] [address] Sep, [facility] [id number] [place] [address] Sep, Anxiety F41.9 [place] [address], [place] [address] Aug, [facility] [id number] [place] [address] Aug, Anxiety F41.9 [facility] [id number] [place] [address] Aug, Anxiety F41.9 [facility] [id number] [place] [address] Aug, Anxiety F41.9 [facility] [id number] [place] [address] Aug, Anxiety F41.9 [facility] [id number] [place] [address] Aug, [facility] [id number] [place] [address] Jul, [facility] [id number] [place] [address] Jul, Anxiety F41.9 [facility] [id number] [place] [address] Jul, Chest congestion R09.89 ; Coughing R05 and Wheezes R06.2 [facility] [id number] [place] [address] Jul, Major depressive disorder, single episode, unspecified F32.9 and Anxiety F41.9 [facility] [id number] [place] [address] June, Neuropathic pain M79.2 and Right elbow pain M25.521 [facility] [id number] [place] [address] June, [facility] [id number] [place] [address] June, Anxiety F41.9 [facility] [address], [place] [address] June, Chronic post-traumatic stress disorder (PTSD) after combat F43.12 ; Major depressive disorder, single episode, unspecified F32.9 and Anxiety F41.9 [facility] [address], [place] [address] May, [facility] [id number] [place] [address] May, Anxiety F41.9 [facility] [id number] [place] [address] May, [facility] [id number] [place] [address] May, Acute pain of right shoulder M25.511 and Muscle strain of right shoulder, initial encounter S46.911A [facility] [id number] [place] [address] May, [facility] [id number] [place] [address] May, Chronic post-traumatic stress disorder (PTSD) after combat F43.12 and Anxiety F41.9 [facility] [address] [place] [address] Apr, Anxiety F41.9 and Asthma without acute exacerbation J45.909 [facility] [id number] [place] [address] Apr, [facility] [address] [place] [address] Mar, Anxiety F41.9 and Major depressive disorder, single episode, unspecified F32.9 [facility] [address] [place] [address] Mar, Anxiety F41.9 [facility] [id number] [place] [address] 16 Mar, 2017 [facility] [id number] [place] [address] 14 Mar, 2017 Major depressive disorder, single episode, unspecified F32.9 ; Anxiety F41.9 and Chronic post-traumatic stress disorder (PTSD) after combat F43.12 [facility] [id number] [place] [address] 06 Mar, 2017 Chronic post-traumatic stress disorder (PTSD) after combat F43.12 ; Major depressive disorder, single episode, unspecified F32.9 ; Anxiety F41.9 and Primary insomnia F51.01 [place] [address] [address] Feb, Anxiety F41.9 and Major depressive disorder, single episode, unspecified F32.9 [place] [id number] [place] [address] Feb, Primary insomnia F51.01 and Anxiety F41.9 [facility] [id number] [place] [address] Feb, [facility] [id number] [place] [address] Feb, Wheezes R06.2 and COPD with exacerbation J44.1 [facility] [id number] [place] [address] Feb, [facility] [id number] [place] [address] Jan, [facility] [id number] [place] [address] Dec, [facility] [address] [address] Dec, [facility] [id number] [place] [address] Dec, Dislocation of right shoulder joint, subsequent encounter S43.004D [place] [address] [address] Nov, [place] [address] [address] Nov, Lumbosacral neuritis M54.17 [facility] [address] [address] 28 Oct, 2016 Other chronic pain G89.29 and Pain in right shoulder M25.511 [place] [address] [address] 18 Oct, 2016 Essential hypertension I10 [place] [address] [address] 11 Oct, 2016 [place] [address] [address] 07 Oct, 2016 Closed fracture of tooth, initial encounter S02.5XXA and Dental caries K02.9 [place] [address] [address] 07 Oct, 2016 Dental examination Z01.20 [place] [address] [address] Oct, Migraine with aura and without status migrainosus, not intractable G43.109 [place] [address] [address] Oct, [place] [address] [address] Sep, Fibromyalgia M79.7 [place] [address] [address] Sep, Essential hypertension I10 and Anxiety disorder, unspecified F41.9 [place] [address] [address] Aug, Anxiety disorder, unspecified F41.9 [place] [address] [place] [address] Aug, Anxiety disorder, unspecified F41.9 and Essential hypertension I10 [facility] [address] [address] Jul, Fibromyalgia M79.7 [facility] [address] [address] Jul, Fibromyalgia M79.7 [place] [address] [address] June, Fibromyalgia M79.7 and Anxiety F41.9 [place] [address] [address] June, [place] [address] [address] June, Primary insomnia F51.01 [place] [address] [address] May, Migraine without aura and without status migrainosus, not intractable G43.009 ; Primary insomnia F51.01 ; Bronchitis J40 ; Anxiety disorder, unspecified F41.9 and Major depressive disorder, single episode, unspecified F32.9 [place] [id number] [place] [address] May, [facility] [id number] [place] [address] May, Migraine with aura and without status migrainosus, not intractable G43.109 [facility] [id number] [place] [address] May, Essential hypertension I10 [facility] [address] [address] Apr, Essential hypertension I10 ; Migraine without aura and without status migrainosus, not intractable G43.009 ; Anxiety disorder, unspecified F41.9 and Major depressive disorder, single episode, unspecified F32.9 [facility] [address] [id number] [address] 07 Mar, 2016 [facility] [address] [id number] [place] [id number] Feb, Dental examination Z01.20 IMMUNIZATIONS No Known Immunizations SOCIAL HISTORY Never Assessed REASON FOR VISIT f/u/family PLAN OF CARE Activity Details Follow Up 1-2 weeks Reason: Follow Up VITAL SIGNS MEDICATIONS Unknown Medications RESULTS No Results PROCEDURES Procedure Date Ordered Result Body Site Psychotherapy, patient &/family, 60 minutes, established patient Mar 25, 2017 INSTRUCTIONS MEDICATIONS ADMINISTERED No Known Medications MEDICAL (GENERAL) HISTORY Type Description Date Medical History Hypertension Medical History Asthma Medical History depression Medical History anxiety Medical History Migraines Medical History insomnia Surgical History right shoulder surgery 2017 Hospitalization History migraines 2016 Hospitalization History ulcer 2010
--- OUTSIDE RECORDS SUMMARY | 2018-07-15 18:03 | XMS REPORT ---
Author Author SHELBIE YEAGER Organization [facility] Address [address] [place] [address] Care Team Providers Care Pc Installation Engineer Name Role Phone SHELBIE YEAGER Unavailable PROBLEMS Type Condition ICD9-CM Code ANA47-WU Code Onset Dates Condition Status SNOMED Code Problem Essential hypertension I10 Active 01095123 Problem Primary insomnia F51.01 Active 4211702 Problem Major depressive disorder, single episode, unspecified F32.9 Active 87925968 Problem Migraine without aura and without status migrainosus, not intractable G43.009 Active 202152525 Problem Chronic post-traumatic stress disorder (PTSD) after combat F43.12 Active 765991560 Problem Asthma without acute exacerbation J45.909 Active 903387674 Problem Fibromyalgia M79.7 Active 151956407 Problem Anxiety F41.9 Active 72767500 Problem COPD with exacerbation J44.1 Active 924661604 Problem Other chronic pain G89.29 Active 43453589 ALLERGIES No Information ENCOUNTERS Encounter Location Date Diagnosis [facility] [id number] [place] [address] Oct, [facility] [id number] [place] [address] Oct, [facility] [id number] [place] [address] Sep, Anxiety F41.9 [facility] [id number] [place] [address] Aug, [facility] [id number] [place] [address] Aug, Anxiety F41.9 [facility] [id number] [place] [address] Aug, Anxiety F41.9 [facility] [address] [place] [address] Aug, Anxiety F41.9 [facility] [id number] [place] [address] Aug, Anxiety F41.9 [facility] [id number] [place] [address] Aug, [facility] [id number] [place] [address] Jul, [facility] [id number] [place] [address] Jul, Anxiety F41.9 [facility] [id number] [place] [address] Jul, Chest congestion R09.89 ; Coughing R05 and Wheezes R06.2 [facility] [id number] [place] [address] Jul, Major depressive disorder, single episode, unspecified F32.9 and Anxiety F41.9 [place] [id number] [place] [address] June, Neuropathic pain M79.2 and Right elbow pain M25.521 [place] [id number] [place] [address] June, [facility] [id number] [place] [address] June, Anxiety F41.9 [facility] [id number] [place] [address] June, Chronic post-traumatic stress disorder (PTSD) after combat F43.12 ; Major depressive disorder, single episode, unspecified F32.9 and Anxiety F41.9 [facility] [address] [place] [address] May, [facility] [address] [address] May, Anxiety F41.9 [facility] [id number] [place] [address] May, [facility] [address] [place] [address] May, Acute pain of right shoulder M25.511 and Muscle strain of right shoulder, initial encounter S46.911A [facility] [id number] [place] [address] May, [facility] [id number] [place] [address] May, Chronic post-traumatic stress disorder (PTSD) after combat F43.12 and Anxiety F41.9 [facility] [id number] [place] [address] Apr, Anxiety F41.9 and Asthma without acute exacerbation J45.909 [facility] [id number] [place] [address] Apr, [facility] [id number] [place] [address] Mar, Anxiety F41.9 and Major depressive disorder, single episode, unspecified F32.9 [facility] [address] [place] [address] Mar, Anxiety F41.9 [facility] [address] [place] [address] Mar, [facility] [id number] [place] [address] Mar, Major depressive disorder, single episode, unspecified F32.9 ; Anxiety F41.9 and Chronic post-traumatic stress disorder (PTSD) after combat F43.12 [facility] [address] [place] [address] Mar, Chronic post-traumatic stress disorder (PTSD) after combat F43.12 ; Major depressive disorder, single episode, unspecified F32.9 ; Anxiety F41.9 and Primary insomnia F51.01 [facility] [id number] [place] [address] Feb, Anxiety F41.9 and Major depressive disorder, single episode, unspecified F32.9 [place] [address] [address] Feb, Primary insomnia F51.01 and Anxiety F41.9 [place] [address] [address] Feb, [facility] [address] [address] Feb, Wheezes R06.2 and COPD with exacerbation J44.1 [place] [address] [address] Feb, [place] [address] [address] Jan, [place] [address] [address] Dec, [place] [id number] [place] [address] Dec, [place] [address] [address] Dec, Dislocation of right shoulder joint, subsequent encounter S43.004D [place] [address] [address] Nov, [place] [address] [address] Nov, Lumbosacral neuritis M54.17 [facility] [address] [address] Oct, Other chronic pain G89.29 and Pain in right shoulder M25.511 [place] [address] [address] Oct, Essential hypertension I10 [place] [id number] [place] [address] Oct, [place] [address] [address] Oct, Closed fracture of tooth, initial encounter S02.5XXA and Dental caries K02.9 [place] [address] [address] Oct, Dental examination Z01.20 [place] [address] [address] Oct, Migraine with aura and without status migrainosus, not intractable G43.109 [place] [address] [address] Oct, [place] [address] [address] Sep, Fibromyalgia M79.7 [place] [address] [address] Sep, Essential hypertension I10 and Anxiety disorder, unspecified F41.9 [place] [id number] [place] [address] Aug, Anxiety disorder, unspecified F41.9 [place] [id number] [place] [address] Aug, Anxiety disorder, unspecified F41.9 and Essential hypertension I10 [place] [id number] [place] [address] Jul, Fibromyalgia M79.7 [place] [address] [address] Jul, Fibromyalgia M79.7 [facility] [id number] [place] [address] June, Fibromyalgia M79.7 and Anxiety F41.9 [facility] [address] [address] June, [facility] [address] [address] June, Primary insomnia F51.01 [place] [address] [address] May, Migraine without aura and without status migrainosus, not intractable G43.009 ; Primary insomnia F51.01 ; Bronchitis J40 ; Anxiety disorder, unspecified F41.9 and Major depressive disorder, single episode, unspecified F32.9 [place] [address] [address] May, [facility] [address] [address] May, Migraine with aura and without status migrainosus, not intractable G43.109 [place] [id number] [place] [address] May, Essential hypertension I10 [place] [id number] [place] [address] Apr, Essential hypertension I10 ; Migraine without aura and without status migrainosus, not intractable G43.009 ; Anxiety disorder, unspecified F41.9 and Major depressive disorder, single episode, unspecified F32.9 [facility] [id number] [place] [address] Mar, [facility] [id number] [place] [id number] Feb, Dental examination Z01.20 IMMUNIZATIONS No Known Immunizations SOCIAL HISTORY Never Assessed REASON FOR VISIT Medication refill request PLAN OF CARE VITAL SIGNS MEDICATIONS Unknown [...]
--- OUTSIDE RECORDS SUMMARY | 2018-07-15 18:04 | XMS REPORT ---
Author Author SHELBIE YEAGER Organization [facility] Address [address] [place] [address] Care Team Providers Care Registered Art Therapist Name Role Phone SHELBIE YEAGER Unavailable PROBLEMS Type Condition ICD9-CM Code [id number] Code Onset Dates Condition Status SNOMED Code Problem Essential hypertension I10 Active 34544059 Problem Primary insomnia F51.01 Active 6191692 Problem Major depressive disorder, single episode, unspecified F32.9 Active 87663536 Problem Migraine without aura and without status migrainosus, not intractable G43.009 Active 049885062 Problem Chronic post-traumatic stress disorder (PTSD) after combat F43.12 Active 357977680 Problem Asthma without acute exacerbation J45.909 Active 969281533 Problem Fibromyalgia M79.7 Active 155148749 Problem Anxiety F41.9 Active 14452636 Problem COPD with exacerbation J44.1 Active 352233030 Problem Other chronic pain G89.29 Active [id number] ALLERGIES No Information ENCOUNTERS Encounter Location Date Diagnosis [facility] [id number] [place] [address] Oct, [facility] [id number] [place] [address] Sep, [facility] [id number] [place] [address] Sep, Anxiety F41.9 [facility] [id number] [place] [address] Aug, [facility] [id number] [place] [address] Aug, Anxiety F41.9 [facility] [id number] [place] [address] Aug, Anxiety F41.9 [facility] [id number] [place] [address] Aug, Anxiety F41.9 [facility] [id number] [place] [address] Aug, Anxiety F41.9 [facility] [id number] [place] [address] Aug, [facility] [id number] [place] [address] Jul, [facility] [id number] [place] [address] Jul, Anxiety F41.9 [facility] [id number] [place] [address] Jul, Chest congestion R09.89 ; Coughing R05 and Wheezes R06.2 [facility] [id number] [place] [address] Jul, Major depressive disorder, single episode, unspecified F32.9 and Anxiety F41.9 [facility] [id number] [place] [address] June, Neuropathic pain M79.2 and Right elbow pain M25.521 [facility] [id number] [place] [address] June, [facility] [id number] [place] [address] June, Anxiety F41.9 [facility] [id number] [place] [address] June, Chronic post-traumatic stress disorder (PTSD) after combat F43.12 ; Major depressive disorder, single episode, unspecified F32.9 and Anxiety F41.9 [facility] [id number] [place] [address] May, [facility] [address] [address] May, Anxiety F41.9 [facility] [id number] [place] [address] May, [facility] [id number] [place] [address] May, Acute pain of right shoulder M25.511 and Muscle strain of right shoulder, initial encounter S46.911A [facility] [id number] [place] [address] May, [facility] [id number] [place] [address] May, Chronic post-traumatic stress disorder (PTSD) after combat F43.12 and Anxiety F41.9 [facility] [id number] [place] [address] Apr, Anxiety F41.9 and Asthma without acute exacerbation J45.909 [facility] [id number] [place] [address] Apr, [facility] [id number] [place] [address] Mar, Anxiety F41.9 and Major depressive disorder, single episode, unspecified F32.9 [facility] [id number] [place] [address] Mar, Anxiety F41.9 [facility] [id number] [place] [address] Mar, [facility] [id number] [place] [address] Mar, Major depressive disorder, single episode, unspecified F32.9 ; Anxiety F41.9 and Chronic post-traumatic stress disorder (PTSD) after combat F43.12 [facility] [id number] [place] [address] Mar, Chronic post-traumatic stress disorder (PTSD) after combat F43.12 ; Major depressive disorder, single episode, unspecified F32.9 ; Anxiety F41.9 and Primary insomnia F51.01 [facility] [id number] [place] [address] Feb, Anxiety F41.9 and Major depressive disorder, single episode, unspecified F32.9 [facility] [address] [address] Feb, Primary insomnia F51.01 and Anxiety F41.9 [facility] [address] [address] Feb, [facility] [address] [address] Feb, Wheezes R06.2 and COPD with exacerbation J44.1 [facility] [address] [address] Feb, [facility] [address] [address] Jan, [facility] [address] [address] Dec, [facility] [id number] [place] [address] Dec, [facility] [address] [address] Dec, Dislocation of right shoulder joint, subsequent encounter S43.004D [facility] [address] [address] Nov, [facility] [address] [address] Nov, Lumbosacral neuritis M54.17 [facility] [address] [address] Oct, Other chronic pain G89.29 and Pain in right shoulder M25.511 [facility] [address] [address] Oct, Essential hypertension I10 [facility] [id number] [place] [address] Oct, [facility] [address] [address] Oct, Closed fracture of tooth, initial encounter S02.5XXA and Dental caries K02.9 [facility] [address] [address] Oct, Dental examination Z01.20 [facility] [address] [address] Oct, Migraine with aura and without status migrainosus, not intractable G43.109 [facility] [address] [address] Oct, [facility] [address] [address] Sep, Fibromyalgia M79.7 [facility] [address] [address] Sep, Essential hypertension I10 and Anxiety disorder, unspecified F41.9 [facility] [id number] [place] [address] Aug, Anxiety disorder, unspecified F41.9 [facility] [id number] [place] [address] Aug, Anxiety disorder, unspecified F41.9 and Essential hypertension I10 [facility] [id number] [place] [address] Jul, Fibromyalgia M79.7 [facility] [address] [address] Jul, Fibromyalgia M79.7 [facility] [id number] [place] [address] June, Fibromyalgia M79.7 and Anxiety F41.9 [facility] [id number] [place] [address] June, [facility] [address] [address] June, Primary insomnia F51.01 [place] [address] [address] May, Migraine without aura and without status migrainosus, not intractable G43.009 ; Primary insomnia F51.01 ; Bronchitis J40 ; Anxiety disorder, unspecified F41.9 and Major depressive disorder, single episode, unspecified F32.9 [facility] [id number] [place] [address] May, [facility] [id number] [place] [address] May, Migraine with aura and without status migrainosus, not intractable G43.109 [facility] [id number] [place] [address] May, Essential hypertension I10 [facility] [id number] [place] [address] Apr, Essential hypertension I10 ; Migraine without aura and without status migrainosus, not intractable G43.009 ; Anxiety disorder, unspecified F41.9 and Major depressive disorder, single episode, unspecified F32.9 [facility] [id number] [place] [address] Mar, [facility] [id number] [place] [id number] Feb, Dental examination Z01.20 IMMUNIZATIONS No Known Immunizations SOCIAL HISTORY Never Assessed REASON FOR VISIT Controlled Med Refill-06/23/17 PLAN OF CARE VITAL SIGNS MEDICATIONS Medication [...]
--- OUTSIDE RECORDS SUMMARY | 2018-07-15 18:04 | XMS REPORT ---
Author Author SAPNA TIWARI [facility] Address [address] [place] [address] Care Team Providers Care Personal Development Mentor Name Role Phone SAPNA TIWARI Unavailable PROBLEMS Type Condition ICD9-CM Code [id number] Code Onset Dates Condition Status SNOMED Code Problem Essential hypertension I10 Active 85028517 Problem Primary insomnia F51.01 Active 3671810 Problem Major depressive disorder, single episode, unspecified F32.9 Active 07520102 Problem Migraine without aura and without status migrainosus, not intractable G43.009 Active 101056359 Problem Chronic post-traumatic stress disorder (PTSD) after combat F43.12 Active 600746717 Problem Asthma without acute exacerbation J45.909 Active 933731343 Problem Fibromyalgia M79.7 Active 900957462 Problem Anxiety F41.9 Active 83008953 Problem COPD with exacerbation J44.1 Active 259466253 Problem Other chronic pain G89.29 Active 70674918 ALLERGIES No Information ENCOUNTERS Encounter Location Date Diagnosis [facility] [id number] [place] [address] Oct, [facility] [address] [address] Sep, [facility] [id number] [place] [address] Sep, [facility] [id number] [place] [address] Aug, [facility] [id number] [place] [address] Aug, Anxiety F41.9 [facility] [id number] [place] [address] Aug, Anxiety F41.9 [facility] [address] [address] Aug, Anxiety F41.9 [facility] [id number] [place] [address] Aug, Anxiety F41.9 [facility] [id number] [place] [address] Aug, [facility] [id number] [place] [address] Jul, [facility] [id number] [place] [address] Jul, Anxiety F41.9 [facility] [id number] [place] [address] Jul, Chest congestion R09.89 ; Coughing R05 and Wheezes R06.2 [facility] [id number] [place] [address] Jul, Major depressive disorder, single episode, unspecified F32.9 and Anxiety F41.9 [facility] [id number] [place] [address] June, Neuropathic pain M79.2 and Right elbow pain M25.521 [facility] [address] [address] June, [facility] [id number] [place] [address] June, Anxiety F41.9 [facility] [address] [address] June, Chronic post-traumatic stress disorder (PTSD) after combat F43.12 ; Major depressive disorder, single episode, unspecified F32.9 and Anxiety F41.9 [facility] [address] [address] May, [facility] [id number] [address] May, Anxiety F41.9 [facility] [id number] [place] [address] May, [facility] [id number] [place] [address] May, Acute pain of right shoulder M25.511 and Muscle strain of right shoulder, initial encounter S46.911A [facility] [id number] [place] [address] May, [facility] [id number] [place] [address] May, Chronic post-traumatic stress disorder (PTSD) after combat F43.12 and Anxiety F41.9 [facility] [id number] [place] [address] Apr, Anxiety F41.9 and Asthma without acute exacerbation J45.909 [facility] [id number] [place] [address] Apr, [facility] [id number] [place] [address] Mar, Anxiety F41.9 and Major depressive disorder, single episode, unspecified F32.9 [facility] [address] [place] [address] Mar, Anxiety F41.9 [facility] [id number] [place] [address] Mar, [facility] [id number] [place] [address] 14 Mar, 2017 Major depressive disorder, single episode, unspecified F32.9 ; Anxiety F41.9 and Chronic post-traumatic stress disorder (PTSD) after combat F43.12 [facility] [id number] [place] [address] Mar, Chronic post-traumatic stress disorder (PTSD) after combat F43.12 ; Major depressive disorder, single episode, unspecified F32.9 ; Anxiety F41.9 and Primary insomnia F51.01 [facility] [id number] [place] [address] Feb, Anxiety F41.9 and Major depressive disorder, single episode, unspecified F32.9 [place] [address] [address] Feb, Primary insomnia F51.01 and Anxiety F41.9 [place] [address] [address] Feb, [facility] [address] [address] Feb, Wheezes R06.2 and COPD with exacerbation J44.1 [place] [address] [address] Feb, [facility] [address] [address] Jan, [facility] [address] [address] Dec, [place] [address] [address] Dec, [place] [place] [address] [address] Dec, Dislocation of right shoulder joint, subsequent encounter S43.004D [place] [address] [address] Nov, [facility] [address] [address] Nov, Lumbosacral neuritis M54.17 [facility] [address] [address] Oct, Other chronic pain G89.29 and Pain in right shoulder M25.511 [facility] [id number] [place] [address] Oct, Essential hypertension I10 [facility] [id number] [place] [address] Oct, [place] [address] [address] Oct, Closed fracture of tooth, initial encounter S02.5XXA and Dental caries K02.9 [facility] [id number] [place] [address] Oct, Dental examination Z01.20 [facility] [address] [address] Oct, Migraine with aura and without status migrainosus, not intractable G43.109 [facility] [address] [address] Oct, [facility] [id number] [place] [address] Sep, Fibromyalgia M79.7 [facility] [address] [address] Sep, Essential hypertension I10 and Anxiety disorder, unspecified F41.9 [facility] [id number] [place] [address] Aug, Anxiety disorder, unspecified F41.9 [facility] [id number] [place] [address] Aug, Anxiety disorder, unspecified F41.9 and Essential hypertension I10 [facility] [id number] [place] [address] Jul, Fibromyalgia M79.7 [facility] [id number] [place] [address] Jul, Fibromyalgia M79.7 [facility] [id number] [place] [address] June, Fibromyalgia M79.7 and Anxiety F41.9 [facility] [id number] [place] [address] June, [facility] [address] [address] June, Primary insomnia F51.01 [facility] [id number] [place] [address] May, Migraine without aura and without status migrainosus, not intractable G43.009 ; Primary insomnia F51.01 ; Bronchitis J40 ; Anxiety disorder, unspecified F41.9 and Major depressive disorder, single episode, unspecified F32.9 [facility] [id number] [place] [address] May, [facility] [id number] [place] [address] May, Migraine with aura and without status migrainosus, not intractable G43.109 [facility] [id number] [place] [address] 05 May, 2016 Essential hypertension I10 [facility] [id number] [place] [address] Apr, Essential hypertension I10 ; Migraine without aura and without status migrainosus, not intractable G43.009 ; Anxiety disorder, unspecified F41.9 and Major depressive disorder, single episode, unspecified F32.9 [facility] [id number] [place] [address] Mar, [facility] [id number] [place] [phone] Feb, Dental examination Z01.20 IMMUNIZATIONS No Known Immunizations SOCIAL HISTORY Never Assessed REASON FOR VISIT intake PLAN OF CARE Activity Details Follow Up 1 Week Reason: Follow up with this provider VITAL SIGNS MEDICATIONS Unknown Medications RESULTS No Results PROCEDURES Procedure Date Ordered Result Body Site Psychotherapy, patient &/family, 60 minutes, new patient Mar 17, 2017 INSTRUCTIONS MEDICATIONS ADMINISTERED No Known Medications MEDICAL (GENERAL) HISTORY Type Description Date Medical History Hypertension Medical History Asthma Medical History depression Medical History anxiety Medical History Migraines Medical History insomnia Surgical History right shoulder surgery 2017 Hospitalization History migraines 2016 Hospitalization History ulcer 2010
--- OUTSIDE RECORDS SUMMARY | 2018-07-15 18:04 | XMS REPORT ---
Author Author SAPNA TIWARI [facility] Address [address] [place] [address] Care Team Providers Care Adaptive Physical Education Teacher Name Role Phone SAPNA TIWARI Unavailable PROBLEMS Type Condition ICD9-CM Code SQR88-EH Code Onset Dates Condition Status SNOMED Code Problem Essential hypertension I10 Active 15237395 Problem Primary insomnia F51.01 Active 2927343 Problem Major depressive disorder, single episode, unspecified F32.9 Active 55142527 Problem Migraine without aura and without status migrainosus, not intractable G43.009 Active 751602939 Problem Chronic post-traumatic stress disorder (PTSD) after combat F43.12 Active 636309217 Problem Asthma without acute exacerbation J45.909 Active 341582845 Problem Fibromyalgia M79.7 Active 526208370 Problem Anxiety F41.9 Active 00865086 Problem COPD with exacerbation J44.1 Active 168176343 Problem Other chronic pain G89.29 Active 30082380 ALLERGIES No Information ENCOUNTERS Encounter Location Date Diagnosis [facility] [id number] [place] [address] Sep, [facility] [id number] [place] [address] Sep, [facility] [id number] [place] [address] Aug, [facility] [id number] [place] [address] Aug, Anxiety F41.9 [facility] [id number] [place] [address] Aug, Anxiety F41.9 [facility] [id number] [place] [address] Aug, Anxiety F41.9 [facility] [address] [address] Aug, Anxiety F41.9 [facility] [id number] [place] [address] Aug, [facility] [id number] [place] [address] Jul, [facility] [id number] [place] [address] Jul, Anxiety F41.9 [facility] [id number] [place] [address] Jul, Chest congestion R09.89 ; Coughing R05 and Wheezes R06.2 [facility] [id number] [place] [address] Jul, Major depressive disorder, single episode, unspecified F32.9 and Anxiety F41.9 [facility] [id number] [place] [address] June, Neuropathic pain M79.2 and Right elbow pain M25.521 [facility] [id number] [place] [address] June, [facility] [id number] [place] [address] June, Anxiety F41.9 [facility] [id number] [place] [address] June, Chronic post-traumatic stress disorder (PTSD) after combat F43.12 ; Major depressive disorder, single episode, unspecified F32.9 and Anxiety F41.9 [facility] [id number] [place] [address] May, [facility] [id number] [place] [address] May, Anxiety F41.9 [place] [address] [address] May, [facility] [id number] [place] [address] May, Acute pain of right shoulder M25.511 and Muscle strain of right shoulder, initial encounter S46.911A [facility] [id number] [place] [address] May, [facility] [id number] [place] [address] May, Chronic post-traumatic stress disorder (PTSD) after combat F43.12 and Anxiety F41.9 [place] [address] [place] [address] Apr, Anxiety F41.9 and Asthma without acute exacerbation J45.909 [facility] [place] [id number] [place] [address] Apr, [facility] [id number] [place] [address] Mar, Anxiety F41.9 and Major depressive disorder, single episode, unspecified F32.9 [facility] [id number] [place] [address] Mar, Anxiety F41.9 [place] [id number] [place] [address] Mar, [place] [address] [place] [address] Mar, Major depressive disorder, single episode, unspecified F32.9 ; Anxiety F41.9 and Chronic post-traumatic stress disorder (PTSD) after combat F43.12 [facility] [address] [address] 06 Mar, 2017 Chronic post-traumatic stress disorder (PTSD) after combat F43.12 ; Major depressive disorder, single episode, unspecified F32.9 ; Anxiety F41.9 and Primary insomnia F51.01 [facility] [id number] [place] [address] Feb, Anxiety F41.9 and Major depressive disorder, single episode, unspecified F32.9 [facility] [id number] [place] [address] Feb, Primary insomnia F51.01 and Anxiety F41.9 [facility] [address] [address] Feb, [facility] [address] [address] Feb, Wheezes R06.2 and COPD with exacerbation J44.1 [place] [address] [address] Feb, [place] [address] [address] Jan, [facility] [address] [address] Dec, [place] [address] [address] Dec, [place] [id number] [place] [address] Dec, Dislocation of right shoulder joint, subsequent encounter S43.004D [facility] [id number] [place] [address] Nov, [place] [address] [address] 19 Nov, 2016 Lumbosacral neuritis M54.17 [facility] [id number] [place] [address] 28 Oct, 2016 Other chronic pain G89.29 and Pain in right shoulder M25.511 [place] [address] [address] Oct, Essential hypertension I10 [place] [address] [address] Oct, [place] [address] [address] Oct, Closed fracture of tooth, initial encounter S02.5XXA and Dental caries K02.9 [place] [address] [address] Oct, Dental examination Z01.20 [place] [address] [address] Oct, Migraine with aura and without status migrainosus, not intractable G43.109 [place] [address] [address] Oct, [place] [address] [address] Sep, Fibromyalgia M79.7 [place] [address] [address] Sep, Essential hypertension I10 and Anxiety disorder, unspecified F41.9 [place] [address] [address] Aug, Anxiety disorder, unspecified F41.9 [place] [id number] [place] [address] Aug, Anxiety disorder, unspecified F41.9 and Essential hypertension I10 [place] [address] [address] Jul, Fibromyalgia M79.7 [place] [address] [address] Jul, Fibromyalgia M79.7 [place] [address] [address] June, Fibromyalgia M79.7 and Anxiety F41.9 [place] [id number] [place] [address] June, [place] [id number] [place] [address] June, Primary insomnia F51.01 [place] [id number] [place] [address] May, Migraine without aura and without status migrainosus, not intractable G43.009 ; Primary insomnia F51.01 ; Bronchitis J40 ; Anxiety disorder, unspecified F41.9 and Major depressive disorder, single episode, unspecified F32.9 [place] [id number] [place] [address] May, [facility] [id number] [place] [address] May, Migraine with aura and without status migrainosus, not intractable G43.109 [place] [id number] [place] [address] May, Essential hypertension I10 [place] [id number] [place] [address] Apr, Essential hypertension I10 ; Migraine without aura and without status migrainosus, not intractable G43.009 ; Anxiety disorder, unspecified F41.9 and Major depressive disorder, single episode, unspecified F32.9 [place] [id number] [place] [address] Mar, [facility] [id number] [place] [phone] Feb, Dental examination Z01.20 IMMUNIZATIONS No Known Immunizations SOCIAL HISTORY Never Assessed REASON FOR VISIT schedule an appt PLAN OF CARE VITAL SIGNS MEDICATIONS [...]
--- OUTSIDE RECORDS SUMMARY | 2018-07-15 18:04 | XMS REPORT ---
Author Author SHELBIE YEAGER Organization [facility] Address [address] [place] [address] Care Team Providers Care Mobile Paramedical Examiner Name Role Phone SHELBIE YEAGER Unavailable PROBLEMS Type Condition ICD9-CM Code DFR82-QA Code Onset Dates Condition Status SNOMED Code Problem Essential hypertension I10 Active 30845257 Problem Primary insomnia F51.01 Active 3046521 Problem Major depressive disorder, single episode, unspecified F32.9 Active 31670080 Problem Migraine without aura and without status migrainosus, not intractable G43.009 Active 385862994 Problem Chronic post-traumatic stress disorder (PTSD) after combat F43.12 Active 998401715 Problem Asthma without acute exacerbation J45.909 Active 369764399 Problem Fibromyalgia M79.7 Active 960741376 Problem Anxiety F41.9 Active 22446772 Problem COPD with exacerbation J44.1 Active 290289382 Problem Other chronic pain G89.29 Active 41412352 ALLERGIES No Information ENCOUNTERS Encounter Location Date Diagnosis [facility] [id number] [place] [address] Sep, [facility] [id number] [place] [address] Sep, [facility] [id number] [place] [address] Aug, [facility] [id number] [place] [address] Aug, Anxiety F41.9 [facility] [id number] [place] [address] Aug, Anxiety F41.9 [facility] [id number] [place] [address] Aug, Anxiety F41.9 [facility] [address], [place] [address] Aug, Anxiety F41.9 [facility] [id number] [place] [address] Aug, [facility] [id number] [place] [address] Jul, [facility] [id number] [place] [address] Jul, Anxiety F41.9 [facility] [id number] [place] [address] Jul, Chest congestion R09.89 ; Coughing R05 and Wheezes R06.2 [place] [id number] [place] [address] Jul, Major depressive disorder, single episode, unspecified F32.9 and Anxiety F41.9 [facility] [id number] [place] [address] June, Neuropathic pain M79.2 and Right elbow pain M25.521 [place] [id number] [place] [address] June, [facility] [id number] [place] [address] June, Anxiety F41.9 [facility] [id number] [place] [address] June, Chronic post-traumatic stress disorder (PTSD) after combat F43.12 ; Major depressive disorder, single episode, unspecified F32.9 and Anxiety F41.9 [facility] [address] [place] [address] May, [facility] [id number] [place] [address] May, Anxiety F41.9 [facility] [address], [place] [address] May, [facility] [id number] [place] [address] May, Acute pain of right shoulder M25.511 and Muscle strain of right shoulder, initial encounter S46.911A [facility] [address] [place] [address] May, [facility] [id number] [place] [address] May, Chronic post-traumatic stress disorder (PTSD) after combat F43.12 and Anxiety F41.9 [place] [address] [place] [address] Apr, Anxiety F41.9 and Asthma without acute exacerbation J45.909 [place] [id number] [place] [address] Apr, [facility] [id number] [place] [address] Mar, Anxiety F41.9 and Major depressive disorder, single episode, unspecified F32.9 [facility] [address], [place] [address] Mar, Anxiety F41.9 [place] [address], [place] [address] Mar, [facility] [address] [place] [address] Mar, Major depressive disorder, single episode, unspecified F32.9 ; Anxiety F41.9 and Chronic post-traumatic stress disorder (PTSD) after combat F43.12 [facility] [address] [address] Mar, Chronic post-traumatic stress disorder (PTSD) after combat F43.12 ; Major depressive disorder, single episode, unspecified F32.9 ; Anxiety F41.9 and Primary insomnia F51.01 [facility] [address] [address] Feb, Anxiety F41.9 and Major depressive disorder, single episode, unspecified F32.9 [facility] [address] [address] Feb, Primary insomnia F51.01 and Anxiety F41.9 [facility] [address] [address] Feb, [facility] [address] [address] Feb, Wheezes R06.2 and COPD with exacerbation J44.1 [place] [address] [address] Feb, [place] [address] [address] Jan, [facility] [address] [address] Dec, [place] [address] [address] Dec, [place] [address] [address] Dec, Dislocation of right shoulder joint, subsequent encounter S43.004D [facility] [address] [address] Nov, [facility] [address] [address] Nov, Lumbosacral neuritis M54.17 [facility] [address] [address] 28 Oct, 2016 Other chronic pain G89.29 and Pain in right shoulder M25.511 [place] [address] [address] Oct, Essential hypertension I10 [place] [address] [address] Oct, [place] [address] [address] Oct, Closed fracture of tooth, initial encounter S02.5XXA and Dental caries K02.9 [place] [address] [address] Oct, Dental examination Z01.20 [place] [address] [address] Oct, Migraine with aura and without status migrainosus, not intractable G43.109 [place] [address] [address] Oct, [place] [address] [address] Sep, Fibromyalgia M79.7 [place] [address] [address] Sep, Essential hypertension I10 and Anxiety disorder, unspecified F41.9 [place] [id number] [place] [address] Aug, Anxiety disorder, unspecified F41.9 [place] [id number] [place] [address] Aug, Anxiety disorder, unspecified F41.9 and Essential hypertension I10 [place] [id number] [place] [address] Jul, Fibromyalgia M79.7 [facility] [address] [address] Jul, Fibromyalgia M79.7 [facility] [address] [address] June, Fibromyalgia M79.7 and Anxiety F41.9 [facility] [id number] [place] [address] June, [place] [id number] [place] [address] June, Primary insomnia F51.01 [place] [id number] [place] [address] May, Migraine without aura and without status migrainosus, not intractable G43.009 ; Primary insomnia F51.01 ; Bronchitis J40 ; Anxiety disorder, unspecified F41.9 and Major depressive disorder, single episode, unspecified F32.9 [place] [id number] [place] [address] May, [facility] [id number] [place] [address] May, Migraine with aura and without status migrainosus, not intractable G43.109 [place] [id number] [place] [address] May, Essential hypertension I10 [place] [id number] [place] [address] Apr, Essential hypertension I10 ; Migraine without aura and without status migrainosus, not intractable G43.009 ; Anxiety disorder, unspecified F41.9 and Major depressive disorder, single episode, unspecified F32.9 [place] [id number] [place] [address] Mar, [facility] [address] [place] [phone] Feb, Dental examination Z01.20 IMMUNIZATIONS No Known Immunizations SOCIAL HISTORY Never Assessed REASON FOR VISIT Controlled med PLAN OF CARE VITAL SIGNS MEDICATIONS Unknown [...]
--- OUTSIDE RECORDS SUMMARY | 2018-07-15 18:05 | XMS REPORT ---
Author Author SAPNA TIWARI [facility] Address [address] [place] [address] Care Team Providers Care Bicycle Racer Name Role Phone SAPNA TIWARI Unavailable PROBLEMS Type Condition ICD9-CM Code WPK63-EP Code Onset Dates Condition Status SNOMED Code Problem Essential hypertension I10 Active 95056882 Problem Primary insomnia F51.01 Active 9673581 Problem Major depressive disorder, single episode, unspecified F32.9 Active 57256380 Problem Migraine without aura and without status migrainosus, not intractable G43.009 Active 174451950 Problem Chronic post-traumatic stress disorder (PTSD) after combat F43.12 Active 242946910 Problem Asthma without acute exacerbation J45.909 Active 738705374 Problem Fibromyalgia M79.7 Active 780887285 Problem Anxiety F41.9 Active 74049751 Problem COPD with exacerbation J44.1 Active 707960361 Problem Other chronic pain G89.29 Active 63063905 ALLERGIES No Information ENCOUNTERS Encounter Location Date Diagnosis [facility] [id number] [place] [address] Aug, [facility] [id number] [place] [address] Aug, Anxiety F41.9 [facility] [address] [place] [address] Aug, Anxiety F41.9 [facility] [id number] [place] [address] Aug, Anxiety F41.9 [facility] [id number] [place] [address] Aug, Anxiety F41.9 [facility] [id number] [place] [address] Aug, [facility] [id number] [place] [address] Jul, [facility] [id number] [place] [address] Jul, Anxiety F41.9 [facility] [id number] [place] [address] Jul, Chest congestion R09.89 ; Coughing R05 [address]zes R06.2 [facility] [id number] [place] [address] Jul, Major depressive disorder, single episode, unspecified F32.9 and Anxiety F41.9 [facility] [facility] [id number] [place] [address] June, Neuropathic pain M79.2 and Right elbow pain M25.521 [facility] [id number] [place] [address] June, [facility] [id number] [place] [address] June, Anxiety F41.9 [facility] [id number] [place] [address] June, [facility] [id number] [place] [address] May, [facility] [id number] [place] [address] May, Anxiety F41.9 [facility] [id number] [place] [address] May, [facility] [id number] [place] [address] May, Acute pain of right shoulder M25.511 and Muscle strain of right shoulder, initial encounter S46.911A [place] [address] [place] [address] May, [facility] [id number] [place] [address] May, Chronic post-traumatic stress disorder (PTSD) after combat F43.[address] [facility] [id number] [place] [address] Apr, Anxiety F41.9 and Asthma without acute exacerbation J45.909 [facility] [id number] [place] [address] Apr, [place] [address] [address] Mar, Anxiety F41.9 and Major depressive disorder, single episode, unspecified F32.9 [place] [facility] [id number] [place] [address] Mar, Anxiety F41.9 [place] [facility] [id number] [place] [address] Mar, [place] [id number] [place] [address] Mar, Major depressive disorder, single episode, unspecified F32.9 ; Anxiety F41.9 and Chronic post-traumatic stress disorder (PTSD) after combat F43.12 [place] [id number] [place] [address] Mar, Chronic post-traumatic stress disorder (PTSD) after combat F43.12 ; Major depressive disorder, single episode, unspecified F32.9 ; Anxiety F41.9 and Primary insomnia F51.01 [place] [id number] [place] [address] Feb, Anxiety F41.9 and Major depressive disorder, single episode, unspecified F32.9 [place] [facility] [id number] [place] [address] Feb, Primary insomnia F51.[address] [facility] [id number] [place] [address] Feb, [facility] [address] [address] Feb, Wheezes R06.2 and COPD with exacerbation J44.1 [place] [address] [address] Feb, [facility] [id number] [place] [address] Jan, [place] [address] [address] Dec, [place] [address] [address] Dec, [place] [address] [address] Dec, Dislocation of right shoulder joint, subsequent encounter S43.004D [place] [id number] [place] [address] Nov, [place] [address] [address] Nov, Lumbosacral neuritis M54.17 [facility] [id number] [place] [address] 28 Oct, 2016 Other chronic pain G89.29 and Pain in right shoulder M25.511 [facility] [address] [address] 18 Oct, 2016 Essential hypertension I10 [place] [address] [address] 11 Oct, 2016 [facility] [address] [address] 07 Oct, 2016 Closed fracture of tooth, initial encounter S02.5XXA and Dental caries K02.9 [place] [id number] [place] [address] 07 Oct, 2016 Dental examination Z01.20 [place] [id number] [place] [address] Oct, Migraine with aura and without status migrainosus, not intractable G43.109 [place] [address] [address] Oct, [place] [address] [address] Sep, Fibromyalgia M79.7 [place] [address] [address] Sep, Essential hypertension I10 and Anxiety disorder, unspecified F41.9 [place] [address] [address] Aug, Anxiety disorder, unspecified F41.9 [facility] [facility] [id number] [place] [address] Aug, Anxiety disorder, unspecified F41.9 and Essential hypertension I10 [place] [id number] [place] [address] Jul, Fibromyalgia M79.7 [place] [id number] [place] [address] Jul, Fibromyalgia M79.7 [place] [id number] [place] [address] June, Fibromyalgia M79.7 and Anxiety F41.9 [place] [address] [address] June, [place] [id number] [place] [address] June, Primary insomnia F51.01 [place] [address] [address] 14 May, 2016 Migraine without aura and without status migrainosus, not intractable G43.009 ; Primary insomnia F51.01 ; Bronchitis J40 ; Anxiety disorder, unspecified F41.9 and Major depressive disorder, single episode, unspecified F32.9 [facility] [address] [address] 13 May, 2016 [facility] [id number] [place] [address] May, Migraine with aura and without status migrainosus, not intractable G43.109 [facility] [id number] [place] [address] 05 May, [address] [facility] [id number] [place] [address] Apr, Essential hypertension I10 ; Migraine without aura and without status migrainosus, not intractable G43.009 ; Anxiety disorder, unspecified F41.9 and Major depressive disorder, single episode, unspecified F32.9 [facility] [address] [place] [address] 07 Mar, 2016 [facility] [address] [place] [phone] Feb, Dental examination Z01.20 IMMUNIZATIONS No Known Immunizations SOCIAL HISTORY Never Assessed REASON FOR VISIT f/u PLAN OF CARE Activity Details Follow Up 1 Week Reason: Follow Up VITAL SIGNS MEDICATIONS Unknown Medications RESULTS No Results PROCEDURES Procedure Date Ordered Result Body Site Psychotherapy, patient &/family, 45 minutes, established patient Apr 07, 2017 INSTRUCTIONS MEDICATIONS ADMINISTERED No Known Medications MEDICAL (GENERAL) HISTORY Type Description Date Medical History Hypertension Medical History Asthma Medical History depression Medical History anxiety Medical History Migraines Medical History insomnia Surgical History right shoulder surgery 2017 Hospitalization History migraines 2016 Hospitalization History ulcer 2010
--- OUTSIDE RECORDS SUMMARY | 2018-07-15 18:05 | XMS REPORT ---
Author Author SHELBIE YEAGER Organization [facility] Address [address] [place] [address] Care Team Providers Care Reservation Agent Name Role Phone SHELBIE YEAGER Unavailable PROBLEMS Type Condition ICD9-CM Code CVQ38-CP Code Onset Dates Condition Status SNOMED Code Problem Essential hypertension I10 Active 47770573 Problem Primary insomnia F51.01 Active 3812982 Problem Major depressive disorder, single episode, unspecified F32.9 Active 54144435 Problem Migraine without aura and without status migrainosus, not intractable G43.009 Active 673580784 Problem Chronic post-traumatic stress disorder (PTSD) after combat F43.12 Active 748181475 Problem Asthma without acute exacerbation J45.909 Active 619269987 Problem Fibromyalgia M79.7 Active 576616187 Problem Anxiety F41.9 Active 68373366 Problem COPD with exacerbation J44.1 Active 807986237 Problem Other chronic pain G89.29 Active 38809345 ALLERGIES No Information ENCOUNTERS Encounter Location Date Diagnosis [facility] [id number] [place] [address] Sep, [facility] [address] [place] [address] Aug, [facility] [id number] [place] [address] Aug, Anxiety F41.9 [facility] [id number] [place] [address] Aug, Anxiety F41.9 [facility] [id number] [place] [address] Aug, Anxiety F41.9 [facility] [id number] [place] [address] Aug, Anxiety F41.9 [facility] [address] [address] Aug, [facility] [id number] [place] [address] Jul, [facility] [id number] [place] [address] Jul, Anxiety F41.9 [facility] [id number] [place] [address] Jul, Chest congestion R09.89 ; Coughing R05 and Wheezes R06.2 [place] [id number] [place] [address] Jul, Major depressive disorder, single episode, unspecified F32.9 and Anxiety F41.9 [place] [id number] [place] [address] June, Neuropathic pain M79.2 and Right elbow pain M25.521 [facility] [id number] [place] [address] June, [facility] [id number] [place] [address] June, Anxiety F41.9 [facility] [id number] [place] [address] June, [facility] [id number] [place] [address] May, [facility] [id number] [place] [address] May, Anxiety F41.9 [facility] [id number] [place] [address] May, [facility] [address] [place] [address] May, Acute pain of right shoulder M25.511 and Muscle strain of right shoulder, initial encounter S46.911A [facility] [id number] [place] [address] May, [facility] [id number] [place] [address] May, Chronic post-traumatic stress disorder (PTSD) after combat F43.12 and Anxiety F41.9 [facility] [id number] [place] [address] Apr, Anxiety F41.9 and Asthma without acute exacerbation J45.909 [facility] [id number] [place] [address] Apr, [facility] [id number] [place] [address] Mar, Anxiety F41.9 and Major depressive disorder, single episode, unspecified F32.9 [place] [id number] [place] [address] Mar, Anxiety F41.9 [facility] [id number] [place] [address] Mar, [facility] [id number] [place] [phone] Mar, Major depressive disorder, single episode, unspecified F32.9 ; Anxiety F41.9 and Chronic post-traumatic stress disorder (PTSD) after combat F43.12 [facility] [address] [place] [address] Mar, Chronic post-traumatic stress disorder (PTSD) after combat F43.12 ; Major depressive disorder, single episode, unspecified F32.9 ; Anxiety F41.9 and Primary insomnia F51.01 [facility] [address] [place] [address] Feb, Anxiety F41.9 and Major depressive disorder, single episode, unspecified F32.9 [facility] [id number] [place] [address] Feb, Primary insomnia F51.01 and Anxiety F41.9 [facility] [address] [address] Feb, [facility] [address] [address] Feb, Wheezes R06.2 and COPD with exacerbation J44.1 [facility] [address] [address] Feb, [place] [address] [address] Jan, [place] [address] [address] Dec, [place] [address] [address] Dec, [facility] [address] [address] Dec, Dislocation of right shoulder joint, subsequent encounter S43.004D [facility] [id number] [place] [address] Nov, [facility] [id number] [place] [address] 19 Nov, 2016 Lumbosacral neuritis M54.17 [facility] [id number] [place] [address] 28 Oct, 2016 Other chronic pain G89.29 and Pain in right shoulder M25.511 [place] [address] [address] 18 Oct, 2016 Essential hypertension I10 [facility] [address] [address] 11 Oct, 2016 [facility] [address] [address] 07 Oct, 2016 Closed fracture of tooth, initial encounter S02.5XXA and Dental caries K02.9 [place] [address] [address] 07 Oct, 2016 Dental examination Z01.20 [place] [address] [address] Oct, Migraine with aura and without status migrainosus, not intractable G43.109 [place] [address] [address] Oct, [place] [address] [address] Sep, Fibromyalgia M79.7 [place] [address] [address] Sep, Essential hypertension I10 and Anxiety disorder, unspecified F41.9 [place] [address] [address] Aug, Anxiety disorder, unspecified F41.9 [place] [address] [address] Aug, Anxiety disorder, unspecified F41.9 and Essential hypertension I10 [place] [address] [address] Jul, Fibromyalgia M79.7 [place] [address] [address] Jul, Fibromyalgia M79.7 [place] [address] [address] June, Fibromyalgia M79.7 and Anxiety F41.9 [place] [id number] [place] [address] June, [place] [address] [address] June, Primary insomnia F51.01 [facility] [address] [place] [address] May, Migraine without aura and without status migrainosus, not intractable G43.009 ; Primary insomnia F51.01 ; Bronchitis J40 ; Anxiety disorder, unspecified F41.9 and Major depressive disorder, single episode, unspecified F32.9 [facility] [id number] [place] [address] May, [facility] [id number] [place] [address] May, Migraine with aura and without status migrainosus, not intractable G43.109 [place] [id number] [place] [address] 05 May, 2016 Essential hypertension I10 [place] [id number] [place] [address] Apr, Essential hypertension I10 ; Migraine without aura and without status migrainosus, not intractable G43.009 ; Anxiety disorder, unspecified F41.9 and Major depressive disorder, single episode, unspecified F32.9 [place] [id number] [place] [address] Mar, [facility] [address] [place] [phone] Feb, Dental examination Z01.20 IMMUNIZATIONS No Known Immunizations SOCIAL HISTORY Never Assessed REASON FOR VISIT med refill PLAN OF CARE VITAL SIGNS MEDICATIONS Medication [...]
--- OUTSIDE RECORDS SUMMARY | 2018-07-15 18:05 | XMS REPORT ---
Author Author FREIDA ROBISON [facility] Address [address] [place] [address] Care Team Providers Care Remote Advisor Name Role Phone FREIDA ROBISON Unavailable PROBLEMS Type Condition ICD9-CM Code YAB28-FY Code Onset Dates Condition Status SNOMED Code Problem Essential hypertension I10 Active 98086372 Problem Primary insomnia F51.01 Active 7029825 Problem Major depressive disorder, single episode, unspecified F32.9 Active 75125119 Problem Migraine without aura and without status migrainosus, not intractable G43.009 Active 579096779 Problem Chronic post-traumatic stress disorder (PTSD) after combat F43.12 Active 593602784 Problem Asthma without acute exacerbation J45.909 Active 643782491 Problem Fibromyalgia M79.7 Active 492779157 Problem Anxiety F41.9 Active 04051257 Problem COPD with exacerbation J44.1 Active 526444001 Problem Other chronic pain G89.29 Active 96056795 ALLERGIES Substance Reaction Event Type Date Status Compazine hives 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, Active sea food anaphylaxis Non 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, Active ENCOUNTERS Encounter Location Date Diagnosis [facility] [id number] [address] Sep, [facility] [address] [place] [address] Aug, [facility] [address] [address] Aug, [facility] [id number] [place] [address] Aug, Anxiety F41.9 [facility] [address] [address] Aug, Anxiety F41.9 [facility] [id number] [place] [address] Aug, Anxiety F41.9 [facility] [id number] [place] [address] Aug, Anxiety F41.9 [facility] [id number] [place] [address] Aug, [facility] [address] [address] Jul, [facility] [id number] [place] [address] Jul, Anxiety F41.9 [facility] [id number] [place] [address] Jul, Chest congestion R09.89 ; Coughing R05 and Wheezes R06.2 [facility] [id number] [place] [address] Jul, Major depressive disorder, single episode, unspecified F32.9 and Anxiety F41.9 [facility] [id number] [place] [address] June, Neuropathic pain M79.2 and Right elbow pain M25.521 [facility] [id number] [place] [address] June, [facility] [id number] [place] [address] June, Anxiety F41.9 [facility] [id number] [place] [address] June, [facility] [id number] [place] [address] May, [facility] [id number] [place] [address] May, Anxiety F41.9 [facility] [address] [place] [address] May, [facility] [address] [place] [address] May, Acute pain of right shoulder M25.511 and Muscle strain of right shoulder, initial encounter S46.911A [facility] [address] [place] [address] May, [facility] [id number] [place] [address] May, Chronic post-traumatic stress disorder (PTSD) after combat F43.12 and Anxiety F41.9 [place] [id number] [place] [address] Apr, Anxiety F41.9 and Asthma without acute exacerbation J45.909 [facility] [facility] [id number] [place] [address] Apr, [facility] [id number] [place] [address] Mar, Anxiety F41.9 and Major depressive disorder, single episode, unspecified F32.9 [facility] [address] [place] [address] Mar, Anxiety F41.9 [place] [address] [place] [address] Mar, [facility] [id number] [place] [address] Mar, Major depressive disorder, single episode, unspecified F32.9 ; Anxiety F41.9 and Chronic post-traumatic stress disorder (PTSD) after combat F43.12 [facility] [address] [place] [address] Mar, Chronic post-traumatic stress disorder (PTSD) after combat F43.12 ; Major depressive disorder, single episode, unspecified F32.9 ; Anxiety F41.9 and Primary insomnia F51.01 [facility] [address] [address] Feb, Anxiety F41.9 and Major depressive disorder, single episode, unspecified F32.9 [facility] [id number] [place] [address] Feb, Primary insomnia F51.01 and Anxiety F41.9 [place] [address] [address] Feb, [facility] [address] [address] Feb, Wheezes R06.2 and COPD with exacerbation J44.1 [place] [address] [address] Feb, [place] [address] [address] Jan, [place] [address] [address] Dec, [place] [address] [address] Dec, [place] [address] [address] Dec, Dislocation of right shoulder joint, subsequent encounter S43.004D [facility] [address] [address] Nov, [facility] [address] [address] Nov, Lumbosacral neuritis M54.17 [facility] [address] [address] 28 Oct, 2016 Other chronic pain G89.29 and Pain in right shoulder M25.511 [place] [address] [address] Oct, Essential hypertension I10 [place] [id number] [place] [address] Oct, [place] [address] [address] Oct, Closed fracture of tooth, initial encounter S02.5XXA and Dental caries K02.9 [place] [address] [address] Oct, Dental examination Z01.20 [place] [address] [address] Oct, Migraine with aura and without status migrainosus, not intractable G43.109 [place] [address] [address] Oct, [place] [address] [address] Sep, Fibromyalgia M79.7 [place] [address] [address] Sep, Essential hypertension I10 and Anxiety disorder, unspecified F41.9 [place] [id number] [place] [address] Aug, Anxiety disorder, unspecified F41.9 [place] [id number] [place] [address] Aug, Anxiety disorder, unspecified F41.9 and Essential hypertension I10 [place] [id number] [place] [address] Jul, Fibromyalgia M79.7 [place] [address] [address] Jul, Fibromyalgia M79.7 [place] [id number] [place] [address] June, Fibromyalgia M79.7 and Anxiety F41.9 [place] [id number] [place] [address] June, [facility] [address] [address] June, Primary insomnia F51.01 [place] [address] [address] May, Migraine without aura and without status migrainosus, not intractable G43.009 ; Primary insomnia F51.01 ; Bronchitis J40 ; Anxiety disorder, unspecified F41.9 and Major depressive disorder, single episode, unspecified F32.9 [place] [address] [address] May, [facility] [address] [address] May, Migraine with aura and without status migrainosus, not intractable G43.109 [place] [id number] [place] [address] May, Essential hypertension I10 [place] [address] [address] Apr, Essential hypertension I10 ; Migraine without aura and without status migrainosus, not intractable G43.009 ; Anxiety disorder, unspecified F41.9 and Major depressive disorder, single episode, unspecified F32.9 [place] [id number] [place] [address] Mar, [facility] [address] [id number] Feb, Dental examination Z01.20 IMMUNIZATIONS Vaccine Route Administration Date Status TORADOL (IM) 60 MG/2ML (UP TO 15 MG) IM Intramuscular May 20, 2017 Administered SOCIAL HISTORY Never Assessed REASON FOR VISIT shoulder pain PLAN OF CARE Activity Details Follow Up prn Reason: VITAL SIGNS Height 66.5 in 2017-05-20 Weight 138.8 lbs 2017-05-20 Temperature 98.6 degrees Fahrenheit 2017-05-20 Heart Rate 88 bpm 2017-05-20 Respiratory Rate 20 2017-05-20 BMI 22.06 kg/m2 2017-05-20 Blood pressure systolic 124 mmHg 2017-05-20 Blood pressure diastolic 76 mmHg 2017-05-20 MEDICATIONS Medication Instructions Dosage Frequency Start Date End Date Duration Status ibuprofen Not-Taking Klonopin 0.5 MG Orally TID PRN 1 tablet Feb, 28 days Active Imitrex 25 MG Orally Twice a day (MAX 2 DAILY) 1 tablet as needed at onset of headache and then 1 more tab 2 hours later if no improvement Apr, Not-Taking Ensure - Orally 2 times a day 12h Not-Taking [place] 5-325 MG Orally every 6 hrs 1 tablet as needed 6h Nov, Active Ibuprofen 800 MG TAKE ONE TABLET BY MOUTH THREE TIMES DAILY 30 Not-Taking Zocor Not-Taking Seroquel 400 MG Orally Once a day 1 tablet 24h 30 days Active BusPIRone HCl 10 MG Orally TID PRN 1.5 tablets May, Active Propranolol HCl 60 mg Orally Twice a day 1 tablet 12h Active Naykcgpugh-UIVH-Powtkaeg 50-325-40 MG Orally every 4 hrs 1 tablet as needed 4h 13 May, 2016 Not-Taking Budesonide 180 MCG/ACT Inhalation Twice a day 1 puff 12h Jan, 30 days Not-Taking Seroquel 200 mg TAKE ONE-HALF TABLET BY MOUTH ONCE DAILY FOR 7 DAYS THEN INCREASE TO ONE TABLET DAILY THEREAFTER 30 Not-Taking Paxil 20 mg Orally 2 times a day 1 tablet 12h 30 Active Ventolin HFA 108 (90 Base) MCG/ACT Inhalation 4 times a day 2 puffs as needed 6h Active Gabapentin 100 mg Orally twice daily 2 capsules 90 Active Cyclobenzaprine HCl 10 mg Orally 2 times a day 1 tablet as needed 12h 30 Active Albuterol Sulfate (2.5 MG/3ML) 0.083% Inhalation every 6 hrs 3 ml 6h 12 May, 2016 Active BusPIRone HCl 15 MG TAKE ONE TABLET BY MOUTH THREE TIMES DAILY NEEDED 30 Active Multivitamin Men - Active Omeprazole 40 mg Orally 2 times a day 1 capsule 12h Active RESULTS Name Result Date Reference Range Xray : Shoulder, Right 2 view (IN HOUSE) 2017-05-20 PROCEDURES Procedure Date Ordered Result Body Site X-RAY EXAM OF SHOULDER May 20, 2017 THER/PROPH/DIAG INJ, SC/IM May 20, 2017 TORADOL (IM) 60 MG/2ML (UP TO 15 MG) May 20, 2017 INSTRUCTIONS MEDICATIONS ADMINISTERED No Known Medications MEDICAL (GENERAL) HISTORY Type Description Date Medical History Hypertension Medical History Asthma Medical History depression Medical History anxiety Medical History Migraines Medical History insomnia Surgical History right shoulder surgery 2017 Hospitalization History migraines 2016 Hospitalization History ulcer 2010
--- OUTSIDE RECORDS SUMMARY | 2018-07-15 18:05 | XMS REPORT ---
Author Author SHELBIE YEAGER Organization [facility] Address [address] [place] [address] Care Team Providers Care Brusher Warp Name Role Phone SHELBIE YEAGER Unavailable PROBLEMS Type Condition ICD9-CM Code PMZ02-IV Code Onset Dates Condition Status SNOMED Code Problem Essential hypertension I10 Active 90426062 Problem Primary insomnia F51.01 Active 5449912 Problem Major depressive disorder, single episode, unspecified F32.9 Active 84118498 Problem Migraine without aura and without status migrainosus, not intractable G43.009 Active 495660086 Problem Chronic post-traumatic stress disorder (PTSD) after combat F43.12 Active 392884269 Problem Asthma without acute exacerbation J45.909 Active 784500524 Problem Fibromyalgia M79.7 Active 877776588 Problem Anxiety F41.9 Active 45658369 Problem COPD with exacerbation J44.1 Active 757630694 Problem Other chronic pain G89.29 Active 09569248 ALLERGIES No Information ENCOUNTERS Encounter Location Date Diagnosis [facility] [id number] [place] [address] Sep, [facility] [address] [place] [address] Aug, [facility] [id number] [place] [address] Aug, [facility] [id number] [place] [address] Aug, Anxiety F41.9 [facility] [id number] [place] [address] Aug, Anxiety F41.9 [facility] [id number] [place] [address] Aug, Anxiety F41.9 [facility] [id number] [place] [address] Aug, Anxiety F41.9 [facility] [id number] [place] [address] Aug, [facility] [id number] [place] [address] Jul, [facility] [address] [address] Jul, Anxiety F41.9 [facility] [id number] [place] [address] Jul, Chest congestion R09.89 ; Coughing R05 and Wheezes R06.2 [facility] [id number] [place] [address] Jul, Major depressive disorder, single episode, unspecified F32.9 and Anxiety F41.9 [facility] [id number] [place] [address] June, Neuropathic pain M79.2 and Right elbow pain M25.521 [facility] [id number] [place] [address] June, [facility] [id number] [place] [address] June, Anxiety F41.9 [facility] [id number] [place] [address] June, [facility] [id number] [place] [address] May, [facility] [id number] [place] [address] May, Anxiety F41.9 [facility] [id number] [place] [address] May, [facility] [address] [place] [address] May, Acute pain of right shoulder M25.511 and Muscle strain of right shoulder, initial encounter S46.911A [place] [id number] [place] [address] May, [facility] [id number] [place] [address] May, Chronic post-traumatic stress disorder (PTSD) after combat F43.12 and Anxiety F41.9 [place] [id number] [place] [address] Apr, Anxiety F41.9 and Asthma without acute exacerbation J45.909 [place] [id number] [place] [address] Apr, [place] [id number] [place] [address] Mar, Anxiety F41.9 and Major depressive disorder, single episode, unspecified F32.9 [place] [id number] [place] [address] Mar, Anxiety F41.9 [place] [id number] [place] [address] Mar, [place] [id number] [place] [address] 14 Mar, 2017 Major depressive disorder, single episode, unspecified F32.9 ; Anxiety F41.9 and Chronic post-traumatic stress disorder (PTSD) after combat F43.12 [place] [id number] [place] [address] 06 Mar, 2017 Chronic post-traumatic stress disorder (PTSD) after combat F43.12 ; Major depressive disorder, single episode, unspecified F32.9 ; Anxiety F41.9 and Primary insomnia F51.01 [place] [id number] [place] [address] Feb, Anxiety F41.9 and Major depressive disorder, single episode, unspecified F32.9 [place] [id number] [place] [address] Feb, Primary insomnia F51.01 and Anxiety F41.9 [facility] [id number] [place] [address] Feb, [facility] [address] [address] Feb, Wheezes R06.2 and COPD with exacerbation J44.1 [place] [address] [address] Feb, [place] [id number] [place] [address] Jan, [place] [address] [address] Dec, [place] [address] [address] Dec, [place] [address] [address] Dec, Dislocation of right shoulder joint, subsequent encounter S43.004D [place] [id number] [place] [address] Nov, [facility] [id number] [place] [address] Nov, Lumbosacral neuritis M54.17 [facility] [id number] [place] [address] 28 Oct, 2016 Other chronic pain G89.29 and Pain in right shoulder M25.511 [facility] [id number] [place] [address] 18 Oct, 2016 Essential hypertension I10 [place] [address] [address] Oct, [place] [address] [address] Oct, Closed fracture of tooth, initial encounter S02.5XXA and Dental caries K02.9 [place] [address] [address] Oct, Dental examination Z01.20 [place] [address] [address] Oct, Migraine with aura and without status migrainosus, not intractable G43.109 [place] [address] [address] Oct, [place] [address] [address] Sep, Fibromyalgia M79.7 [place] [address] [address] Sep, Essential hypertension I10 and Anxiety disorder, unspecified F41.9 [place] [address] [address] Aug, Anxiety disorder, unspecified F41.9 [place] [address] [address] Aug, Anxiety disorder, unspecified F41.9 and Essential hypertension I10 [place] [address] [address] Jul, Fibromyalgia M79.7 [place] [address] [address] Jul, Fibromyalgia M79.7 [place] [address] [address] June, Fibromyalgia M79.7 and Anxiety F41.9 [place] [address] [address] June, [facility] [address] [address] June, Primary insomnia F51.01 [place] [address] [place] [address] May, Migraine without aura and without status migrainosus, not intractable G43.009 ; Primary insomnia F51.01 ; Bronchitis J40 ; Anxiety disorder, unspecified F41.9 and Major depressive disorder, single episode, unspecified F32.9 [place] [address] [place] [address] May, [facility] [id number] [place] [address] May, Migraine with aura and without status migrainosus, not intractable G43.109 [place] [id number] [place] [address] May, Essential hypertension I10 [place] [id number] [place] [address] Apr, Essential hypertension I10 ; Migraine without aura and without status migrainosus, not intractable G43.009 ; Anxiety disorder, unspecified F41.9 and Major depressive disorder, single episode, unspecified F32.9 [place] [address] [address] Mar, [facility] [address] [place] [id number] Feb, Dental examination Z01.20 IMMUNIZATIONS No Known Immunizations SOCIAL HISTORY Never Assessed REASON FOR VISIT requesting a returned call PLAN OF CARE VITAL SIGNS MEDICATIONS [...]
--- OUTSIDE RECORDS SUMMARY | 2018-07-15 18:05 | XMS REPORT ---
Author Author SAPNA TIWARI [facility] Address [address] [place] [address] Care Team Providers Care Asbestos Worker Name Role Phone SAPNA TIWARI Unavailable PROBLEMS Type Condition ICD9-CM Code [id number] Code Onset Dates Condition Status SNOMED Code Problem Essential hypertension I10 Active 61741680 Problem Primary insomnia F51.01 Active 2145184 Problem Major depressive disorder, single episode, unspecified F32.9 Active 90745411 Problem Migraine without aura and without status migrainosus, not intractable G43.009 Active 292555925 Problem Chronic post-traumatic stress disorder (PTSD) after combat F43.12 Active 058497982 Problem Asthma without acute exacerbation J45.909 Active 900065261 Problem Fibromyalgia M79.7 Active 221078675 Problem Anxiety F41.9 Active 27909081 Problem COPD with exacerbation J44.1 Active 237641681 Problem Other chronic pain G89.29 Active 33123085 ALLERGIES No Information ENCOUNTERS Encounter Location Date Diagnosis [facility] [place] [id number] [place] [address] Sep, [facility] [place] [id number] [place] [phone] Aug, [facility] [place] [id number] [place] [address] Aug, [facility] [place] [address] [place] [address] Aug, Anxiety F41.9 [facility] [place] [id number] [place] [address] Aug, Anxiety F41.9 [facility] [place] [id number] [place] [address] Aug, Anxiety F41.9 [facility] [place] [id number] [place] [address] Aug, Anxiety F41.9 [facility] [place] [id number] [place] [address] Aug, [facility] [place] [id number] [place] [phone] Jul, [facility] [place] [address] [address] Jul, Anxiety F41.9 [facility] [address] [address] Jul, Chest congestion R09.89 ; Coughing R05 and Wheezes R06.2 [facility] [place] [id number] [place] [address] Jul, Major depressive disorder, single episode, unspecified F32.9 and Anxiety F41.9 [facility] [place] [id number] [place] [address] June, Neuropathic pain M79.2 and Right elbow pain M25.521 [facility] [place] [id number] [place] [address] June, [facility] [place] [id number] [place] [address] June, Anxiety F41.9 [facility] [place] [id number] [place] [phone] June, [facility] [place] [id number] [place] [address] May, [facility] [place] [id number] [place] [address] May, Anxiety F41.9 [facility] [place] [id number] [place] [address] May, [facility] [address] [place] [address] May, Acute pain of right shoulder M25.511 and Muscle strain of right shoulder, initial encounter S46.911A [facility] [place] [id number] [place] [address] May, [facility] [place] [id number] [place] [address] May, Chronic post-traumatic stress disorder (PTSD) after combat F43.12 and Anxiety F41.9 [place] [id number] [place] [address] Apr, Anxiety F41.9 and Asthma without acute exacerbation J45.909 [facility] [place] [id number] [place] [address] Apr, [facility] [place] [id number] [place] [address] Mar, Anxiety F41.9 and Major depressive disorder, single episode, unspecified F32.9 [facility] [place] [id number] [place] [address] Mar, Anxiety F41.9 [place] [id number] [place] [address] Mar, [facility] [place] [id number] [place] [address] 14 Mar, 2017 Major depressive disorder, single episode, unspecified F32.9 ; Anxiety F41.9 and Chronic post-traumatic stress disorder (PTSD) after combat F43.12 [facility] [place] [id number] [place] [address] 06 Mar, 2017 Chronic post-traumatic stress disorder (PTSD) after combat F43.12 ; Major depressive disorder, single episode, unspecified F32.9 ; Anxiety F41.9 and Primary insomnia F51.01 [facility] [place] [id number] [place] [address] Feb, Anxiety F41.9 and Major depressive disorder, single episode, unspecified F32.9 [facility] [place] [address] [address] Feb, Primary insomnia F51.01 and Anxiety F41.9 [facility] [place] [address] [address] Feb, [facility] [address] [address] Feb, Wheezes R06.2 and COPD with exacerbation J44.1 [place] [address] [address] Feb, [place] [address] [address] Jan, [place] [address] [address] Dec, [place] [address] [address] Dec, [place] [address] [address] Dec, Dislocation of right shoulder joint, subsequent encounter S43.004D [place] [address] [address] Nov, [facility] [place] [address] [address] Nov, Lumbosacral neuritis M54.17 [facility] [address] [address] 28 Oct, 2016 Other chronic pain G89.29 and Pain in right shoulder M25.511 [facility] [place] [id number] [place] [address] 18 Oct, 2016 Essential hypertension I10 [place] [address] [address] Oct, [place] [address] [address] Oct, Closed fracture of tooth, initial encounter S02.5XXA and Dental caries K02.9 [place] [address] [address] Oct, Dental examination Z01.20 [place] [address] [address] Oct, Migraine with aura and without status migrainosus, not intractable G43.109 [place] [address] [address] Oct, [place] [address] [address] Sep, Fibromyalgia M79.7 [place] [address] [address] Sep, Essential hypertension I10 and Anxiety disorder, unspecified F41.9 [place] [address] [address] Aug, Anxiety disorder, unspecified F41.9 [place] [address] [address] Aug, Anxiety disorder, unspecified F41.9 and Essential hypertension I10 [place] [address] [address] Jul, Fibromyalgia M79.7 [place] [address] [address] Jul, Fibromyalgia M79.7 [place] [address] [address] June, Fibromyalgia M79.7 and Anxiety F41.9 [place] [address] [address] June, [facility] [place] [address] [place] [address] June, Primary insomnia F51.01 [place] [id number] [place] [address] May, Migraine without aura and without status migrainosus, not intractable G43.009 ; Primary insomnia F51.01 ; Bronchitis J40 ; Anxiety disorder, unspecified F41.9 and Major depressive disorder, single episode, unspecified F32.9 [place] [id number] [place] [address] May, [facility] [id number] [place] [address] May, Migraine with aura and without status migrainosus, not intractable G43.109 [place] [id number] [place] [address] May, Essential hypertension I10 [place] [id number] [place] [address] Apr, Essential hypertension I10 ; Migraine without aura and without status migrainosus, not intractable G43.009 ; Anxiety disorder, unspecified F41.9 and Major depressive disorder, single episode, unspecified F32.9 [place] [id number] [place] [address] Mar, [facility] [address] [place] [phone] Feb, Dental examination Z01.20 IMMUNIZATIONS No Known Immunizations SOCIAL HISTORY Never Assessed REASON FOR VISIT integrated care PLAN OF CARE Activity Details Follow Up 1 Week Reason:BH Intake with this provider VITAL SIGNS MEDICATIONS Unknown Medications RESULTS No Results PROCEDURES Procedure Date Ordered Result Body Site Psychotherapy, patient &/family, 30 minutes, new patient Mar 11, 2017 INSTRUCTIONS MEDICATIONS ADMINISTERED No Known Medications MEDICAL (GENERAL) HISTORY Type Description Date Medical History Hypertension Medical History Asthma Medical History depression Medical History anxiety Medical History Migraines Medical History insomnia Surgical History right shoulder surgery 2017 Hospitalization History migraines 2016 Hospitalization History ulcer 2010
--- OUTSIDE RECORDS SUMMARY | 2018-07-15 18:06 | XMS REPORT ---
Author Author MARIAH ANDERSEN Organization [facility] [place] Address [address] [place] [address] Care Team Providers Care Neon Sign Erector Name Role Phone MARIAH ANDERSEN Unavailable PROBLEMS Type Condition ICD9-CM Code ODJ27-SV Code Onset Dates Condition Status SNOMED Code Problem Essential hypertension I10 Active 72279843 Problem Primary insomnia F51.01 Active 1297562 Problem Major depressive disorder, single episode, unspecified F32.9 Active 48679046 Problem Migraine without aura and without status migrainosus, not intractable G43.009 Active 873888524 Problem Chronic post-traumatic stress disorder (PTSD) after combat F43.12 Active 341833262 Problem Asthma without acute exacerbation J45.909 Active 402993470 Problem Fibromyalgia M79.7 Active 071301564 Problem Anxiety F41.9 Active 50167634 Problem COPD with exacerbation J44.1 Active 049280439 Problem Other chronic pain G89.29 Active 44336526 ALLERGIES Substance Reaction Event Type Date Status Compazine hives Drug Allergy Nov, Active sea food anaphylaxis Non Drug Allergy Nov, Active ENCOUNTERS Encounter Location Date Diagnosis [facility] [place] [id number] [address] June, [facility] [place] [id number] [address] May, [facility] [place] [id number] [address] May, Anxiety F41.9 [facility] [place] [address] [address] May, [facility] [id number] [address] May, Acute pain of right shoulder M25.511 and Muscle strain of right shoulder, initial encounter S46.911A [facility] [place] [address] [place] [address] May, [facility] [place] [id number] [place] [address] May, [facility] [place] [id number] [place] [address] Apr, Anxiety F41.9 and Asthma without acute exacerbation J45.909 [facility] [place] [id number] [place] [address] Apr, [facility] [place] [id number] [place] [address] Mar, Anxiety F41.9 and Major depressive disorder, single episode, unspecified F32.9 [place] [id number] [place] [address] Mar, Anxiety F41.9 [facility] [place] [id number] [place] [address] Mar, [facility] [place] [id number] [place] [address] Mar, [facility] [place] [address] [place] [address] Mar, Chronic post-traumatic stress disorder (PTSD) after combat F43.12 ; Major depressive disorder, single episode, unspecified F32.9 ; Anxiety F41.9 and Primary insomnia F51.01 [facility] [place] [address] [place] [address] Feb, Anxiety F41.9 and Major depressive disorder, single episode, unspecified F32.9 [facility] [place] [id number] [place] [address] Feb, Primary insomnia F51.01 and Anxiety F41.9 [facility] [place] [id number] [place] [address] Feb, [facility] [id number] [place] [address] Feb, Wheezes R06.2 and COPD with exacerbation J44.1 [facility] [place] [id number] [place] [address] Feb, [facility] [place] [address] [address] Jan, [facility] [place] [address] [address] Dec, [place] [address] [address] Dec, [facility] [place] [address] [address] Dec, Dislocation of right shoulder joint, subsequent encounter S43.004D [facility] [place] [address] [address] Nov, [facility] [place] [address] [address] Nov, Lumbosacral neuritis M54.17 [facility] [id number] [place] [address] 28 Oct, 2016 Other chronic pain G89.29 and Pain in right shoulder M25.511 [place] [address] [address] 18 Oct, 2016 Essential hypertension I10 [facility] [place] [address] [address] 11 Oct, 2016 [place] [address] [address] 07 Oct, 2016 Closed fracture of tooth, initial encounter S02.5XXA and Dental caries K02.9 [place] [address] [address] Oct, Dental examination Z01.20 [facility] [place] [id number] [place] [address] Oct, Migraine with aura and without status migrainosus, not intractable G43.109 [facility] [place] [address] [address] Oct, [place] [address] [address] Sep, Fibromyalgia M79.7 [place] [address] [address] Sep, Essential hypertension I10 and Anxiety disorder, unspecified F41.9 [place] [id number] [place] [address] Aug, Anxiety disorder, unspecified F41.9 [place] [address] [address] Aug, Anxiety disorder, unspecified F41.9 and Essential hypertension I10 [place] [id number] [place] [address] Jul, Fibromyalgia M79.7 [facility] [place] [id number] [place] [address] Jul, Fibromyalgia M79.7 [place] [id number] [place] [address] June, Fibromyalgia M79.7 and Anxiety F41.9 [facility] [place] [id number] [place] [address] June, [place] [address] [address] June, Primary insomnia F51.01 [facility] [place] [id number] [place] [address] May, Migraine without aura and without status migrainosus, not intractable G43.009 ; Primary insomnia F51.01 ; Bronchitis J40 ; Anxiety disorder, unspecified F41.9 and Major depressive disorder, single episode, unspecified F32.9 [facility] [place] [address] [place] [address] May, [facility] [id number] [place] [address] May, Migraine with aura and without status migrainosus, not intractable G43.109 [facility] [place] [id number] [place] [address] 05 May, 2016 Essential hypertension I10 [place] [address] [address] Apr, Essential hypertension I10 ; Migraine without aura and without status migrainosus, not intractable G43.009 ; Anxiety disorder, unspecified F41.9 and Major depressive disorder, single episode, unspecified F32.9 [facility] [place] [id number] [place] [address] Mar, [facility] [address] [id number] Feb, Dental examination Z01.20 IMMUNIZATIONS Vaccine Route Administration Date Status TORADOL (IM) 60 MG/2ML (UP TO 15 MG) IM Intramuscular 2016 Administered SOCIAL HISTORY Never Assessed REASON FOR VISIT back pain for about two weeks due to injury--Harish Castañeda MA PLAN OF CARE VITAL SIGNS Height 66.5 in 2016 Weight 130.2 lbs 2016 Temperature 98.1 degrees Fahrenheit 2016 Heart Rate 80 bpm 2016 Respiratory Rate 20 2016 BMI 20.70 kg/m2 2016 Blood pressure systolic 122 mmHg 2016 Blood pressure diastolic 80 mmHg 2016 MEDICATIONS Medication Instructions Dosage Frequency Start Date End Date Duration Status Acton 5-325 MG Orally every 6 hrs 1 tablet as needed 6h Nov, Active BusPIRone HCl 10 MG Orally TID PRN 1.5 tablets May, Active PredniSONE 20 mg Orally Once a day 2 tablets 24h Nov, Nov, 05 days Active Gabapentin 100 mg Orally twice daily 2 capsules 30 Active Seroquel 200 mg Orally Once a day 1 tablet 24h 30 days Active Albuterol Sulfate (2.5 MG/3ML) 0.083% Inhalation every 6 hrs 3 ml 6h May, Active Ventolin HFA 108 (90 Base) MCG/ACT Inhalation 4 times a day 2 puffs as needed 6h Active Paxil 20 mg Orally 2 times a day 1 tablet 12h 30 Active Propranolol HCl 60 mg Orally Twice a day 1 tablet 12h Active Omeprazole 40 mg Orally 2 times a day 1 capsule 12h Active Cyclobenzaprine HCl 10 mg Orally 2 times a day 1 tablet as needed 12h 30 Active RESULTS No Results PROCEDURES Procedure Date Ordered Result Body Site TORADOL (IM) 60 MG/2ML (UP TO 15 MG) 2016 THER/PROPH/DIAG INJ, SC/IM 2016 INSTRUCTIONS MEDICATIONS ADMINISTERED No Known Medications MEDICAL (GENERAL) HISTORY Type Description Date Medical History Hypertension Medical History Asthma Medical History depression Medical History anxiety Medical History Migraines Medical History insomnia Surgical History right shoulder surgery 2017 Hospitalization History migraines 2016 Hospitalization History ulcer 2010
--- OUTSIDE RECORDS SUMMARY | 2018-07-15 18:06 | XMS REPORT ---
Author Author SHELBIE YEAGER Organization [facility] Address [address] [place] [address] Care Team Providers Care Dry Cleaning Supervisor Name Role Phone SHELBIE YEAGER Unavailable PROBLEMS Type Condition ICD9-CM Code GJB03-RR Code Onset Dates Condition Status SNOMED Code Problem Essential hypertension I10 Active 56967751 Problem Primary insomnia F51.01 Active 4045562 Problem Major depressive disorder, single episode, unspecified F32.9 Active 55762391 Problem Migraine without aura and without status migrainosus, not intractable G43.009 Active 999441790 Problem Chronic post-traumatic stress disorder (PTSD) after combat F43.12 Active 320799949 Problem Asthma without acute exacerbation J45.909 Active 650475637 Problem Fibromyalgia M79.7 Active 661210694 Problem Anxiety F41.9 Active 38299594 Problem COPD with exacerbation J44.1 Active 130714162 Problem Other chronic pain G89.29 Active 67502199 ALLERGIES No Information ENCOUNTERS Encounter Location Date Diagnosis [facility] [id number] [place] [phone] Aug, [facility] [id number] [place] [address] Aug, Anxiety F41.9 [facility] [id number] [place] [phone] Aug, [facility] [id number] [place] [address] Jul, [facility] [id number] [place] [address] Jul, Anxiety F41.9 [facility] [id number] [place] [address] Jul, Chest congestion R09.89 ; Coughing R05 and Wheezes R06.2 [facility] [id number] [place] [address] Jul, Major depressive disorder, single episode, unspecified F32.9 and Anxiety F41.9 [facility] [id number] [place] [address] June, Neuropathic pain M79.2 and Right elbow pain M25.521 [facility] [id number] [place] [address] June, [facility] [id number] [place] [address] June, Anxiety F41.9 [place] [id number] [place] [address] June, [facility] [id number] [place] [address] May, [facility] [id number] [place] [address] May, Anxiety F41.9 [place] [id number] [place] [address] May, [facility] [address] [place] [address] May, Acute pain of right shoulder M25.511 and Muscle strain of right shoulder, initial encounter S46.911A [facility] [id number] [place] [address] May, [facility] [id number] [place] [address] May, [facility] [id number] [place] [address] Apr, Anxiety F41.9 and Asthma without acute exacerbation J45.909 [place] [id number] [place] [address] Apr, [facility] [id number] [place] [address] Mar, Anxiety F41.9 and Major depressive disorder, single episode, unspecified F32.9 [facility] [address] [place] [address] Mar, Anxiety F41.9 [place] [id number] [place] [address] Mar, [place] [id number] [place] [address] Mar, Major depressive disorder, single episode, unspecified F32.9 ; Anxiety F41.9 and Chronic post-traumatic stress disorder (PTSD) after combat F43.12 [place] [id number] [place] [address] 06 Mar, 2017 Chronic post-traumatic stress disorder (PTSD) after combat F43.12 ; Major depressive disorder, single episode, unspecified F32.9 ; Anxiety F41.9 and Primary insomnia F51.01 [place] [id number] [place] [address] Feb, Anxiety F41.9 and Major depressive disorder, single episode, unspecified F32.9 [place] [address] [place] [address] Feb, Primary insomnia F51.01 and Anxiety F41.9 [place] [id number] [place] [address] Feb, [facility] [id number] [place] [address] Feb, Wheezes R06.2 and COPD with exacerbation J44.1 [facility] [id number] [place] [address] Feb, [place] [id number] [place] [phone] 07 Jan, 2017 [facility] [id number] [place] [address] Dec, [facility] [id number] [place] [address] Dec, [place] [address] [address] Dec, Dislocation of right shoulder joint, subsequent encounter S43.004D [place] [id number] [place] [address] Nov, [place] [address] [address] Nov, Lumbosacral neuritis M54.17 [facility] [address] [address] 28 Oct, 2016 Other chronic pain G89.29 and Pain in right shoulder M25.511 [place] [address] [address] 18 Oct, 2016 Essential hypertension I10 [place] [id number] [place] [address] 11 Oct, 2016 [place] [id number] [place] [address] Oct, Closed fracture of tooth, initial encounter S02.5XXA and Dental caries K02.9 [place] [id number] [place] [address] 07 Oct, 2016 Dental examination Z01.20 [place] [address] [address] Oct, Migraine with aura and without status migrainosus, not intractable G43.109 [place] [id number] [place] [address] Oct, [place] [id number] [place] [address] Sep, Fibromyalgia M79.7 [facility] [id number] [place] [address] Sep, Essential hypertension I10 and Anxiety disorder, unspecified F41.9 [place] [id number] [place] [address] Aug, Anxiety disorder, unspecified F41.9 [place] [id number] [place] [address] Aug, Anxiety disorder, unspecified F41.9 and Essential hypertension I10 [place] [address] [address] Jul, Fibromyalgia M79.7 [place] [id number] [place] [address] Jul, Fibromyalgia M79.7 [place] [address] [address] June, Fibromyalgia M79.7 and Anxiety F41.9 [place] [id number] [place] [address] June, [place] [id number] [place] [address] June, Primary insomnia F51.01 [place] [id number] [place] [address] May, Migraine without aura and without status migrainosus, not intractable G43.009 ; Primary insomnia F51.01 ; Bronchitis J40 ; Anxiety disorder, unspecified F41.9 and Major depressive disorder, single episode, unspecified F32.9 [facility] [id number] [place] [address] May, [facility] [id number] [place] [address] May, Migraine with aura and without status migrainosus, not intractable G43.109 [facility] [address] [facility] [id number] [address] May, Essential hypertension I10 [facility] [address] [id number] [address] Apr, Essential hypertension I10 ; Migraine without aura and without status migrainosus, not intractable G43.009 ; Anxiety disorder, unspecified F41.9 and Major depressive disorder, single episode, unspecified F32.9 [facility] [address] [facility] [id number] [address] Mar, [facility] [address] [facility] [id number] [id number] Feb, Dental examination Z01.20 IMMUNIZATIONS No Known [...]
--- OUTSIDE RECORDS SUMMARY | 2018-07-15 18:06 | XMS REPORT ---
Author Author SHELBIE YEAGER Organization [facility] Address [address] [place] [address] Care Team Providers Care Inspector Machine Parts Name Role Phone SHELBIE YEAGER Unavailable PROBLEMS Type Condition ICD9-CM Code LYO43-PC Code Onset Dates Condition Status SNOMED Code Problem Essential hypertension I10 Active 24698876 Problem Primary insomnia F51.01 Active 9855191 Problem Major depressive disorder, single episode, unspecified F32.9 Active 41494372 Problem Migraine without aura and without status migrainosus, not intractable G43.009 Active 973930834 Problem Chronic post-traumatic stress disorder (PTSD) after combat F43.12 Active 104446584 Problem Asthma without acute exacerbation J45.909 Active 378186058 Problem Fibromyalgia M79.7 Active 974914919 Problem Anxiety F41.9 Active 38167475 Problem COPD with exacerbation J44.1 Active 792550882 Problem Other chronic pain G89.29 Active 53035846 ALLERGIES Substance Reaction Event Type Date Status Compazine hives Drug Allergy Apr, Active sea food anaphylaxis Non Drug Allergy Apr, Active ENCOUNTERS Encounter Location Date Diagnosis [facility] [id number], [place] [address] Aug, Anxiety F41.9 [facility] [address] [place] [address] Aug, Anxiety F41.9 [facility] [address] [place] [address] Aug, Anxiety F41.9 [facility] [address] [place] [address] Aug, Anxiety F41.9 [facility] [address] [place] [address] Aug, [facility] [id number] [place] [address] Jul, [facility] [id number] [place] [address] Jul, Anxiety F41.9 [facility] [id number] [place] [address] Jul, Chest congestion R09.89 ; Coughing R05 and Wheezes R06.2 [facility] [id number] [place] [address] Jul, Major depressive disorder, single episode, unspecified F32.9 and Anxiety F41.9 [place] [id number] [place] [address] June, Neuropathic pain M79.2 and Right elbow pain M25.521 [place] [id number] [place] [address] June, [facility] [id number] [place] [address] June, Anxiety F41.9 [place] [id number] [place] [address] June, [facility] [id number] [place] [address] May, [facility] [id number] [place] [address] May, Anxiety F41.9 [facility] [id number] [place] [address] May, [facility] [id number] [place] [address] May, Acute pain of right shoulder M25.511 and Muscle strain of right shoulder, initial encounter S46.911A [place] [id number] [place] [address] May, [facility] [address] [place] [address] May, Chronic post-traumatic stress disorder (PTSD) after combat F43.12 and Anxiety F41.9 [facility] [id number] [place] [address] Apr, Anxiety F41.9 and Asthma without acute exacerbation J45.909 [facility] [id number] [place] [address] Apr, [facility] [id number] [place] [address] Mar, Anxiety F41.9 and Major depressive disorder, single episode, unspecified F32.9 [place] [id number] [place] [address] Mar, Anxiety F41.9 [place] [id number] [place] [address] Mar, [place] [id number] [place] [address] Mar, Major depressive disorder, single episode, unspecified F32.9 ; Anxiety F41.9 and Chronic post-traumatic stress disorder (PTSD) after combat F43.12 [place] [id number] [place] [address] Mar, Chronic post-traumatic stress disorder (PTSD) after combat F43.12 ; Major depressive disorder, single episode, unspecified F32.9 ; Anxiety F41.9 and Primary insomnia F51.01 [place] [id number] [place] [address] Feb, Anxiety F41.9 and Major depressive disorder, single episode, unspecified F32.9 [place] [id number] [place] [address] Feb, Primary insomnia F51.01 and Anxiety F41.9 [facility] [id number] [place] [address] Feb, [facility] [address] [address] Feb, Wheezes R06.2 and COPD with exacerbation J44.1 [place] [address] Feb, [facility] [address] [address] Jan, [place] [address] [address] Dec, [place] [address] [address] Dec, [place] [address] [address] Dec, Dislocation of right shoulder joint, subsequent encounter S43.004D [address] [address] [address] Nov, [address] [address] 19 Nov, 2016 Lumbosacral neuritis M54.17 [facility] [id number] [place] [address] 28 Oct, 2016 Other chronic pain G89.29 and Pain in right shoulder M25.511 [facility] [address] [address] 18 Oct, 2016 Essential hypertension I10 [facility] [address] [address] 11 Oct, 2016 [facility] [address] [address] 07 Oct, 2016 Closed fracture of tooth, initial encounter S02.5XXA and Dental caries K02.9 [place] [id number] [place] [address] 07 Oct, 2016 Dental examination Z01.20 [place] [address] [address] Oct, Migraine with aura and without status migrainosus, not intractable G43.109 [address] [address] [address] Oct, [place] [address] [address] Sep, Fibromyalgia M79.7 [address] [address] [address] Sep, Essential hypertension I10 and Anxiety disorder, unspecified F41.9 [place] [id number] [place] [address] Aug, Anxiety disorder, unspecified F41.9 [place] [id number] [place] [address] Aug, Anxiety disorder, unspecified F41.9 and Essential hypertension I10 [place] [id number] [place] [address] Jul, Fibromyalgia M79.7 [place] [id number] [place] [address] Jul, Fibromyalgia M79.7 [place] [id number] [place] [address] June, Fibromyalgia M79.7 and Anxiety F41.9 [place] [address] [address] June, [place] [id number] [place] [address] June, Primary insomnia F51.01 [place] [id number] [place] [address] May, Migraine without aura and without status migrainosus, not intractable G43.009 ; Primary insomnia F51.01 ; Bronchitis J40 ; Anxiety disorder, unspecified F41.9 and Major depressive disorder, single episode, unspecified F32.9 [facility] [address] [place] [address] 13 May, 2016 [facility] [id number] [place] [address] May, Migraine with aura and without status migrainosus, not intractable G43.109 [facility] [id number] [place] [address] May, Essential hypertension I10 [facility] [id number] [place] [address] Apr, Essential hypertension I10 ; Migraine without aura and without status migrainosus, not intractable G43.009 ; Anxiety disorder, unspecified F41.9 and Major depressive disorder, single episode, unspecified F32.9 [facility] [address] [place] [address] Mar, [facility] [id number] [place] [phone] Feb, Dental examination Z01.20 IMMUNIZATIONS No Known Immunizations SOCIAL HISTORY Never Assessed REAS[facility] FOR VISIT [facility] Activity Details Follow Up 3 Months with Beatriz clark anxiety Reason: VITAL SIGNS Height 66.5 in 2017-04-27 Weight 135.0 lbs 2017-04-27 Temperature 97.9 degrees Fahrenheit 2017-04-27 Heart Rate 76 bpm 2017-04-27 Respiratory Rate 18 2017-04-27 BMI 21.46 kg/m2 2017-04-27 Blood pressure systolic 136 mmHg 2017-04-27 Blood pressure diastolic 92 mmHg 2017-04-27 MEDICATIONS Medication Instructions Dosage Frequency Start Date End Date Duration Status [place] 5-325 MG Orally every 6 hrs 1 tablet as needed 6h Nov, Active Albuterol Sulfate (2.5 MG/3ML) 0.083% Inhalation every 6 hrs 3 ml 6h 12 May, 2016 Active Ibuprofen 800 MG TAKE ONE TABLET BY MOUTH THREE TIMES DAILY 30 Not-Taking Klonopin 0.5 MG Orally TID PRN 1 tablet Feb, 28 days Active Paxil 20 mg Orally 2 times a day 1 tablet 12h 30 Active Cyclobenzaprine HCl 10 mg Orally 2 times a day 1 tablet as needed 12h 30 Active Propranolol HCl 60 mg Orally Twice a day 1 tablet 12h Active Imitrex 25 MG Orally Twice a day (MAX 2 DAILY) 1 tablet as needed at onset of headache and then 1 more tab 2 hours later if no improvement Apr, Not-Taking Budesonide 180 MCG/ACT Inhalation Twice a day 1 puff 12h Jan, 30 days Not-Taking ibuprofen Not-Taking Multivitamin Men - Active Ensure - Orally 2 times a day 12h Active Seroquel 400 MG Orally Once a day 1 tablet 24h 30 days Active Zocor Not-Taking Gabapentin 100 mg Orally twice daily 2 capsules 90 days Active Omeprazole 40 mg Orally 2 times a day 1 capsule 12h Active Seroquel 200 mg TAKE ONE-HALF TABLET BY MOUTH ONCE DAILY FOR 7 DAYS THEN INCREASE TO ONE TABLET DAILY THEREAFTER 30 Not-Taking Ventolin HFA 108 (90 Base) MCG/ACT Inhalation 4 times a day 2 puffs as needed 6h Active BusPIRone HCl 10 MG Orally TID PRN 1.5 tablets May, Active Gxxturtjjy-SCUI-Twgbzxtp 50-325-40 MG Orally every 4 hrs 1 tablet as needed 4h May, Not-Taking RESULTS No Results PROCEDURES No Known procedures INSTRUCTIONS MEDICATIONS ADMINISTERED No Known Medications MEDICAL (GENERAL) HISTORY Type Description Date Medical History Hypertension Medical History Asthma Medical History depression Medical History anxiety Medical History Migraines Medical History insomnia Surgical History right shoulder surgery 2017 Hospitalization History migraines 2016 Hospitalization History ulcer 2010
--- OUTSIDE RECORDS SUMMARY | 2018-07-15 18:06 | XMS REPORT ---
Author Author SHELBIE YEAGER Organization [facility] Address [address] [place] [address] Care Team Providers Care Photolith Operator Name Role Phone SHELBIE YEAGER Unavailable PROBLEMS Type Condition ICD9-CM Code BDR51-FS Code Onset Dates Condition Status SNOMED Code Problem Essential hypertension I10 Active 73267056 Problem Primary insomnia F51.01 Active 1905237 Problem Major depressive disorder, single episode, unspecified F32.9 Active 27700391 Problem Migraine without aura and without status migrainosus, not intractable G43.009 Active 750187016 Problem Chronic post-traumatic stress disorder (PTSD) after combat F43.12 Active 870835023 Problem Asthma without acute exacerbation J45.909 Active 447860760 Problem Fibromyalgia M79.7 Active 346125612 Problem Anxiety F41.9 Active 90342808 Problem COPD with exacerbation J44.1 Active 761586839 Problem Other chronic pain G89.29 Active 36018149 ALLERGIES No Information ENCOUNTERS Encounter Location Date Diagnosis [facility] [id number] [place] [address] Aug, Anxiety F41.9 [facility] [id number] [place] [address] Aug, Anxiety F41.9 [facility] [address] [place] [address] Aug, Anxiety F41.9 [facility] [id number] [place] [address] Aug, Anxiety F41.9 [facility] [address] [place] [address] Aug, [facility] [id number] [place] [address] Jul, [facility] [id number] [place] [address] Jul, Anxiety F41.[address] [facility] [id number] [place] [address] 05 Jul, 2017 Chest congestion R09.89 ; Coughing R05 and Wheezes R06.2 [facility] [address] [address] Jul, Major depressive disorder, single episode, unspecified F32.9 and Anxiety F41.9 [place] [address] [address] June, Neuropathic pain M79.2 and Right elbow pain M25.521 [place] [id number] [place] [address] June, [facility] [address] [address] June, Anxiety F41.9 [facility] [id number] [place] [address] June, [facility] [id number] [place] [address] May, [facility] [id number] [place] [address] May, Anxiety F41.9 [facility] [id number] [place] [address] May, [facility] [id number] [place] [address] May, Acute pain of right shoulder M25.511 and Muscle strain of right shoulder, initial encounter S46.911A [facility] [id number] [place] [address] May, [facility] [id number] [place] [address] May, [facility] [address] [place] [address] Apr, Anxiety F41.9 and Asthma without acute exacerbation J45.909 [facility] [address] [place] [address] Apr, [facility] [id number] [place] [address] Mar, Anxiety F41.9 and Major depressive disorder, single episode, unspecified F32.9 [place] [id number] [place] [address] Mar, Anxiety F41.9 [place] [address] [place] [address] Mar, [facility] [id number] [place] [address] Mar, Major depressive disorder, single episode, unspecified F32.9 ; Anxiety F41.9 and Chronic post-traumatic stress disorder (PTSD) after combat F43.12 [place] [address] [place] [address] 06 Mar, 2017 Chronic post-traumatic stress disorder (PTSD) after combat F43.12 ; Major depressive disorder, single episode, unspecified F32.9 ; Anxiety F41.9 and Primary insomnia F51.01 [facility] [address] [place] [address] Feb, Anxiety F41.9 and Major depressive disorder, single episode, unspecified F32.9 [place] [address] [place] [address] Feb, Primary insomnia F51.01 and Anxiety F41.9 [facility] [address] [address] Feb, [facility] [id number] [place] [address] Feb, Wheezes R06.2 and COPD with exacerbation J44.1 [place] [id number] [place] [address] Feb, [place] [id number] [place] [address] Jan, [place] [address] [address] Dec, [place] [id number] [place] [address] Dec, [place] [address] [address] Dec, Dislocation of right shoulder joint, subsequent encounter S43.004D [place] [address] [address] Nov, [place] [id number] [place] [address] Nov, Lumbosacral neuritis M54.17 [facility] [id number] [place] [address] 28 Oct, 2016 Other chronic pain G89.29 and Pain in right shoulder M25.511 [place] [id number] [place] [address] 18 Oct, 2016 Essential hypertension I10 [place] [id number] [place] [address] 11 Oct, 2016 [place] [id number] [place] [address] 07 Oct, 2016 Closed fracture of tooth, initial encounter S02.5XXA and Dental caries K02.9 [place] [id number] [place] [address] 07 Oct, 2016 Dental examination Z01.20 [place] [id number] [place] [address] Oct, Migraine with aura and without status migrainosus, not intractable G43.109 [facility] [id number] [place] [address] Oct, [place] [id number] [place] [address] Sep, Fibromyalgia M79.7 [place] [id number] [place] [address] Sep, Essential hypertension I10 and Anxiety disorder, unspecified F41.9 [place] [address] [address] Aug, Anxiety disorder, unspecified F41.9 [place] [id number] [place] [address] Aug, Anxiety disorder, unspecified F41.9 and Essential hypertension I10 [place] [id number] [place] [address] Jul, Fibromyalgia M79.7 [place] [address] [address] Jul, Fibromyalgia M79.7 [place] [id number] [place] [address] June, Fibromyalgia M79.7 and Anxiety F41.9 [place] [id number] [place] [address] June, [place] [id number] [place] [address] June, Primary insomnia F51.01 [place] [id number] [place] [address] May, Migraine without aura and without status migrainosus, not intractable G43.009 ; Primary insomnia F51.01 ; Bronchitis J40 ; Anxiety disorder, unspecified F41.9 and Major depressive disorder, single episode, unspecified F32.9 [facility] [address] [address] May, [facility] [address] [address] May, Migraine with aura and without status migrainosus, not intractable G43.109 [facility] [address] [place] [address] 05 May, 2016 Essential hypertension I10 [facility] [id number] [place] [address] Apr, Essential hypertension I10 ; Migraine without aura and without status migrainosus, not intractable G43.009 ; Anxiety disorder, unspecified F41.9 and Major depressive disorder, single episode, unspecified F32.9 [facility] [address] [address] Mar, [facility] [address] [id number] Feb, Dental examination Z01.20 IMMUNIZATIONS No Known [...]
--- OUTSIDE RECORDS SUMMARY | 2018-07-15 18:07 | XMS REPORT ---
Author Author SHELBIE YEAGER Organization [facility] Address [address] [place] [address] Care Team Providers Care Research And Development Chemist Name Role Phone SHELBIE YEAGER Unavailable PROBLEMS Type Condition ICD9-CM Code WQA92-LD Code Onset Dates Condition Status SNOMED Code Problem Essential hypertension I10 Active 96605164 Problem Primary insomnia F51.01 Active 0529008 Problem Major depressive disorder, single episode, unspecified F32.9 Active 84085098 Problem Migraine without aura and without status migrainosus, not intractable G43.009 Active 266958639 Problem Chronic post-traumatic stress disorder (PTSD) after combat F43.12 Active 526601260 Problem Asthma without acute exacerbation J45.909 Active 083303042 Problem Fibromyalgia M79.7 Active 521076891 Problem Anxiety F41.9 Active 84771294 Problem COPD with exacerbation J44.1 Active 619995939 Problem Other chronic pain G89.29 Active 65444123 ALLERGIES No Information ENCOUNTERS Encounter Location Date Diagnosis [facility] [id number] [place] [phone] June, [facility] [id number] [place] [address] June, Anxiety F41.9 [facility] [id number] [place] [phone] 23 May, 2017 [facility] [id number] [place] [address] May, Anxiety F41.9 [facility] [id number] [place] [phone] 16 May, 2017 [facility] [id number] [place] [address] 11 May, 2017 Acute pain of right shoulder M25.511 and Muscle strain of right shoulder, initial encounter S46.911A [facility] [address] [address] May, [facility] [id number] [place] [address] May, [facility] [id number] [place] [address] Apr, Anxiety F41.9 and Asthma without acute exacerbation J45.909 [facility] [address] [place] [address] Apr, [facility] [id number] [place] [address] Mar, Anxiety F41.9 and Major depressive disorder, single episode, unspecified F32.9 [facility] [id number] [place] [address] Mar, Anxiety F41.9 [facility] [id number] [place] [address] Mar, [facility] [id number] [place] [address] Mar, [facility] [address] [place] [phone] Mar, Chronic post-traumatic stress disorder (PTSD) after combat F43.12 ; Major depressive disorder, single episode, unspecified F32.9 ; Anxiety F41.9 and Primary insomnia F51.01 [facility] [address] [place] [address] Feb, Anxiety F41.9 and Major depressive disorder, single episode, unspecified F32.9 [facility] [address] [place] [address] Feb, Primary insomnia F51.01 and Anxiety F41.9 [facility] [id number] [place] [address] Feb, [facility] [id number] [place] [phone] Feb, Wheezes R06.2 and COPD with exacerbation J44.1 [facility] [address] [address] Feb, [facility] [address] [address] Jan, [facility] [address] [address] Dec, [place] [address] [address] Dec, [place] [address] [address] Dec, Dislocation of right shoulder joint, subsequent encounter S43.004D [facility] [id number] [place] [address] Nov, [place] [address] [address] Nov, Lumbosacral neuritis M54.17 [facility] [id number] [place] [address] 28 Oct, 2016 Other chronic pain G89.29 and Pain in right shoulder M25.511 [facility] [id number] [place] [address] 18 Oct, 2016 Essential hypertension I10 [place] [address] [address] 11 Oct, 2016 [facility] [id number] [place] [address] 07 Oct, 2016 Closed fracture of tooth, initial encounter S02.5XXA and Dental caries K02.9 [place] [address] [place] [address] 07 Oct, 2016 Dental examination Z01.20 [facility] [address] [address] Oct, Migraine with aura and without status migrainosus, not intractable G43.109 [facility] [address] [address] Oct, [facility] [address] [address] Sep, Fibromyalgia M79.7 [facility] [address] [address] Sep, Essential hypertension I10 and Anxiety disorder, unspecified F41.9 [place] [address] [address] Aug, Anxiety disorder, unspecified F41.9 [place] [address] [address] Aug, Anxiety disorder, unspecified F41.9 and Essential hypertension I10 [place] [address] [address] Jul, Fibromyalgia M79.7 [facility] [address] [address] Jul, Fibromyalgia M79.7 [facility] [address] [address] June, Fibromyalgia M79.7 and Anxiety F41.9 [facility] [address] [address] June, [facility] [address] [address] June, Primary insomnia F51.01 [facility] [id number] [place] [address] May, Migraine without aura and without status migrainosus, not intractable G43.009 ; Primary insomnia F51.01 ; Bronchitis J40 ; Anxiety disorder, unspecified F41.9 and Major depressive disorder, single episode, unspecified F32.9 [facility] [address] [address] May, [facility] [address] [place] [address] May, Migraine with aura and without status migrainosus, not intractable G43.109 [facility] [id number] [place] [address] May, Essential hypertension I10 [facility] [id number] [place] [address] Apr, Essential hypertension I10 ; Migraine without aura and without status migrainosus, not intractable G43.009 ; Anxiety disorder, unspecified F41.9 and Major depressive disorder, single episode, unspecified F32.9 [facility] [address] [address] Mar, [facility] [address] [place] [phone] Feb, Dental examination Z01.20 IMMUNIZATIONS No Known Immunizations SOCIAL HISTORY Never Assessed REASON FOR VISIT Controlled/Refill Requests PLAN OF CARE VITAL SIGNS MEDICATIONS Unknown [...]
--- OUTSIDE RECORDS SUMMARY | 2018-07-15 18:07 | XMS REPORT ---
Author Author SHELBIE YEAGER Organization [facility] Address [address] [place] [address] Care Team Providers Care Liner Roll Changer Name Role Phone SHELBIE YEAGER Unavailable PROBLEMS Type Condition ICD9-CM Code [id number] Code Onset Dates Condition Status SNOMED Code Problem Essential hypertension I10 Active 08740470 Problem Primary insomnia F51.01 Active 5222003 Problem Major depressive disorder, single episode, unspecified F32.9 Active 51224970 Problem Migraine without aura and without status migrainosus, not intractable G43.009 Active 689328795 Problem Chronic post-traumatic stress disorder (PTSD) after combat F43.12 Active 080511840 Problem Asthma without acute exacerbation J45.909 Active 741713942 Problem Fibromyalgia M79.7 Active 676662993 Problem Anxiety F41.9 Active 97906875 Problem COPD with exacerbation J44.1 Active 157983587 Problem Other chronic pain G89.29 Active 44238142 ALLERGIES No Information ENCOUNTERS Encounter Location Date Diagnosis [facility] [address] [address] Aug, [facility] [id number] [place] [address] Aug, [facility] [id number] [place] [address] Jul, [facility] [id number] [place] [address] Jul, Anxiety F41.9 [facility] [address] [address] 05 Jul, 2017 Chest congestion R09.89 ; Coughing R05 and Wheezes R06.2 [facility] [address] [address] Jul, Major depressive disorder, single episode, unspecified F32.9 and Anxiety F41.9 [facility] [id number] [place] [address] June, Neuropathic pain M79.2 and Right elbow pain M25.521 [facility] [id number] [place] [address] June, [facility] [id number] [place] [address] June, Anxiety F41.9 [facility] [address] [address] June, [facility] [id number] [place] [address] May, [facility] [id number] [place] [address] May, Anxiety F41.9 [facility] [id number] [place] [address] May, [facility] [id number] [place] [address] May, Acute pain of right shoulder M25.511 and Muscle strain of right shoulder, initial encounter S46.911A [facility] [id number] [place] [address] May, [facility] [id number] [place] [address] May, [facility] [id number] [place] [address] Apr, Anxiety F41.9 and Asthma without acute exacerbation J45.909 [facility] [id number] [place] [address] Apr, [facility] [id number] [place] [address] Mar, Anxiety F41.9 and Major depressive disorder, single episode, unspecified F32.9 [facility] [id number] [place] [address] 27 Mar, 2017 Anxiety F41.9 [facility] [id number] [place] [address] 16 Mar, 2017 [facility] [id number] [place] [address] 14 Mar, 2017 Major depressive disorder, single episode, unspecified F32.9 ; Anxiety F41.9 and Chronic post-traumatic stress disorder (PTSD) after combat F43.12 [place] [facility] [id number] [place] [address] 06 Mar, 2017 Chronic post-traumatic stress disorder (PTSD) after combat F43.12 ; Major depressive disorder, single episode, unspecified F32.9 ; Anxiety F41.9 and Primary insomnia F51.01 [place] [id number] [place] [address] Feb, Anxiety F41.9 and Major depressive disorder, single episode, unspecified F32.9 [facility] [id number] [place] [address] Feb, Primary insomnia F51.01 and Anxiety F41.9 [facility] [id number] [place] [address] Feb, [facility] [id number] [place] [address] Feb, Wheezes R06.2 and COPD with exacerbation J44.1 [facility] [id number] [place] [address] Feb, [facility] [id number] [place] [address] Jan, [facility] [address] [place] [address] Dec, [facility] [address] [address] Dec, [place] [facility] [address] [address] Dec, Dislocation of right shoulder joint, subsequent encounter S43.004D [place] [address] [address] Nov, [place] [address] [address] Nov, Lumbosacral neuritis M54.[address] [facility] [address] [address] Oct, Other chronic pain G89.29 and Pain in right shoulder M25.511 [place] [address] [address] 18 Oct, 2016 Essential hypertension I10 [place] [address] [address] Oct, [place] [address] [address] Oct, Closed fracture of tooth, initial encounter S02.5XXA and Dental caries K02.9 [place] [address] [address] 07 Oct, 2016 Dental examination Z01.20 [facility] [facility] [address] [address] Oct, Migraine with aura and without status migrainosus, not intractable G43.109 [place] [facility] [address] [address] Oct, [place] [facility] [address] [address] Sep, Fibromyalgia M79.7 [place] [id number] [place] [address] Sep, Essential hypertension I10 and Anxiety disorder, unspecified F41.9 [place] [id number] [place] [address] Aug, Anxiety disorder, unspecified F41.9 [place] [address] [address] Aug, Anxiety disorder, unspecified F41.9 and Essential hypertension I10 [place] [id number] [place] [address] Jul, Fibromyalgia M79.7 [place] [facility] [address] [address] Jul, Fibromyalgia M79.7 [place] [facility] [address] [address] June, Fibromyalgia M79.7 and Anxiety F41.9 [facility] [id number] [place] [address] June, [facility] [address] [address] June, Primary insomnia F51.01 [facility] [id number] [place] [address] May, Migraine without aura and without status migrainosus, not intractable G43.009 ; Primary insomnia F51.01 ; Bronchitis J40 ; Anxiety disorder, unspecified F41.9 and Major depressive disorder, single episode, unspecified F32.9 [facility] [id number] [place] [address] May, [facility] [id number] [place] [address] May, Migraine with aura and without status migrainosus, not intractable G43.109 [facility] [address] [address] May, Essential hypertension I10 [facility] [address] [facility] [id number] [place] [address] Apr, Essential hypertension I10 ; Migraine without aura and without status migrainosus, not intractable G43.009 ; Anxiety disorder, unspecified F41.9 and Major depressive disorder, single episode, unspecified F32.9 [facility] [address] [facility] [id number] [place] [address] Mar, [facility] [address] [facility] [id number] [place] [id number] Feb, Dental examination Z01.20 IMMUNIZATIONS No Known [...]
--- OUTSIDE RECORDS SUMMARY | 2018-07-15 18:08 | XMS REPORT ---
Author Author SHELBIE YEAGER Organization [facility] Address [address] [place] [address] Care Team Providers Care Emergency Preparedness Coordinator Name Role Phone SHELBIE YEAGER Unavailable PROBLEMS Type Condition ICD9-CM Code PSW29-IQ Code Onset Dates Condition Status SNOMED Code Problem Essential hypertension I10 Active 23536677 Problem Primary insomnia F51.01 Active 2402833 Problem Major depressive disorder, single episode, unspecified F32.9 Active 10270572 Problem Migraine without aura and without status migrainosus, not intractable G43.009 Active 692454315 Problem Chronic post-traumatic stress disorder (PTSD) after combat F43.12 Active 801053190 Problem Asthma without acute exacerbation J45.909 Active 553122024 Problem Fibromyalgia M79.7 Active 318952462 Problem Anxiety F41.9 Active 89634050 Problem COPD with exacerbation J44.1 Active 075467611 Problem Other chronic pain G89.29 Active 18767190 ALLERGIES No Information ENCOUNTERS Encounter Location Date Diagnosis [facility] [address] [address] Aug, [facility] [id number] [place] [address] Jul, [facility] [id number] [place] [address] Jul, [facility] [id number] [place] [address] Jul, Anxiety F41.9 [facility] [address] [address] 05 Jul, 2017 Chest congestion R09.89 ; Coughing R05 and Wheezes R06.2 [facility] [address] [address] Jul, Major depressive disorder, single episode, unspecified F32.9 and Anxiety F41.9 [facility] [id number] [place] [address] June, Neuropathic pain M79.2 and Right elbow pain M25.521 [facility] [id number] [place] [address] June, [facility] [id number] [place] [address] June, Anxiety F41.9 [facility] [address] [address] June, [facility] [id number] [place] [address] May, [facility] [id number] [place] [address] May, Anxiety F41.9 [facility] [id number] [place] [address] May, [facility] [id number] [place] [address] May, Acute pain of right shoulder M25.511 and Muscle strain of right shoulder, initial encounter S46.911A [facility] [id number] [place] [address] May, [facility] [id number] [place] [address] May, [facility] [id number] [place] [address] Apr, Anxiety F41.9 and Asthma without acute exacerbation J45.909 [facility] [id number] [place] [address] Apr, [facility] [id number] [place] [address] Mar, Anxiety F41.9 and Major depressive disorder, single episode, unspecified F32.9 [facility] [id number] [place] [address] 27 Mar, 2017 Anxiety F41.9 [facility] [id number] [place] [address] 16 Mar, 2017 [facility] [id number] [place] [address] 14 Mar, 2017 Major depressive disorder, single episode, unspecified F32.9 ; Anxiety F41.9 and Chronic post-traumatic stress disorder (PTSD) after combat F43.12 [place] [id number] [place] [address] 06 Mar, 2017 Chronic post-traumatic stress disorder (PTSD) after combat F43.12 ; Major depressive disorder, single episode, unspecified F32.9 ; Anxiety F41.9 and Primary insomnia F51.01 [place] [id number] [place] [address] Feb, Anxiety F41.9 and Major depressive disorder, single episode, unspecified F32.9 [place] [id number] [place] [address] Feb, Primary insomnia F51.01 and Anxiety F41.9 [facility] [id number] [place] [address] Feb, [facility] [id number] [place] [address] Feb, Wheezes R06.2 and COPD with exacerbation J44.1 [facility] [id number] [place] [address] Feb, [facility] [id number] [place] [address] Jan, [facility] [address] [place] [address] Dec, [facility] [address] [address] Dec, [place] [address] [address] Dec, Dislocation of right shoulder joint, subsequent encounter S43.004D [place] [address] [address] Nov, [place] [address] [address] Nov, Lumbosacral neuritis M54.17 [facility] [address] [address] Oct, Other chronic pain G89.29 and Pain in right shoulder M25.511 [place] [address] [address] 18 Oct, 2016 Essential hypertension I10 [place] [address] [address] Oct, [place] [address] [address] Oct, Closed fracture of tooth, initial encounter S02.5XXA and Dental caries K02.9 [place] [address] [address] 07 Oct, 2016 Dental examination Z01.20 [place] [address] [address] Oct, Migraine with aura and without status migrainosus, not intractable G43.109 [place] [address] [address] Oct, [place] [address] [address] Sep, Fibromyalgia M79.7 [place] [id number] [place] [address] Sep, Essential hypertension I10 and Anxiety disorder, unspecified F41.9 [place] [id number] [place] [address] Aug, Anxiety disorder, unspecified F41.9 [place] [address] [address] Aug, Anxiety disorder, unspecified F41.9 and Essential hypertension I10 [place] [id number] [place] [address] Jul, Fibromyalgia M79.7 [place] [address] [address] Jul, Fibromyalgia M79.7 [place] [address] [address] June, Fibromyalgia M79.7 and Anxiety F41.9 [place] [id number] [place] [address] June, [place] [address] [address] June, Primary insomnia F51.01 [place] [id number] [place] [address] May, Migraine without aura and without status migrainosus, not intractable G43.009 ; Primary insomnia F51.01 ; Bronchitis J40 ; Anxiety disorder, unspecified F41.9 and Major depressive disorder, single episode, unspecified F32.9 [facility] [id number] [place] [address] May, [facility] [id number] [place] [address] May, Migraine with aura and without status migrainosus, not intractable G43.109 [facility] [address] [address] May, Essential hypertension I10 [facility] [address] [facility] [id number] [place] [address] Apr, Essential hypertension I10 ; Migraine without aura and without status migrainosus, not intractable G43.009 ; Anxiety disorder, unspecified F41.9 and Major depressive disorder, single episode, unspecified F32.9 [facility] [address] [facility] [id number] [place] [address] Mar, [facility] [address] [facility] [id number] [place] [id number] Feb, Dental examination Z01.20 IMMUNIZATIONS No Known Immunizations SOCIAL HISTORY Never Assessed REASON FOR VISIT FYI only PLAN OF CARE VITAL SIGNS MEDICATIONS Unknown [...]
--- OUTSIDE RECORDS SUMMARY | 2018-07-15 18:10 | XMS REPORT | Continuity of Care Document ---
Author Organization Unknown Address Unknown Allergies Active Description Code Type Severity Reaction Onset Reported/Identified Relationship to Patient Clinical Status Yes prochlorperazine [id number] Drug Allergy Moderate N/A 03/01/2016 Medications There is no data. Problems Date Dx Coded Attending Type Code Diagnosis Diagnosed By 03/01/2016 JUAN MANUEL HAN APRN Ot B34.9 VIRAL INFECTION, UNSPECIFIED 03/01/2016 JUAN MANUEL HAN APRN Ot F17.210 NICOTINE DEPENDENCE, CIGARETTES, UNCOMPL 03/01/2016 JUAN MANUEL HAN APRN Ot J44.9 CHRONIC OBSTRUCTIVE PULMONARY DISEASE, U 03/01/2016 JUAN MANUEL HAN APRN Ot K21.9 GASTRO-ESOPHAGEAL REFLUX DISEASE WITHOUT 03/01/2016 JUAN MANUEL HAN APRN Ot R11.10 VOMITING, UNSPECIFIED 03/01/2016 JUAN MANUEL HAN APRN Ot R19.7 DIARRHEA, UNSPECIFIED 03/03/2016 JUAN MANUEL HAN APRN Ot B34.9 VIRAL INFECTION, UNSPECIFIED 03/03/2016 JUAN MANUEL HAN APRN Ot F17.210 NICOTINE DEPENDENCE, CIGARETTES, UNCOMPL 03/03/2016 JUAN MANUEL HAN APRN Ot J44.9 CHRONIC OBSTRUCTIVE PULMONARY DISEASE, U 03/03/2016 JUAN MANUEL HAN APRN Ot K21.9 GASTRO-ESOPHAGEAL REFLUX DISEASE WITHOUT 03/03/2016 JUAN MANUEL HAN APRN Ot R11.10 VOMITING, UNSPECIFIED 03/03/2016 JUAN MANUEL HAN APRN Ot R19.7 DIARRHEA, UNSPECIFIED 10/14/2016 JUAN MANUEL HAN APRN Ot F17.210 NICOTINE DEPENDENCE, CIGARETTES, UNCOMPL 10/14/2016 JUAN MANUEL HAN APRN Ot F32.9 MAJOR DEPRESSIVE DISORDER, SINGLE EPISOD 10/14/2016 JUAN MANUEL HAN APRN Ot F41.9 ANXIETY DISORDER, UNSPECIFIED 10/14/2016 JUAN MANUEL HAN APRN Ot F43.10 POST-TRAUMATIC STRESS DISORDER, UNSPECIF 10/14/2016 JUAN MANUEL HAN APRN Ot F90.9 ATTENTION-DEFICIT HYPERACTIVITY DISORDER 10/14/2016 JUAN MANUEL HAN APRN Ot G43.909 MIGRAINE, UNSP, NOT INTRACTABLE, WITHOUT 10/14/2016 JUAN MANUEL HAN APRN Ot J44.9 CHRONIC OBSTRUCTIVE PULMONARY DISEASE, U 10/14/2016 JUAN MANUEL HAN APRN Ot K02.9 DENTAL CARIES, UNSPECIFIED 10/14/2016 JUAN MANUEL HAN APRN Ot K08.89 OTHER SPECIFIED DISORDERS OF TEETH AND S 10/16/2016 JUAN MANUEL HAN APRN Ot F17.210 NICOTINE DEPENDENCE, CIGARETTES, UNCOMPL 10/16/2016 JUAN MANUEL HAN APRN Ot F32.9 MAJOR DEPRESSIVE DISORDER, SINGLE EPISOD 10/16/2016 JUAN MANUEL HAN APRN Ot F41.9 ANXIETY DISORDER, UNSPECIFIED 10/16/2016 JUAN MANUEL HAN APRN Ot F43.10 POST-TRAUMATIC STRESS DISORDER, UNSPECIF 10/16/2016 JUAN MANUEL HAN APRN Ot F90.9 ATTENTION-DEFICIT HYPERACTIVITY DISORDER 10/16/2016 JUAN MANUEL HAN APRN Ot G43.909 MIGRAINE, UNSP, NOT INTRACTABLE, WITHOUT 10/16/2016 JUAN MANUEL HAN APRN Ot J44.9 CHRONIC OBSTRUCTIVE PULMONARY DISEASE, U 10/16/2016 JUAN MANUEL HAN APRN Ot K02.9 DENTAL CARIES, UNSPECIFIED 10/16/2016 JUAN MANUEL HAN APRN Ot K08.89 OTHER SPECIFIED DISORDERS OF TEETH AND S 10/20/2016 JUAN MANUEL HAN APRN Ot F17.210 NICOTINE DEPENDENCE, CIGARETTES, UNCOMPL 10/20/2016 JUAN MANUEL HAN APRN Ot F32.9 MAJOR DEPRESSIVE DISORDER, SINGLE EPISOD 10/20/2016 JUAN MANUEL HAN APRN Ot F41.9 ANXIETY DISORDER, UNSPECIFIED 10/20/2016 JUAN MANUEL HAN APRN Ot F43.10 POST-TRAUMATIC STRESS DISORDER, UNSPECIF 10/20/2016 JUAN MANUEL HAN APRN Ot F90.9 ATTENTION-DEFICIT HYPERACTIVITY DISORDER 10/20/2016 JUAN MANUEL HAN APRN Ot G43.909 MIGRAINE, UNSP, NOT INTRACTABLE, WITHOUT 10/20/2016 JUAN MANUEL HAN APRN Ot J44.9 CHRONIC OBSTRUCTIVE PULMONARY DISEASE, U 10/20/2016 JUAN MANUEL HAN APRN Ot K02.9 DENTAL CARIES, UNSPECIFIED 10/20/2016 JUAN MANUEL HAN APRN Ot K08.89 OTHER SPECIFIED DISORDERS OF TEETH AND S 10/27/2016 MARIO SAURABH Sheri Ot F12.10 CANNABIS ABUSE, UNCOMPLICATED 10/27/2016 MARIO VIRGINIA GALVEZA K Ot F17.210 NICOTINE DEPENDENCE, CIGARETTES, UNCOMPL 10/27/2016 MARIO SAURABH K Ot F31.9 BIPOLAR DISORDER, UNSPECIFIED 10/27/2016 MARIO SAURABH K Ot F41.9 ANXIETY DISORDER, UNSPECIFIED 10/27/2016 MARIO SAURABH K Ot F43.10 POST-TRAUMATIC STRESS DISORDER, UNSPECIF 10/27/2016 MARIO SAURABH K Ot F90.9 ATTENTION-DEFICIT HYPERACTIVITY DISORDER 10/27/2016 MARIO SAURABH K Ot G43.909 MIGRAINE, UNSP, NOT INTRACTABLE, WITHOUT 10/27/2016 MARIO SAURABH K Ot J44.9 CHRONIC OBSTRUCTIVE PULMONARY DISEASE, U 10/27/2016 MARIO SAURABH K Ot M54.5 LOW BACK PAIN 10/27/2016 MARIO SAURABH K Ot X50.0XXA OVEREXERTION FROM STRENUOUS MOVEMENT OR 10/27/2016 MARIO GALVEZ SAURABH K Ot Z87.19 PERSONAL HISTORY OF OTHER DISEASES OF TH 10/29/2016 MARIO GALVEZ SAURABH K Ot F12.10 CANNABIS ABUSE, UNCOMPLICATED 10/29/2016 MARIO GALVEZ SAURABH K Ot F17.210 NICOTINE DEPENDENCE, CIGARETTES, UNCOMPL 10/29/2016 MARIO SAURABH K Ot F31.9 BIPOLAR DISORDER, UNSPECIFIED 10/29/2016 MARIO SAURABH K Ot F41.9 ANXIETY DISORDER, UNSPECIFIED 10/29/2016 MARIO SAURABH K Ot F43.10 POST-TRAUMATIC STRESS DISORDER, UNSPECIF 10/29/2016 MARIO SAURABH K Ot F90.9 ATTENTION-DEFICIT HYPERACTIVITY DISORDER 10/29/2016 MARIO SAURABH K Ot G43.909 MIGRAINE, UNSP, NOT INTRACTABLE, WITHOUT 10/29/2016 MARIO SAURABH K Ot J44.9 CHRONIC OBSTRUCTIVE PULMONARY DISEASE, U 10/29/2016 MARIO SAURABH K Ot M54.5 LOW BACK PAIN 10/29/2016 SAURABH MARTIN DO Ot X50.0XXA OVEREXERTION FROM STRENUOUS MOVEMENT OR 10/29/2016 SAURABH MARTIN DO Ot Z87.19 PERSONAL HISTORY OF OTHER DISEASES OF TH 11/12/2016 YONIS ALBERTS Ot F17.210 NICOTINE DEPENDENCE, CIGARETTES, UNCOMPL 11/12/2016 YONIS ALBERTS Ot F31.9 BIPOLAR DISORDER, UNSPECIFIED 11/12/2016 YONIS ALBERTS Ot F41.9 ANXIETY DISORDER, UNSPECIFIED 11/12/2016 YONIS ALBERTS Ot F43.10 POST-TRAUMATIC STRESS DISORDER, UNSPECIF 11/12/2016 YONIS ALBERTS Ot F90.9 ATTENTION-DEFICIT HYPERACTIVITY DISORDER 11/12/2016 YONIS ALBERTS Ot G43.909 MIGRAINE, UNSP, NOT INTRACTABLE, WITHOUT 11/12/2016 YONIS ALBERTS Ot J44.9 CHRONIC OBSTRUCTIVE PULMONARY DISEASE, U 11/12/2016 YONIS ALBERTS Ot M54.5 LOW BACK PAIN 11/12/2016 YONIS ALBERTS Ot S39.012A STRAIN OF MUSCLE, FASCIA AND TENDON OF L 11/12/2016 YONIS ALBERTS Ot X50.0XXA OVEREXERTION FROM STRENUOUS MOVEMENT OR 11/12/2016 YONIS ALBERTS Ot Z87.19 PERSONAL HISTORY OF OTHER DISEASES OF TH 11/14/2016 YONIS ALBERTS Ot F17.210 NICOTINE DEPENDENCE, CIGARETTES, UNCOMPL 11/14/2016 YONIS ALBERTS Ot F31.9 BIPOLAR DISORDER, UNSPECIFIED 11/14/2016 YONIS ALBERTS Ot F41.9 ANXIETY DISORDER, UNSPECIFIED 11/14/2016 YONIS ALBERTS Ot F43.10 POST-TRAUMATIC STRESS DISORDER, UNSPECIF 11/14/2016 YONIS ALBERTS Ot F90.9 ATTENTION-DEFICIT HYPERACTIVITY DISORDER 11/14/2016 YONIS ALBERTS Ot G43.909 MIGRAINE, UNSP, NOT INTRACTABLE, WITHOUT 11/14/2016 YONIS ALBERTS Ot J44.9 CHRONIC OBSTRUCTIVE PULMONARY DISEASE, U 11/14/2016 YONIS ALBERTS Ot M54.5 LOW BACK PAIN 11/14/2016 HORTENCIA JARRETT YONIS Liv Ot S39.012A STRAIN OF MUSCLE, FASCIA AND TENDON OF L 11/14/2016 HALEIGH ALBERTSEN Liv Ot X50.0XXA OVEREXERTION FROM STRENUOUS MOVEMENT OR 11/14/2016 YONIS ALBERTS Ot Z87.19 PERSONAL HISTORY OF OTHER DISEASES OF TH 11/14/2016 YONIS ALBERTS Ot F17.210 NICOTINE DEPENDENCE, CIGARETTES, UNCOMPL 11/14/2016 YONIS ALBERTS Ot F31.9 BIPOLAR DISORDER, UNSPECIFIED 11/14/2016 YONIS ALBERTS Ot F41.9 ANXIETY DISORDER, UNSPECIFIED 11/14/2016 YONIS ALBERTS Ot F43.10 POST-TRAUMATIC STRESS DISORDER, UNSPECIF 11/14/2016 YONIS ALBERTS Ot F90.9 ATTENTION-DEFICIT HYPERACTIVITY DISORDER 11/14/2016 YONIS ALBERTS Ot G43.909 MIGRAINE, UNSP, NOT INTRACTABLE, WITHOUT 11/14/2016 YONIS ALBERTS Ot J44.9 CHRONIC OBSTRUCTIVE PULMONARY DISEASE, U 11/14/2016 YONIS ALBERTS Ot M54.5 LOW BACK PAIN 11/14/2016 YONIS ALBERTS Ot S39.012A STRAIN OF MUSCLE, FASCIA AND TENDON OF L 11/14/2016 YONIS ALBERTS Ot X50.0XXA OVEREXERTION FROM STRENUOUS MOVEMENT OR 11/14/2016 YONIS ALBERTS Ot Z87.19 PERSONAL HISTORY OF OTHER DISEASES OF TH 11/15/2016 INDIA GUY MD Ot F17.210 NICOTINE DEPENDENCE, CIGARETTES, UNCOMPL 11/15/2016 INDIA GUY MD, Ot F31.9 BIPOLAR DISORDER, UNSPECIFIED 11/15/2016 INDIA GUY MD, Ot F41.9 ANXIETY DISORDER, UNSPECIFIED 11/15/2016 INDIA GUY MD Ot F43.10 POST-TRAUMATIC STRESS DISORDER, UNSPECIF 11/15/2016 INDIA GUY MD Ot F90.9 ATTENTION-DEFICIT HYPERACTIVITY DISORDER 11/15/2016 INDIA GUY MD Ot G43.909 MIGRAINE, UNSP, NOT INTRACTABLE, WITHOUT 11/15/2016 INDIA GUY MD Ot J44.9 CHRONIC OBSTRUCTIVE PULMONARY DISEASE, U 11/15/2016 INDIA GUY MD Ot M54.16 RADICULOPATHY, LUMBAR REGION 11/15/2016 INDIA GUY MD Ot M54.5 LOW BACK PAIN 11/15/2016 INDIA GUY MD Ot S39.012D STRAIN OF MUSCLE, FASCIA AND TENDON OF L 11/15/2016 INDIA GUY MD Ot X50.0XXD OVEREXERTION FROM STRENUOUS MOVEMENT OR 11/15/2016 INDIA GUY MD Ot Z87.19 PERSONAL HISTORY OF OTHER DISEASES OF TH 12/08/2016 JUAN MANUEL HAN APRN Ot F31.9 BIPOLAR DISORDER, UNSPECIFIED 12/08/2016 JUAN MANUEL HAN APRN Ot F41.9 ANXIETY DISORDER, UNSPECIFIED 12/08/2016 JUAN MANUEL HAN APRN Ot F43.10 POST-TRAUMATIC STRESS DISORDER, UNSPECIF 12/08/2016 JUAN MANUEL HAN APRN Ot F90.9 ATTENTION-DEFICIT HYPERACTIVITY DISORDER 12/08/2016 JUAN MANUEL HAN APRN Ot G43.909 MIGRAINE, UNSP, NOT INTRACTABLE, WITHOUT 12/08/2016 JUAN MANUEL HAN APRN Ot J44.9 CHRONIC OBSTRUCTIVE PULMONARY DISEASE, U 12/08/2016 JUAN MANUEL HAN APRN Ot M25.511 PAIN IN RIGHT SHOULDER 12/08/2016 JUAN MANUEL HAN APRN Ot S43.014A ANTERIOR DISLOCATION OF RIGHT HUMERUS, I 12/08/2016 JUAN MANUEL HAN APRN Ot X50.0XXA OVEREXERTION FROM STRENUOUS MOVEMENT OR 12/08/2016 JUAN MANUEL HAN APRN Ot Z77.22 CNTCT W AND EXPSR TO ENVIRON TOBACCO SMO 04/15/2017 INDIA GUY MD Ot F03.90 UNSPECIFIED DEMENTIA WITHOUT BEHAVIORAL 04/15/2017 INDIA GUY MD Ot F12.10 CANNABIS ABUSE, UNCOMPLICATED 04/15/2017 INDIA GUY MD Ot F17.210 NICOTINE DEPENDENCE, CIGARETTES, UNCOMPL 04/15/2017 INDIA GUY MD Ot F31.9 BIPOLAR DISORDER, UNSPECIFIED 04/15/2017 INDIA GUY MD Ot F41.9 ANXIETY DISORDER, UNSPECIFIED 04/15/2017 INDIA GUY MD Ot F90.9 ATTENTION-DEFICIT HYPERACTIVITY DISORDER 04/15/2017 INDIA GUY MD, Ot G43.909 MIGRAINE, UNSP, NOT INTRACTABLE, WITHOUT 04/15/2017 INDIA GUY MD, Ot J44.9 CHRONIC OBSTRUCTIVE PULMONARY DISEASE, U 04/15/2017 INDIA GUY MD Ot K02.9 DENTAL CARIES, UNSPECIFIED 04/15/2017 INDIA GUY MD Ot K03.81 CRACKED TOOTH 04/15/2017 INDIA GUY MD Ot Z79.52 RESIDENTIAL (CURRENT) USE OF SYSTEMIC STER 04/15/2017 INDIA GUY MD, Ot Z87.19 PERSONAL HISTORY OF OTHER DISEASES OF 04/15/2017 INDIA GUY MD Ot Z88.8 ALLERGY STATUS TO OT DRUG/MEDS/BIOL SUB 06/02/2017 JUAN MANUEL HAN APRN Ot F12.10 CANNABIS ABUSE, UNCOMPLICATED 06/02/2017 JUAN MANUEL HAN APRN Ot F31.9 BIPOLAR DISORDER, UNSPECIFIED 06/02/2017 JUAN MANUEL HAN APRN Ot F41.9 ANXIETY DISORDER, UNSPECIFIED 06/02/2017 JUAN MANUEL HAN APRN Ot F43.10 POST-TRAUMATIC STRESS DISORDER, UNSPECIF 06/02/2017 JUAN MANUEL HAN APRN Ot F90.9 ATTENTION-DEFICIT HYPERACTIVITY DISORDER 06/02/2017 JUAN MANUEL HAN APRN Ot G43.909 MIGRAINE, UNSP, NOT INTRACTABLE, WITHOUT 06/02/2017 JUAN MANUEL HAN APRN Ot J44.9 CHRONIC OBSTRUCTIVE PULMONARY DISEASE, U 06/02/2017 JUAN MANUEL HAN APRN Ot M24.811 OT SPECIFIC JOINT DERANGEMENTS OF RIGHT 06/02/2017 JUAN MANUEL HAN APRN Ot M25.511 PAIN IN RIGHT SHOULDER 06/02/2017 JUAN MANUEL HAN APRN Ot W01.0XXA FALL SAME LEV FROM SLIP/TRIP W/O STRIKE 06/02/2017 JUAN MANUEL HAN APRN Ot Z87.01 PERSONAL HISTORY OF PNEUMONIA (RECURRENT 06/02/2017 JUAN MANUEL HAN APRN Ot Z87.19 PERSONAL HISTORY OF OTHER DISEASES OF TH 06/02/2017 JUAN MANUEL HAN APRN Ot Z88.8 ALLERGY STATUS TO OTH DRUG/MEDS/BIOL SUB 06/04/2017 JUAN MANUEL HAN APRN Ot F12.10 CANNABIS ABUSE, UNCOMPLICATED 06/04/2017 JUAN MANUEL HAN APRN Ot F31.9 BIPOLAR DISORDER, UNSPECIFIED 06/04/2017 JUAN MANUEL HAN APRN Ot F41.9 ANXIETY DISORDER, UNSPECIFIED 06/04/2017 JUAN MANUEL HAN APRN Ot F43.10 POST-TRAUMATIC STRESS DISORDER, UNSPECIF 06/04/2017 JUAN MANUEL HAN APRN Ot F90.9 ATTENTION-DEFICIT HYPERACTIVITY DISORDER 06/04/2017 JUAN MANUEL HAN APRN Ot G43.909 MIGRAINE, UNSP, NOT INTRACTABLE, WITHOUT 06/04/2017 JUAN MANUEL HAN APRN Ot J44.9 CHRONIC OBSTRUCTIVE PULMONARY DISEASE, U 06/04/2017 JUAN MANUEL HAN APRN Ot M24.811 OTH SPECIFIC JOINT DERANGEMENTS OF RIGHT 06/04/2017 JUAN MANUEL HAN APRN Ot M25.511 PAIN IN RIGHT SHOULDER 06/04/2017 JUAN MANUEL HAN APRN Ot W01.0XXA FALL SAME LEV FROM SLIP/TRIP W/O STRIKE 06/04/2017 JUAN MANUEL HAN APRN Ot Z87.01 PERSONAL HISTORY OF PNEUMONIA (RECURRENT 06/04/2017 JUAN MANUEL HAN APRN Ot Z87.19 PERSONAL HISTORY OF OTHER DISEASES OF TH 06/04/2017 JUAN MANUEL HAN APRN Ot Z88.8 ALLERGY STATUS TO OTH DRUG/MEDS/BIOL SUB 06/08/2017 JUAN MANUEL HAN APRN Ot F12.10 CANNABIS ABUSE, UNCOMPLICATED 06/08/2017 JUAN MANUEL HAN APRN Ot F31.9 BIPOLAR DISORDER, UNSPECIFIED 06/08/2017 JUAN MANUEL HAN APRN Ot F41.9 ANXIETY DISORDER, UNSPECIFIED 06/08/2017 JUAN MANUEL HAN APRN Ot F43.10 POST-TRAUMATIC STRESS DISORDER, UNSPECIF 06/08/2017 JUAN MANUEL HAN APRN Ot F90.9 ATTENTION-DEFICIT HYPERACTIVITY DISORDER 06/08/2017 JUAN MANUEL AHN APRN Ot G43.909 MIGRAINE, UNSP, NOT INTRACTABLE, WITHOUT 06/08/2017 JUAN MANUEL HAN APRN Ot J44.9 CHRONIC OBSTRUCTIVE PULMONARY DISEASE, U 06/08/2017 JUAN MANUEL HAN RN ACUTE Ot M24.811 OTH SPECIFIC JOINT DERANGEMENTS OF RIGHT 06/08/2017 JUAN MANUEL HAN RN ACUTE Ot M25.511 PAIN IN RIGHT SHOULDER 06/08/2017 JUAN MANUEL HAN RN ACUTE Ot W01.0XXA FALL SAME LEV FROM SLIP/TRIP W/O STRIKE 06/08/2017 JUAN MANUEL HAN RN ACUTE Ot Z87.01 PERSONAL HISTORY OF PNEUMONIA (RECURRENT 06/08/2017 JUAN MANUEL HAN RN ACUTE Ot Z87.19 PERSONAL HISTORY OF OTHER DISEASES OF TH 06/08/2017 JUAN MANUEL HAN RN ACUTE Ot Z88.8 ALLERGY STATUS TO OTH DRUG/MEDS/BIOL SUB 07/29/2017 MARIO DO, SAURABH K Ot F12.90 CANNABIS USE, UNSPECIFIED, UNCOMPLICATED 07/29/2017 MARIO DO, SAURABH K Ot F17.210 NICOTINE DEPENDENCE, CIGARETTES, UNCOMPL 07/29/2017 MARIO DO, SAURABH K Ot F31.0 BIPOLAR DISORDER, CURRENT EPISODE HYPOMA 07/29/2017 MARIO DO, SAURABH K Ot F41.9 ANXIETY DISORDER, UNSPECIFIED 07/29/2017 MARIO DO, SAURABH K Ot F43.10 POST-TRAUMATIC STRESS DISORDER, UNSPECIF 07/29/2017 MARIO DO, SAURABH K Ot F90.9 ATTENTION-DEFICIT HYPERACTIVITY DISORDER 07/29/2017 MARIO DO, SAURABH K Ot G43.909 MIGRAINE, UNSP, NOT INTRACTABLE, WITHOUT 07/29/2017 MARIO DO, SAURABH K Ot J44.9 CHRONIC OBSTRUCTIVE PULMONARY DISEASE, U 07/29/2017 MARIO DO, SAURABH K Ot K21.9 GASTRO-ESOPHAGEAL REFLUX DISEASE WITHOUT 07/29/2017 MARIO DO, SAURABH K Ot K59.00 CONSTIPATION, UNSPECIFIED 07/29/2017 MARIO DO, SAURABH K Ot R10.9 UNSPECIFIED ABDOMINAL PAIN 07/29/2017 MARIO DO SAURABH K Ot Z87.01 PERSONAL HISTORY OF PNEUMONIA (RECURRENT 07/29/2017 MARIO DO, SAURABH K Ot Z87.442 PERSONAL HISTORY OF URINARY CALCULI 07/29/2017 MARIO DO SAURABH K Ot Z88.8 ALLERGY STATUS TO OTH DRUG/MEDS/BIOL SUB 07/31/2017 MARIO DO, SAURABH K Ot F12.90 CANNABIS USE, UNSPECIFIED, UNCOMPLICATED 07/31/2017 MARIO , SAURABH K Ot F17.210 NICOTINE DEPENDENCE, CIGARETTES, UNCOMPL 07/31/2017 MARIO GALVEZ SAURABH K Ot F31.0 BIPOLAR DISORDER, CURRENT EPISODE HYPOMA 07/31/2017 MARIO GALVEZ SAURABH K Ot F41.9 ANXIETY DISORDER, UNSPECIFIED 07/31/2017 MARIO GALVEZ SAURABH K Ot F43.10 POST-TRAUMATIC STRESS DISORDER, UNSPECIF 07/31/2017 MARIO GALVEZ SAURABH K Ot F90.9 ATTENTION-DEFICIT HYPERACTIVITY DISORDER 07/31/2017 MARIO SAURABH K Ot G43.909 MIGRAINE, UNSP, NOT INTRACTABLE, WITHOUT 07/31/2017 MARIO GALVEZ SAURABH K Ot J44.9 CHRONIC OBSTRUCTIVE PULMONARY DISEASE, U 07/31/2017 MARIO GALVEZ SAURABH K Ot K21.9 GASTRO-ESOPHAGEAL REFLUX DISEASE WITHOUT 07/31/2017 MARIO GALVEZ SAURABH K Ot K59.00 CONSTIPATION, UNSPECIFIED 07/31/2017 MARIO GALVEZ SAURABH Wade Ot R10.9 UNSPECIFIED ABDOMINAL PAIN 07/31/2017 MARIO GALVEZ SAURABH K Ot Z87.01 PERSONAL HISTORY OF PNEUMONIA (RECURRENT 07/31/2017 MARIO GALVEZ SAURABH K Ot Z87.442 PERSONAL HISTORY OF URINARY CALCULI 07/31/2017 MARIO GALVEZ SAURABH Wade Ot Z88.8 ALLERGY STATUS TO OTH DRUG/MEDS/BIOL SUB 05/27/2018 TOY HINES, SHELBIE Peres Ot M25.511 PAIN IN RIGHT SHOULDER 06/01/2018 TOY HINES, SHELBIE Peres Ot M25.511 PAIN IN RIGHT SHOULDER 06/02/2018 JUAN MANUEL HAN APRN Ot F31.9 BIPOLAR DISORDER, UNSPECIFIED 06/02/2018 JUAN MANUEL HAN APRN Ot F41.9 ANXIETY DISORDER, UNSPECIFIED 06/02/2018 JUAN MANUEL HAN APRN Ot F43.10 POST-TRAUMATIC STRESS DISORDER, UNSPECIF 06/02/2018 JUAN MANUEL HAN APRN Ot F90.9 ATTENTION-DEFICIT HYPERACTIVITY DISORDER 06/02/2018 JUAN MANUEL HAN APRN Ot F98.8 OTH BEHAV/EMOTN DISORD W ONSET USLY OCCU 06/02/2018 JUAN MANUEL HAN APRN Ot G43.909 MIGRAINE, UNSP, NOT INTRACTABLE, WITHOUT 06/02/2018 JUAN MANUEL HAN APRN Ot J44.9 CHRONIC OBSTRUCTIVE PULMONARY DISEASE, U 06/02/2018 JUAN MANUEL HAN APRN Ot M25.511 PAIN IN RIGHT SHOULDER 06/02/2018 JUAN MANUEL HAN APRN Ot Z77.22 CNTCT W AND EXPSR TO ENVIRON TOBACCO SMO 06/02/2018 JUAN MANUEL HAN APRN Ot Z87.01 PERSONAL HISTORY OF PNEUMONIA (RECURRENT 06/02/2018 JUAN MANUEL HAN APRN Ot Z87.19 PERSONAL HISTORY OF OTHER DISEASES OF TH 06/02/2018 JUAN MANUEL HAN APRN Ot Z88.8 ALLERGY STATUS TO OTH DRUG/MEDS/BIOL SUB 06/04/2018 JUAN MANUEL HAN APRN Ot F31.9 BIPOLAR DISORDER, UNSPECIFIED 06/04/2018 JUAN MANUEL HAN APRN Ot F41.9 ANXIETY DISORDER, UNSPECIFIED 06/04/2018 JUAN MANUEL HAN APRN Ot F43.10 POST-TRAUMATIC STRESS DISORDER, UNSPECIF 06/04/2018 JUAN MANUEL HAN APRN Ot F90.9 ATTENTION-DEFICIT HYPERACTIVITY DISORDER 06/04/2018 JUAN MANUEL HAN APRN Ot F98.8 OTH BEHAV/EMOTN DISORD W ONSET USLY OCCU 06/04/2018 JUAN MANUEL HAN APRN Ot G43.909 MIGRAINE, UNSP, NOT INTRACTABLE, WITHOUT 06/04/2018 JUAN MANUEL HAN APRN Ot J44.9 CHRONIC OBSTRUCTIVE PULMONARY DISEASE, U 06/04/2018 JUAN MANUEL HAN APRN Ot M25.511 PAIN IN RIGHT SHOULDER 06/04/2018 JUAN MANUEL HAN APRN Ot Z77.22 CNTCT W AND EXPSR TO ENVIRON TOBACCO SMO 06/04/2018 JUAN MANUEL HAN APRN Ot Z87.01 PERSONAL HISTORY OF PNEUMONIA (RECURRENT 06/04/2018 JUAN MANUEL HAN APRN Ot Z87.19 PERSONAL HISTORY OF OTHER DISEASES OF 06/04/2018 JUAN MANUEL HAN APRN Ot Z88.8 ALLERGY STATUS TO OTH DRUG/MEDS/BIOL SUB 06/15/2018 TALON RODRÍGUEZP Ot F17.210 NICOTINE DEPENDENCE, CIGARETTES, UNCOMPL 06/15/2018 TALON RODRÍGUEZP Ot F31.9 BIPOLAR DISORDER, UNSPECIFIED 06/15/2018 TALON RODRÍGUEZ Ot F41.9 ANXIETY DISORDER, UNSPECIFIED 06/15/2018 ANNETALON DixonP Ot F43.10 POST-TRAUMATIC STRESS DISORDER, UNSPECIF 06/15/2018 ANNETALON Dixon Ot F90.9 ATTENTION- DEFICIT HYPERACTIVITY DISORDER 06/15/2018 ANNETALON DixonP Ot F98.8 OT BEHAV/EMOTN DISORD W ONSET USLY OCCU 06/15/2018 ANNETALON DixonP Ot G43.909 MIGRAINE, UNSP, NOT INTRACTABLE, WITHOUT 06/15/2018 ANNETALON DixonP Ot J44.9 CHRONIC OBSTRUCTIVE PULMONARY DISEASE, U 06/15/2018 ANNETALON DixonP Ot K21.9 GASTRO- ESOPHAGEAL REFLUX DISEASE WITHOUT 06/15/2018 ANNETALON DixonP Ot M25.511 PAIN IN RIGHT SHOULDER 06/15/2018 TALON RODRÍGUEZ Ot Z87.01 PERSONAL HISTORY OF PNEUMONIA (RECURRENT 06/15/2018 TAOLN RODRÍGUEZ Ot Z87.19 PERSONAL HISTORY OF OTHER DISEASES OF TH 06/15/2018 TALON RODRÍGUEZ Ot Z87.442 PERSONAL HISTORY OF URINARY CALCULI 06/15/2018 TALON RODRÍGUEZP Ot Z88.8 ALLERGY STATUS TO [facility] DRUG/MEDS/BIOL SUB 06/15/2018 TALON RODRÍGUEZP Ot Z98.890 OTHER SPECIFIED POSTPROCEDURAL STATES 07/01/2018 SHELBIE YEAGER MD Ot M25.511 PAIN IN RIGHT SHOULDER Procedures There is no data. Results Test Result Range Complete blood count (CBC) with automated white blood cell (WBC) differential - 03/01/16 11:44 Blood leukocytes automated count (number/volume) 8.7 10*3/uL 4.3-11.0 Blood erythrocytes automated count (number/volume) 4.68 10*6/uL 4.35-5.85 Venous blood hemoglobin measurement (mass/volume) 15.2 g/dL 13.3-17.7 Blood hematocrit (volume fraction) 43 % 40-54 Automated erythrocyte mean corpuscular volume 93 [foz_us] 80-99 Automated erythrocyte mean corpuscular hemoglobin (mass per erythrocyte) 33 pg 25-34 Automated erythrocyte mean corpuscular hemoglobin concentration measurement (mass/volume) 35 g/dL 32-36 Automated erythrocyte distribution width ratio 12.5 % 10.0- 14.5 Automated blood platelet count (count/volume) 288 10*3/uL 130-400 Automated blood platelet mean volume measurement 9.7 [foz_us] 7.4-10.4 Automated blood neutrophils/100 leukocytes 65 % 42-75 Automated blood lymphocytes/100 leukocytes 22 % 12-44 Blood monocytes/100 leukocytes 9 % 0-12 Automated blood eosinophils/100 leukocytes 4 % 0-10 Automated blood basophils/100 leukocytes 0 % 0-10 Blood neutrophils automated count (number/volume) 5.6 10*3 1.8-7.8 Blood lymphocytes automated count (number/volume) 1.9 10*3 1.0-4.0 Blood monocytes automated count (number/volume) 0.8 10*3 0.0- 1.0 Automated eosinophil count 0.4 10*3/uL 0.0-0.3 Automated blood basophil count (count/volume) 0.0 10*3/uL 0.0-0.1 Comprehensive metabolic panel - 03/01/16 11:44 Serum or plasma sodium measurement (moles/volume) 141 mmol/L 135-145 Serum or plasma potassium measurement (moles/volume) 4.0 mmol/L 3.6-5.0 Serum or plasma chloride measurement (moles/volume) 103 mmol/L 98-107 Carbon dioxide 26 mmol/L 21-32 Serum or plasma anion gap determination (moles/volume) 12 mmol/L 5-14 Serum or plasma urea nitrogen measurement (mass/volume) 19 mg/dL 7-18 Serum or plasma creatinine measurement (mass/volume) 0.99 mg/dL 0.60-1.30 Serum or plasma urea nitrogen/creatinine mass ratio 19 NRG Serum or plasma creatinine measurement with calculation of estimated glomerular filtration rate > NRG Serum or plasma glucose measurement (mass/volume) 102 mg/dL 70-105 Serum or plasma calcium measurement (mass/volume) 10.2 mg/dL 8.5-10.1 Serum or plasma total bilirubin measurement (mass/volume) 0.3 mg/dL 0.1-1.0 Serum or plasma alkaline phosphatase measurement (enzymatic activity/volume) 86 U/L 40-136 Serum or plasma aspartate aminotransferase measurement (enzymatic activity/volume) 16 U/L 5-34 Serum or plasma alanine aminotransferase measurement (enzymatic activity/volume) 17 U/L 0-55 Serum or plasma protein measurement (mass/volume) 6.9 g/dL 6.4-8.2 Serum or plasma albumin measurement (mass/volume) 4.2 g/dL 3.2-4.5 Lipase - 03/01/16 11:44 Lipase 24 U/L 8-78 Complete urinalysis with reflex to culture - 03/01/16 11:45 Urine color determination YELLOW NRG Urine clarity determination CLEAR NRG Urine pH measurement by test strip 8 5-9 Specific gravity of urine by test strip 1.010 1.016-1.022 Urine protein assay by test strip, semi-quantitative NEGATIVE NEGATIVE Urine glucose detection by automated test strip NEGATIVE NEGATIVE Erythrocytes detection in urine sediment by light microscopy 1+ NEGATIVE Urine ketones detection by automated test strip NEGATIVE NEGATIVE Urine nitrite detection by test strip NEGATIVE NEGATIVE Urine total bilirubin detection by test strip NEGATIVE NEGATIVE Urine urobilinogen measurement by automated test strip (mass/volume) NORMAL NORMAL Urine leukocyte esterase detection by dipstick 1+ NEGATIVE Automated urine sediment erythrocyte count by microscopy (number/high power field) NONE NRG Automated urine sediment leukocyte count by microscopy (number/high power field) NONE NRG Bacteria detection in urine sediment by light microscopy NEGATIVE NRG Crystals detection in urine sediment by light microscopy NONE NRG Casts detection in urine sediment by light microscopy NONE NRG Mucus detection in urine sediment by light microscopy NEGATIVE NRG Complete urinalysis with reflex to culture NO NRG Complete urinalysis with reflex to culture - 07/29/17 04:30 Urine color determination ELISABETH NRG Urine clarity determination VERY CLOUDY NRG Urine pH measurement by test strip 7 5-9 Specific gravity of urine by test strip 1.010 1.016-1.022 Urine protein assay by test strip, semi-quantitative 1+ NEGATIVE Urine glucose detection by automated test strip NEGATIVE NEGATIVE Erythrocytes detection in urine sediment by light microscopy NEGATIVE NEGATIVE Urine ketones detection by automated test strip NEGATIVE NEGATIVE Urine nitrite detection by test strip NEGATIVE NEGATIVE Urine total bilirubin detection by test strip NEGATIVE NEGATIVE Urine urobilinogen measurement by automated test strip (mass/volume) 1 mg/dL NORMAL Urine leukocyte esterase detection by dipstick 1+ NEGATIVE Automated urine sediment erythrocyte count by microscopy (number/high power field) NONE NRG Automated urine sediment leukocyte count by microscopy (number/high power field) NONE NRG Bacteria detection in urine sediment by light microscopy NEGATIVE NRG Squamous epithelial cells detection in urine sediment by light microscopy RARE NRG Crystals detection in urine sediment by light microscopy PRESENT NRG Casts detection in urine sediment by light microscopy NONE NRG Mucus detection in urine sediment by light microscopy SMALL NRG Complete urinalysis with reflex to culture NO NRG Amorphous sediment detection in urine sediment by light microscopy LARGE JOSH URATES NRG Urine drug screening test - 07/29/17 04:30 Urine phencyclidine detection by screening method NEGATIVE NEGATIVE Urine benzodiazepines detection by screening method NEGATIVE NEGATIVE Urine cocaine detection NEGATIVE NEGATIVE Urine amphetamines detection by screening method NEGATIVE NEGATIVE Urine methamphetamine detection by screening method NEGATIVE NEGATIVE Urine cannabinoids detection by screening method POSITIVE NEGATIVE Urine opiates detection by screening method NEGATIVE NEGATIVE Urine barbiturates detection NEGATIVE NEGATIVE Screening urine tricyclic antidepressants detection POSITIVE NEGATIVE Urine methadone detection by screening method NEGATIVE NEGATIVE Urine oxycodone detection NEGATIVE NEGATIVE Urine propoxyphene detection NEGATIVE NEGATIVE Complete blood count (CBC) with automated white blood cell (WBC) differential - 07/29/17 04:46 Blood leukocytes automated count (number/volume) 7.6 10*3/uL 4.3-11.0 Blood erythrocytes automated count (number/volume) 4.34 10*6/uL 4.35-5.85 Venous blood hemoglobin measurement (mass/volume) 14.5 g/dL 13.3-17.7 Blood hematocrit (volume fraction) 41 % 40-54 Automated erythrocyte mean corpuscular volume 94 [foz_us] 80-99 Automated erythrocyte mean corpuscular hemoglobin (mass per erythrocyte) 33 pg 25-34 Automated erythrocyte mean corpuscular hemoglobin concentration measurement (mass/volume) 36 g/dL 32-36 Automated erythrocyte distribution width ratio 12.2 % 10.0- 14.5 Automated blood platelet count (count/volume) 265 10*3/uL 130-400 Automated blood platelet mean volume measurement 9.0 [foz_us] 7.4-10.4 Automated blood neutrophils/100 leukocytes 53 % 42-75 Automated blood lymphocytes/100 leukocytes 31 % 12-44 Blood monocytes/100 leukocytes 10 % 0-12 Automated blood eosinophils/100 leukocytes 6 % 0-10 Automated blood basophils/100 leukocytes 0 % 0-10 Blood neutrophils automated count (number/volume) 4.0 10*3 1.8-7.8 Blood lymphocytes automated count (number/volume) 2.4 10*3 1.0-4.0 Blood monocytes automated count (number/volume) 0.7 10*3 0.0- 1.0 Automated eosinophil count 0.5 10*3/uL 0.0-0.3 Automated blood basophil count (count/volume) 0.0 10*3/uL 0.0-0.1 Comprehensive metabolic panel - 07/29/17 04:46 Serum or plasma sodium measurement (moles/volume) 141 mmol/L 135-145 Serum or plasma potassium measurement (moles/volume) 4.0 mmol/L 3.6-5.0 Serum or plasma chloride measurement (moles/volume) 105 mmol/L 98-107 Carbon dioxide 25 mmol/L 21-32 Serum or plasma anion gap determination (moles/volume) 11 mmol/L 5-14 Serum or plasma urea nitrogen measurement (mass/volume) 12 mg/dL 7-18 Serum or plasma creatinine measurement (mass/volume) 0.85 mg/dL 0.60-1.30 Serum or plasma urea nitrogen/creatinine mass ratio 14 NRG Serum or plasma creatinine measurement with calculation of estimated glomerular filtration rate > NRG Serum or plasma glucose measurement (mass/volume) 103 mg/dL 70-105 Serum or plasma calcium measurement (mass/volume) 9.0 mg/dL 8.5-10.1 Serum or plasma total bilirubin measurement (mass/volume) 0.3 mg/dL 0.1-1.0 Serum or plasma alkaline phosphatase measurement (enzymatic activity/volume) 73 U/L 40-136 Serum or plasma aspartate aminotransferase measurement (enzymatic activity/volume) 13 U/L 5-34 Serum or plasma alanine aminotransferase measurement (enzymatic activity/volume) 11 U/L 0-55 Serum or plasma protein measurement (mass/volume) 6.3 g/dL 6.4-8.2 Serum or plasma albumin measurement (mass/volume) 3.9 g/dL 3.2-4.5 Serum or plasma amylase measurement (enzymatic activity/volume) - 07/29/17 04:46 Serum or plasma amylase measurement (enzymatic activity/volume) 52 U/L 25-125 Lipase - 07/29/17 04:46 Lipase 22 U/L 8-78 PDM - PAIN MGMT (PROFILE 3 WITH CONFIRMATION) - 12/15/17 09:36 Creatinine 58.3 mg/dL > or=20.0 pH 7.80 4.5 - 9.0 Oxidant NEGATIVE mcg/mL <200 Amphetamines NEGATIVE ng/mL <500 medMATCH Amphetamines CONSISTENT NRG Benzodiazepines NEGATIVE CONFIRMED ng/mL <100 Marijuana Metabolite POSITIVE ng/mL <20 Cocaine Metabolite NEGATIVE ng/mL <150 medMATCH Cocaine Metab CONSISTENT NRG Opiates NEGATIVE ng/mL <100 medMATCH Opiates CONSISTENT NRG Oxycodone NEGATIVE ng/mL <100 medMATCH Oxycodone CONSISTENT NRG COMMENT NRG Alphahydroxyalprazolam NEGATIVE ng/mL <25 medMATCH aOH alprazolam CONSISTENT NRG Alphahydroxymidazolam NEGATIVE ng/mL <50 medMATCH aOH midazolam CONSISTENT NRG Alphahydroxytriazolam NEGATIVE ng/mL <50 medMATCH aOH triazolam CONSISTENT NRG Aminoclonazepam NEGATIVE ng/mL <25 medMATCH Aminoclonazepam CONSISTENT NRG Hydroxyethylflurazepam NEGATIVE ng/mL <50 medMATCH OH,Et flurazepam CONSISTENT NRG Lorazepam NEGATIVE ng/mL <50 medMATCH Lorazepam CONSISTENT NRG Nordiazepam NEGATIVE ng/mL <50 medMATCH Nordiazepam CONSISTENT NRG Oxazepam NEGATIVE ng/mL <50 medMATCH Oxazepam CONSISTENT NRG Temazepam NEGATIVE ng/mL <50 medMATCH Temazepam CONSISTENT NRG Marijuana Metabolite 303 ng/mL <5 medMATCH Marijuana Metab INCONSISTENT NRG Urine drug screening test - 06/15/18 15:10 Urine phencyclidine detection by screening method NEGATIVE NEGATIVE Urine benzodiazepines detection by screening method NEGATIVE NEGATIVE Urine cocaine detection NEGATIVE NEGATIVE Urine amphetamines detection by screening method NEGATIVE NEGATIVE Urine methamphetamine detection by screening method NEGATIVE NEGATIVE Urine cannabinoids detection by screening method POSITIVE NEGATIVE Urine opiates detection by screening method NEGATIVE NEGATIVE Urine barbiturates detection NEGATIVE NEGATIVE Screening urine tricyclic antidepressants detection POSITIVE NEGATIVE Urine methadone detection by screening method NEGATIVE NEGATIVE Urine oxycodone detection NEGATIVE NEGATIVE Urine propoxyphene detection NEGATIVE NEGATIVE Encounters ACCT No. Visit Date/Time Discharge Status Pt. Type Provider Facility Loc./Unit Complaint [id number] 06/18/2018 09:30:00 06/18/2018 23:59:00 DIS Outpatient SAURABH MCCALL [id number] 06/01/2018 11:24:00 07/12/2018 13:52:00 DIS Outpatient TOY HINES, SHELBIE [facility] REHAB CHRONIC R SHOULDER PAIN [id number] 06/15/2018 14:49:00 06/15/2018 15:37:00 DIS Emergency TALON RODRÍGUEZ [facility] ER SHOULDER PAIN [id number] 06/02/2018 17:55:00 06/02/2018 19:19:00 DIS Emergency JUAN MANUEL HAN APRN [facility] ER R SHOULDER PAIN [id number] 07/29/2017 04:20:00 07/29/2017 06:22:00 DIS Emergency SAURABH MARTIN DO [facility] ER POSS KIDNEY STONE,RT SIDE [id number] 06/02/2017 12:34:00 06/02/2017 14:21:00 DIS Emergency JUAN MANUEL HAN APRN [facility] ER RT ELBOW PAIN, FINGERS NUMB [id number] 04/13/2017 04:26:00 04/13/2017 05:29:00 DIS Outpatient INDIA GUY MD [facility] ER PAIN FROM BROKE TOOTH [id number] 12/08/2016 16:24:00 12/08/2016 19:05:00 DIS Emergency JUAN MANUEL HAN APRN [facility] ER R SHOULDER INJ/ARM NUMBNESS [id number] 11/15/2016 01:16:00 11/15/2016 02:12:00 DIS Emergency INDIA GUY MD [facility] ER BACK PAIN-INJURY 6 DAYS AGO [id number] 11/12/2016 15:18:00 11/12/2016 18:32:00 DIS Emergency YONIS ALBERTS [facility] ER LOWER BACK PAIN [id number] 10/27/2016 22:49:00 10/27/2016 23:35:00 DIS Emergency SAURABH MARTIN DO [facility] ER BACK PAIN [id number] 10/14/2016 14:01:00 10/14/2016 14:21:00 DIS Emergency JUAN MANUEL HAN APRN [facility] ER BROKEN TOOTH/FACE SWELLING [id number] 03/01/2016 11:29:00 03/01/2016 12:56:00 DIS Emergency JUAN MANUEL HAN APRN [facility] ER VOMITING/HEART BURN/HEADACHE [id number] 06/23/2018 12:00:00 06/23/2018 23:59:59 [facility] [id number] 12/15/2017 09:20:00 Document Registration
== END 2018-07-15 18:00 | disposition home or self-care (01) ==
LOC: ER 17:37 → EDUNIT# 17:37 → ER 18:00
DX: K08.89 Other specified disorders of teeth and supporting structures (principal); J44.9 Chronic obstructive pulmonary disease, unspecified; G43.909 Migraine, unspecified, not intractable, without status migrainosus; K21.9 Gastro-esophageal reflux disease without esophagitis; F90.9 Attention-deficit hyperactivity disorder, unspecified type; F41.9 Anxiety disorder, unspecified; F43.10 Post-traumatic stress disorder, unspecified; F31.9 Bipolar disorder, unspecified; Z87.19 Personal history of other diseases of the digestive system; Z87.442 Personal history of urinary calculi; Z87.01 Personal history of pneumonia (recurrent); Z88.8 Allergy status to other drugs, medicaments and biological substances; Z77.22 Contact with and (suspected) exposure to environmental tobacco smoke (acute) (chronic); Z98.890 Other specified postprocedural states
CPT/HCPCS: 99284

== ENCOUNTER 2018-12-30 21:54 | Emergency (ER) | payer MEDICAID ==
[~2018-12-30] VITALS: Ht 167.5 cm; Wt 63.6 kg
--- NOTE | 2018-12-30 23:42 | ED Upper Extremity ---
General Chief Complaint: Upper Extremity Stated Complaint: FALL/R SHOULDER INJ Nursing Triage Note: PT AMBULATED TO TRIAGE ROOM WITH C/O RIGHT SHOULDER PAIN 09/18. PT STATED HE HAD SHOULDER SURGERY A FEW YEARS AGO AND TONIGHT HE SLIPPED ON A WET FLOOR AND DISLOCATED HIS SHOULDER. PT STATES HE WAS ABLE TO "POP MY SHOULDER BACK INTO JOINT." Nursing Sepsis Screen: No Definite Risk Source: patient History of Present Illness Date Seen by Provider: Dec 30, 2018 Time Seen by Provider: 23:23 Initial Comments PT ARRIVES VIA POV FROM HOME C/O RIGHT SHOULDER PAIN STATES HE HAD RIGHT SHOULDER SURGERY FOR TORN LABRUM A COUPLE OF YEARS AGO, BY DR. CROWE STATES A COUPLE OF WEEKS AGO, HE INJURED IT AGAIN--STATES HE HAS BEEN MOVING, LIFTING BOXES, FURNITURE, ETC. AND STATES "IT POPPED OUT--IT KEEPS POPPING OUT" STATES AT 1730 TONIGHT, HE SLIPPED ON A WET FLOOR AND FELL ON HIS RIGHT SHOULDER, AND IT "POPPED OUT" AND NOW HAS INCREASED PAIN IN SHOULDER DENIES HITTING HIS HEAD OR ANY OTHER INJURIES FROM THE FALL. NO NECK OR BACK PAIN NO CHEST OR ABDOMINAL PAIN NO HIP OR LEG PAIN STATES HIS RIGHT HAND IS A LITTLE NUMB AND TINGLY AT TIMES. PT IS RIGHT HANDED TOOK 2 TYLENOL AND A MUSCLE RELAXANT TONIGHT, WITHOUT IMPROVEMENT PCP: DR. YEAGER, [facility] [place] [place]: DR. CROWE Allergies and Home Medications Allergies Coded Allergies: prochlorperazine (Verified Allergy, Intermediate, 03/01/16) Home Medications Amoxicillin 500 Mg Capsule, 500 MG PO TID Prescribed by: JUAN MANUEL HAN on 07/15/181754 Naproxen 500 Mg Tablet, 500 MG PO BID PRN for PAIN-MODERATE TO SEVERE Prescribed by: JUAN MANUEL HAN on 07/15/181754 Patient Home Medication List Home Medication List Reviewed: Yes Review of Systems Constitutional: no symptoms reported Respiratory: no symptoms reported Cardiovascular: no symptoms reported Gastrointestinal: no symptoms reported Musculoskeletal: see HPI Skin: no symptoms reported Psychiatric/Neurological: See HPI Past Vhrqnee-Brmndb-Jkwlvo Hx Patient Social History Alcohol Use: Denies Use Recreational Drug Use: Yes (THC) Drug of Choice: CANNIBUS Smoking Status: Current Everyday Smoker Type Used: Cigarettes 2nd Hand Smoke Exposure: Yes Recent Foreign Travel: No Contact w/Someone Who Travel: No Recent Infectious Disease Expo: No Recent Hopitalizations: No Physical Abuse: No Sexual Abuse: No Mistreated: No Fear: No Immunizations Up To Date Tetanus Booster (TDap): Less than 5yrs Date of Pneumonia Vaccine: Nov 10, 2015 Seasonal Allergies Seasonal Allergies: No Past Medical History Surgeries: Yes (RIGHT SHOULDER SCOPE/LABRAL TEAR REPAIR) Orthopedic Respiratory: Yes Asthma, Pneumonia, COPD Cardiac: No Neurological: Yes Headaches /Migraines Reproductive Disorders: No Sexually Transmitted Disease: No HIV/AIDS: No Genitourinary: Yes Kidney Stones Gastrointestinal: Yes Gastroesophageal Reflux, Ulcer Musculoskeletal: Yes (RIGHT SHOULDER SURGERY FOR TORN LABRUM) Endocrine: No HEENT: Yes (GLASSES) Cancer: No Did You Recieve Any Treatments: No Psychosocial: Yes ADD/ADHD, Anxiety, PTSD, Bipolar, Depression Integumentary: No Blood Disorders: No Adverse Reaction/Blood Tranf: No Family Medical History No Pertinent Family Hx Physical Exam Vital Signs Vital Signs - First Documented 12/30/18 22:45 Temp 36.6 Pulse 88 Resp 16 B/P (MAP) 124/90 (101) Pulse Ox 97 O2 Delivery Room Air Capillary Refill : Less Than 3 Seconds Height, Weight, BMI Height: 5'7.50" Weight: 140lbs. oz. 63.321013qt; 22.00 BMI Method:Stated General Appearance: no apparent distress, thin, other (DOES NOT APPEAR TO BE IN ANY DISCOMFORT-LAYING QUIETLY) HEENT: other (POOR DENTITION, MULTIPLE MISSING TEETH) Neck: non-tender, full range of motion, supple, normal inspection Cardiovascular: normal peripheral pulses, regular rate, rhythm, no murmur Respiratory: chest non-tender, normal breath sounds Gastrointestinal: non tender, soft Back: normal inspection, no CVA tenderness, no vertebral tenderness Shoulder: No asymmetry; bone tenderness; No deformity, No ecchymosis; limited ROM (HOLDING RIGHT ARM STIFFLY AT SIDE DURING EXAM ), pain, soft tissue tenderness; No swelling Elbow/Forearm: normal inspection Wrist: Yes normal inspection Hand: normal inspection Neurologic/Tendon: normal sensation, normal motor functions, normal tendon functions, other (MOTOR/SENSORY/VASCULAR INTACT) 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, no motor/sensory deficits, alert, normal mood/affect, oriented x 3 Skin: normal color, warm/dry, other (NO EXTERNAL EVIDENCE OF TRAUMA) Procedures/Interventions Splinting and Joint Reduction : Immobilizers: Large Shoulder Progress/Results/Core Measures Results/Orders My Orders Orders - SAURABH MARTIN DO Shoulder, Right, 3 Views (12/30/18 23:28) Shoulder Immoblizer (12/30/18 23:48) Vital Signs/I&O 12/30/18 22:45 Temp 36.6 Pulse 88 Resp 16 B/P (MAP) 124/90 (101) Pulse Ox 97 O2 Delivery Room Air Blood Pressure Mean: 101 POS Diagnostic Imaging Comments XRAYS RIGHT SHOULDER--NO ACUTE PROCESS, UNCHANGED FROM 05/2018, PENDING RADIOLOGIST REVIEW Reviewed: Reviewed by Me Departure Impression Primary Impression: RIGHT SHOULDER STRAIN/CONTUSION Disposition: HOME, SELF-CARE Condition: Stable Departure-Patient Inst. Referrals: SHELBIE YEAGER MD (PCP/Family) Primary Care Physician ELIDA CROWE MD Patient Instructions: How to Use a Shoulder Sling, Shoulder Pain (DC), Shoulder Sprain (DC) Add. Discharge Instructions: ICE TO SORE AREA AT 20 MINUTE INTERVALS TAKE YOUR HOME MUSCLE RELAXANT, ANTI-INFLAMMATORY AND TYLENOL NEEDED WEAR SHOULDER IMMOBILIZER AT ALL TIMES FOLLOW UP WITH DR. CROWE NEXT WEEK FOR FURTHER CARE All discharge instructions reviewed with patient and/or family. Voiced understanding. SAURABH MARTIN DO Dec 30, 2018 23:42 POS
[2018-12-31 00:32] VITALS: BP 108/77
--- NOTE | 2018-12-31 07:15 | Diagnostic Imaging Report ---
INDICATION: Right shoulder pain. 3 views of the right shoulder show no fracture, dislocation or other acute abnormalities. IMPRESSION: Negative right shoulder. Dictated by: Dictated on workstation # [id number]
== END 2018-12-31 00:22 | disposition home or self-care (01) ==
LOC: EDUNIT# 21:54 → ER 21:55
DX: S46.911A Strain of unspecified muscle, fascia and tendon at shoulder and upper arm level, right arm, initial encounter (principal); J44.9 Chronic obstructive pulmonary disease, unspecified; G43.909 Migraine, unspecified, not intractable, without status migrainosus; K21.9 Gastro-esophageal reflux disease without esophagitis; F90.9 Attention-deficit hyperactivity disorder, unspecified type; F41.9 Anxiety disorder, unspecified; F43.10 Post-traumatic stress disorder, unspecified; F31.9 Bipolar disorder, unspecified; F17.210 Nicotine dependence, cigarettes, uncomplicated; Z87.442 Personal history of urinary calculi; Z88.8 Allergy status to other drugs, medicaments and biological substances; Z87.828 Personal history of other (healed) physical injury and trauma; W01.0XXA Fall on same level from slipping, tripping and stumbling without subsequent striking against object, initial encounter
CPT/HCPCS: 73030

== ENCOUNTER 2019-01-19 12:30 | Emergency (ER) | payer MEDICAID ==
[~2019-01-19] VITALS: Ht 170 cm; Wt 55.0 kg
[2019-01-19] MEDS ORDERED: LACTATED RINGERS 1,000 ML IV ONE ×2 (12:47→13:39)
[2019-01-19] MEDS ORDERED: OMEP20TA7 PO (12:51)
[2019-01-19] MEDS ORDERED: GABA-488 PO (12:51)
[2019-01-19] MEDS ORDERED: CLON0.5T13 (12:51)
[2019-01-19] MEDS ORDERED: QUET400T PO (12:51)
[2019-01-19 12:57] LABS: BASOPHILS % (AUTO) 0 % (0-10); EOSINOPHILS # (AUTO) 0.5 10^3/uL (0.0-0.3); EOSINOPHILS % (AUTO) 6 % (0-10); HEMATOCRIT 41 % (40-54); HEMOGLOBIN 13.8 G/DL (13.3-17.7); LYMPHOCYTES # (AUTO) 2.8 X 10^3 (1.0-4.0); LYMPHOCYTES % (AUTO) 39 % (12-44); MEAN CORPUSCULAR HEMOGLOBIN 32 PG (25-34); MEAN CORPUSCULAR HGB CONC 34 G/DL (32-36); MEAN CORPUSCULAR VOLUME 96 FL (80-99); MEAN PLATELET VOLUME 8.6 FL (7.4-10.4); MONOCYTES # (AUTO) 0.8 X 10^3 (0.0-1.0); MONOCYTES % (AUTO) 11 % (0-12); NEUTROPHILS # (AUTO) 3.2 X 10^3 (1.8-7.8); NEUTROPHILS % (AUTO) 44 % (42-75); PLATELET COUNT 333 10^3/uL (130-400); RED CELL DISTRIBUTION WIDTH 12.8 % (10.0-14.5); WHITE BLOOD COUNT 7.2 10^3/uL (4.3-11.0)
[2019-01-19] MEDS ORDERED: ONDANSETRON 4 MG/2 ML (SDV) Z0FRAN IVP ONE (13:00)
[2019-01-19 13:12] LABS: ALANINE AMINOTRANSFERASE 21 U/L (0-55); ALBUMIN 4.3 GM/DL (3.2-4.5); ALKALINE PHOSPHATASE 71 U/L (40-136); AMYLASE 84 U/L (25-125); BILIRUBIN,TOTAL 0.2 MG/DL (0.1-1.0); BUN/CREATININE RATIO 19; CALCIUM 9.3 MG/DL (8.5-10.1); CARBON DIOXIDE 26 MMOL/L (21-32); CHLORIDE 105 MMOL/L (98-107); CREATININE SERUM 0.86 MG/DL (0.60-1.30); GFR ESTIMATED > 60; GLUCOSE 105 MG/DL (70-105); LIPASE 31 U/L (8-78); POTASSIUM 4.5 MMOL/L (3.6-5.0); SODIUM 138 MMOL/L (135-145); TOTAL PROTEIN 6.9 GM/DL (6.4-8.2)
[2019-01-19] MEDS ORDERED: HYOSCYAMINE 0.125 MG (LEVSIN) TAB PO ONE (13:45)
[2019-01-19 13:49] LABS: BILIRUBIN,URINE NEGATIVE (NEGATIVE); CLARITY,URINE CLEAR; COLOR,URINE YELLOW; GLUCOSE, URINE (UA) NEGATIVE (NEGATIVE); KETONES,URINE NEGATIVE (NEGATIVE); LEUKOCYTE ESTERASE ,URINE NEGATIVE (NEGATIVE); NITRITE,URINE NEGATIVE (NEGATIVE); PH,URINE 8.5 (5-9); PROTEIN,URINE NEGATIVE (NEGATIVE)
[2019-01-19] MEDS ORDERED: PANTOPRAZOLE 40 MG (PROTONIX) VIAL IV ONE (14:00)
--- NOTE | 2019-01-19 14:12 | ED GI ---
General Chief Complaint: Abdominal/GI Problems Stated Complaint: N/V/D Nursing Triage Note: PT CO OF ABD PAIN N/V/D FOR 5 DAYS, PT STATES OTHER MEMBERS OF FAMILY ALSO SICK W SAME. DENIES FEVER HAS HX OF ULCERS. Sepsis Screen: No Definite Risk Source of Information: Patient History of Present Illness Date Seen by Provider: Jan 19, 2019 Time Seen by Provider: 12:45 Initial Comments PT ARRIVES VIA POV FROM HOME STATES HE HAS BEEN SICK FOR THE LAST 4-5 DAYS WITH NAUSEA, VOMITING, DIARRHEA AND MID ABDOMINAL CRAMPING STATES HE HAS VOMITED X 4-5 TODAY AND HAS HAD DIARRHEA > 5 < 10 TIMES TODAY. NO HEMATEMESIS OR COFFEE GROUND EMESIS, NO BLACK/BLOODY/TARRY STOOLS NO KNOWN FEVER STATES HE CAN'T KEEP ANYTHING DOWN STATES HE HAS NOT URINATED SINCE YESTERDAY MORNING NO SUSPICIOUS FOODS STATES MULTIPLE OTHER FAMILY MEMBERS ARE ILL WITH SAME--STATES HE GOT SICK FIRST, NOW OTHER FAMILY MEMBERS ARE ILL PT HAS HISTORY OF GASTRITIS/ULCERS, DX 7 YEARS AGO, HAS BEEN ON OMEPRAZOLE SINCE THEN. PCP: DR. YEAGER AT [facility] Allergies and Home Medications Allergies Coded Allergies: prochlorperazine (Verified Allergy, Intermediate, 03/01/16) Home Medications Hyoscyamine Sulfate 0.125 Mg Tab.subl, 1-2 TAB SL Q4H Prescribed by: SAURABH MARTIN on 01/19/19 1423 Lactobacillus Acidophilus 1 Each Capsule, 2 EACH PO QID Prescribed by: SAURABH MARTIN on 01/19/19 1423 Ondansetron 8 Mg Tab.rapdis, 8 MG PO Q6H Prescribed by: SAURABH MARTIN on 01/19/19 1423 Patient Home Medication List Home Medication List Reviewed: Yes Review of Systems Review of Systems Constitutional: No diaphoresis, No dizziness, No fever; malaise, weakness EENTM: No Symptoms Reported Respiratory: No Symptoms Reported Cardiovascular: No Symptoms Reported Gastrointestinal: See HPI, Abdominal Pain, Diarrhea, Nausea, Poor Appetite, Poor Fluid Intake, Vomiting Genitourinary: See HPI Musculoskeletal: no symptoms reported Skin: no symptoms reported Psychiatric/Neurological: No Symptoms Reported Endocrine: No Symptoms Reported Hematologic/Lymphatic: No Symptoms Reported Past Yxitsus-Cswnis-Esdlzs Hx Past Med/Social Hx: Reviewed and Corrections made Patient Social History Alcohol Use: Past History (STATES HE USED TO DRINK 1/2 GALLON OF CR A DAY, BUT CLAIMS NONE FOR 15 YEARS) Recreational Drug Use: Yes (THC) Drug of Choice: CANNIBUS Smoking Status: Current Everyday Smoker (1 1/2 PPD) Type Used: Cigarettes (1 1/2 PPD) 2nd Hand Smoke Exposure: Yes Recent Foreign Travel: No Contact w/Someone Who Travel: No Recent Infectious Disease Expo: No Recent Hopitalizations: No Physical Abuse: No Sexual Abuse: No Immunizations Up To Date Tetanus Booster (TDap): Less than 5yrs Date of Pneumonia Vaccine: Nov 10, 2015 Seasonal Allergies Seasonal Allergies: No Past Medical History Surgeries: Yes (RIGHT SHOULDER SCOPE/LABRAL TEAR REPAIR; EGD 2011) Orthopedic Respiratory: Yes Asthma, Pneumonia, COPD Cardiac: No Neurological: Yes (STATES HE HAS NEUROPATHY, BUT UNKNOWN CAUSE--PT IS NOT DIABETIC. ) Headaches /Migraines, Neuropathy Reproductive Disorders: No Sexually Transmitted Disease: No HIV/AIDS: No Genitourinary: Yes Kidney Stones Gastrointestinal: Yes Gastroesophageal Reflux, Ulcer Musculoskeletal: Yes (RIGHT SHOULDER SURGERY FOR TORN LABRUM) Endocrine: No HEENT: Yes (GLASSES) Cancer: No Did You Recieve Any Treatments: No Psychosocial: Yes ADD/ADHD, Anxiety, PTSD, Bipolar, Depression Integumentary: No Blood Disorders: No Adverse Reaction/Blood Tranf: No Family Medical History No Pertinent Family Hx Physical Exam Vital Signs Vital Signs - First Documented 01/19/19 12:30 Temp 36.8 Pulse 98 Resp 18 B/P (MAP) 144/98 (113) Pulse Ox 99 Capillary Refill : Less Than 3 Seconds Height/Weight/BMI Height: 5'7.50" Weight: 140lbs. oz. 63.631817um; 19.00 BMI Method:Stated General Appearance: no apparent distress, thin, other (REEKS OF CIGARETTES AND THC) HEENT: PERRL/EOMI, pharynx normal, other (EXTENSIVE DENTAL DECAY--MOST TEETH DECAYED DOWN TO GUMS, MULTIPLE MISSING TEETH) Neck: normal inspection Respiratory: normal breath sounds, no respiratory distress, no accessory muscle use Cardiovascular: regular rate, rhythm, no murmur Gastrointestinal: normal bowel sounds, soft, no organomegaly, no pulsatile mass; No distended, No guarding, No rebound; tenderness (DIFFUSE TENDERNESS); No hernia, No mass Extremities: normal inspection Back: normal inspection, no CVA tenderness Neurologic/Psychiatric: undercutter II-XII nml as tested, no motor/sensory deficits, alert, normal mood/affect, oriented x 3 Skin: normal color, warm/dry, tattoos/piercings Progress/Results/Core Measures Results/Orders Lab Results Laboratory Tests Test 01/19/19 12:35 01/19/19 13:30 Range/Units White Blood Count 7.2 4.3-11.0 10^3/uL Red Blood Count 4.27 L 4.35-5.85 10^6/uL Hemoglobin 13.8 13.3-17.7 G/DL Hematocrit 41 40-54 % Mean Corpuscular Volume 96 80-99 FL Mean Corpuscular Hemoglobin 32 25-34 PG Mean Corpuscular Hemoglobin Concent 34 32-36 G/DL Red Cell Distribution Width 12.8 10.0-14.5 % Platelet Count 333 130-400 10^3/uL Mean Platelet Volume 8.6 7.4-10.4 FL Neutrophils (%) (Auto) 44 42-75 % Lymphocytes (%) (Auto) 39 12-44 % Monocytes (%) (Auto) 11 0-12 % Eosinophils (%) (Auto) 6 0-10 % Basophils (%) (Auto) 0 0-10 % Neutrophils # (Auto) 3.2 1.8-7.8 X 10^3 Lymphocytes # (Auto) 2.8 1.0-4.0 X 10^3 Monocytes # (Auto) 0.8 0.0-1.0 X 10^3 Eosinophils # (Auto) 0.5 H 0.0-0.3 10^3/uL Basophils # (Auto) 0.0 0.0-0.1 10^3/uL Sodium Level 138 135-145 MMOL/L Potassium Level 4.5 3.6-5.0 MMOL/L Chloride Level 105 98-107 MMOL/L Carbon Dioxide Level 26 21-32 MMOL/L Anion Gap 7 5-14 MMOL/L Blood Urea Nitrogen 16 7-18 MG/DL Creatinine 0.86 0.60-1.30 MG/DL Estimat Glomerular Filtration Rate > 60 BUN/Creatinine Ratio 19 Glucose Level 105 70-105 MG/DL Calcium Level 9.3 8.5-10.1 MG/DL Corrected Calcium 9.1 8.5-10.1 MG/DL Total Bilirubin 0.2 0.1-1.0 MG/DL Aspartate Amino Transf (AST/SGOT) 19 5-34 U/L Alanine Aminotransferase (ALT/SGPT) 21 0-55 U/L Alkaline Phosphatase 71 40-136 U/L Total Protein 6.9 6.4-8.2 GM/DL Albumin 4.3 3.2-4.5 GM/DL Amylase Level 84 25-125 U/L Lipase 31 8-78 U/L Serum Alcohol 11 H <10 MG/DL Urine Color YELLOW Urine Clarity CLEAR Urine pH 8.5 5-9 Urine Specific [place] 1.015 L 1.016-1.022 Urine Protein NEGATIVE NEGATIVE Urine Glucose (UA) NEGATIVE NEGATIVE Urine Ketones NEGATIVE NEGATIVE Urine Nitrite NEGATIVE NEGATIVE Urine Bilirubin NEGATIVE NEGATIVE Urine Urobilinogen 0.2 < = 1.0 MG/DL Urine Leukocyte Esterase NEGATIVE NEGATIVE Urine RBC (Auto) NEGATIVE NEGATIVE Urine RBC RARE /HPF Urine WBC RARE /HPF Urine Crystals PRESENT H /LPF Urine Amorphous Sediment MOD JOSH PHOSPHATE H /LPF Urine Bacteria NEGATIVE /HPF Urine Casts NONE /LPF Urine Mucus NEGATIVE /LPF Urine Culture Indicated NO Urine Opiates Screen NEGATIVE NEGATIVE Urine Oxycodone Screen NEGATIVE NEGATIVE Urine Methadone Screen NEGATIVE NEGATIVE Urine Propoxyphene Screen NEGATIVE NEGATIVE Urine Barbiturates Screen NEGATIVE NEGATIVE Ur Tricyclic Antidepressants Screen NEGATIVE NEGATIVE Urine Phencyclidine Screen NEGATIVE NEGATIVE Urine Amphetamines Screen NEGATIVE NEGATIVE Urine Methamphetamines Screen NEGATIVE NEGATIVE Urine Benzodiazepines Screen NEGATIVE NEGATIVE Urine Cocaine Screen NEGATIVE NEGATIVE Urine Cannabinoids Screen POSITIVE H NEGATIVE My Orders Orders - SAURABH MARTIN DO Ed Iv/Invasive Line Start (01/19/19 12:47) Amylase (01/19/19 12:47) Cbc With Automated Diff (01/19/19 12:47) Comprehensive Metabolic Panel (01/19/19 12:47) Lipase (01/19/19 12:47) Ua Culture If Indicated (01/19/19 12:47) Ed Iv/Invasive Line Start (01/19/19 12:47) Ed Iv/Invasive Line Start (01/19/19 12:47) Lactated Ringers (Lr 1000 Ml Iv Solution (01/19/19 12:47) Ondansetron Injection (Zofran Injectio (01/19/19 13:00) Ed Iv/Invasive Line Start (01/19/19 13:39) Lactated Ringers (Lr 1000 Ml Iv Solution (01/19/19 13:39) Hyoscyamine Sl Tablet (Levsin Sl Tablet) (01/19/19 13:45) Pantoprazole Injection (Protonix Injecti (01/19/19 14:00) Alcohol (01/19/19 14:32) Drug Screen Stat (Urine) (01/19/19 14:32) Medications Given in ED Current Medications Medications Dose Ordered Sig/Catracho Route Start Time Stop Time Status Last Admin Dose Admin Hyoscyamine Sulfate 0.25 mg ONCE ONCE PO 01/19/19 13:45 01/19/19 13:46 DC 01/19/19 13:47 0.25 MG Lactated Ringer's 1,000 ml @ 0 mls/hr Q0M ONCE IV 01/19/19 12:47 01/19/19 12:49 DC 01/19/19 12:56 1,000 MLS/HR Lactated Ringer's 1,000 ml @ 0 mls/hr Q0M ONCE IV 01/19/19 13:39 01/19/19 13:40 DC 01/19/19 13:47 0 MLS/HR Ondansetron HCl 4 mg ONCE ONCE IVP 01/19/19 13:00 01/19/19 13:01 DC 01/19/19 12:56 4 MG Pantoprazole 40 mg ONCE ONCE IV 01/19/19 14:00 01/19/19 14:01 DC 01/19/19 13:51 40 MG Vital Signs/I&O 01/19/19 01/19/19 12:30 14:34 Temp 36.8 36.8 Pulse 98 98 Resp 18 18 B/P (MAP) 144/98 (113) 144/98 (113) Pulse Ox 99 99 Blood Pressure Mean: 113 POS Progress Progress Note : Progress Note NO VOMITING DURING ER STAY, PT STATES NAUSEA IS GONE AFTER ZOFRAN, AND PAIN/CRAMPING GONE WITH LEVSIN AND PROTONIX PT VOIDED 30 ML AFTER FIRST LITER OF FLUIDS, AND VOIDED AGAIN AFTER 2ND LITER OF FLUIDS NO DIARRHEA DURING ER STAY PT TOLERATING WATER AND ICE CHIPS PRIOR TO DISMISSAL Departure Impression Primary Impression: Gastroenteritis Disposition: 01 HOME, SELF-CARE Condition: Improved Departure-Patient Inst. Referrals: SHELBIE YEAGER MD (PCP/Family) Primary Care Physician Patient Instructions: [id number] Add. Discharge Instructions: CLEAR LIQUIDS--WATER, BROTH, JELLO, GATORADE TOMORROW IF YOU ARE BETTER, ADD BRATS DIET TO CLEAR LIQUIDS--BANANAS, RICE, APPLESAUCE, TOAST, SALTINES FOLLOW UP WITH YOUR DR IN 2-3 DAYS IF NO BETTER All discharge instructions reviewed with patient and/or family. Voiced understanding. Scripts Ondansetron (Ondansetron Odt) 8 Mg Tab.rapdis 8 MG PO Q6H for Nausea/Vomiting, #10 TAB Prov: SAURABH MARTIN DO 01/19/19 Hyoscyamine Sulfate (Levsin-Sl) 0.125 Mg Tab.subl 1-2 TAB SL Q4H for Abdominal Pain, #15 TAB Prov: SAURABH MARTIN DO 01/19/19 Lactobacillus Acidophilus (Acidophilus) 1 Each Capsule 2 EACH PO QID, #80 CAP Prov: SAURABH MARTIN DO 01/19/19 SAURABH MARTIN DO Jan 19, 2019 14:12 POS
[2019-01-19 14:13] LABS: AMORPHOUS SEDIMENT,UR MOD AMOR PHOSPHATE /LPF; BACTERIA,URINE NEGATIVE /HPF; RBC,URINE RARE /HPF; WBC,URINE RARE /HPF
[2019-01-19] MEDS ORDERED: LACT1CAP8 PO (14:23)
[2019-01-19] MEDS ORDERED: HYOS0.1283 SL (14:23)
[2019-01-19] MEDS ORDERED: ONDA8TAB13 PO (14:23)
[2019-01-19 14:34] VITALS: BP 144/98
[2019-01-19 14:56] LABS: AMPHETAMINE SCREEN, URINE NEGATIVE (NEGATIVE); BARBITURATE SCREEN URINE NEGATIVE (NEGATIVE); BENZODIAZEPINES SCREEN URINE NEGATIVE (NEGATIVE); CANNABINOID SCREEN, URINE POSITIVE (NEGATIVE); COCAINE SCREEN URINE NEGATIVE (NEGATIVE); METHADONE STAT NEGATIVE (NEGATIVE); METHAMPHETAMINE SCREEN URINE S NEGATIVE (NEGATIVE); OPIATE SCREEN URINE NEGATIVE (NEGATIVE); OXYCODONE STAT NEGATIVE (NEGATIVE); PROPOXYPHENE STAT NEGATIVE (NEGATIVE); TRICYCLIC ANTIDEPRESSANTS SCRE NEGATIVE (NEGATIVE)
== END 2019-01-19 14:39 | disposition home or self-care (01) ==
LOC: EDUNIT# 12:30 → ER 12:31
DX: K52.9 Noninfective gastroenteritis and colitis, unspecified (principal); J44.9 Chronic obstructive pulmonary disease, unspecified; G43.909 Migraine, unspecified, not intractable, without status migrainosus; F90.9 Attention-deficit hyperactivity disorder, unspecified type; F41.9 Anxiety disorder, unspecified; F43.10 Post-traumatic stress disorder, unspecified; F31.9 Bipolar disorder, unspecified; G62.9 Polyneuropathy, unspecified; K21.9 Gastro-esophageal reflux disease without esophagitis; F17.210 Nicotine dependence, cigarettes, uncomplicated; Z87.442 Personal history of urinary calculi; Z88.8 Allergy status to other drugs, medicaments and biological substances
CPT/HCPCS: 36415; 80053; 80306; 80320; 81000; 82150; 83690; 85025; 96361; 96374; 96375

== ENCOUNTER 2019-11-29 02:56 | Emergency (ER) | payer MEDICAID ==
[~2019-11-29] VITALS: Ht 170 cm; Wt 68.0 kg
[~2019-11-29 02:56] MED LIST changes: -CLON0.5T13; +CLON0.5T4; +GABA-488 PO; +HYOS0.1283 SL; +LACT1CAP8 PO; +OMEP20TA7 PO; +OMEP40CA27; +OMEP40CA27 PO; -OMEP40CA36; -OMEP40CA36 PO; +ONDA8TAB13 PO; +QUET200T29; -QUET200T57; +QUET400T PO; -TRAM50TA2; -TRAM50TA2 PO; +TRM50T; +TRM50T PO
[2019-11-29] MEDS ORDERED: morphine INJ 10 MG/ML 1ML (SYR OR VIAL) IVP STA (03:12)
[2019-11-29] MEDS ORDERED: ETOMIDATE IV SOLN 20 MG/10 ML VIAL IV ONE (03:15)
--- NOTE | 2019-11-29 03:57 | ED Upper Extremity ---
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 HX OF TORN LABRUM WITH SX REPAIR TO RIGHT SIDE. Nursing Sepsis Screen: No Definite Risk Source: patient Exam Limitations: no limitations History of Present Illness Date Seen by Provider: Nov 29, 2019 Time Seen by Provider: 03:02 Initial Comments This 39-year-old gentleman presents to the emergency room with spontaneous right anterior shoulder dislocation. He reports prior dislocations and surgery of the right shoulder. He denies it he strenuous activity or trauma today. He simply woke up to go to the restroom and experienced severe pain. Allergies and Home Medications Allergies Coded Allergies: prochlorperazine (Verified Allergy, Intermediate, 03/01/16) etomidate (Verified Adverse Reaction, Unknown, 11/29/19) INVOLUNTARY JERKING AND DYSTONIC MOVEMENTS Home Medications Hydrocodone/Acetaminophen 1 Each Tablet, 1 EACH PO Q4H PRN for PAIN-BREAKTHROUGH Prescribed by: VASHTI RAMIREZ on 11/29/19 0434 Hyoscyamine Sulfate 0.125 Mg Tab.subl, 1-2 TAB SL Q4H Prescribed by: SAURABH MARTIN on 01/19/19 1423 Lactobacillus Acidophilus 1 Each Capsule, 2 EACH PO QID Prescribed by: SAURABH MARTIN on 01/19/19 1423 Ondansetron 8 Mg Tab.rapdis, 8 MG PO Q6H Prescribed by: SAURABH MARTIN on 01/19/19 1423 Patient Home Medication List Home Medication List Reviewed: Yes Review of Systems Constitutional: no symptoms reported EENTM: no symptoms reported Respiratory: no symptoms reported Cardiovascular: no symptoms reported Gastrointestinal: no symptoms reported Genitourinary: no symptoms reported Musculoskeletal: see HPI Skin: no symptoms reported Psychiatric/Neurological: No Symptoms Reported Past Twyhhrz-Heotqr-Aqpace Hx Past Med/Social Hx: Reviewed Nursing Past Med/Soc Hx Patient Social History Alcohol Use: Denies Use Recreational Drug Use: Yes Drug of Choice: MARIJUANA Type Used: Cigarettes 2nd Hand Smoke Exposure: Yes Recent Foreign Travel: No Contact w/Someone Who Travel: No Recent Infectious Disease Expo: No Recent Hopitalizations: No Physical Abuse: No Sexual Abuse: No Mistreated: No Fear: No Immunizations Up To Date Tetanus Booster (TDap): Less than 5yrs Date of Pneumonia Vaccine: Nov 10, 2015 Seasonal Allergies Seasonal Allergies: No Past Medical History Surgeries: Yes (RIGHT SHOULDER SCOPE/LABRAL TEAR REPAIR; EGD 2011; TEETH EXTRACTION) Orthopedic Respiratory: Yes Asthma, Pneumonia, COPD Cardiac: No Neurological: Yes (STATES HE HAS NEUROPATHY, BUT UNKNOWN CAUSE--PT IS NOT DIABETIC. ) Headaches /Migraines, Neuropathy Reproductive Disorders: No Sexually Transmitted Disease: No HIV/AIDS: No Genitourinary: Yes Kidney Stones Gastrointestinal: Yes Gastroesophageal Reflux, Ulcer Musculoskeletal: Yes (RIGHT SHOULDER SURGERY FOR TORN LABRUM) Endocrine: No HEENT: Yes (GLASSES) Cancer: No Did You Recieve Any Treatments: No Psychosocial: Yes ADD/ADHD, Anxiety, PTSD, Bipolar, Depression Integumentary: No Blood Disorders: No Adverse Reaction/Blood Tranf: No Family Medical History No Pertinent Family Hx Physical Exam Vital Signs Vital Signs - First Documented 11/29/19 11/29/19 03:06 03:48 Temp 37.0 Pulse 119 Resp 20 B/P (MAP) 138/100 (113) O2 Delivery Room Air O2 Flow Rate 99.00 Capillary Refill : Less Than 3 Seconds Height, Weight, BMI Height: 5'7.50" Weight: 140lbs. oz. 63.959833eg; 23.00 BMI Method:Stated General Appearance: WD/WN, mild distress HEENT: PERRL/EOMI, normal ENT inspection, pharynx normal Neck: normal inspection Cardiovascular: no edema, no murmur, tachycardia Respiratory: no respiratory distress, no accessory muscle use, wheezing Shoulder: bone tenderness, deformity (Palpable anterior shoulder dislocation), limited ROM, pain Elbow/Forearm: normal inspection, no evidence of injury, Right Wrist: Yes normal inspection, Yes no evidence of injury Hand: normal inspection, no evidence of injury Neurologic/Psychiatric: cognos administrator II-XII nml as tested, no motor/sensory deficits, alert, normal mood/affect, oriented x 3 Skin: normal color, warm/dry Procedures/Interventions Patient Education: Explained Benefits, Explained Risks, Pt. Ack. Understanding Agreement on procedure with pt: Yes Breath Sounds per Auscultation: Wheezes Heart Sounds per Auscultation: Regular Airway Exam: Mouth opens >2 fingers Sedation Adminstration Time: 03:39 Total Time spent in CS 10 min Patient was treated with morphine 4 mg. Etomidate was administered for consc ious sedation. Patient underwent a brief period of dystonia and fasciculations followed by satisfactory sedation. The Legg maneuver was used to reduce the shoulder. Arm was placed in a shoulder immobilizer. Within a few minutes patient began to emerge from sedation. He experienced significant dystonia and fasciculations. This eventually resolved completely without further treatment. Splinting and Joint Reduction : Pre-Proc Neuro Vasc Exam: normal Post-Proc Neuro Vasc Exam: normal Joint Reduction Site: shoulder (R) Reduction Attempts: 2 Pre-Procedure NV Exam: Yes post joint reduction film: joint reduced Progress Reduction using the Legg maneuver was attempted with analgesia with morphine alone. Patient could not tolerate the abduction portion of the maneuver. Risks and benefits of conscious sedation were then discussed. Patient consented to conscious sedation with etomidate. After satisfactory sedation was achieved. The Legg maneuver was again used and reduction was easily achieved. Arm was placed in a sling. He was neurovascularly intact afterwards. Postreduction x- ray was obtained. Immobilizers: Medium Shoulder Progress/Results/Core Measures Results/Orders My Orders Orders - VASHTI MICHAUD MD Shoulder, Right, 2 Views (11/29/19 03:11) Morphine Injection (Morphine Injection (11/29/19 03:12) Etomidate Injection (Amidate Injection) (11/29/19 03:15) Ed Iv/Invasive Line Start (11/29/19 03:14) Ondansetron Injection (Zofran Injectio (11/29/19 04:00) Ketorolac Injection (Toradol Injection) (11/29/19 04:00) Hydrocodone/Apap 5/325 Tablet (Lortab 5 (11/29/19 04:00) Shoulder, Right, 2 Views (11/29/19 03:58) End Tidal Co2 (11/29/19 04:08) Medications Given in ED Current Medications Medications Dose Ordered Sig/Catracho Route Start Time Stop Time Status Last Admin Dose Admin Etomidate 20 mg ONCE ONCE IV 11/29/19 03:15 11/29/19 03:16 DC 11/29/19 03:39 20 MG Ketorolac Tromethamine 15 mg ONCE ONCE IVP 11/29/19 04:00 11/29/19 04:01 DC 11/29/19 03:59 15 MG Ondansetron HCl 4 mg ONCE ONCE IVP 11/29/19 04:00 11/29/19 04:01 DC 11/29/19 03:59 4 MG Vital Signs/I&O 11/29/19 11/29/19 03:06 03:48 Temp 37.0 Pulse 119 Resp 20 B/P (MAP) 138/100 (113) O2 Delivery Room Air Room Air O2 Flow Rate 99.00 Blood Pressure Mean: 113 Progress Progress Note : Progress Note Reduction was attempted with morphine alone using the Legg maneuver. He could not tolerate the abduction. Conscious sedation was discussed and he consented to conscious sedation with etomidate. Shoulder was satisfactorily reduced using sedation with etomidate. Patient did have an adverse reaction with dystonic movements. Etomidate was added to the allergy list. Pain was further treated with Toradol and hydrocodone after the procedure. Patient did vomit a little and was treated with Zofran. Diagnostic Imaging Diagonstic Imaging: Xray Plain Films/CT/US/NM/MRI: other (Right shoulder) Comments 2 views of the right shoulder reviewed by me. Report not yet available. There is an anterior shoulder dislocation with no fractures appreciated. Diagonstic Imaging: Xray Plain Films/CT/US/NM/MRI: other (Right shoulder reduction films) Comments Right shoulder reduction films viewed by me. Report not yet available. No ac citizen [place] injuries identified and satisfactory reduction noted. Departure Impression Primary Impression: Anterior shoulder dislocation Qualified Codes: S43.014A - Anterior dislocation of right humerus, initial encounter Additional Impression: Adverse reaction to drug Qualified Codes: T50.905A - Adverse effect of unspecified drugs, medicaments and biological substances, initial encounter Disposition: 01 HOME, SELF-CARE Condition: Improved Departure-Patient Inst. Decision time for Depature: 04:27 Referrals: SHELBIE YEAGER MD (PCP/Family) Primary Care Physician ELIDA CROWE MD Patient Instructions: Moderate Sedation in Adults (DC), Moderate Sedation in Children (DC), Shoulder Dislocation Add. Discharge Instructions: Keep your arm in the immobilizer as much as possible. Use ibuprofen up to 600 mg every 6 hours as needed for primary pain control. Use hydrocodone only for pain not controlled by ibuprofen. Follow-up with Dr. CROWE as soon as possible. Scripts Hydrocodone/Acetaminophen (Hydrocodone-Acetamin 5-325 mg) 1 Each Tablet 1 EACH PO Q4H PRN for PAIN-BREAKTHROUGH, #5 TAB Prov: VASHTI MICHAUD MD 11/29/19 Copy Copies To 1: ELIDA CROWE MD, JOSHUA T MD Nov 29, 2019 03:57
[2019-11-29] MEDS ORDERED: HYDROcodone/APAP 5 MG/325 MG (LORTAB) TAB PO ONE (04:00)
[2019-11-29] MEDS ORDERED: ONDANSETRON 4 MG/2 ML (SDV) Z0FRAN IVP ONE (04:00)
[2019-11-29] MEDS ORDERED: KETOROLAC 30 MG/ML VIAL IVP ONE (04:00)
[2019-11-29] MEDS ORDERED: ACHD5005 PO (04:34)
[2019-11-29 04:42] VITALS: BP 129/88
--- NOTE | 2019-11-29 04:45 | NUR ---
AWAKE AND ALERT, VERBALIZED UNDERSTANDING OF CONSCIOUS SEDATION D/C INSTRUCTIONS. AMBULATORY TO PRIVATE VEHICLE (WITH DRIVING) WITHOUT DIFFICULTY OBSERVED BY CLEMENTINE IGLESIAST.
--- NOTE | 2019-11-29 06:25 | Diagnostic Imaging Report ---
INDICATION: Right shoulder dislocation. FINDINGS: AP and oblique views of the right shoulder are obtained. Since study of earlier in the day, there has been hoahaoism of glenohumeral alignment. There is a questionable minimal cortical fracture along the anterior aspect of the joint which could represent avulsion injury. No other fracture is seen. IMPRESSION: Reduction of right shoulder dislocation with probable minimal cortical avulsion along the anterior aspect of the shoulder joint. Dictated by: Dictated on workstation # [id number]
--- NOTE | 2019-11-29 06:36 | Diagnostic Imaging Report ---
INDICATION: Right shoulder injury AP and oblique views of the right shoulder reveal anterior inferior dislocation of the humeral head with respect to the glenoid process. There is questionable indentation along the posterolateral aspect of the humeral head which may represent impaction fracture. Otherwise no abnormal lytic or sclerotic focus is seen. IMPRESSION: Anterior-inferior dislocation of the humeral head. Possibility of Hill-Sachs lesion is not excluded. Dictated by: Dictated on workstation # [id number]
== END 2019-11-29 04:45 | disposition home or self-care (01) ==
LOC: EDUNIT# 02:56 → ER 02:58
DX: S43.014A Anterior dislocation of right humerus, initial encounter (principal); T50.905A Adverse effect of unspecified drugs, medicaments and biological substances, initial encounter; Z88.8 Allergy status to other drugs, medicaments and biological substances; Z77.22 Contact with and (suspected) exposure to environmental tobacco smoke (acute) (chronic); X58.XXXA Exposure to other specified factors, initial encounter
CPT/HCPCS: 73030; 93041; L3650

== ENCOUNTER → 2020-01-03 | Outpatient (CLI) | payer MEDICAID ==
--- NOTE | 2020-01-03 14:12 | Diagnostic Imaging Report ---
PROCEDURE: CT right upper extremity without contrast. TECHNIQUE: Multiple contiguous axial images were obtained through the right upper extremity without the use of intravenous contrast. Sagittal and coronal reformations were then performed. Auto Exposure Controls were utilized during the CT exam to meet ALARA standards for radiation dose reduction. INDICATION: History of dislocation, status post torn labrum. COMPARISON: Radiographs from 11/29/2019. FINDINGS: There are postsurgical changes from prior labral repair seen with anchors in the glenoid. Small ossific fragments are seen at the anterior inferior glenoid, from old Bankart injury. No acute fracture is seen in the right shoulder. Alignment appears normal. No significant joint effusion is seen. Soft tissues about the right shoulder demonstrate no acute abnormality. There is hazy centrilobular groundglass opacity throughout the imaged right upper lobe, with mild emphysematous changes in the lung apex. There is a nodule in the right upper lobe measuring 6 mm (image 121, series 2). There is a subpleural nodule in the anterior right upper lobe measuring up to 4 mm (image 146, series 2). IMPRESSION: 1. Postsurgical changes from prior right glenoid labrum repair. 2. 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 3. Centrilobular groundglass opacities in the right lung are nonspecific, may be due to an infectious or an inflammatory process. 4. Pulmonary nodules in the right upper lobe, the largest measuring up to [address] of the chest in three to six months. Report faxed to Dr. Flores at 5:15 PM 01/03/2020/cb Dictated by: Dictated on workstation # [id number]
--- NOTE | 2020-01-03 16:10 | Diagnostic Imaging Report ---
PROCEDURE: MRI right joint upper extremity without contrast. TECHNIQUE: Multiplanar, multisequence non contrast-enhanced MRI of the right upper extremity was accomplished. INDICATION: History of previous right shoulder surgery, multiple dislocations. COMPARISON: Radiographs from 11/29/2019. FINDINGS: There are postsurgical changes from prior glenoid labrum repair. There is a bony Bankart injury, with small ossific fragments at the anteroinferior aspect of the glenoid. There is flattening of the anterior glenoid curvature with an anterior flat line of at least 27 mm. The glenoid measures 1.9 cm AP and 3.6 cm craniocaudal. The supraspinatus tendon appears intact. The infraspinatus tendon is intact. The teres minor tendon is intact. The subscapularis tendon is intact. There is no muscular atrophy. The long head of the biceps tendon is normal in course and signal. The glenoid labrum is suboptimally evaluated without intra-articular contrast, but there is tearing of the anteroinferior labrum extending into the posterior labrum as well. No large paralabral cysts are seen. The acromion has a somewhat convex undersurface. The coracoclavicular and coracoacromial ligaments are intact. Soft tissues about the right shoulder are otherwise unremarkable. IMPRESSION: 1. Postsurgical changes in the right glenoid with prior bony Bankart injury, resulting in decreased articular surface. 2. Tearing of the anteroinferior glenoid labrum extending into the posterior labrum as well. Dictated by: Dictated on workstation # [id number]
== END ==
LOC: RAD 13:15
PROVIDERS: ATTEND Orthopaedic Surgery
DX: S43.431A Superior glenoid labrum lesion of right shoulder, initial encounter (principal); M19.011 Primary osteoarthritis, right shoulder; X58.XXXA Exposure to other specified factors, initial encounter
CPT/HCPCS: 73200; 73221

== ENCOUNTER → 2020-02-09 | Outpatient (CLI) | payer MEDICAID ==
[2020-02-09 10:55] LABS: BASOPHILS % (AUTO) 0 % (0-10); EOSINOPHILS # (AUTO) 0.4 10^3/uL (0.0-0.3); EOSINOPHILS % (AUTO) 5 % (0-10); HEMATOCRIT 43 % (40-54); HEMOGLOBIN 14.5 g/dL (13.3-17.7); LYMPHOCYTES # (AUTO) 3.4 10^3/uL (1.0-4.0); LYMPHOCYTES % (AUTO) 47 % (12-44); MEAN CORPUSCULAR HEMOGLOBIN 33 pg (25-34); MEAN CORPUSCULAR HGB CONC 34 g/dL (32-36); MEAN CORPUSCULAR VOLUME 96 fL (80-99); MEAN PLATELET VOLUME 9.4 fL (9.0-12.2); MONOCYTES # (AUTO) 0.5 10^3/uL (0.0-1.0); MONOCYTES % (AUTO) 7 % (0-12); NEUTROPHILS # (AUTO) 2.9 10^3/uL (1.8-7.8); NEUTROPHILS % (AUTO) 40 % (42-75); PLATELET COUNT 288 10^3/uL (130-400); WHITE BLOOD COUNT 7.3 10^3/uL (4.3-11.0)
[2020-02-09 11:11] LABS: BUN/CREATININE RATIO 17; CALCIUM 9.2 MG/DL (8.5-10.1); CARBON DIOXIDE 24 MMOL/L (21-32); CHLORIDE 108 MMOL/L (98-107); CREATININE SERUM 1.01 MG/DL (0.60-1.30); GFR ESTIMATED > 60; GLUCOSE 90 MG/DL (70-105); POTASSIUM 4.7 MMOL/L (3.6-5.0); SODIUM 140 MMOL/L (135-145)
== END ==
LOC: LAB 10:25
PROVIDERS: ATTEND Orthopaedic Surgery
DX: Z01.812 Encounter for preprocedural laboratory examination (principal); S43.004A Unspecified dislocation of right shoulder joint, initial encounter; M19.019 Primary osteoarthritis, unspecified shoulder
CPT/HCPCS: 36415; 80048; 85025

== ENCOUNTER → 2020-02-13 | Outpatient (CLI) | payer MEDICAID | LOC: LABNPT 05:40 | PROVIDERS: ATTEND Orthopaedic Surgery | DX: Z01.812 Encounter for preprocedural laboratory examination (principal); S43.004A Unspecified dislocation of right shoulder joint, initial encounter; M19.019 Primary osteoarthritis, unspecified shoulder; Z53.9 Procedure and treatment not carried out, unspecified reason ==